=== PATIENT | female | born 1980 | race Two or more races ===

== ENCOUNTER 2021-10-15 10:57 | Outpatient (REF) | payer OTHER, SELFPAY ==
--- NOTE | ~2021-10-15 | XR_ITS ---
EXAMINATION: XR FOOT, RIGHT CLINICAL INFORMATION: Pain, lateral surface of the foot. COMPARISON: None TECHNIQUE: AP, lateral, and oblique views of the right foot. FINDINGS: No acute fracture or malalignment. Diffuse nonspecific soft tissue swelling. No radiopaque foreign bodies. No significant osteoarthritis. XR/XR foot RT min 3V IMPRESSION: Nonspecific soft tissue swelling. No acute osseous abnormality.
[2021-10-15 11:20] LABS: MANUAL DIFF FLAG NO
[2021-10-15 12:10] LABS: Basophils Percent Auto 0.2 % (0-2); Eosinophils Absolute Auto 0.1 X10*3/uL (0.0-0.4); Eosinophils Percent Auto 1.1 % (0-4); Hematocrit 38.4 % (37.0-47.0); Hemoglobin 12.5 g/dl (12.0-16.0); Imm Gran Abs Auto 0.02 X10*3/uL (0.00-0.03); Imm Gran Pct Auto 0.4 % (0.0-0.4); Lymphocytes Absolute Auto 1.5 X10*3/uL (1.2-4.9); Lymphocytes Percent Auto 27.8 % (20-40); Mean Corpuscular HGB Conc 32.6 g/dl (31.0-35.0); Mean Corpuscular Hemoglobin 30.7 pg (27.0-33.0); Mean Corpuscular Volume 94.3 fL (80.0-98.0); Mean Platelet Volume 10.4 fL (9.4-12.3); Monocytes Absolute Auto 0.4 X10*3/uL (0.1-1.2); Monocytes Percent Auto 6.7 % (2-11); Neutrophils Absolute Auto 3.3 x10*3/uL (2.0-8.3); Neutrophils Percent Auto 63.8 % (45-73); Platelet Count 262 X10*3/uL (160-400); Red Blood Count 4.07 X10*6/uL (4.20-5.50); Red Cell Distribution Width 12.7 % (11.0-16.0); White Blood Count 5.2 X10*3/uL (4.8-10.8)
[2021-10-15 12:16] LABS: C Reactive Protein 1.69 mg/dL (< or = 0.50)
[2021-10-15 13:00] LABS: Erythrocyte Sedimentation Rate 18 MM/HR (0-20)
== END 2021-10-15 10:58 | disposition home or self-care (01) ==
LOC: HO.XRAY 10:57
PROVIDERS: Visit Provider Internal Medicine Rheumatology
DX: M45.9 Ankylosing spondylitis of unspecified sites in spine (principal); K42.9 Umbilical hernia without obstruction or gangrene; L30.9 Dermatitis, unspecified; M79.671 Pain in right foot; G89.29 Other chronic pain; Z79.899 Other long term (current) drug therapy
CPT/HCPCS: 36415; 73630; 85025; 85652; 86140; 99212

== ENCOUNTER 2022-01-18 17:05 | Outpatient (REF) | payer OTHER, SELFPAY ==
[2022-01-18 18:17] LABS: C Reactive Protein 1.09 mg/dL (< or = 0.50)
[2022-01-18 18:40] LABS: Erythrocyte Sedimentation Rate 25 MM/HR (0-20)
[2022-01-18 18:41] LABS: TSH reflex Free T4 1.16 uIU/mL (0.32-4.0)
[2022-01-21 02:26] LABS: TS Negative Control Passed; TS Panel A 1; TS Panel B 1; TS Positive Control Passed; TSpotTB Negative (Negative)
== END 2022-01-18 17:06 | disposition home or self-care (01) ==
LOC: HO.LAB 17:05
PROVIDERS: Visit Provider Internal Medicine Rheumatology
DX: Z11.1 Encounter for screening for respiratory tuberculosis (principal); R53.83 Other fatigue; M54.9 Dorsalgia, unspecified; M79.671 Pain in right foot; G89.29 Other chronic pain; Z79.899 Other long term (current) drug therapy
CPT/HCPCS: 36415; 84443; 85652; 86140; 86481; 99212

== ENCOUNTER 2022-03-28 13:47 | Emergency (ER) | payer OTHER, SELFPAY ==
--- NOTE | ~2022-03-28 | XR_ITS ---
EXAMINATION: XR CHEST CLINICAL INFORMATION: Cough. COMPARISON: None TECHNIQUE: 2 views of the chest were obtained. FINDINGS: No significant abnormality is noted involving the heart, lungs, mediastinum, bony thorax or soft tissues. XR/XR chest 2V IMPRESSION: No acute cardiopulmonary process.
--- NOTE | 2022-03-28 14:01 | ED_ITS ---
HPI - URI/Sore Throat General Chief Complaint: Upper Respiratory Symptoms Stated Complaint: Cough Time Seen by Provider: 03/28/22 14:05 Source: patient Mode of arrival: ambulatory History of Present Illness HPI Narrative: 41-year-old female with a past medical history of depression, GERD, umbilical hernia, presenting to the ED complaining of persistent productive cough x3 weeks with nasal congestion, rhinorrhea, SOB, and wheezing at night. Patient states she thinks she has emphysema. Denies known fever, chills, recent travel, pedal edema, calf pain, chest pain MD elicited complaint: cough, rhinorrhea and nasal congestion Onset (ago): week(s) Related Data Home Medications Medication Instructions Recorded Confirmed albuterol sulfate 90 mcg/actuation 2 puff inhalation Q6H PRN 10/15/21 01/18/22 aerosol inhaler (ProAir HFA) cetirizine 10 mg tablet (All Day 10 mg PO DAILY 10/15/21 01/18/22 Allergy (cetirizine)) escitalopram oxalate 20 mg tablet 20 mg PO DAILY 10/15/21 01/18/22 famotidine 20 mg tablet 20 mg PO BEDTIME 10/15/21 01/18/22 flunisolide 25 mcg (0.025 %) nasal 2 spray intranasal BID 10/15/21 01/18/22 spray fluticasone propionate 44 2 puff inhalation BID 10/15/21 01/18/22 mcg/actuation HFA aerosol inhaler (Flovent HFA) ibuprofen 800 mg tablet 800 mg PO Q8H PRN 10/15/21 01/18/22 Previous Rx's Medication Instructions Recorded triamcinolone acetonide 0.1 % 1 appl topical BID #80 grams 10/15/21 topical ointment etanercept 50 mg/mL (1 mL) 50 mg subcut QWEEK #4 mL 01/24/22 subcutaneous pen injector (Enbrel [employer]) Allergies Allergy/AdvReac Type Severity Reaction Status Date / Time acetaminophen [Percocet] Allergy Intermediate shortness Verified 03/28/22 14:02 of breath lidocaine [LIDOCAINE] Allergy Intermediate UNKNOWN Verified 03/28/22 14:02 naproxen [NAPROXEN] Allergy Intermediate UNKNOWN, Verified 03/28/22 14:02 rash oxycodone [From PERCOCET] Allergy Intermediate UNKNOWN Verified 03/28/22 14:02 Sulfa (Sulfonamide Allergy Intermediate rash Verified 03/28/22 14:02 Antibiotics) sulfamethoxazole Allergy Intermediate Rash Verified 03/28/22 14:02 [From BACTRIM] trimethoprim [From BACTRIM] Allergy Intermediate Rash Verified 03/28/22 14:02 Novocain Allergy Intermediate rash Uncoded 03/28/22 14:02 Review of Systems Review of Systems: Constitutional: No Fever, No Chills ENT/Mouth: No Ear Pain, + Nasal Congestion, No Sinus Pain, No Hoarseness, No sore throat, + Rhinorrhea, No Swallowing Difficulty Cardiovascular: No Chest Pain, + SOB, No edema Respiratory: + Cough, + Sputum, + Wheezing Gastrointestinal: No Nausea, No Vomiting, No Diarrhea, No Constipation, No Abdominal pain Genitourinary: No Dysuria, No Urinary Frequency, No Hematuria, No Urgency, No Flank Pain Musculoskeletal: No joint pain, No Myalgias, No Joint Swelling Skin: No Skin Lesions, No rash Neuro: No Weakness Yes all other systems are reviewed and are negative Constitutional: Constitutional: Reports as per [facility] Past Medical History Attestation statement: The following information was validated with the patient. 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 Pain, foot, right, chronic Umbilical hernia Surgical History Hx of tubal ligation Hx of umbilical hernia repair Family History Family History Mother Diabetes Arthritis Father Diabetes Heart disease Social History Social History Household Members: Family Housing: Apartment Are you a primary resident care supervisor to a significant other at home: No Do you presently have visiting nurse or other home services: No Alcohol intake: current Alcohol intake frequency: a few times a month Alcohol type: beer and wine Patient Tobacco Use Status: Never used Tobacco e-Cigarette/Vaping Use: Never Used Advance Directives: No Advance Directives Information Provided: No service: No Current occupational status: disabled Physical Exam Vital Signs: Vital Signs: Last Vital Signs Temp 97.4 F 03/28/22 14:02 Pulse 84 03/28/22 14:32 Resp 18 03/28/22 14:32 BP 113/72 03/28/22 14:02 Pulse Ox 100 03/28/22 14:02 O2 Del Method 03/28/22 14:02 BMI result Body Mass Index 43.7 Const: General: cooperative, healthy appearing and no acute distress Orientation/consciousness: patient oriented x3 Limitations: no limitations HEENT: Head: Yes normal to inspection and Yes atraumatic Ears: hearing grossly normal bilaterally General nose exam: Normal external nose present Face and sinus: Yes normal facial exam Mouth: Normal oral and palatal mucosa present Throat: Yes posterior oropharynx normal, Yes tonsils normal, Yes uvula midline and No peritonsillar mass Eyes: General: appearance normal, both eyes and all related structures EOM: EOMs intact bilaterally Neck: Neck: Yes normal visual inspection and Yes no meningeal signs Resp: Effort & Inspection: normal respiratory effort, no respiratory distress, no stridor and not tachypneic Auscultation: clear to auscultation bilaterally, no crackles, no rales, no rhonchi and no wheezes Cardio: Rate: regular rate Heart sounds: S1 normal heart sound present and S2 normal heart sound present GI: Inspection: Yes normal to inspection : General: Yes no CVA tenderness Back/Spine/Pelvis: Back: no CVA tenderness Skin: Rashes: no rashes Wounds: no wounds Neuro: General: patient oriented x3, tone normal and no meningeal signs Gait exam (Neuro): Normal gait present Extrem: General: Yes normal to inspection, Yes no pedal edema and Yes no calf tenderness Course Course Course Narrative: - COVID-19/influenza/ RSV negative XR chest 2V IMPRESSION: No acute cardiopulmonary process. Results discussed with patient including worrisome signs and symptoms and strict return precautions, and when to return to the emergency department. They verbalized understanding and feel safe for discharge at this time. Medications Administered Discontinued Medications Generic Name Dose Route Start Last Admin Trade Name Freq PRN Reason Stop Dose Admin Albuterol/Ipratropium 3 ml 03/28/22 14:11 03/28/22 14:31 Albuterol/Iprat 2.5/0.5mg 3 Ml Ampul.Neb INHALE 03/28/22 14:12 3 ml ONCE ONE Administration MDM - URI/Sore Throat MDM Narrative Medical decision making narrative: 41-year-old female with a past medical history of depression, GERD, umbilical hernia, presenting to the ED complaining of persistent productive cough x3 weeks with nasal congestion, rhinorrhea, SOB, and wheezing at night. On exam vital signs stable, NAD, nontoxic appearing, lungs CTA, no appreciable wheeze, no pedal edema or calf tenderness. Concern for viral illness vs bronchitis vs pneumonia. Low suspicion for ACS/PE Plan: COVID-19/influenza/RSV testing, CXR Differential Diagnosis Differential diagnosis: Likely upper respiratory infection, viral infection, bronchitis, influenza and pharyngitis Medical Records Attestation: I reviewed the patient's medical records. Lab Data Attestation: I reviewed the patient's lab results. Labs: Lab Results 03/28/22 Range/Units 14:06 Influenza Type A (PCR) NEGATIVE (Negative) Influenza Type B (PCR) NEGATIVE (Negative) RSV RNA Qual (PCR) NEGATIVE (Negative) SARS-CoV-2 RNA (RT-PCR) NEGATIVE (Negative) Discharge Plan Discharge Clinical Impression: Bronchitis Patient Disposition: Home, Self-Care Instructions: Acute Bronchitis (ED) Prescriptions: No Action Enbrel SureClick 50 mg/mL (1 mL) pen injector 50 mg subcut QWEEK Qty: 4 4RF ibuprofen 800 mg tablet 800 mg PO Q8H PRN escitalopram oxalate 20 mg tablet 20 mg PO DAILY famotidine 20 mg tablet 20 mg PO BEDTIME albuterol sulfate [ProAir HFA] 90 mcg/actuation HFA aerosol inhaler 2 puff inhalation Q6H PRN flunisolide 25 mcg (0.025 %) spray,non-aerosol 2 spray intranasal BID fluticasone propionate [Flovent HFA] 44 mcg/actuation HFA aerosol inhaler 2 puff inhalation BID Rx Instructions: administer with spacer cetirizine [All Day Allergy (cetirizine)] 10 mg tablet 10 mg PO DAILY triamcinolone acetonide 0.1 % ointment 1 appl topical BID Qty: 80 1RF Referrals: [facility] [Provider Group]
[2022-03-28 14:02] VITALS: BP 113/72; PULSE 77; RESP 18; TEMP 36.3; O2SAT 100; BMI 43.7
[2022-03-28] MEDS: Albuterol/Iprat 2.5/0.5MG 3 ML AMPUL.NEB INHALE (14:31)
[2022-03-28 14:32] VITALS: PULSE 84; RESP 18; O2SAT 97
[2022-03-28 14:52] LABS: Influenza A PCR NEGATIVE (Negative); Influenza B PCR NEGATIVE (Negative); Resp Syncy Virus RNA Qual PCR NEGATIVE (Negative); SARS COV2 PCR INHOUSE NEGATIVE (Negative)
== END 2022-03-28 15:58 | disposition home or self-care (01) ==
PROVIDERS: Physician Assistant; Emergency Provider Emergency Medicine Emergency Medical Services; PCP Family Medicine
DX: J40 Bronchitis, not specified as acute or chronic (principal); R05.9 Cough, unspecified; Z20.822 Contact with and (suspected) exposure to COVID-19; Z79.899 Other long term (current) drug therapy
CPT/HCPCS: 0241U; 71046; 94640; 99284

== ENCOUNTER 2022-06-03 14:34 | Emergency (ER) | payer OTHER, SELFPAY ==
--- NOTE | 2022-06-03 15:12 | ED.URI ---
HPI - URI/Sore Throat General Chief Complaint: General Medical <Savanah Middleton NP - Last Filed: 06/05/22 08:08> Stated Complaint: sore throat fever <Savanah Middleton NP - Last Filed: 06/05/22 08:08> Time Seen by Provider: 06/03/22 16:51 <Savanah Middleton NP - Last Filed: 06/05/22 08:08> History of Present Illness HPI Narrative: Patient complains of runny nose mild sore throat, she is COVID positive byher home test she does use the medication Humira She denies chest pain no shortness of breath, she does have a mild cough no sputum, she does have a mild sore throat but has no trouble breathing or swallowing no drooling No ear pain no abdominal pain no nausea vomiting or diarrhea no dysuria no rash <RUTH Castillo - Last Filed: 06/11/22 18:28> Related Data Home Medications: Home Medications Medication Instructions Recorded Confirmed albuterol sulfate 90 mcg/actuation 2 puff inhalation Q6H PRN 10/15/21 01/18/22 aerosol inhaler (ProAir HFA) cetirizine 10 mg tablet (All Day 10 mg PO DAILY 10/15/21 01/18/22 Allergy (cetirizine)) escitalopram oxalate 20 mg tablet 20 mg PO DAILY 10/15/21 01/18/22 famotidine 20 mg tablet 20 mg PO BEDTIME 10/15/21 01/18/22 flunisolide 25 mcg (0.025 %) nasal 2 spray intranasal BID 10/15/21 01/18/22 spray fluticasone propionate 44 2 puff inhalation BID 10/15/21 01/18/22 mcg/actuation HFA aerosol inhaler (Flovent HFA) ibuprofen 800 mg tablet 800 mg PO Q8H PRN 10/15/21 01/18/22 diclofenac sodium 1 % topical gel 2 g topical TID 04/19/22 Previous Rx's Medication Instructions Recorded triamcinolone acetonide 0.1 % 1 appl topical BID #80 grams 10/15/21 topical ointment albuterol sulfate 2.5 mg/0.5 mL 5 mg inhalation Q4H PRN shortness 03/28/22 solution for nebulization of breath or wheezing #30 ea albuterol sulfate 90 mcg/actuation 2 puff inhalation Q4-6H PRN 03/28/22 aerosol inhaler shortness of breath or wheezing #6.7 grams benzonatate 100 mg capsule 100 mg PO TID PRN cough #14 caps 03/28/22 adalimumab 40 mg/0.4 mL 40 mg (0.4 mL) subcut Q2W 56 days 04/27/22 subcutaneous pen kit (Humira(CF) #1.6 ea Pen) albuterol sulfate 90 mcg/actuation 2 puff inhalation Q4-6H PRN 06/03/22 aerosol inhaler shortness of breath or wheezing #8.5 grams nirmatrelvir 300 mg (150 mg See Rx Instructions PO .COMPLEX 06/03/22 x2)-ritonavir 100 mg tablet,dose #30 ea pack(EUA) (Paxlovid) <Savanah Middleton NP - Last Filed: 06/05/22 08:08> Allergies/Adverse Reactions: Allergies Allergy/AdvReac Type Severity Reaction Status Date / Time acetaminophen [Percocet] Allergy Intermediate shortness Verified 04/19/22 15:23 of breath lidocaine [LIDOCAINE] Allergy Intermediate UNKNOWN Verified 04/19/22 15:23 naproxen [NAPROXEN] Allergy Intermediate UNKNOWN, Verified 04/19/22 15:23 rash oxycodone [From PERCOCET] Allergy Intermediate UNKNOWN Verified 04/19/22 15:23 Sulfa (Sulfonamide Allergy Intermediate rash Verified 04/19/22 15:23 Antibiotics) sulfamethoxazole Allergy Intermediate Rash Verified 04/19/22 15:23 [From BACTRIM] trimethoprim [From BACTRIM] Allergy Intermediate Rash Verified 04/19/22 15:23 Novocain Allergy Intermediate rash Uncoded 04/19/22 15:23 <Savanah Middleton NP - Last Filed: 06/05/22 08:08> [facility] Past Medical History Source: nursing notes reviewed <RUTH Castillo - Last Filed: 06/11/22 18:28> Medical History: Medical History (Updated 06/03/22 @ 18:12 by RUTH Castillo) Ankylosing spondylitis Carpal tunnel syndrome Chronic eczema of foot Depression GERD (gastroesophageal reflux disease) 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 Pain, foot, right, chronic Umbilical hernia <Savanah Middleton NP - Last Filed: 06/05/22 08:08> Surgical History: Surgical History Hx of tubal ligation Hx of umbilical hernia repair <Savanah Middleton NP - Last Filed: 06/05/22 08:08> Family History Family History: Family History Mother Diabetes Arthritis Father Diabetes Heart disease <Savanah Middleton NP - Last Filed: 06/05/22 08:08> Social History Social History: Social History Household Members: Family Housing: Apartment Are you a primary career and guidance counselor to a significant other at home: No Do you presently have visiting nurse or other home services: No Alcohol intake: current Alcohol intake frequency: a few times a month Alcohol type: beer and wine Patient Tobacco Use Status: Never used Tobacco e-Cigarette/Vaping Use: Never Used Advance Directives: No Advance Directives Information Provided: Yes service: No Current occupational status: disabled <Savanah Middleton NP - Last Filed: 06/05/22 08:08> Physical Exam Vital Signs: Vital Signs: Last Vital Signs Temp 97.5 F 06/03/22 15:18 Pulse 82 06/03/22 15:18 Resp 16 06/03/22 15:18 BP 109/68 06/03/22 15:18 Pulse Ox 98 06/03/22 15:18 O2 Del Method 06/03/22 15:18 BMI result Body Mass Index 42.9 <Savanah Middleton NP - Last Filed: 06/05/22 08:08> Vital Signs: Last Vital Signs Temp 97.5 F 06/03/22 15:18 Pulse 82 06/03/22 15:18 Resp 16 06/03/22 15:18 BP 109/68 06/03/22 15:18 Pulse Ox 98 06/03/22 15:18 O2 Del Method 06/03/22 15:18 BMI result Body Mass Index 42.9 <RUTH Castillo - Last Filed: 06/11/22 18:28> general appearance is no distress Eyes anicteric no pallor no redness no discharge The nose no sinus tenderness, mildly congested The pharynx is clear without redness swelling or exudate membranes moist Neck is supple Chest clear to auscultation bilateral Heart no murmur Abdomen soft nontender Extremities range of motion x4 Skin no rashes <RUTH Castillo - Last Filed: 06/11/22 18:28> Course Course Course Narrative: This is a rapid medical exam. Deferred additional HPI, ROS, PE to primary provider. 41yo female here with cough, chest congestion since Tuesday. Took COVID test and it was positive. Here because she is concerned she may have bronchitis. VSS. Will send testing for covid. <Savanah Middleton NP - Last Filed: 06/05/22 08:08> This is a rapid medical exam. Deferred additional HPI, ROS, PE to primary provider. 41yo female here with cough, chest congestion since Tuesday. Took COVID test and it was positive. Here because she is concerned she may have bronchitis. VSS. Will send testing for covid. Patient positive for COVID with mild symptoms but does take Hum meghna and is pprescribed paxlovid <RUTH Castillo - Last Filed: 06/11/22 18:28> Medical Decision Making Lab Data Labs: Lab Results 06/03/22 Range/Units 15:28 COVID-19 ([facility]) Positive A (Negative) COVID-19 Clin Com See Note <Savanah Middleton NP - Last Filed: 06/05/22 08:08> Lab Results 06/03/22 Range/Units 15:28 COVID-19 ([facility]) Positive A (Negative) COVID-19 Clin Com See Note <RUTH Castillo - Last Filed: 06/11/22 18:28> Discharge Plan Discharge Clinical Impression: COVID-19 <Savanah Middleton NP - Last Filed: 06/05/22 08:08> Patient Disposition: Home, Self-Care <Savanah Middleton NP - Last Filed: 06/05/22 08:08> Additional Instructions: Because you have COVID and are using an immune suppressant medication it may be a good idea to take the COVID antiviral paxlovid I checked for drug interactions and it seems like you can continue all present medications Return any time for difficulty breathing any worse condition any concerns The antiviral medication seems to prevent hospitalization and dangerous escalations of COVID illness In addition I wrote for an albuterol inhaler to use only if needed, right now your lung sounds were crystal clear and full with no wheezing and your exam and vital signs were normal <Savanah Middleton NP - Last Filed: 06/05/22 08:08> Prescriptions: New Paxlovid (EUA) 300 mg (150 mg x 2)-100 mg tablets,dose pack See Rx Instructions .ROUTE .COMPLEX Qty: 30 0RF Rx Instructions: take TWO 150 mg tablets of nirmatrelvir with ONE 100 mg tablet of ritonavir twice daily for 5 days albuterol sulfate 90 mcg/actuation HFA aerosol inhaler 2 puff inhalation Q4-6H PRN (Reason: shortness of breath or wheezing) Qty: 8.5 0RF No Action Humira(CF) Pen 40 mg/0.4 mL pen injector kit 40 mg subcut Q2W 56 Days Qty: 1.6 5RF benzonatate 100 mg capsule 100 mg PO TID PRN (Reason: cough) Qty: 14 0RF albuterol sulfate 90 mcg/actuation HFA aerosol inhaler 2 puff inhalation Q4-6H PRN (Reason: shortness of breath or wheezing) Qty: 6.7 0RF albuterol sulfate 2.5 mg/0.5 mL solution for nebulization 5 mg inhalation Q4H PRN (Reason: shortness of breath or wheezing) Qty: 30 0RF ibuprofen 800 mg tablet 800 mg PO Q8H PRN escitalopram oxalate 20 mg tablet 20 mg PO DAILY famotidine 20 mg tablet 20 mg PO BEDTIME albuterol sulfate [ProAir HFA] 90 mcg/actuation HFA aerosol inhaler 2 puff inhalation Q6H PRN flunisolide 25 mcg (0.025 %) spray,non-aerosol 2 spray intranasal BID fluticasone propionate [Flovent HFA] 44 mcg/actuation HFA aerosol inhaler 2 puff inhalation BID Rx Instructions: administer with spacer cetirizine [All Day Allergy (cetirizine)] 10 mg tablet 10 mg PO DAILY triamcinolone acetonide 0.1 % ointment 1 appl topical BID Qty: 80 1RF diclofenac sodium 1 % gel 2 g topical TID <Savanah Middleton NP - Last Filed: 06/05/22 08:08> Stand Alone Forms: Work/School Release <Savanah Middleton NP - Last Filed: 06/05/22 08:08> Interventions: ED Discharge Assessment Last Done: 06/03/22 18:29 <Savanah Middleton NP - Last Filed: 06/05/22 08:08> Discharge Date/Time: 06/03/22 18:29 <Savanah Middleton NP - Last Filed: 06/05/22 08:08>
[2022-06-03 15:18] VITALS: BP 109/68; PULSE 82; RESP 16; TEMP 36.4; O2SAT 98; BMI 42.9
[2022-06-03 15:48] LABS: COVID-19 Test Positive (Negative); IDNOW Serial# 6674DD1D
== END 2022-06-03 18:29 | disposition home or self-care (01) ==
PROVIDERS: Nurse Practitioner Family; Emergency Provider Emergency Medicine; PCP Internal Medicine Nephrology
DX: U07.1 COVID-19 (principal); R50.9 Fever, unspecified; J02.8 Acute pharyngitis due to other specified organisms; Z79.899 Other long term (current) drug therapy
CPT/HCPCS: 87635; 99282; 99283

== ENCOUNTER 2022-06-21 15:37 | Emergency (ER) | payer OTHER, SELFPAY ==
[2022-06-21 16:57] VITALS: BP 114/72; PULSE 74; RESP 18; TEMP 36.8; O2SAT 98; BMI 42.9
--- NOTE | 2022-06-21 17:02 | ED.NEUROSD ---
HPI - Neuro Symptoms/Deficit General Chief Complaint: Back Pain/Injury Stated Complaint: numbness from the waist down, multiple symptoms Time Seen by Provider: 06/21/22 17:01 Source: patient Mode of arrival: ambulatory Limitations: no limitations History of Present Illness HPI Narrative: patient with multiple complaints with history of ankylosing spondylosis complaining of lower back pain urinary incontinence questionable bladder prolapse. Also complaining of pain and numbness in both lower extremities sometimes off and on when she sits for long time no muscle weakness although patient has out of gas and multiple times bowel movements a day increased stress and depression Related Data Home Medications Medication Instructions Recorded Confirmed albuterol sulfate 90 mcg/actuation 2 puff inhalation Q6H PRN 10/15/21 01/18/22 aerosol inhaler (ProAir HFA) cetirizine 10 mg tablet (All Day 10 mg PO DAILY 10/15/21 01/18/22 Allergy (cetirizine)) escitalopram oxalate 20 mg tablet 20 mg PO DAILY 10/15/21 01/18/22 famotidine 20 mg tablet 20 mg PO BEDTIME 10/15/21 01/18/22 flunisolide 25 mcg (0.025 %) nasal 2 spray intranasal BID 10/15/21 01/18/22 spray fluticasone propionate 44 2 puff inhalation BID 10/15/21 01/18/22 mcg/actuation HFA aerosol inhaler (Flovent HFA) ibuprofen 800 mg tablet 800 mg PO Q8H PRN 10/15/21 01/18/22 diclofenac sodium 1 % topical gel 2 g topical TID 04/19/22 Previous Rx's Medication Instructions Recorded triamcinolone acetonide 0.1 % 1 appl topical BID #80 grams 10/15/21 topical ointment albuterol sulfate 2.5 mg/0.5 mL 5 mg inhalation Q4H PRN shortness 03/28/22 solution for nebulization of breath or wheezing #30 ea albuterol sulfate 90 mcg/actuation 2 puff inhalation Q4-6H PRN 03/28/22 aerosol inhaler shortness of breath or wheezing #6.7 grams benzonatate 100 mg capsule 100 mg PO TID PRN cough #14 caps 03/28/22 adalimumab 40 mg/0.4 mL 40 mg (0.4 mL) subcut Q2W 56 days 04/27/22 subcutaneous pen kit (Humira(CF) #1.6 ea Pen) albuterol sulfate 90 mcg/actuation 2 puff inhalation Q4-6H PRN 06/03/22 aerosol inhaler shortness of breath or wheezing #8.5 grams nirmatrelvir 300 mg (150 mg See Rx Instructions PO .COMPLEX 06/03/22 x2)-ritonavir 100 mg tablet,dose #30 ea pack(EUA) (Paxlovid) dicyclomine 20 mg tablet 20 mg PO QID PRN abdominal pain 06/21/22 #20 tabs Allergies Allergy/AdvReac Type Severity Reaction Status Date / Time acetaminophen [Percocet] Allergy Intermediate shortness Verified 04/19/22 15:23 of breath lidocaine [LIDOCAINE] Allergy Intermediate UNKNOWN Verified 04/19/22 15:23 naproxen [NAPROXEN] Allergy Intermediate UNKNOWN, Verified 04/19/22 15:23 rash oxycodone [From PERCOCET] Allergy Intermediate UNKNOWN Verified 04/19/22 15:23 Sulfa (Sulfonamide Allergy Intermediate rash Verified 04/19/22 15:23 Antibiotics) sulfamethoxazole Allergy Intermediate Rash Verified 04/19/22 15:23 [From BACTRIM] trimethoprim [From BACTRIM] Allergy Intermediate Rash Verified 04/19/22 15:23 Novocain Allergy Intermediate rash Uncoded 04/19/22 15:23 Review of Systems Review of Systems: Yes all other systems are reviewed and are negative [facility] Past Medical History Medical History Ankylosing spondylitis Carpal tunnel syndrome Chronic eczema of foot Depression GERD (gastroesophageal reflux disease) jail use of drug Pain, foot, right, chronic Umbilical hernia Surgical History Hx of tubal ligation Hx of umbilical hernia repair Family History Family History Mother Diabetes Arthritis Father Diabetes Heart disease Social History Social History Household Members: Family Housing: Apartment Are you a primary school child care attendant to a significant other at home: No Do you presently have visiting nurse or other home services: No Alcohol intake: current Alcohol intake frequency: a few times a month Alcohol type: beer and wine Patient Tobacco Use Status: Never used Tobacco e-Cigarette/Vaping Use: Never Used Advance Directives: No Advance Directives Information Provided: No service: No Current occupational status: disabled Physical Exam Vital Signs: Vital Signs: Last Vital Signs Temp 98.3 F 06/21/22 16:57 Pulse 74 06/21/22 16:57 Resp 18 06/21/22 16:57 BP 114/72 06/21/22 16:57 Pulse Ox 98 06/21/22 16:57 O2 Del Method 06/21/22 16:57 BMI result Body Mass Index 42.9 Appearance: Alert. Oriented X3. No acute distress. Eyes: PERRLA, No Nystagmus ENT: Pharynx normal. Oral Mucosa moist Neck: Normal inspection. Neck supple. CVS: Normal heart rate and rhythm. Pulses normal. Respiratory: No respiratory distress. Abdomen: Soft and nontender. Bowel sounds are present, no mass palpable, no CVA tenderness Skin: Skin warm and dry. Normal skin color. Normal skin turgor. Extremities: No lower extremity edema. No calf tenderness back: diffuse tenderness in lower lumbar area SLR negative bilaterally reflexes are normal normal sacral sensation normal gait Neuro: Oriented X 3. No motor deficit. No sensory deficit.No cerebellar signs , cranial nerves II-XII intact Medical Decision Making Medical Decision Making MDM Narrative: patient with multiple complaints clinically IBS with depression with chronic back pain no signs of cord compression patient may have cystocele advised to follow-up with wrapper layer and examiner soft work will start patient on Bentyl Discharge Plan Discharge Clinical Impression: Chronic back pain, Irritable bowel syndrome Patient Disposition: Home, Self-Care Instructions: Irritable Bowel Syndrome (ED), Chronic Back Pain (DC) Additional Instructions: follow-up with your PCP and wrapper layer and examiner soft work medication for bowel symptoms as prescribed Prescriptions: New dicyclomine 20 mg tablet 20 mg PO QID PRN (Reason: abdominal pain) Qty: 20 0RF No Action Humira(CF) Pen 40 mg/0.4 mL pen injector kit 40 mg subcut Q2W 56 Days Qty: 1.6 5RF Paxlovid (EUA) 300 mg (150 mg x 2)-100 mg tablets,dose pack See Rx Instructions .ROUTE .COMPLEX Qty: 30 0RF Rx Instructions: take TWO 150 mg tablets of nirmatrelvir with ONE 100 mg tablet of ritonavir twice daily for 5 days albuterol sulfate 90 mcg/actuation HFA aerosol inhaler 2 puff inhalation Q4-6H PRN (Reason: shortness of breath or wheezing) Qty: 8.5 0RF benzonatate 100 mg capsule 100 mg PO TID PRN (Reason: cough) Qty: 14 0RF albuterol sulfate 90 mcg/actuation HFA aerosol inhaler 2 puff inhalation Q4-6H PRN (Reason: shortness of breath or wheezing) Qty: 6.7 0RF albuterol sulfate 2.5 mg/0.5 mL solution for nebulization 5 mg inhalation Q4H PRN (Reason: shortness of breath or wheezing) Qty: 30 0RF ibuprofen 800 mg tablet 800 mg PO Q8H PRN escitalopram oxalate 20 mg tablet 20 mg PO DAILY famotidine 20 mg tablet 20 mg PO BEDTIME albuterol sulfate [ProAir HFA] 90 mcg/actuation HFA aerosol inhaler 2 puff inhalation Q6H PRN flunisolide 25 mcg (0.025 %) spray,non-aerosol 2 spray intranasal BID fluticasone propionate [Flovent HFA] 44 mcg/actuation HFA aerosol inhaler 2 puff inhalation BID Rx Instructions: administer with spacer cetirizine [All Day Allergy (cetirizine)] 10 mg tablet 10 mg PO DAILY triamcinolone acetonide 0.1 % ointment 1 appl topical BID Qty: 80 1RF diclofenac sodium 1 % gel 2 g topical TID Interventions: ED Discharge Assessment Last Done: 06/21/22 18:41 Discharge Date/Time: 06/21/22 18:41
== END 2022-06-21 18:41 | disposition home or self-care (01) ==
PROVIDERS: Emergency Provider Internal Medicine; PCP Family Medicine
DX: G89.29 Other chronic pain (principal); M54.50 Low back pain, unspecified; K58.9 Irritable bowel syndrome, unspecified
CPT/HCPCS: 99282; 99283

== ENCOUNTER → 2022-07-28 10:53 | Outpatient (BNVA) | payer OTHER, SELFPAY | PROVIDERS: PCP Family Medicine; Visit Provider Internal Medicine Rheumatology ==

== ENCOUNTER 2022-10-02 13:38 | Emergency (ER) | payer OTHER, SELFPAY ==
--- NOTE | ~2022-10-02 | XR_ITS ---
EXAMINATION: XR CHEST CLINICAL INFORMATION: Chest pain COMPARISON: None available. TECHNIQUE: 2 views of the chest were obtained. FINDINGS: No significant abnormality is noted involving the heart, lungs, mediastinum, bony thorax or soft tissues. XR/XR chest 2V IMPRESSION: Unremarkable chest examination.
--- NOTE | ~2022-10-02 | US_ITS ---
EXAMINATION: US PELVIS CLINICAL INFORMATION: Pelvic pain COMPARISON: OB ultrasound 01/19/2019 TECHNIQUE: Ultrasound of the pelvis is performed using both transabdominal and transvaginal transducers along with Doppler. Transvaginal imaging is performed due to inadequate visualization transabdominally. FINDINGS: Uterus: The uterus is retroverted and measures 11.1 x 5.0 x 6.2 cm. The double wall endometrial thickness is 0.4 mm. The uterus is smooth in contour and has normal myometrial echogenicity. No visible fibroid. Adnexa: Both ovaries are visualized. There is normal color flow to the adnexa. There is no ovarian torsion. There is no pelvic ascites or fluid collection. Right ovary measures 2.8 x 2.3 x 1.5 cm. Left ovary measures 3.0 x 2.1 x 1.7 cm. US/US pelvic and transvaginal IMPRESSION: Normal pelvic ultrasound.
--- NOTE | 2022-10-02 14:02 | ED_ITS ---
HPI - General Adult General Chief complaint: Urogenital-Female Stated complaint: uti multi issues Time Seen by Provider: 10/02/22 16:01 Source: patient, RN notes reviewed and old records reviewed Mode of arrival: ambulatory Limitations: no limitations History of Present Illness HPI narrative: 42-year-old female presents for evaluation of multiple complaints. She reports a dry cough with wheezing for the last 3 weeks. She reports positive sick contacts or similar symptoms. She also complains of burning with urination and dark urine she is concerned about a UTI per Shows complains of lower abdominal/pelvic pain and bilateral flank pain. The flank pain and lower abdominal pain and present for last several months. Patient reports that she has been trying to get into a new PCP Denies any vaginal bleeding or discharge Patient presents from [facility] where she is for depression She reports ?I can not manage my daily living because I am so uncomfortable all the time. ? She is not currently suicidal Related Data Home Medications Medication Instructions Recorded Confirmed albuterol sulfate 90 mcg/actuation 2 puff inhalation Q6H PRN 10/15/21 01/18/22 aerosol inhaler (ProAir HFA) cetirizine 10 mg tablet (All Day 10 mg PO DAILY 10/15/21 01/18/22 Allergy (cetirizine)) escitalopram oxalate 20 mg tablet 20 mg PO DAILY 10/15/21 01/18/22 famotidine 20 mg tablet 20 mg PO BEDTIME 10/15/21 01/18/22 flunisolide 25 mcg (0.025 %) nasal 2 spray intranasal BID 10/15/21 01/18/22 spray fluticasone propionate 44 2 puff inhalation BID 10/15/21 01/18/22 mcg/actuation HFA aerosol inhaler (Flovent HFA) ibuprofen 800 mg tablet 800 mg PO Q8H PRN 10/15/21 01/18/22 diclofenac sodium 1 % topical gel 2 g topical TID 04/19/22 Previous Rx's Medication Instructions Recorded albuterol sulfate 2.5 mg/0.5 mL 5 mg inhalation Q4H PRN shortness 03/28/22 solution for nebulization of breath or wheezing #30 ea albuterol sulfate 90 mcg/actuation 2 puff inhalation Q4-6H PRN 03/28/22 aerosol inhaler shortness of breath or wheezing #6.7 grams benzonatate 100 mg capsule 100 mg PO TID PRN cough #14 caps 03/28/22 adalimumab 40 mg/0.4 mL 40 mg (0.4 mL) subcut Q2W 56 days 04/27/22 subcutaneous pen kit (Humira(CF) #1.6 ea Pen) albuterol sulfate 90 mcg/actuation 2 puff inhalation Q4-6H PRN 06/03/22 aerosol inhaler shortness of breath or wheezing #8.5 grams nirmatrelvir 300 mg (150 mg See Rx Instructions PO .COMPLEX 06/03/22 x2)-ritonavir 100 mg tablet,dose #30 ea pack(EUA) (Paxlovid) triamcinolone acetonide 0.1 % 1 appl topical BID #80 grams 07/28/22 topical cream cefpodoxime 200 mg tablet 200 mg PO BID #10 tabs 10/02/22 prednisone 20 mg tablet 40 mg PO DAILY #10 tabs 10/02/22 Allergies Allergy/AdvReac Type Severity Reaction Status Date / Time lidocaine [LIDOCAINE] Allergy Intermediate UNKNOWN Verified 07/28/22 10:55 naproxen [NAPROXEN] Allergy Intermediate UNKNOWN, Verified 07/28/22 10:55 rash oxycodone [From PERCOCET] Allergy Intermediate UNKNOWN Verified 07/28/22 10:55 Sulfa (Sulfonamide Allergy Intermediate rash Verified 07/28/22 10:55 Antibiotics) sulfamethoxazole Allergy Intermediate Rash Verified 07/28/22 10:55 [From BACTRIM] trimethoprim [From BACTRIM] Allergy Intermediate Rash Verified 07/28/22 10:55 Novocain Allergy Intermediate rash Uncoded 07/28/22 10:55 Review of Systems Constitutional: Constitutional: Reports as per HPI, Denies fatigue, Denies fever(s) and Denies headache(s) ENT: Denies headache(s) Cardiovascular: Cardiovascular: Denies chest pain and Reports dyspnea Respiratory: Respiratory: Reports cough, Reports dyspnea and Reports wheezing Gastrointestinal: Gastrointestinal: Reports abdominal pain, Denies constipation and Denies vomiting Genitourinary: Genitourinary: Reports dysuria and Denies vaginal discharge Musculoskeletal: Musculoskeletal: Reports back pain Neurologic: Denies headache(s) and Denies focal weakness Endocrine: Endocrine: Denies fatigue Allergic/Immunologic: Allergic/Immunologic: Reports wheezing PMFSH Past Medical History Medical History Ankylosing spondylitis Carpal tunnel syndrome Chronic eczema of foot Depression GERD (gastroesophageal reflux disease) prison use of drug Pain, foot, right, chronic Umbilical hernia Surgical History Hx of tubal ligation Hx of umbilical hernia repair Family History Family History Mother Diabetes Arthritis Father Diabetes Heart disease Social History Social History Household Members: Family Housing: Apartment Are you a primary career and transition teacher to a significant other at home: No Do you presently have visiting nurse or other home services: No Alcohol intake: current Alcohol intake frequency: a few times a month Alcohol type: beer and wine Patient Tobacco Use Status: Never used Tobacco Smoked in Last 30 Days: No e-Cigarette/Vaping Use: Never Used Substance Use Type: Marijuana Substance Use Frequency: Occasionally Last Used Substance: Weeks (ago) Advance Directives: No Advance Directives Information Provided: Yes Patient : No service: No Current occupational status: disabled Physical Exam ED Vital Signs: Vital Signs - 24 hr 10/02/22 14:03 10/02/22 15:50 10/02/22 18:41 Temperature 98.2 F 98.2 F 98.1 F Pulse Rate 78 68 72 Respiratory Rate 18 16 17 Blood Pressure 137/78 117/66 122/69 Pulse Oximetry 98 98 98 Oxygen Delivery Method Room Air Room Air Room Air 10/02/22 19:32 Temperature Pulse Rate 69 Respiratory Rate 18 Blood Pressure 122/69 Pulse Oximetry 99 Oxygen Delivery Method BMI result Body Mass Index 43.5 Const General: healthy appearing, comfortable, no acute distress, alert and awake Nutritional Appearance: well nourished Orientation/consciousness: patient oriented x3 HENMT Head: Yes normocephalic and Yes atraumatic Throat: Yes posterior oropharynx normal Eyes Eyelids: Yes eyelids normal Conjunctivae: conjunctivae normal Sclerae: sclerae normal Corneas: corneas normal Pupils: Equal, round and reactive pupils present EOM: EOMs intact bilaterally Neck Neck: Yes full ROM Resp Effort & Inspection: normal respiratory effort, able to speak in complete sentences, no audible wheezes and not labored Auscultation: clear to auscultation bilaterally Cardio Rate: regular rate Rhythm: regular rhythm GI Inspection: No distended Palpation (GI): Soft to palpation, not firm, nontender, no guarding and not rigid Auscultation: normoactive bowel sounds General: Yes no CVA tenderness Back/Spine/Pelvis Other: No tenderness to the cervical, thoracic, lumbar spine no paraspinous muscle tenderness. Moving all extremities well. Back: no CVA tenderness Skin General skin exam: no rashes or lesions noted and elasticity normal Neuro General: patient oriented x3 Cranial nerves: Yes CN's II-XII intact bilaterally, Yes Equal, round and reactive pupils present and Yes Bilaterally intact EOM present Cognition (Neuro): normal cognition Extrem Other: Moving all extremities well without any obvious deformities Course Course Course Narrative: RME performed by Raven Michael PA-C. Patient is a 42 year old assigned female at presenting to the emergency department with a cough for greater than 2 weeks. Labs, imaging, swabs ordered. Patient placed back in the waiting room pending room availability and results. Reevaluation(s) Reevaluation #1: Remainder of patient's workup large are unremarkable. Labs without significant abnormalities, chest x-ray clear, pelvic ultrasound without significant acute ab normality. UA shows may be a mild UTI, will treat with cefpodoxime as she is symptomatic. This should also cover any respiratory april. We will discharge the patient with prednisone as well which can help her cough, shortness of breath as well as her back pain. The patient now states that she does have a history of ankylosing spondylosis which is likely the cause of her back pain Time: 20:18 Medications Administered Discontinued Medications Generic Name Dose Route Start Last Admin Trade Name Freq PRN Reason Stop Dose Admin Acetaminophen 975 mg 10/02/22 19:36 10/02/22 19:41 Acetaminophen 325 Mg Tablet PO 10/02/22 19:37 975 mg ONCE ONE Administration Medical Decision Making Medical Decision Making [facility] Narrative: 42-year-old female presents for evaluation of multiple complaints. This includes cough, shortness of breath and wheezing. Patient is a former smoker. Will get a chest x-ray to evaluate the her lungs are clear to auscultation and she is not in any respiratory distress. She also complains of lower abdominal pain, burning with urination will be a UA and a pelvic ultrasound. Her abdominal exam is reassuring. Labs are without any significant abnormalities. Differential Diagnosis Viral syndrome Postnasal drip Allergies Chronic cough UTI Pyelonephritis Ovarian cyst Endometriosis Lab Data [facility] Lab Attestation statement: I reviewed the patient's lab results. 10/02/22 14:14 10/02/22 14:14 Labs: Lab Results 10/02/22 10/02/22 10/02/22 Range/Units 14:14 14:14 16:01 WBC 5.1 (4.8-10.8) X10*3/uL RBC 4.25 (4.20-5.50) X10*6/uL Hgb 13.0 (12.0-16.0) g/dl Hct 39.3 (37.0-47.0) % MCV 92.5 (80.0-98.0) fL MCH 30.6 (27.0-33.0) pg MCHC 33.1 (31.0-35.0) g/dl RDW 12.5 (11.0-16.0) % Plt Count 237 (160-400) X10*3/uL MPV 10.0 (9.4-12.3) fL Immature Gran % (Auto) 1.0 H (0.0-0.4) % Neut % (Auto) 61.8 (45-73) % Lymph % (Auto) 29.9 (20-40) % [place] % (Auto) 5.9 (2-11) % Eos % (Auto) 1.2 (0-4) % Baso % (Auto) 0.2 (0-2) % Lymph # (Auto) 1.5 (1.2-4.9) X10*3/uL [place] # (Auto) 0.3 (0.1-1.2) X10*3/uL Eos # (Auto) 0.1 (0.0-0.4) X10*3/uL Baso # (Auto) 0.0 (0.0-0.2) X10*3/uL Abs Immat Gran (auto) 0.05 H (0.00-0.03) X10*3/uL Absolute Neuts (auto) 3.2 (2.0-8.3) x10*3/uL Absolute Nucleated RBC 0.000 (0.0-0.012) X10*3/uL Nucleated RBC % (auto) 0.0 (0.0-0.2) /100WBC Sodium 139 (135-145) mmol/L Potassium 4.4 (3.3-5.1) mmol/L Chloride 104 (96-108) mmol/L Carbon Dioxide 27 (22-29) mmol/L Anion Gap 12 (12-20) BUN 10 (9-16) mg/dL Creatinine 0.69 (0.5-1.4) mg/dL Estim Creat Clear Calc 119.3 Estimated GFR > 60 Random Glucose 117 H (60-115) mg/dL Calcium 9.4 (8.4-10.2) mg/dL Magnesium 2.0 (1.6-2.6) mg/dL Total Bilirubin 0.4 (0.0-1.0) mg/dL AST 17 (5-31) U/L ALT 15 (0-31) U/L Alkaline Phosphatase 70 (39-117) U/L Total Protein 7.7 (6.5-8.0) g/dL Albumin 4.0 (3.5-5.0) g/dL Beta HCG, Quant < 2 mIU/mL Urine Color Yellow Urine Appearance Clear Urine pH 7.0 (5.0-9.0) Ur Specific [place] 1.010 (1.005-1.025) Urine Protein Negative (Neg-Trace) mg/dL Urine Glucose (UA) Negative (Negative) mg/dL Urine Ketones Negative (Negative) mg/dL Urine Blood Negative (Negative) Urine Nitrite Negative (Negative) Ur Leukocyte Esterase Small (1+) H (Negative) Urine RBC 0-2 (0-2) /HPF Urine WBC 6-10 H (0-5) /HPF Ur Squamous Epith Cells 11-20 (0-2) /HPF Urine Bacteria Trace (None Seen) Hyaline Casts 0-2 (0-2) /LPF Radiology Impression Discussion of test interpretation with radiology: I have reviewed the rad iologist's reading. Discharge Plan Discharge Clinical Impression: Cough, Urinary tract infection, Back pain Patient Disposition: Still a Patient Instructions: Urinary Tract Infection in Women (ED), Acute Cough (ED) Additional Instructions: Your blood work was reassuring. Your chest x-ray was clear. Your ultrasound did not show any concerning findings Your urine she reports showed a mild urinary tract infection Take cefpodoxime twice daily for the next 5 days Take prednisone 40 mg daily for next 5 days as well This may help with her back pain/radiculopathy as well as your cough Follow-up with your primary doctor Prescriptions: New prednisone 20 mg tablet 40 mg PO DAILY Qty: 10 0RF cefpodoxime 200 mg tablet 200 mg PO BID Qty: 10 0RF Rx Instructions: must administer with a meal/food No Action Humira(CF) Pen 40 mg/0.4 mL pen injector kit 40 mg subcut Q2W 56 Days Qty: 1.6 5RF Paxlovid (EUA) 300 mg (150 mg x 2)-100 mg tablets,dose pack See Rx Instructions .ROUTE .COMPLEX Qty: 30 0RF Rx Instructions: take TWO 150 mg tablets of nirmatrelvir with ONE 100 mg tablet of ritonavir twice daily for 5 days albuterol sulfate 90 mcg/actuation HFA aerosol inhaler 2 puff inhalation Q4-6H PRN (Reason: shortness of breath or wheezing) Qty: 8.5 0RF benzonatate 100 mg capsule 100 mg PO TID PRN (Reason: cough) Qty: 14 0RF albuterol sulfate 90 mcg/actuation HFA aerosol inhaler 2 puff inhalation Q4-6H PRN (Reason: shortness of breath or wheezing) Qty: 6.7 0RF albuterol sulfate 2.5 mg/0.5 mL solution for nebulization 5 mg inhalation Q4H PRN (Reason: shortness of breath or wheezing) Qty: 30 0RF ibuprofen 800 mg tablet 800 mg PO Q8H PRN escitalopram oxalate 20 mg tablet 20 mg PO DAILY famotidine 20 mg tablet 20 mg PO BEDTIME albuterol sulfate [ProAir HFA] 90 mcg/actuation HFA aerosol inhaler 2 puff inhalation Q6H PRN flunisolide 25 mcg (0.025 %) spray,non-aerosol 2 spray intranasal BID fluticasone propionate [Flovent HFA] 44 mcg/actuation HFA aerosol inhaler 2 puff inhalation BID Rx Instructions: administer with spacer cetirizine [All Day Allergy (cetirizine)] 10 mg tablet 10 mg PO DAILY diclofenac sodium 1 % gel 2 g topical TID triamcinolone acetonide 0.1 % cream 1 appl topical BID Qty: 80 2RF
[2022-10-02 14:03] VITALS: BP 137/78; PULSE 78; RESP 18; TEMP 36.8; O2SAT 98; BMI 43.5
[2022-10-02 14:19] LABS: MANUAL DIFF FLAG NO
[2022-10-02 14:21] LABS: Basophils Percent Auto 0.2 % (0-2); Eosinophils Absolute Auto 0.1 X10*3/uL (0.0-0.4); Eosinophils Percent Auto 1.2 % (0-4); Hematocrit 39.3 % (37.0-47.0); Imm Gran Abs Auto 0.05 X10*3/uL (0.00-0.03); Lymphocytes Absolute Auto 1.5 X10*3/uL (1.2-4.9); Lymphocytes Percent Auto 29.9 % (20-40); Mean Corpuscular HGB Conc 33.1 g/dl (31.0-35.0); Mean Corpuscular Hemoglobin 30.6 pg (27.0-33.0); Mean Corpuscular Volume 92.5 fL (80.0-98.0); Monocytes Absolute Auto 0.3 X10*3/uL (0.1-1.2); Monocytes Percent Auto 5.9 % (2-11); Neutrophils Absolute Auto 3.2 x10*3/uL (2.0-8.3); Neutrophils Percent Auto 61.8 % (45-73); Platelet Count 237 X10*3/uL (160-400); Red Blood Count 4.25 X10*6/uL (4.20-5.50); Red Cell Distribution Width 12.5 % (11.0-16.0); White Blood Count 5.1 X10*3/uL (4.8-10.8)
[2022-10-02 14:41] LABS: Alanine Aminotransferase 15 U/L (0-31); Alkaline Phosphatase 70 U/L (39-117); Anion Gap 12 (12-20); Aspartate Amino Transferase 17 U/L (5-31); Bilirubin Total 0.4 mg/dL (0.0-1.0); Blood Urea Nitrogen 10 mg/dL (9-16); Calcium 9.4 mg/dL (8.4-10.2); Carbon Dioxide 27 mmol/L (22-29); Chloride 104 mmol/L (96-108); Creatinine Clr Calc Pharmacy 119.3; Estimated Glomerular Filt Rate > 60; Glucose Random 117 mg/dL (60-115); Potassium 4.4 mmol/L (3.3-5.1); Sodium 139 mmol/L (135-145); Total Protein 7.7 g/dL (6.5-8.0)
[2022-10-02 14:43] LABS: HCG Quantitative < 2 mIU/mL
[2022-10-02 15:50] VITALS: BP 117/66; PULSE 68; RESP 16; TEMP 36.8; O2SAT 98
[2022-10-02 16:08] LABS: Appearance Urine Clear; Color Urine Yellow; Glucose Urine UA Negative (Negative); Leukocyte Esterase Urine Small (1+) (Negative); Nitrite Urine Negative (Negative); UMIC TRIGGER UACC YES; Urine Blood Negative (Negative); Urine Ketones Negative (Negative); Urine Protein Negative (Neg-Trace)
[2022-10-02 16:10] LABS: Bacteria Urine Trace (None Seen); Hyaline Casts Urine 0-2 /LPF (0-2); RBC Urine 0-2 /HPF (0-2); UACC Culture Trigger YES
[2022-10-02 18:41] VITALS: BP 122/69; PULSE 72; RESP 17; TEMP 36.7; O2SAT 98
[2022-10-02 19:32] VITALS: BP 122/69; PULSE 69; RESP 18; O2SAT 99
--- NOTE | 2022-10-02 19:32 | PC.NURSE ---
Assumed care of pt. Pt lying on stretcher. Informed of plan of care. Pt c/o headache, 08/16, requested medication from provider. Plan to administer, and possible discharge pending results from US.
[2022-10-02] MEDS: Acetaminophen 325 MG TABLET 975 MG PO (19:41)
[2022-10-02 20:31] VITALS: BP 127/74; PULSE 72; RESP 18; TEMP 36.9; O2SAT 99
== END 2022-10-02 20:37 | disposition still patient (30) ==
PROVIDERS: Physician Assistant Medical; Emergency Provider Emergency Medicine; PCP Internal Medicine
DX: R05.9 Cough, unspecified (principal); N39.0 Urinary tract infection, site not specified; R10.9 Unspecified abdominal pain; R06.00 Dyspnea, unspecified; Z79.899 Other long term (current) drug therapy
CPT/HCPCS: 36415; 71046; 76830; 76856; 80053; 81001; 83735; 84702; 85025; 87086; 99284; 99285

== ENCOUNTER → 2022-10-25 15:07 | Outpatient (BNVA) | payer OTHER, SELFPAY | PROVIDERS: PCP Internal Medicine; Visit Provider Internal Medicine Rheumatology | DX: M47.817 Spondylosis without myelopathy or radiculopathy, lumbosacral region (principal); M45.9 Ankylosing spondylitis of unspecified sites in spine; Z79.899 Other long term (current) drug therapy | CPT/HCPCS: 99212 ==

== ENCOUNTER 2022-11-16 13:08 | Outpatient (REF) | payer OTHER, SELFPAY ==
--- NOTE | ~2022-11-16 | XR_ITS ---
Examination: X-ray lumbar spine and pelvis INDICATION: Ankylosing spondylitis, evaluate lumbar/SI joints TECHNIQUE: 5 views of the lumbar spine view of the pelvis COMPARISON: None FINDINGS: Vertebral body heights are preserved. Mild bony spurring in the lumbar spine. There is mild degenerative disc disease in the visualized lower thoracic spine. Mild facet arthropathy at L5-S1.. There is no displaced pelvic fracture. Pubic symphysis and sacroiliac joints appear intact hernia repair clips in the abdomen. XR/XR pelvis min 3V IMPRESSION: Mild degenerative changes in the lumbar spine. No radiographic evidence of ankylosing spondylitis.
--- NOTE | ~2022-11-16 | XR_ITS ---
Examination: X-ray lumbar spine and pelvis INDICATION: Ankylosing spondylitis, evaluate lumbar/SI joints TECHNIQUE: 5 views of the lumbar spine view of the pelvis COMPARISON: None FINDINGS: Vertebral body heights are preserved. Mild bony spurring in the lumbar spine. There is mild degenerative disc disease in the visualized lower thoracic spine. Mild facet arthropathy at L5-S1.. There is no displaced pelvic fracture. Pubic symphysis and sacroiliac joints appear intact hernia repair clips in the abdomen. XR/XR lumbar spine 4V min IMPRESSION: Mild degenerative changes in the lumbar spine. No radiographic evidence of ankylosing spondylitis.
== END 2022-11-16 13:09 | disposition home or self-care (01) ==
LOC: CF 13:08
PROVIDERS: PCP Internal Medicine; Visit Provider Registered Nurse Emergency
DX: M45.9 Ankylosing spondylitis of unspecified sites in spine (principal); M47.817 Spondylosis without myelopathy or radiculopathy, lumbosacral region; M79.18 Myalgia, other site; M53.3 Sacrococcygeal disorders, not elsewhere classified; M23.91 Unspecified internal derangement of right knee
CPT/HCPCS: 72110; 72190; 99202

== ENCOUNTER 2022-11-16 13:08 | Outpatient (AMB) | payer OTHER, SELFPAY ==
[2022-11-16 13:16] VITALS: BP 104/64; PULSE 68; RESP 16; O2SAT 97; BMI 42.7
--- NOTE | 2022-11-16 13:16 | A.OFFVIS_ITS ---
Intake Vital Signs 11/16/22 13:16 Height 5 ft 1 in Weight 226 lb 1 oz BMI 42.7 BP 104/64 Blood Pressure Location Lt brachial Position Sitting Respiration 16 Pulse 68 Pulse Source Pulse Oximeter Pulse Oximetry (%) 97 Oxygen Delivery Method Room Air Intake Visit Reasons: Spondylosis w/o myelopathy or radiculopathy Allergies lidocaine [LIDOCAINE] Allergy (Intermediate, Verified 11/16/22 13:15) UNKNOWN naproxen [NAPROXEN] Allergy (Intermediate, Verified 11/16/22 13:15) UNKNOWN, rash oxycodone [From PERCOCET] Allergy (Intermediate, Verified 11/16/22 13:15) UNKNOWN Sulfa (Sulfonamide Antibiotics) Allergy (Intermediate, Verified 11/16/22 13:15) rash sulfamethoxazole [From BACTRIM] Allergy (Intermediate, Verified 11/16/22 13:15) Rash trimethoprim [From BACTRIM] Allergy (Intermediate, Verified 11/16/22 13:15) Rash Novocain Allergy (Intermediate, Uncoded 10/25/22 15:26) rash HPI HPI Comments History of Present Illness Details Zandra is a pleasant 42-year-old female presents the office today for evaluation and management of her chronic lower back pain. She was referred from Rheumatology where she is being treated for ankylosing spondylitis. Patient complaining of bilateral lower back pain, left worse than right, that has been going on since approximately 2013. Patient states the pain radiates to her buttocks and thighs. 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 She describes her pain as stabbing, aching, numb, pins and needles; today is a 10/10. She states the pain is worse with weather changes and cold. Pain improves with position changes and heat. She has tried NSAIDs, physical therapy, chiropractor and massage all with limited benefit. She was recently sent to physical therapy for her right knee pain but states that she has missed several appointments due to difficulties with childcare scheduling. Patient reports the pain is impacting her ability to sleep, perform activities of daily living, care for herself and her children and to function normally. Patient denies red flag symptoms including loss of bowel, bladder or saddle anesthesia. In terms of muscle damage her condition is described as throbbing, pounding, stabbing, sharp, cutting lacerating, tugging, pulling, wrenching, dull, sore, hurting, aching, heavy, tiring, exhausting, fearful, spreading, piercing, radiating, tight, squeezing and tearing. Past medical history significant for ankylosing spondylitis, depression and GERD. Patient denies implantable devices, pacemaker and a defibrillator. [facility] Medical History Ankylosing spondylitis Carpal tunnel syndrome Chronic eczema of foot Depression GERD (gastroesophageal reflux disease) jail use of drug Pain, foot, right, chronic Umbilical hernia Surgical History Hx of tubal ligation Hx of umbilical hernia repair Family History Mother Diabetes Arthritis Father Diabetes Heart disease Social History Household Members: Family Housing: Apartment Are you a primary administrator health care facility to a significant other at home: No Do you presently have visiting nurse or other home services: No 75 years or older and lives alone: No Alcohol intake: current Alcohol intake frequency: a few times a month Alcohol type: beer and wine Patient Tobacco Use Status: Never used Tobacco e-Cigarette/Vaping Use: Never Used Substance Use Type: Marijuana service: No Current occupational status: disabled Review of Systems Const All systems reviewed & are unremarkable except as noted in HPI and below Physical Exam Vital Signs: Last Vital Signs Pulse 68 11/16/22 13:16 Resp 16 11/16/22 13:16 BP 104/64 11/16/22 13:16 Pulse Ox 97 11/16/22 13:16 Oxygen Delivery Method Room Air 11/16/22 13:16 BMI result Body Mass Index 42.7 Const General: cooperative Orientation/consciousness: patient oriented x3 Resp Effort & Inspection: normal respiratory effort and able to speak in complete sentences Back/Spine/Pelvis Other: Able to stand on bilateral tiptoes and bilateral heels. Able to transition from sit to stand unassisted. Ambulates with bilaterally normal heel strike and toe off Visual inspection without gross abnormality Tender to palpation over middle and lower trapezius Tender to palpation over PSIS Nontender to palpation over midline lumbar vertebrae ROM extension to 20 degrees. flexion to 90 degrees Strength: 5/5 BLE Sensation: intact and symmetric BLE DTR: intact and symmetric Straight leg raises with and without dorsiflexion negative bilaterally Facet loading positive bilaterally TEE positive bilaterally, L>R Gaenslens positive bilaterally, L>R Thigh thrust positive bilaterally, L>R Aubrey finger positive bilaterally Neuro General: patient oriented x3 Extrem Right lower extremity: knee Details: normal to inspection, tenderness and normal ROM (with discomfort) Psych Affect: normal affect Attitude: cooperative Thought process: Normal thought process present Thought content: Normal thought content present Insight: Good insight present (Psych) Judgement: Good judgement present (Psych) Results Reviewed Results Reviewed: Assessment & Plan Assessment & Plan (1) Ankylosing spondylitis: Code(s): M45.9 - Ankylosing spondylitis of unspecified sites in spine (2) Osteoarthritis of lumbosacral spine: Code(s): M47.817 - Spondylosis without myelopathy or radiculopathy, lumbosacral region (3) Myofascial muscle pain: Code(s): M79.18 - Myalgia, other site (4) Sacroiliac joint dysfunction of both sides: Code(s): M53.3 - Sacrococcygeal disorders, not elsewhere classified (5) Internal derangement of right knee: Code(s): M23.91 - Unspecified internal derangement of right knee Dina De Paz is a very pleasant 42 year old female who presented to the office today for evaluation and management of her chronic lower back, upper back and right knee pain. Patient has failed conservative therapy including NSAIDS, PT, chiropractor and massage. Will try [employer]nex Tens unit for myofacial upper back pain. She was provided instructions for use and contact information for [employer]. Patient advised to expect a call to schedule delivery of the device. History, physical exam and provocative testing consistent with bilateral sacroiliac joint dysfunction. Plan for Bilateral Diagnostic Fluoroscopy Guided Sacroiliac Joint Injections with Local Anesthetic. If patient receives >50% pain relief with diagnostic testing will plan for therapeutic bilateral SI joint injections with local anesthetic. She was in the process of attending PT for her knee but had difficulty making her appointments as she takes care of her 5 young children and making alternative childcare arrangements has been difficult. She is willing to try virtual reality PT, order has been placed. Patient provided information and will expect a call from [facility]. All questions and concerns have been answered and patient agrees with the plan. Follow up after injections and sooner if needed. Coding Level of Care Code New Pt Level 4 (76938) Diagnoses Ankylosing spondylitis M45.9 Osteoarthritis of lumbosacral spine M47.817 Myofascial muscle pain M79.18 Sacroiliac joint dysfunction of both sides M53.3 Internal derangement of right knee M23.91
== END 2022-11-16 13:54 | disposition home or self-care (01) ==
PROVIDERS: PCP Internal Medicine; Visit Provider Registered Nurse Emergency
DX: M45.9 Ankylosing spondylitis of unspecified sites in spine (principal); M47.817 Spondylosis without myelopathy or radiculopathy, lumbosacral region; M79.18 Myalgia, other site; M53.3 Sacrococcygeal disorders, not elsewhere classified; M23.91 Unspecified internal derangement of right knee
CPT/HCPCS: 99204

== ENCOUNTER 2023-01-11 07:10 | Outpatient (REF) | payer OTHER, SELFPAY | END 2023-01-11 07:11 | disposition home or self-care (01) | LOC: CF 07:10 | PROVIDERS: Visit Provider Anesthesiology | DX: Z13.89 Encounter for screening for other disorder (principal) ==

== ENCOUNTER 2023-01-25 06:11 | Outpatient (REF) | payer OTHER, SELFPAY | END 2023-01-25 06:12 | disposition home or self-care (01) | LOC: CF 06:11 | PROVIDERS: Visit Provider Anesthesiology | DX: Z13.89 Encounter for screening for other disorder (principal) | CPT/HCPCS: Q9967 ==

== ENCOUNTER 2023-01-26 09:05 | Outpatient (AMB) | payer OTHER, SELFPAY ==
--- NOTE | 2023-01-26 10:00 | MHC.OFFWIV ---
Intake Vital Signs 01/26/23 10:02 Weight 229 lb BP 122/82 Blood Pressure Location Rt brachial Position Sitting Pulse 71 Pulse Source Pulse Oximeter Pulse Oximetry (%) 98 Oxygen Delivery Method Room Air Intake Visit Reasons: EP, bilateral leg swelling and pain Intake Note: Patient here because she has lesion on left leg that started out with just like a rash and the next day it developed a hard bump in the middle of of the lesion and now it has swelled up, has become red and warm to the touch. She has also noticed these same lesions on both feet and states they are painful . Patient Tobacco Use Status: Never used Tobacco Allergies lidocaine [LIDOCAINE] Allergy (Intermediate, Verified 01/26/23 10:46) UNKNOWN naproxen [NAPROXEN] Allergy (Intermediate, Verified 01/26/23 10:46) UNKNOWN, rash oxycodone [From PERCOCET] Allergy (Intermediate, Verified 01/26/23 10:46) UNKNOWN Sulfa (Sulfonamide Antibiotics) Allergy (Intermediate, Verified 01/26/23 10:46) rash sulfamethoxazole [From BACTRIM] Allergy (Intermediate, Verified 01/26/23 10:46) Rash trimethoprim [From BACTRIM] Allergy (Intermediate, Verified 01/26/23 10:46) Rash Novocain Allergy (Intermediate, Uncoded 01/26/23 10:46) rash Medication List - Last Reconciled 01/26/23 by Kurt Gallardo MD albuterol sulfate 5 mg inhalation Q4H PRN albuterol sulfate 90 mcg/actuation 2 puffs inhalation Q4-6H PRN albuterol sulfate 90 mcg/actuation 2 puffs inhalation Q4-6H PRN albuterol sulfate 90 mcg/actuation (ProAir HFA) 2 puffs inhalation Q6H PRN benzonatate 100 mg PO TID PRN cephalexin 500 mg PO BID cetirizine (All Day Allergy (cetirizine)) 10 mg PO DAILY clonidine HCl 0.1 mg PO BEDTIME diclofenac sodium 1% 2 grams topical TID escitalopram oxalate 20 mg PO DAILY famotidine 20 mg PO BEDTIME flunisolide 2 sprays intranasal BID fluticasone propionate 44 mcg/actuation (Flovent HFA) 2 puffs inhalation BID ibuprofen 800 mg PO Q8H PRN quetiapine 25 mg PO BEDTIME triamcinolone acetonide 0.1% 1 appl topical BID Do you need a note to return to daycare/school/sports/work: No HPI EP, bilateral leg swelling and pain HPI Details 42-year-old female presents the office for a sick visit. Patient is having a painful lesion on the left leg. She bumped her leg accidentally and symptoms started after. [facility] Medical History Ankylosing spondylitis Carpal tunnel syndrome Chronic eczema of foot Depression GERD (gastroesophageal reflux disease) nursing home use of drug Pain, foot, right, chronic Umbilical hernia Surgical History Hx of tubal ligation Hx of umbilical hernia repair Family History Mother Diabetes Arthritis Father Diabetes Heart disease Social History Household Members: Family Housing: Apartment Are you a primary hospice care sales consultant to a significant other at home: No Do you presently have visiting nurse or other home services: No 75 years or older and lives alone: No Alcohol intake: current Alcohol intake frequency: a few times a month Alcohol type: beer and wine Patient Tobacco Use Status: Never used Tobacco e-Cigarette/Vaping Use: Never Used Substance Use Type: Marijuana service: No Current occupational status: disabled Physical Exam Vital Signs: Last Vital Signs Pulse 71 01/26/23 10:02 BP 122/82 01/26/23 10:02 Pulse Ox 98 01/26/23 10:02 Oxygen Delivery Method Room Air 01/26/23 10:02 Extrem Other: Left leg: Erythematous area over the harris. Area and is slightly tender with minimal fluctuation. Peeling skin over the swelling. Assessment & Plan Assessment & Plan (1) Cellulitis of left leg: Code(s): L03.116 - Cellulitis of left lower limb Plan: Cephalexin called in. Keep leg elevated. If symptoms do not improve to follow-up here. Medications: New cephalexin 500 mg PO BID 14 caps 0RF Coding Level of Care Code Est Pt Level 3 (00869) Diagnoses Cellulitis of left leg L03.116
[2023-01-26 10:02] VITALS: BP 122/82; PULSE 71; O2SAT 98
== END 2023-01-26 11:20 | disposition home or self-care (01) ==
PROVIDERS: PCP Internal Medicine; Visit Provider Internal Medicine
DX: L03.116 Cellulitis of left lower limb (principal)
CPT/HCPCS: 99213

== ENCOUNTER 2023-02-05 21:29 | Emergency (ER) | payer OTHER, SELFPAY ==
[2023-02-05 21:44] VITALS: BP 118/82; PULSE 77; RESP 16; TEMP 36.9; O2SAT 96; BMI 43.7
--- NOTE | 2023-02-05 22:01 | PC.NURSE ---
Spoke to Dr Delgado regarding patient and no images needed at this time on patient
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
[2023-02-06] MEDS: Ketorolac Tromethamine 15 MG/ML VIAL IM (00:14)
[2023-02-06] MEDS: Acetaminophen 325 MG TABLET 975 MG PO (00:14)
[2023-02-06 00:24] VITALS: BP 117/64; PULSE 77; RESP 16; TEMP 36.2; O2SAT 98
== END 2023-02-06 00:30 | disposition home or self-care (01) ==
PROVIDERS: Emergency Provider Student in an Organized Health Care Education/Training Program; PCP Internal Medicine
DX: Z04.1 Encounter for examination and observation following transport accident (principal); M79.10 Myalgia, unspecified site
CPT/HCPCS: 96372; 99283; 99284; J1885

== ENCOUNTER 2023-03-03 10:10 | Outpatient (AMB) | payer OTHER, SELFPAY ==
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
[2023-03-03 10:17] VITALS: BP 130/80; PULSE 70; TEMP 36.2; O2SAT 97; BMI 42.9
== END 2023-03-03 11:10 | disposition home or self-care (01) ==
PROVIDERS: PCP Internal Medicine; Visit Provider Internal Medicine Rheumatology
DX: M47.817 Spondylosis without myelopathy or radiculopathy, lumbosacral region (principal)
CPT/HCPCS: 99213

== ENCOUNTER → 2023-03-03 10:10 | Outpatient (BNVA) | payer OTHER, SELFPAY | PROVIDERS: PCP Internal Medicine; Visit Provider Internal Medicine Rheumatology | DX: M47.817 Spondylosis without myelopathy or radiculopathy, lumbosacral region (principal) | CPT/HCPCS: 99212 ==

== ENCOUNTER 2023-05-13 15:54 | Emergency (ER) | payer OTHER, SELFPAY ==
[2023-05-13 16:16] VITALS: BP 126/69; PULSE 82; RESP 18; TEMP 36; O2SAT 98; BMI 43.5
[2023-05-13 16:41] LABS: MANUAL DIFF FLAG NO
[2023-05-13 16:42] LABS: Basophils Percent Auto 0.3 % (0-2); Eosinophils Absolute Auto 0.1 X10*3/uL (0.0-0.4); Eosinophils Percent Auto 1.7 % (0-4); Hematocrit 37.7 % (37.0-47.0); Hemoglobin 12.4 g/dl (12.0-16.0); Imm Gran Abs Auto 0.01 X10*3/uL (0.00-0.03); Imm Gran Pct Auto 0.2 % (0.0-0.4); Lymphocytes Absolute Auto 1.6 X10*3/uL (1.2-4.9); Lymphocytes Percent Auto 24.5 % (20-40); Mean Corpuscular HGB Conc 32.9 g/dl (31.0-35.0); Mean Corpuscular Hemoglobin 29.7 pg (27.0-33.0); Mean Corpuscular Volume 90.4 fL (80.0-98.0); Mean Platelet Volume 9.9 fL (9.4-12.3); Monocytes Absolute Auto 0.5 X10*3/uL (0.1-1.2); Monocytes Percent Auto 6.8 % (2-11); Neutrophils Absolute Auto 4.4 x10*3/uL (2.0-8.3); Neutrophils Percent Auto 66.5 % (45-73); Platelet Count 273 X10*3/uL (160-400); Red Blood Count 4.17 X10*6/uL (4.20-5.50); White Blood Count 6.6 X10*3/uL (4.8-10.8)
[2023-05-13 21:25] VITALS: BP 136/86; PULSE 88; RESP 16; TEMP 36.1; O2SAT 96
--- NOTE | 2023-05-13 22:13 | ED.GENADULT ---
HPI - General Adult General Chief complaint: General Medical Stated complaint: ?UTI/L leg cellulitis Time Seen by Provider: 05/13/23 21:56 Source: patient, family and old records reviewed Mode of arrival: ambulatory Limitations: no limitations History of Present Illness HPI narrative: 42 yo female witih PMH of GERD, SI joint dysfunction, depression, GERD, eczema, left leg cellulitis here with c/o low back pain for 2 weeks no trauma worse at night worse with movements and bending over. some dysuria which has happened before worried about UTI. intermittent rash on left leg with hx of chronic cellulitis last abx back in february dx with cellulitis and started on clindamycin has not seen ID before PCP and a surgeon manages it. No fevers/vomiting. MD complaint: cellulitis, back pain, dysuria Onset (ago): week(s) (2 weeks back pain, dysuria and cellulitis few days) Location: back Radiation: non-radiation Severity: moderate Quality: burning Pain Consistency: constant Relieving factors: none Exacerbating factors: movement and rest Associated symptoms: other (dysuria, back pain, rash) Treatments prior to arrival: none Related Data Home Medications Medication Instructions Recorded Confirmed cetirizine 10 mg tablet (All Day 10 mg PO DAILY 10/15/21 01/26/23 Allergy (cetirizine)) escitalopram oxalate 20 mg tablet 20 mg PO DAILY 10/15/21 01/26/23 famotidine 20 mg tablet 20 mg PO BEDTIME 10/15/21 01/26/23 flunisolide 25 mcg (0.025 %) nasal 2 spray intranasal BID 10/15/21 01/26/23 spray fluticasone propionate 44 2 puff inhalation BID 10/15/21 01/26/23 mcg/actuation HFA aerosol inhaler (Flovent HFA) diclofenac sodium 1 % topical gel 2 g topical TID 04/19/22 01/26/23 clonidine HCl 0.1 mg tablet 0.1 mg PO BEDTIME 10/25/22 01/26/23 quetiapine 25 mg tablet 25 mg PO BEDTIME PRN 03/03/23 Previous Rx's Medication Instructions Recorded albuterol sulfate 2.5 mg/0.5 mL 5 mg inhalation Q4H PRN shortness 03/28/22 solution for nebulization of breath or wheezing #30 ea albuterol sulfate 90 mcg/actuation 2 puff inhalation Q4-6H PRN 06/03/22 aerosol inhaler shortness of breath or wheezing #8.5 grams ibuprofen 400 mg tablet 400 - 800 mg (1 - 2 x 400 mg) PO 03/03/23 Q8H PRN pain #180 tabs triamcinolone acetonide 0.1 % 1 appl topical BID #60 grams 03/28/23 topical cream cefuroxime axetil 500 mg tablet 500 mg PO BID 7 days #14 tabs 05/13/23 cyclobenzaprine 10 mg tablet 10 mg PO TID PRN muscle spasm #20 05/13/23 tabs mupirocin 2 % topical ointment 1 appl topical BID 7 days #15 grams 05/13/23 Allergies Allergy/AdvReac Type Severity Reaction Status Date / Time lidocaine [LIDOCAINE] Allergy Intermediate UNKNOWN Verified 05/13/23 16:16 naproxen [NAPROXEN] Allergy Intermediate UNKNOWN, Verified 05/13/23 16:16 rash oxycodone [From PERCOCET] Allergy Intermediate UNKNOWN Verified 05/13/23 16:16 Sulfa (Sulfonamide Allergy Intermediate rash Verified 05/13/23 16:16 Antibiotics) sulfamethoxazole Allergy Intermediate Rash Verified 05/13/23 16:16 [From BACTRIM] trimethoprim [From BACTRIM] Allergy Intermediate Rash Verified 05/13/23 16:16 codeine Allergy Itching Verified 05/13/23 16:16 Novocain Allergy Intermediate rash Uncoded 03/03/23 10:19 Review of Systems Review of Systems: Constitutional : No Fever, No Chills ENT/Mouth : No sore throat, No Rhinorrhea Eyes: No Eye Pain, No Swelling, No Redness Cardiovascular : No Chest Pain, No SOB Respiratory : No Cough, No Sputum Gastrointestinal : No Nausea, No Vomiting, No Diarrhea, No abdominal Pain Genitourinary : pos Dysuria, No Hematuria Musculoskeletal : No joint pain, No Myalgias, No Joint Swelling, pos back pain, no loss of control of bowel or bladder, no saddle anesthesia Skin : No Skin Lesions, positive skin rash Neuro : No Weakness, No Numbness, No Headache Psych : No Anxiety, No Depression Heme/Lymph: No Bruising, No Bleeding,No Lymphadenopathy Endocrine : No Polyuria, No Polydipsia All other systems reviewed and are negative [facility] Past Medical History Attestation statement: The following information was validated with the patient. Source: old records reviewed Onset Date is defined in the Problem List Problems that require an onset date and time if occurred within 24 hrs of arrival to the ED Aortic Dissection and Rupture; Neurologic impairment; Cardiopulmonary Arrest; Endotracheal Intubation; Insertion or Replacement of Mechanical Circulatory Assist Device Medical History Pain, foot, right, chronic Chronic eczema of foot Umbilical hernia alf use of drug GERD (gastroesophageal reflux disease) Depression Carpal tunnel syndrome Ankylosing spondylitis Surgical History Hx of umbilical hernia repair Hx of tubal ligation Family History Family History Mother Diabetes Arthritis Father Diabetes Heart disease Social History Social History Household Members: Family Housing: Apartment Are you a primary animal care provider to a significant other at home: No Do you presently have visiting nurse or other home services: No Alcohol intake: current Alcohol intake frequency: a few times a month Alcohol type: beer and wine Patient Tobacco Use Status: Never used Tobacco e-Cigarette/Vaping Use: Never Used Substance Use Type: Marijuana Advance Directives: No Advance Directives Information Provided: Yes service: No Current occupational status: disabled Physical Exam ED Vital Signs: Vital Signs - 24 hr 05/13/23 16:16 05/13/23 21:25 Temperature 96.8 F 96.9 F Pulse Rate 82 88 Respiratory Rate 18 16 Blood Pressure 126/69 136/86 Pulse Oximetry 98 96 Oxygen Delivery Method Room Air Room Air BMI result Body Mass Index 43.5 Appearance: Alert. Oriented X3. No acute distress. Eyes: Pupils equal, round and reactive to light. ENT: Pharynx normal. Neck: Normal inspection. Neck supple. CVS: Normal heart rate and rhythm. Pulses normal. Respiratory: No respiratory distress. Breath sounds normal. Abdomen: Soft and nontender. Back: bilateral SI joint ttp pain with bending over Skin: Skin warm and dry. Normal skin color. Normal skin turgor. Extremities: No lower extremity edema. left leg erythematous red hot patch 4-6cm no fluctuance noted L prox medial anterior harris Neuro: Oriented X 3. No motor deficit. No sensory deficit. Medical Decision Making Medical Decision Making [facility] Narrative: 42 yo female witih PMH of GERD, SI joint dysfunction, depression, GERD, eczema, left leg cellulitis here with c/o recurrent left leg cellulitis for a few days, low back pain x 2 weeks without CE symptoms - NV intact that is MSK in nature - urinary symptoms at this time doubt kidney stones as pain is reproduceable and worse at night - UA is not impressive. Will start on ceftin, mupirocin and refer to PCP Differential Diagnosis Differential Diagnoses: The differential diagnosis associated with the presentation includes cellulitis, strain, UTI Admission/Observation Consideration of admission/observation: Escalation of care including admission/observation considered not toxic, can be followed by PCP Lab Data MDM Lab Attestation statement: I reviewed the patient's lab results. 05/13/23 16:35 05/13/23 16:35 Labs: Lab Results 05/13/23 Range/Units 16:35 WBC 6.6 (4.8-10.8) X10*3/uL RBC 4.17 L (4.20-5.50) X10*6/uL Hgb 12.4 (12.0-16.0) g/dl Hct 37.7 (37.0-47.0) % MCV 90.4 (80.0-98.0) fL MCH 29.7 (27.0-33.0) pg MCHC 32.9 (31.0-35.0) g/dl RDW 14.0 (11.0-16.0) % Plt Count 273 (160-400) X10*3/uL MPV 9.9 (9.4-12.3) fL Immature Gran % (Auto) 0.2 (0.0-0.4) % Neut % (Auto) 66.5 (45-73) % Lymph % (Auto) 24.5 (20-40) % [place] % (Auto) 6.8 (2-11) % Eos % (Auto) 1.7 (0-4) % Baso % (Auto) 0.3 (0-2) % Lymph # (Auto) 1.6 (1.2-4.9) X10*3/uL [place] # (Auto) 0.5 (0.1-1.2) X10*3/uL Eos # (Auto) 0.1 (0.0-0.4) X10*3/uL Baso # (Auto) 0.0 (0.0-0.2) X10*3/uL Abs Immat Gran (auto) 0.01 (0.00-0.03) X10*3/uL Absolute Neuts (auto) 4.4 (2.0-8.3) x10*3/uL Absolute Nucleated RBC 0.000 (0.0-0.012) X10*3/uL Nucleated RBC % (auto) 0.0 (0.0-0.2) /100WBC Sodium 140 (135-145) mmol/L Potassium 3.9 (3.3-5.1) mmol/L Chloride 106 (96-108) mmol/L Carbon Dioxide 26 (22-29) mmol/L Anion Gap 12 (12-20) BUN 13 (9-16) mg/dL Creatinine 0.68 (0.5-1.4) mg/dL Estim Creat Clear Calc 121.0 Estimated GFR > 60 Random Glucose 84 (60-115) mg/dL Calcium 9.3 (8.4-10.2) mg/dL Total Bilirubin 0.2 (0.0-1.0) mg/dL AST 17 (5-31) U/L ALT 13 (0-31) U/L Alkaline Phosphatase 85 (39-117) U/L Total Protein 8.3 H (6.5-8.0) g/dL Albumin 4.2 (3.5-5.0) g/dL Urine Color Yellow Urine Appearance Cloudy Urine pH 5.0 (5.0-9.0) Ur Specific [place] 1.025 (1.005-1.025) Urine Protein Trace (Neg-Trace) mg/dL Urine Glucose (UA) Negative (Negative) mg/dL Urine Ketones Negative (Negative) mg/dL Urine Blood Large (3+) H (Negative) Urine Nitrite Negative (Negative) Ur Leukocyte Esterase Trace H (Negative) Urine RBC >20 H (0-2) /HPF Urine WBC 6-10 H (0-5) /HPF Ur Squamous Epith Cells 0-2 (0-2) /HPF Urine Bacteria None Seen (None Seen) Hyaline Casts 0-2 (0-2) /LPF External Record Review External record reviewed: Inpatient record Prescription Management I considered prescription management with: Antibiotic and Other Discharge Plan Discharge Clinical Impression: Cellulitis of left leg Low back pain Qualifiers: Chronicity: acute Back pain laterality: bilateral Sciatica presence: without sciatica Qualified Code(s): M54.50 - Low back pain, unspecified Patient Disposition: Home, Self-Care Instructions: Cellulitis (ED), Acute Low Back Pain (ED) Additional Instructions: return for fevers, worsening symptoms, inability to eat or drink, spreading of infection, numbness, weakness or any other concerns. follow up with your doctor for infectious disease consult if you have recurrent infections Prescriptions: New cefuroxime axetil 500 mg tablet 500 mg PO BID 7 Days Qty: 14 0RF cyclobenzaprine 10 mg tablet 10 mg PO TID PRN (Reason: muscle spasm) Qty: 20 0RF mupirocin 2 % ointment 1 appl topical BID 7 Days Qty: 15 0RF No Action triamcinolone acetonide 0.1 % cream 1 appl topical BID Qty: 60 2RF albuterol sulfate 90 mcg/actuation HFA aerosol inhaler 2 puff inhalation Q4-6H PRN (Reason: shortness of breath or wheezing) Qty: 8.5 0RF albuterol sulfate 2.5 mg/0.5 mL solution for nebulization 5 mg inhalation Q4H PRN (Reason: shortness of breath or wheezing) Qty: 30 0RF escitalopram oxalate 20 mg tablet 20 mg PO DAILY famotidine 20 mg tablet 20 mg PO BEDTIME flunisolide 25 mcg (0.025 %) spray,non-aerosol 2 spray intranasal BID fluticasone propionate [Flovent HFA] 44 mcg/actuation HFA aerosol inhaler 2 puff inhalation BID Rx Instructions: administer with spacer cetirizine [All Day Allergy (cetirizine)] 10 mg tablet 10 mg PO DAILY diclofenac sodium 1 % gel 2 g topical TID clonidine HCl 0.1 mg tablet 0.1 mg PO BEDTIME quetiapine 25 mg tablet 25 mg PO BEDTIME PRN ibuprofen 400 mg tablet 400 - 800 mg PO Q8H PRN (Reason: pain) Qty: 180 4RF Stand Alone Forms: Work/School Release
== END 2023-05-13 22:45 | disposition home or self-care (01) ==
PROVIDERS: Emergency Provider Emergency Medicine; PCP Family Medicine
DX: L03.116 Cellulitis of left lower limb (principal); Z79.899 Other long term (current) drug therapy
CPT/HCPCS: 36415; 80053; 81001; 85025; 87086; 99282; 99283

== ENCOUNTER 2023-06-06 15:23 | Emergency (ER) | payer OTHER, SELFPAY ==
--- NOTE | ~2023-06-06 | XR_ITS ---
EXAMINATION: XR TIBIA AND FIBULA, LEFT CLINICAL INFORMATION: Cellulitis COMPARISON: None available. TECHNIQUE: AP and lateral views of the left tibia and fibula were obtained. FINDINGS: The bones and soft tissues are normal. No fracture. No osseous lesions. XR/XR tibia fibula LT 2V IMPRESSION: Normal left tibia and fibula.
--- NOTE | 2023-06-06 15:30 | ED.SKABFB ---
HPI - Skin/Abscess/Foreign Bdy General Chief complaint: Wound/Laceration Stated complaint: left lower leg swollen and redened Time Seen by Provider: 06/06/23 21:04 Source: patient and other (Patient advocate-Belinda) History of Present Illness HPI narrative: 42-year-old female with known ankylosing spondylitis in was recently on Humira but then was stopped by her district representative a few months ago. Patient reports that she has had waxing and waning presentation of these red painful nodules at the left lower proximal portion of the anterior tibia and she has been on repeated courses of antibiotics but denies any associated fever, chills. She does endorse that she currently has a primary care doctor is been giving her appropriate referrals to consultants such as General surgery. Related Data Home Medications Medication Instructions Recorded Confirmed cetirizine 10 mg tablet (All Day 10 mg PO DAILY 10/15/21 01/26/23 Allergy (cetirizine)) escitalopram oxalate 20 mg tablet 20 mg PO DAILY 10/15/21 01/26/23 famotidine 20 mg tablet 20 mg PO BEDTIME 10/15/21 01/26/23 flunisolide 25 mcg (0.025 %) nasal 2 spray intranasal BID 10/15/21 01/26/23 spray fluticasone propionate 44 2 puff inhalation BID 10/15/21 01/26/23 mcg/actuation HFA aerosol inhaler (Flovent HFA) diclofenac sodium 1 % topical gel 2 g topical TID 04/19/22 01/26/23 clonidine HCl 0.1 mg tablet 0.1 mg PO BEDTIME 10/25/22 01/26/23 quetiapine 25 mg tablet 25 mg PO BEDTIME PRN 03/03/23 Previous Rx's Medication Instructions Recorded albuterol sulfate 2.5 mg/0.5 mL 5 mg inhalation Q4H PRN shortness 03/28/22 solution for nebulization of breath or wheezing #30 ea albuterol sulfate 90 mcg/actuation 2 puff inhalation Q4-6H PRN 06/03/22 aerosol inhaler shortness of breath or wheezing #8.5 grams ibuprofen 400 mg tablet 400 - 800 mg (1 - 2 x 400 mg) PO 03/03/23 Q8H PRN pain #180 tabs triamcinolone acetonide 0.1 % 1 appl topical BID #60 grams 03/28/23 topical cream cefuroxime axetil 500 mg tablet 500 mg PO BID 7 days #14 tabs 05/13/23 cyclobenzaprine 10 mg tablet 10 mg PO TID PRN muscle spasm #20 05/13/23 tabs mupirocin 2 % topical ointment 1 appl topical BID 7 days #15 grams 05/13/23 cephalexin 500 mg capsule 500 mg PO BID 5 days #10 caps 06/06/23 doxycycline monohydrate 100 mg 100 mg PO BID 5 days #10 caps 06/06/23 capsule Allergies Allergy/AdvReac Type Severity Reaction Status Date / Time lidocaine [LIDOCAINE] Allergy Intermediate UNKNOWN Verified 06/06/23 15:40 naproxen [NAPROXEN] Allergy Intermediate UNKNOWN, Verified 06/06/23 15:40 rash oxycodone [From PERCOCET] Allergy Intermediate UNKNOWN Verified 06/06/23 15:40 Sulfa (Sulfonamide Allergy Intermediate rash Verified 06/06/23 15:40 Antibiotics) sulfamethoxazole Allergy Intermediate Rash Verified 06/06/23 15:40 [From BACTRIM] trimethoprim [From BACTRIM] Allergy Intermediate Rash Verified 06/06/23 15:40 codeine Allergy Itching Verified 06/06/23 15:40 Novocain Allergy Intermediate rash Uncoded 06/06/23 15:40 Review of Systems Review of Systems: Pertinent positives and negatives as stated in HPI [facility] Past Medical History Source: nursing notes reviewed Medical History Pain, foot, right, chronic Chronic eczema of foot 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 GERD (gastroesophageal reflux disease) Depression Carpal tunnel syndrome Ankylosing spondylitis Surgical History Hx of umbilical hernia repair Hx of tubal ligation Family History Family History Mother Diabetes Arthritis Father Diabetes Heart disease Social History Social History Household Members: Family Housing: Apartment Are you a primary child care director to a significant other at home: No Do you presently have visiting nurse or other home services: No Alcohol intake: current Alcohol intake frequency: a few times a month Alcohol type: beer and wine Patient Tobacco Use Status: Never used Tobacco e-Cigarette/Vaping Use: Never Used Substance Use Type: Marijuana Advance Directives: No Advance Directives Information Provided: No service: No Current occupational status: disabled Physical Exam Vital Signs: Vital Signs: Last Vital Signs Temp 98.1 F 06/06/23 15:34 Pulse 81 06/06/23 15:34 Resp 16 06/06/23 15:34 BP 127/87 06/06/23 15:34 Pulse Ox 98 06/06/23 15:34 O2 Del Method Room Air 06/06/23 15:34 BMI result Body Mass Index 50.1 VITAL SIGNS: Reviewed. GENERAL: Elevated BMI, Well developed, well nourished, in no acute distress. HEAD: Normocephalic/atraumatic EYES: PERRLA, EOMI EARS: Ext canals without abnormality NOSE: Nares patent bilateral OROPHARYNX: no oral lesions noted, posterior pharynx clear NECK: Supple, no adenopathy LUNGS: Normal breath sounds. No adventitious sounds or accessory muscle use. SpO2<98> CARDIOVASCULAR: Regular rate and rhythm without noted murmurs ABDOMEN: Soft, non-tender, non-distended with bowel sounds. MUSCULOSKELETAL: No tenderness, deformities, or effusions noted on gross inspection. EXTREMITIES: No cyanosis, clubbing or edema. LLE: An area of approximate 4-1/2 cm by 3 cm with irregular borders and points fluctuant and 1 area of ulceration that is leaking serosanguineous fluid. There is surrounding erythema. SKIN: Inspection of the skin reveals no rashes NEUROLOGIC: Alert and oriented x 4. Strength and sensation to light touch were grossly intact x 4. Course Course Course Narrative: RME:?42 yo female w/ hx of GERD, SI joint dysfunction, depression, GERD, eczema, left leg cellulitis here with c/o recurrent left leg cellulitis x2 wks. Has had cellulitis to anterior left harris x5 mo that began as an area of discomfort . denies injury/trauma to the area. she was seen at [facility] ED 1 mo ago, given cefuroxime and mupirocin ointment. followed up with PCP 1 wk ago who started her on doxy. has been taking this BID with worsening symptoms. Taking ibuprofen at home for pain. No hx of DM. Denies fever, chills. PE: 10cm x 5cm area of cellulitis with central induration to L proximal medial anterior harris, TTP. no palpable fluctuance. Full HPI, ROS and PE to be performed by the primary ED provider. Medications Administered Discontinued Medications Generic Name Dose Route Start Last Admin Trade Name Danie PRN Reason Stop Dose Admin Acetaminophen 975 mg 06/06/23 19:56 06/06/23 20:00 Acetaminophen 325 Mg Tablet PO 06/06/23 19:57 975 mg ONCE ONE Administration Medical Decision Making Medical Decision Making [facility] Narrative: 42-year-old female with atraumatic redness and swelling at the proximal aspect of the left knee/tibia area. Does not appear to me to be abscess or infectious cellulitis and instead appears to be most consistent with a pyoderma gangrenosum in etiology. I did review all investigations and hematologic indices do not demonstrate any leukocytosis or left shift there is a normocytic anemia without thrombocytopenia. Chemistry indices are grossly within normal limits without any noted derangements. X-ray negative for any fracture or acute bony abnormality. I reviewed patient's outpatient ultrasound which describes a 0.4 x 1.5 x 0.9 phlegmonous area which is quite nonspecific and again very small and I feel that this is most consistent with a inflammatory response but not an infectious response. Patient is also seen a general surgeon who ordered the ultrasound. The initiation of this injury was atraumatic in nature. Patient informs me that she does have a follow-up appointment with a district representative and on reviewing treatment for pyoderma gangrenosum this is the most appropriate specialist to be involved as the treatments are with a cyclosporin or other autoimmune type of treatment. In the meantime I will review the antibiotics the patient has been prescribed, I have recommended warm hot compresses and will utilize compression for additional support. Otherwise, she will also receive a referral from me for the wound care clinic and majority of this is to prevent superimposed infection. Differential Diagnosis Differential Diagnoses: The differential diagnosis associated with the presentation includes Please see the discussion above Admission/Observation Consideration of admission/observation: Escalation of care including admission/observation considered Please see the discussion above Lab Data [facility] Lab Attestation statement: I reviewed the patient's lab results. Please see the discussion above 06/06/23 15:53 06/06/23 15:53 Labs: Lab Results 06/06/23 Range/Units 15:53 WBC 7.2 (4.8-10.8) X10*3/uL RBC 3.85 L (4.20-5.50) X10*6/uL Hgb 11.7 L (12.0-16.0) g/dl Hct 35.5 L (37.0-47.0) % MCV 92.2 (80.0-98.0) fL MCH 30.4 (27.0-33.0) pg MCHC 33.0 (31.0-35.0) g/dl RDW 13.4 (11.0-16.0) % Plt Count 238 (160-400) X10*3/uL MPV 10.2 (9.4-12.3) fL Immature Gran % (Auto) 0.4 (0.0-0.4) % Neut % (Auto) 65.4 (45-73) % Lymph % (Auto) 23.4 (20-40) % Shackelford % (Auto) 8.6 (2-11) % Eos % (Auto) 1.9 (0-4) % Baso % (Auto) 0.3 (0-2) % Lymph # (Auto) 1.7 (1.2-4.9) X10*3/uL [place]ord # (Auto) 0.6 (0.1-1.2) X10*3/uL Eos # (Auto) 0.1 (0.0-0.4) X10*3/uL Baso # (Auto) 0.0 (0.0-0.2) X10*3/uL Abs Immat Gran (auto) 0.03 (0.00-0.03) X10*3/uL Absolute Neuts (auto) 4.7 (2.0-8.3) x10*3/uL Absolute Nucleated RBC 0.000 (0.0-0.012) X10*3/uL Nucleated RBC % (auto) 0.0 (0.0-0.2) /100WBC Sodium 139 (135-145) mmol/L Potassium 4.1 (3.3-5.1) mmol/L Chloride 105 (96-108) mmol/L Carbon Dioxide 26 (22-29) mmol/L Anion Gap 12 (12-20) BUN 13 (9-16) mg/dL Creatinine 0.72 (0.5-1.4) mg/dL Estim Creat Clear Calc 110.4 Estimated GFR > 60 Random Glucose 90 (60-115) mg/dL Calcium 9.2 (8.4-10.2) mg/dL Magnesium 2.0 (1.6-2.6) mg/dL Radiology Impression Discussion of test interpretation with radiology: I have reviewed the radiologist's reading. Radiologist Impression: Please see the discussion above External Record Review External record reviewed: Outside ED record Chronic Conditions Patient?s care impacted by: Other Ankylosing spondylitis Critical Care Time Critical Care Time Critical Care Time: Yes Total Critical Care Time: 30 Attestation: I personally attest to this time spent taking care of the patient. Discharge Plan Discharge Clinical Impression: Pyoderma gangrenosum, Cellulitis Patient Disposition: Home, Self-Care Instructions: Cellulitis (ED), Warm Compress or Soak (ED) Additional Instructions: 1. Resume all home medications as prescribed. 2. Recommend [id number] analgesics such as Tylenol/ibuprofen as needed for pain control. 3. Continue to use the Esteban bandage for compression as this will help with some of the pain that you have been experiencing. 4. You have been provided with a referral to follow-up with the wound care clinic in you should call the office 1st thing in the morning. 5. Please follow-up with your primary care doctor. Return to the ER for any worsening symptoms. Prescriptions: New doxycycline monohydrate 100 mg capsule 100 mg PO BID 5 Days Qty: 10 0RF cephalexin 500 mg capsule 500 mg PO BID 5 Days Qty: 10 0RF No Action triamcinolone acetonide 0.1 % cream 1 appl topical BID Qty: 60 2RF albuterol sulfate 90 mcg/actuation HFA aerosol inhaler 2 puff inhalation Q4-6H PRN (Reason: shortness of breath or wheezing) Qty: 8.5 0RF albuterol sulfate 2.5 mg/0.5 mL solution for nebulization 5 mg inhalation Q4H PRN (Reason: shortness of breath or wheezing) Qty: 30 0RF cefuroxime axetil 500 mg tablet 500 mg PO BID 7 Days Qty: 14 0RF cyclobenzaprine 10 mg tablet 10 mg PO TID PRN (Reason: muscle spasm) Qty: 20 0RF mupirocin 2 % ointment 1 appl topical BID 7 Days Qty: 15 0RF escitalopram oxalate 20 mg tablet 20 mg PO DAILY famotidine 20 mg tablet 20 mg PO BEDTIME flunisolide 25 mcg (0.025 %) spray,non-aerosol 2 spray intranasal BID fluticasone propionate [Flovent HFA] 44 mcg/actuation HFA aerosol inhaler 2 puff inhalation BID Rx Instructions: administer with spacer cetirizine [All Day Allergy (cetirizine)] 10 mg tablet 10 mg PO DAILY diclofenac sodium 1 % gel 2 g topical TID clonidine HCl 0.1 mg tablet 0.1 mg PO BEDTIME quetiapine 25 mg tablet 25 mg PO BEDTIME PRN ibuprofen 400 mg tablet 400 - 800 mg PO Q8H PRN (Reason: pain) Qty: 180 4RF Referrals: [facility] Wound Care Management [Provider Group] Ariadna Jefferson MD [Primary Care Provider] -
[2023-06-06 15:34] VITALS: BP 127/87; PULSE 81; RESP 16; TEMP 36.7; O2SAT 98; BMI 50.1
[2023-06-06 15:57] LABS: MANUAL DIFF FLAG NO
[2023-06-06 15:58] LABS: Basophils Percent Auto 0.3 % (0-2); Eosinophils Absolute Auto 0.1 X10*3/uL (0.0-0.4); Eosinophils Percent Auto 1.9 % (0-4); Hematocrit 35.5 % (37.0-47.0); Hemoglobin 11.7 g/dl (12.0-16.0); Imm Gran Abs Auto 0.03 X10*3/uL (0.00-0.03); Imm Gran Pct Auto 0.4 % (0.0-0.4); Lymphocytes Absolute Auto 1.7 X10*3/uL (1.2-4.9); Lymphocytes Percent Auto 23.4 % (20-40); Mean Corpuscular Hemoglobin 30.4 pg (27.0-33.0); Mean Corpuscular Volume 92.2 fL (80.0-98.0); Mean Platelet Volume 10.2 fL (9.4-12.3); Monocytes Absolute Auto 0.6 X10*3/uL (0.1-1.2); Monocytes Percent Auto 8.6 % (2-11); Neutrophils Absolute Auto 4.7 x10*3/uL (2.0-8.3); Neutrophils Percent Auto 65.4 % (45-73); Platelet Count 238 X10*3/uL (160-400); Red Blood Count 3.85 X10*6/uL (4.20-5.50); Red Cell Distribution Width 13.4 % (11.0-16.0); White Blood Count 7.2 X10*3/uL (4.8-10.8)
[2023-06-06 16:11] LABS: Anion Gap 12 (12-20); Blood Urea Nitrogen 13 mg/dL (9-16); Calcium 9.2 mg/dL (8.4-10.2); Carbon Dioxide 26 mmol/L (22-29); Chloride 105 mmol/L (96-108); Creatinine Clr Calc Pharmacy 110.4; Estimated Glomerular Filt Rate > 60; Glucose Random 90 mg/dL (60-115); Potassium 4.1 mmol/L (3.3-5.1); Sodium 139 mmol/L (135-145)
[2023-06-06] MEDS: Acetaminophen 325 MG TABLET 975 MG PO (20:00)
[2023-06-06 22:13] VITALS: BP 113/56; PULSE 65; RESP 18; TEMP 36.6; O2SAT 97
[2023-06-06 22:46] VITALS: BP 117/64; PULSE 67; RESP 18; O2SAT 98
== END 2023-06-06 22:54 | disposition home or self-care (01) ==
PROVIDERS: Physician Assistant Medical; Emergency Provider Student in an Organized Health Care Education/Training Program; PCP Family Medicine
DX: L88 Pyoderma gangrenosum (principal); L03.116 Cellulitis of left lower limb; M25.462 Effusion, left knee
CPT/HCPCS: 36415; 73590; 80048; 83735; 85025; 99283; 99284

== ENCOUNTER 2023-06-29 15:26 | Outpatient (AMB) | payer OTHER, SELFPAY ==
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
[2023-06-29 15:45] VITALS: BP 98/50; PULSE 81; TEMP 36.1; O2SAT 98; BMI 49.0
== END 2023-06-29 16:21 | disposition home or self-care (01) ==
LOC: HO.RHE 15:26
PROVIDERS: PCP Family Medicine; Visit Provider Nurse Practitioner Family
DX: M47.817 Spondylosis without myelopathy or radiculopathy, lumbosacral region (principal); L88 Pyoderma gangrenosum; Z91.89 Other specified personal risk factors, not elsewhere classified; M45.6 Ankylosing spondylitis lumbar region
CPT/HCPCS: 99214

== ENCOUNTER → 2023-06-29 15:26 | Outpatient (BNVA) | payer OTHER, SELFPAY | PROVIDERS: PCP Family Medicine; Visit Provider Nurse Practitioner Family | DX: M47.817 Spondylosis without myelopathy or radiculopathy, lumbosacral region (principal); M45.6 Ankylosing spondylitis lumbar region; L88 Pyoderma gangrenosum; Z91.89 Other specified personal risk factors, not elsewhere classified | CPT/HCPCS: 99212 ==

== ENCOUNTER 2023-07-21 11:35 | Outpatient (AMB) | payer OTHER, SELFPAY ==
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
[2023-07-21 11:38] VITALS: BP 110/68; PULSE 89; TEMP 36.5; O2SAT 98; BMI 49.2
== END 2023-07-21 12:04 | disposition home or self-care (01) ==
PROVIDERS: PCP Family Medicine; Visit Provider Nurse Practitioner Family
DX: L88 Pyoderma gangrenosum (principal)
CPT/HCPCS: 99213

== ENCOUNTER → 2023-07-21 11:35 | Outpatient (BNVA) | payer OTHER, SELFPAY | PROVIDERS: PCP Family Medicine; Visit Provider Nurse Practitioner Family | DX: L88 Pyoderma gangrenosum (principal) | CPT/HCPCS: 99212 ==

== ENCOUNTER 2023-10-13 11:29 | Outpatient (AMB) | payer OTHER, SELFPAY ==
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
[2023-10-13 11:35] VITALS: BP 106/54; PULSE 89; O2SAT 98; BMI 49.7
== END 2023-10-13 12:09 | disposition home or self-care (01) ==
PROVIDERS: PCP Family Medicine; Visit Provider Nurse Practitioner Family
DX: L88 Pyoderma gangrenosum (principal); M53.3 Sacrococcygeal disorders, not elsewhere classified; M45.6 Ankylosing spondylitis lumbar region
CPT/HCPCS: 99213; G2211

== ENCOUNTER → 2023-10-13 11:29 | Outpatient (BNVA) | payer OTHER, SELFPAY | PROVIDERS: PCP Family Medicine; Visit Provider Nurse Practitioner Family | DX: L88 Pyoderma gangrenosum (principal); M45.6 Ankylosing spondylitis lumbar region; M53.3 Sacrococcygeal disorders, not elsewhere classified | CPT/HCPCS: 99212 ==

== ENCOUNTER 2023-11-08 13:39 | Outpatient (REF) | payer OTHER, SELFPAY ==
[2023-11-08 14:06] LABS: MANUAL DIFF FLAG NO
[2023-11-08 14:54] LABS: Basophils Percent Auto 0.2 % (0-2); Eosinophils Absolute Auto 0.1 X10*3/uL (0.0-0.4); Eosinophils Percent Auto 1.6 % (0-4); Hemoglobin 11.3 g/dl (12.0-16.0); Imm Gran Abs Auto 0.03 X10*3/uL (0.00-0.03); Imm Gran Pct Auto 0.5 % (0.0-0.4); Lymphocytes Absolute Auto 1.4 X10*3/uL (1.2-4.9); Lymphocytes Percent Auto 22.2 % (20-40); Mean Corpuscular HGB Conc 32.3 g/dl (31.0-35.0); Mean Corpuscular Volume 92.8 fL (80.0-98.0); Mean Platelet Volume 10.1 fL (9.4-12.3); Monocytes Absolute Auto 0.4 X10*3/uL (0.1-1.2); Monocytes Percent Auto 6.4 % (2-11); Neutrophils Absolute Auto 4.5 x10*3/uL (2.0-8.3); Neutrophils Percent Auto 69.1 % (45-73); Platelet Count 260 X10*3/uL (160-400); Red Blood Count 3.77 X10*6/uL (4.20-5.50); Red Cell Distribution Width 13.6 % (11.0-16.0); White Blood Count 6.4 X10*3/uL (4.8-10.8)
[2023-11-08 15:15] LABS: Alanine Aminotransferase 16 U/L (0-31); Alkaline Phosphatase 74 U/L (39-117); Anion Gap 10 (12-20); Aspartate Amino Transferase 15 U/L (5-31); Bilirubin Total 0.3 mg/dL (0.0-1.0); Blood Urea Nitrogen 8 mg/dL (9-16); C Reactive Protein 2.61 mg/dL (< or = 0.50); Carbon Dioxide 27 mmol/L (22-29); Chloride 105 mmol/L (96-108); Estimated Glomerular Filt Rate > 60; Glucose Random 75 mg/dL (60-115); Potassium 3.6 mmol/L (3.3-5.1); Sodium 138 mmol/L (135-145); Total Protein 7.6 g/dL (6.5-8.0)
[2023-11-08 15:58] LABS: Erythrocyte Sedimentation Rate 29 MM/HR (0-20)
[2023-11-09 08:14] LABS: HBS Num1 0.28 mIU/mL (0-7.99); HBc Num1 0.14 S/CO (0.00-0.79); HBsAGNum1 0.26 S/CO (0.00-0.99); Hepatitis A Antibody IgM 0.15 Index (0-0.79); Hepatitis B Core Antibody Nonreactive (Nonreactive); Hepatitis B Surface Antigen Negative (Negative); ~HepC Num1 0.09 S/CO (0.00-0.79); ~Hepatitis A Antibody IgM Nonreactive (Nonreactive); ~Hepatitis B Surface Antibody NONREACTIVE (Nonreactive); ~Hepatitis C Antibody Nonreactive (Nonreactive)
[2023-11-09 10:09] LABS: Prot Elec - Albumin 3.7 g/dL (3.8-4.8); Prot Elec - Alpha1 0.3 g/dL (0.2-0.3); Prot Elec - Alpha2 0.7 g/dL (0.5-0.9); Prot Elec - Beta 1 0.5 g/dL (0.4-0.6); Prot Elec - Beta 2 0.6 g/dL (0.2-0.5); Prot Elec - Gamma 1.2 g/dL (0.8-1.7)
[2023-11-09 22:44] LABS: IgA 460 mg/dL (47-310); IgG 1472 mg/dL (600-1640); IgM 63 mg/dL (50-300)
[2023-11-10 20:39] LABS: TS Negative Control Passed; TS Panel A 0; TS Panel B 0; TS Positive Control Passed; TSpotTB Negative (Negative)
[2023-11-12 23:54] LABS: HLA B27 Negative (Negative)
== END 2023-11-08 13:40 | disposition home or self-care (01) ==
LOC: HO.LAB 13:39
PROVIDERS: PCP Family Medicine; Visit Provider Nurse Practitioner Family
DX: M45.6 Ankylosing spondylitis lumbar region (principal); L88 Pyoderma gangrenosum; Z11.9 Encounter for screening for infectious and parasitic diseases, unspecified
CPT/HCPCS: 36415; 80053; 82784; 84165; 85025; 85652; 86140; 86334; 86481; 86704; 86706; 86709; 86803; 86812; 87340; 99212

== ENCOUNTER 2023-11-08 14:50 | Outpatient (AMB) | payer OTHER, SELFPAY ==
--- NOTE | 2023-11-08 15:10 | A.OFFVIS_ITS ---
Vital Signs 11/08/23 15:13 Height 4 ft 10 in Weight 239 lb 3.225 oz BMI 50.0 BP 112/62 Blood Pressure Location Lt brachial Position Sitting Pulse 92 Pulse Source Pulse Oximeter Pulse Oximetry (%) 97 Oxygen Delivery Method Room Air Intake Visit Reasons: FMS Intake Note: Patient presents for FMS. Allergies adalimumab [From Humira(CF)] Allergy (Intermediate, Verified 11/08/23 16:16) eczema lidocaine [LIDOCAINE] Allergy (Intermediate, Verified 11/08/23 15:21) UNKNOWN naproxen [NAPROXEN] Allergy (Intermediate, Verified 11/08/23 15:21) UNKNOWN, rash oxycodone [From PERCOCET] Allergy (Intermediate, Verified 11/08/23 15:21) UNKNOWN Sulfa (Sulfonamide Antibiotics) Allergy (Intermediate, Verified 11/08/23 15:21) rash sulfamethoxazole [From BACTRIM] Allergy (Intermediate, Verified 11/08/23 15:21) Rash trimethoprim [From BACTRIM] Allergy (Intermediate, Verified 11/08/23 15:21) Rash codeine Allergy (Verified 11/08/23 15:21) Itching etanercept [From Enbrel] Adverse Reaction (Intermediate, Verified 11/08/23 16:16) Diarrhea Novocain Allergy (Intermediate, Uncoded 10/13/23 11:36) rash Medication List - Last Reconciled 11/08/23 by Larry Tabor MD albuterol sulfate 5 mg inhalation Q4H PRN albuterol sulfate 90 mcg/actuation 2 puffs inhalation Q4-6H PRN cetirizine (All Day Allergy (cetirizine)) 10 mg PO DAILY cyclobenzaprine 10 mg PO TID PRN diclofenac sodium 1% 2 grams topical TID escitalopram oxalate 20 mg PO DAILY famotidine 20 mg PO BEDTIME flunisolide 2 sprays intranasal BID fluticasone propionate 44 mcg/actuation (Flovent HFA) 2 puffs inhalation BID ibuprofen 400 - 800 mg (1 - 2 x 400 mg) PO Q8H PRN mupirocin 2% 1 appl topical BID 7 days prednisone 10 mg PO DAILY quetiapine 25 mg PO BEDTIME PRN tacrolimus 0.1% 1 appl topical BID HPI Comments Details: This is a 43-year-old female with free of ankylosing spondylitis, pyoderma gangrenosum, hidradenitis suppurativa, psoriasis who presents for follow-up. Patient states that she was diagnosed with ankylosing spondylitis around 2014. A few years afterwards she was started on Humira which was very helpful for her joint pain especially her back pain however he started to have flare-ups of multiple skin conditions including hidradenitis suppurativa and rare eczema of her hands and feet she stated that she stopped the Humira her joint pain has been worse but her skin conditions including her eczema, hidradenitis suppurativa improved. States that the only treatment that helps her eczema is tacrolimus ointment. She also carries a diagnosis of psoriasis. She stated that she was switched to Enbrel but gave her side effects. She also has an open wound on her left harris. She was treated with multiple rounds of antibiotics without improvement. The wound was attributed to pyoderma gangrenosum. She had a skin biopsy which was nonspecific. Evaluated by Infectious Disease and deemed not to have an infectious cause but infectious disease specialist did not believe this was pyoderma gangrenosum. She was evaluated by a detective and intelligence analyst and she states that she was not I did with the diagnosis. Per Dana Vargas patient's pyoderma gangrenosum improved with prednisone taper. She is currently on prednisone 20 mg daily. 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 GERD (gastroesophageal reflux disease) Depression Carpal tunnel syndrome Ankylosing spondylitis Surgical History Hx of umbilical hernia repair Hx of tubal ligation Family History Mother Diabetes Arthritis Father Diabetes Heart disease Social History Household Members: Family Housing: Apartment Are you a primary healthcare applications analyst to a significant other at home: No Do you presently have visiting nurse or other home services: No 75 years or older and lives alone: No Alcohol intake: current Alcohol intake frequency: holidays/special occasions only Alcohol type: beer and wine Patient Tobacco Use Status: Never used Tobacco e-Cigarette/Vaping Use: Never Used Substance Use Type: Marijuana service: No Current occupational status: disabled Review of Systems Musc Reports back pain, Reports arthralgias and Reports stiffness Skin/Breast Reports non-healing lesions, Reports erythema and Reports wounds Physical Exam Vital Signs: Last Vital Signs Pulse 92 11/08/23 15:13 BP 112/62 11/08/23 15:13 Pulse Ox 97 11/08/23 15:13 Oxygen Delivery Method Room Air 11/08/23 15:13 BMI result Body Mass Index 50.0 Const General: cooperative and healthy appearing Nutritional Appearance: obese morbidly obese Orientation/consciousness: patient oriented x3 Limitations: no limitations HEENT Head: Yes normocephalic and Yes atraumatic Mouth: moist mucous membranes Resp Effort & Inspection: normal respiratory effort and able to speak in complete sentences Auscultation: clear to auscultation bilaterally Cardio Rate: regular rate Rhythm: regular rhythm Neuro General: patient oriented x3 Extrem Other: Stacy test 10-14 cm Bilateral positive straight leg raise test Bilateral knee pain with full flexion Results Reviewed Results Reviewed: Per Simone Beckford Left harris biopsy in early 2023 ulcer, acute inflammation, chronic inflammation and fibrosis X-RAY EXAM OF ELBOW, COMPLETE Exam Date: 12/22/2017 12:22 PM Ordering Diagnosis: Lateral epicondylitis of right elbowRight elbow pain ? Right elbow, 3 views. History pain. There is a small effusion. There is no fractures, dislocations or abnormal soft tissue calcifications. ? CONCLUSIONS: Small effusion Assessment & Plan Assessment & Plan (1) Ankylosing spondylitis: Comment: dx 2015 HLA b27 -ve [id number] Humira effective for spine, DC due to multiple skin side effects such as eczema, hidradenitis suppurativa Enbrel 2021 DC due to diarrhea Code(s): M45.9 - Ankylosing spondylitis of unspecified sites in spine Category: Medical Qualifiers: Ankylosing spondylitis location: lumbar region Qualified Code(s): M45.6 - Ankylosing spondylitis lumbar region Plan: This is a 43-year-old female with HLA B27 negative ankylosing spondylitis who presents for follow-up. This is her 1st visit with me. Patient has clinical picture is complicated by her history of so hidradenitis suppurativa and possible pyoderma gangrenosum. Since patient however has been off DMARDs she has been having worsening low back pain symptoms. She has back pain all night. Inflammatory markers elevated. Clinical picture consistent with active ankylosing spondylitis. Will need to restart DMARDs. Unfortunately the only treatment which has the most data for hidradenitis suppurativa ankylosing spondylitis and pyelogram gangrenosum is Humira however patient developed side effects to Humira. Discussed risks and benefits of Rinvoq including the black box warning with mildly increased risk of malignancy, cardiovascular events and thromboembolic phenomenon. Patient agreed to proceed. I provided patient with Rinvoq sample for 20 days. Advised patient to call the clinic if she feels better with no side effects in 3-4 weeks then we will start working on prior authorization Other options include IL 17 inhibitors which can help her inflammatory back pain but no good experience with pyoderma gangrenosum. IL 12/23 inhibitors can be considered but there efficacy for inflammatory back pain is not proven Labs before next visit in 2 months (2) Pyoderma gangrenosum: Code(s): L88 - Pyoderma gangrenosum Category: Medical Plan: Diagnosis remains in question. Unfortunately I do not have access to detective and intelligence analyst record. Skin biopsy was not conclusive. However given her clinical picture and her history of ankylosing spondylitis and hidradenitis suppurativa, I believe pyoderma gangrenosum remains the diagnosis of exclusion. For Dana Vargas it has improved with prednisone. Currently patient is on prednisone 20 mg daily. Advised patient to start taking prednisone 10 mg daily for now Plan I spent 60 minutes reviewing patient's chart, looking at all her old records and records from [facility], evaluating patient, ordering diagnostic workup, counseling patient and documenting in the chart Orders: Orders Complete Blood Count Auto Diff 2 Months M45.6 - Ankylosing spondylitis lumbar region Comprehensive Met. Panel 2 Months M45.6 - Ankylosing spondylitis lumbar region C Reactive Protein 2 Months M45.6 - Ankylosing spondylitis lumbar region Erythrocyte Sedimentation Rate 2 Months M45.6 - Ankylosing spondylitis lumbar region Medications: New Rinvoq ER (upadacitinib) Lot number: [id number] Expiration date 01/28/2025 2 boxes 15 mg PO DAILY 28 tabs 0RF NS Coding Level of Care Code Est Pt Level 5 (96664) Complex EM visit Add On G2211 Medical Decision Making High Complexity Diagnoses Ankylosing spondylitis of lumbar region M45.6 Ankylosing spondylitis location: lumbar region Pyoderma gangrenosum L88
[2023-11-08 15:13] VITALS: BP 112/62; PULSE 92; O2SAT 97; BMI 50.0
== END 2023-11-08 16:09 | disposition home or self-care (01) ==
PROVIDERS: PCP Family Medicine; Visit Provider Student in an Organized Health Care Education/Training Program
DX: M45.6 Ankylosing spondylitis lumbar region (principal); L88 Pyoderma gangrenosum; L73.2 Hidradenitis suppurativa
CPT/HCPCS: 99215; 99417; G2211

== ENCOUNTER 2024-04-11 10:59 | Outpatient (AMB) | payer OTHER, SELFPAY ==
[2024-04-11 11:01] VITALS: BP 98/68; PULSE 73; BMI 44.6
--- NOTE | 2024-04-11 11:01 | A.OFFVIS_ITS ---
Vital Signs 3 04/11/24 11:01 Height 4 ft 10 in Weight 213 lb 10.047 oz BMI 44.6 BP 98/68 Blood Pressure Location Rt brachial Position Sitting Pulse 73 Pulse Source Pulse Oximeter Intake Visit Reasons: LBP/Hand Pain/cm Intake Note: Patient last seen by Doctor Larry Tabor on 11/08/23. Presents today for LBP/hand pain follow up and test results. Harness Builder Required: No Accompanied by: Self / Same As Patient Allergies adalimumab [From Humira(CF)] Allergy (Intermediate, Verified 04/11/24 11:05) eczema lidocaine [LIDOCAINE] Allergy (Intermediate, Verified 04/11/24 11:05) UNKNOWN naproxen [NAPROXEN] Allergy (Intermediate, Verified 04/11/24 11:05) UNKNOWN, rash oxycodone [From PERCOCET] Allergy (Intermediate, Verified 04/11/24 11:05) UNKNOWN Sulfa (Sulfonamide Antibiotics) Allergy (Intermediate, Verified 04/11/24 11:05) rash sulfamethoxazole [From BACTRIM] Allergy (Intermediate, Verified 04/11/24 11:05) Rash trimethoprim [From BACTRIM] Allergy (Intermediate, Verified 04/11/24 11:05) Rash codeine Allergy (Verified 04/11/24 11:05) Itching etanercept [From Enbrel] Adverse Reaction (Intermediate, Verified 04/11/24 11:05) Diarrhea Novocain Allergy (Intermediate, Uncoded 04/11/24 11:05) rash Medication List - Last Reconciled 04/11/24 by Larry Tabor MD albuterol sulfate 5 mg inhalation Q4H PRN albuterol sulfate 90 mcg/actuation 2 puffs inhalation Q4-6H PRN cetirizine (All Day Allergy (cetirizine)) 10 mg PO DAILY cyclobenzaprine 10 mg PO TID PRN diclofenac sodium 1% 2 grams topical TID escitalopram oxalate 20 mg PO DAILY famotidine 20 mg PO BEDTIME flunisolide 2 sprays intranasal BID fluticasone propionate 44 mcg/actuation (Flovent HFA) 2 puffs inhalation BID ibuprofen 400 - 800 mg (1 - 2 x 400 mg) PO Q8H PRN mupirocin 2% 1 appl topical BID 7 days prednisone 10 mg PO DAILY quetiapine 25 mg PO BEDTIME PRN tacrolimus 0.1% 1 appl topical BID HPI Comments Details: This is a 43-year-old female with history of ankylosing spondylitis, possible pyoderma gangrenosum and psoriasis who presents for follow-up. Last visit we discussed Rinvoq. I provided patient with a sample. I asked her to get the Shingrix vaccine before she starts taking it. She was not able to get the Shingrix vaccine. She did not take Rinvoq. She states that her back pain has become much worse recently. It hurts from the thoracic area down words towards her low back and buttocks. She feels quite stiff. She states that the lesions on her shins have healed up. She has been taking prednisone. She has 10 mg tablets. She takes 1 or 2 tablets at night. She sometimes forgets to take it. Initial history with me: This is a 43-year-old female with history of ankylosing spondylitis, pyoderma gangrenosum, hidradenitis suppurativa, psoriasis who presents for follow-up. Patient states that she was diagnosed with ankylosing spondylitis around 2014. A few years afterwards she was started on Humira which was very helpful for her joint pain especially her back pain however he started to have flare-ups of multiple skin conditions including hidradenitis suppurativa and rare eczema of her hands and feet she stated that she stopped the Humira her joint pain has been worse but her skin conditions including her eczema, hidradenitis suppurativa improved. States that the only treatment that helps her eczema is tacrolimus ointment. She also carries a diagnosis of psoriasis. She stated that she was switched to Enbrel but gave her side effects. She also has an open wound on her left harris. She was treated with multiple rounds of antibiotics without improvement. The wound was attributed to pyoderma gangrenosum. She had a skin biopsy which was nonspecific. Evaluated by Infectious Disease and deemed not to have an infectious cause but infectious disease specialist did not believe this was pyoderma gangrenosum. She was evaluated by a fire and safety helper and she states that she was not I did with the diagnosis. Per Dana Vargas patient's pyoderma gangrenosum improved with prednisone taper. She is currently on prednisone 20 mg daily. 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 GERD (gastroesophageal reflux disease) Depression Carpal tunnel syndrome Ankylosing spondylitis Surgical History Hx of umbilical hernia repair Hx of tubal ligation Family History Mother Diabetes Arthritis Father Diabetes Heart disease Social History Household Members: Family Housing: Apartment Are you a primary personal care attendant to a significant other at home: No Do you presently have visiting nurse or other home services: No Alcohol intake: current Alcohol intake frequency: holidays/special occasions only Alcohol type: beer and wine Patient Tobacco Use Status: Never used Tobacco e-Cigarette/Vaping Use: Never Used Substance Use Type: Marijuana service: No Current occupational status: disabled Review of Systems Musc Reports back pain, Reports arthralgias and Reports stiffness Skin/Breast Denies non-healing lesions, Denies erythema and Denies wounds Physical Exam Vital Signs: Last Vital Signs Pulse 73 04/11/24 11:01 BP 98/68 04/11/24 11:01 BMI result Body Mass Index 44.6 Const General: cooperative and healthy appearing Nutritional Appearance: obese morbidly obese Orientation/consciousness: patient oriented x3 Limitations: no limitations HEENT Head: Yes normocephalic and Yes atraumatic Mouth: moist mucous membranes Resp Effort & Inspection: normal respiratory effort and able to speak in complete sentences Auscultation: clear to auscultation bilaterally Cardio Rate: regular rate Rhythm: regular rhythm Skin Other: Mildly dry skin right hand Neuro General: patient oriented x3 Extrem Other: Stacy test 10-14 cm Bilateral positive straight leg raise test Bilateral knee pain with full flexion No swollen joints today Results Reviewed Results Reviewed: Per Simone Beckford Left harris biopsy in early 2023 ulcer, acute inflammation, chronic inflammation and fibrosis X-RAY EXAM OF ELBOW, COMPLETE Exam Date: 12/22/2017 12:22 PM Ordering Diagnosis: Lateral epicondylitis of right elbowRight elbow pain ? Right elbow, 3 views. History pain. There is a small effusion. There is no fractures, dislocations or abnormal soft tissue calcifications. ? CONCLUSIONS: Small effusion Assessment & Plan Assessment & Plan (1) Ankylosing spondylitis: Comment: dx 2015 HLA b27 -ve [id number] Humira effective for spine, DC due to multiple skin side effects such as eczema, hidradenitis suppurativa Enbrel 2021 DC due to diarrhea Code(s): M45.9 - Ankylosing spondylitis of unspecified sites in spine Category: Medical Qualifiers: Ankylosing spondylitis location: lumbar region Qualified Code(s): M45.6 - Ankylosing spondylitis lumbar region Plan: This is a 43-year-old female with HLA B27 negative ankylosing spondylitis who presents for follow-up. Patient has clinical picture is complicated by her history of so hidradenitis suppurativa and possible pyoderma gangrenosum. Since patient however has been off DMARDs she has been having worsening low back pain symptoms. She has back pain all night. Inflammatory markers elevated. Clinical picture consistent with active ankylosing spondylitis. Will need to restart DMARDs. Humira has worked well for patient especially with regards to her inflammatory back pain symptoms however it was associated with flare-ups of hidradenitis suppurativa and nonhealing wounds on the leg. At this time her wounds have healed up. Her skin is doing better overall she has had good experience with Humira in the past. She is worried about other DMARDs. We will start prior authorization for Humira Reduce prednisone to 5 mg a day Labs today and before next visit in 3 months (2) Pyoderma gangrenosum: Code(s): L88 - Pyoderma gangrenosum Category: Medical Plan: Diagnosis remains in question. Unfortunately I do not have access to fire and safety helper record. Skin biopsy was not conclusive. However given her clinical picture and her history of ankylosing spondylitis and hidradenitis suppurativa, I believe pyoderma gangrenosum remains the diagnosis of exclusion. She has been taking prednisone 10-20 mg a day over the last few months and the wound has healed up. (3) Osteoarthritis of lumbosacral spine: Code(s): M47.817 - Spondylosis without myelopathy or radiculopathy, lumbosacral region Category: Medical Plan: Referred to PT. There is some suspicion of radiculopathy. Referred patient to pain management Plan I spent 30 minutes reviewing patient's chart, evaluating patient, ordering diagnostic workup, counseling patient and documenting in the chart Orders: Orders 2 Erythrocyte Sedimentation Rate Today M45.6 - Ankylosing spondylitis lumbar region Complete Blood Count Auto Diff Today M45.6 - Ankylosing spondylitis lumbar region Comprehensive Met. Panel Today M45.6 - Ankylosing spondylitis lumbar region C Reactive Protein Today M45.6 - Ankylosing spondylitis lumbar region Complete Blood Count Auto Diff 3 Months M45.6 - Ankylosing spondylitis lumbar region Comprehensive Met. Panel 3 Months M45.6 - Ankylosing spondylitis lumbar region C Reactive Protein 3 Months M45.6 - Ankylosing spondylitis lumbar region Erythrocyte Sedimentation Rate 3 Months M45.6 - Ankylosing spondylitis lumbar region PT Evaluation and Treatment Today M47.817 - Spondylosis without myelopathy or radiculopathy, lumbosacral region Referrals 2 Pain Management Referral M47.817 - Spondylosis without myelopathy or radiculopathy, lumbosacral region Medications: Changed 2 From prednisone 10 mg PO DAILY 30 tabs 0RF L88 - Pyoderma gangrenosum To prednisone 5 mg PO DAILY 30 tabs 2RF L88 - Pyoderma gangrenosum Coding Level of Care Code Est Pt Level 4 (38136) Complex EM visit Add On G2211 Diagnoses Ankylosing spondylitis of lumbar region M45.6 Ankylosing spondylitis location: lumbar region Pyoderma gangrenosum L88 Osteoarthritis of lumbosacral spine M47.817
== END 2024-04-11 11:44 | disposition home or self-care (01) ==
PROVIDERS: PCP Family Medicine; Visit Provider Student in an Organized Health Care Education/Training Program
DX: M45.6 Ankylosing spondylitis lumbar region (principal); L88 Pyoderma gangrenosum; M47.817 Spondylosis without myelopathy or radiculopathy, lumbosacral region
CPT/HCPCS: 99214; G2211

== ENCOUNTER → 2024-04-11 10:59 | Outpatient (BNVA) | payer OTHER, SELFPAY | PROVIDERS: PCP Family Medicine; Visit Provider Student in an Organized Health Care Education/Training Program ==

== ENCOUNTER 2024-04-11 11:36 | Outpatient (REF) | payer OTHER, SELFPAY ==
[2024-04-11 12:52] LABS: MANUAL DIFF FLAG NO
[2024-04-11 12:55] LABS: Basophils Percent Auto 0.1 % (0-2); Eosinophils Percent Auto 0.2 % (0-4); Hematocrit 35.4 % (37.0-47.0); Hemoglobin 11.5 g/dl (12.0-16.0); Imm Gran Abs Auto 0.03 X10*3/uL (0.00-0.03); Imm Gran Pct Auto 0.4 % (0.0-0.4); Lymphocytes Absolute Auto 1.6 X10*3/uL (1.2-4.9); Mean Corpuscular HGB Conc 32.5 g/dl (31.0-35.0); Mean Corpuscular Hemoglobin 29.8 pg (27.0-33.0); Mean Corpuscular Volume 91.7 fL (80.0-98.0); Mean Platelet Volume 10.1 fL (9.4-12.3); Monocytes Absolute Auto 0.5 X10*3/uL (0.1-1.2); Monocytes Percent Auto 6.1 % (2-11); Neutrophils Percent Auto 74.2 % (45-73); Platelet Count 300 X10*3/uL (160-400); Red Blood Count 3.86 X10*6/uL (4.20-5.50); Red Cell Distribution Width 13.2 % (11.0-16.0); White Blood Count 8.2 X10*3/uL (4.8-10.8)
[2024-04-11 13:10] LABS: Alanine Aminotransferase 15 U/L (0-31); Alkaline Phosphatase 60 U/L (39-117); Anion Gap 7 (12-20); Aspartate Amino Transferase 15 U/L (5-31); Bilirubin Total 0.3 mg/dL (0.0-1.0); Blood Urea Nitrogen 10 mg/dL (9-16); C Reactive Protein 0.59 mg/dL (< or = 0.50); Calcium 9.5 mg/dL (8.4-10.2); Carbon Dioxide 27 mmol/L (22-29); Chloride 108 mmol/L (96-108); Estimated Glomerular Filt Rate > 60; Glucose Random 85 mg/dL (60-115); Potassium 4.4 mmol/L (3.3-5.1); Sodium 138 mmol/L (135-145); Total Protein 7.3 g/dL (6.5-8.0)
[2024-04-11 13:35] LABS: Erythrocyte Sedimentation Rate 14 MM/HR (0-20)
== END 2024-04-11 11:37 | disposition home or self-care (01) ==
LOC: HO.10HDL 11:36
PROVIDERS: Visit Provider Student in an Organized Health Care Education/Training Program
DX: M45.6 Ankylosing spondylitis lumbar region (principal); L88 Pyoderma gangrenosum; M47.817 Spondylosis without myelopathy or radiculopathy, lumbosacral region
CPT/HCPCS: 36415; 80053; 85025; 85652; 86140; 99212

== ENCOUNTER 2024-08-25 19:17 | Emergency (ER) | payer OTHER, SELFPAY ==
[2024-08-25 19:26] VITALS: BP 111/78; PULSE 76; RESP 16; TEMP 37; O2SAT 98; BMI 37.7
--- OUTSIDE RECORDS SUMMARY | 2024-08-25 19:58 | XMS_ITS | Encounter Summary ---
Author Organization [facility]ly [facility] Address [address] [place] [address] Care Team Providers Care Public Health Sanitarian Name Role Phone Nila Aguillon MD Primary Care Provider Fredi Medel MD Primary Care Provider Unavailab Jenny Garber MD Primary Care Provider Ariadna Gilmore MD Primary Care Provider + Ariadna Jefferson MD Primary Care Provider + Nicholas Ferrer PA-C Unavailable [phone] Noemy Olivares PA-C Unavailable [phone] Gosia Wood MD Unavailable [phone] Encounter Details Date Type Department Care Team Description 01/10/2013 Wash Helper Report Medical Records [address] [place] [id number] Francisco Javier Holloway Social History Tobacco Use Types Packs/Day Years Used Date Smoking Tobacco: Passive Smo ke Exposure - Never Smoker Cigarettes 0.5 16 Quit: Smokeless Tobacco: Never Alcohol Use Standard Drinks/Week Comments No 0 (1 standard drink = 0.6 oz pur e alcohol) Sex Assigned at Date Recorded Female 07/17/2021 5:[address] Job Start Date Occupation Industry Not on file Not on file Not on file documented as of this encounter Plan of Treatment Not on file documented as of this encounter Visit Diagnoses Not on filedocumented in this encounter Care Teams Public Health Sanitarian Relationship Specialty Start Date End Date Nila Aguillon MD PCP - General Internal Medicine 06/22/11 11/21/20 Fredi Bearden MD PCP - General Internal Medicine 11/22/20 03/18/21 Jenny Nash MD PCP - General Internal Medicine 03/19/21 11/19/21 Ariadna Jefferson MD [address] [place] [id number] PCP - General Internal Medicine 11/23/21 Ariadna Jefferson MD [address] [place] [id number] PCP - General Internal Medicine 11/20/21 11/22/21 Nicholas Ferrer PA-C [address] [address] Specialist Neurosurgery 07/08/23 Noemy Olivares PA-C [address] [address] Specialist Neurosurgery 07/08/23 Gosia Wood MD [address] [address] Surgeon Neurosurgery 07/08/23 documented as of this encounter
--- OUTSIDE RECORDS SUMMARY | 2024-08-25 19:58 | XMS_ITS | Encounter Summary ---
Author Organization [facility] Address [address] [place] [address] Care Team Providers Care Information Systems Auditor Name Role Phone Nila Aguillon MD Primary Care Provider Fredi Medel MD Primary Care Provider Unavailab Jenny Garber MD Primary Care Provider Ariadna Gilmore MD Primary Care Provider + Ariadna Jefferson MD Primary Care Provider + Nicholas Ferrer PA-C Unavailable [phone] Noemy Olivares PA-C Unavailable [phone] Gosia Wood MD Unavailable [phone] Encounter Details Date Type Department Care Team Description 08/27/2013 Night Triage Doc Medical Records [address] [place] [address] Abstract, Provider Social History Tobacco Use Types Packs/Day Years Used Date Smoking Tobacco: Former Cigarettes 0.5 16 Q uit: 08/31/2010 Smokeless Tobacco: Never Alcohol Use Standard Drinks/Week [...] on filedocumented in this encounter Care Teams Information Systems Auditor Relationship Specialty Start Date End Date Nila Aguillon MD PCP - General Internal Medicine 06/22/11 11/21/20 Fredi Bearden MD PCP - General Internal Medicine 11/22/20 03/18/21 Jenny Nash MD PCP - General Internal Medicine 03/19/21 11/19/21 Ariadna Jefferson MD [address] [place] [id number] PCP - General Internal Medicine 11/23/21 Ariadna Jefferson MD [address] [place] [id number] PCP - General Internal Medicine 11/20/21 11/22/21 Nicholas Ferrer PA-C [address] [place] [id number] Specialist Neurosurgery 07/08/23 Noemy Olivares PA-C [address] [place] [address] Specialist Neurosurgery 07/08/23 Gosia Wood MD [address] [address] Surgeon Neurosurgery 07/08/23 documented as of this encounter
--- OUTSIDE RECORDS SUMMARY | 2024-08-25 19:58 | XMS_ITS | Encounter Summary ---
Author Organization [facility] Address [address] [place] [address] Care Team Providers Care Pipefitter Name Role Phone Nila Aguillon MD Primary Care Provider Fredi Medel MD Primary Care Provider Unavailab Jenny Garber MD Primary Care Provider Ariadna Gilmore MD Primary Care Provider + Ariadna Jefferson MD Primary Care Provider + Nicholas Ferrer PA-C Unavailable [phone] Noemy Olivares PA-C Unavailable [phone] Gosia Wood MD Unavailable [phone] Encounter Details Date Type Department Care Team Description 06/20/2019 [facility] Medical Records [address] [place] [address] Mercy Llamas MD [address] [address] Social History Tobacco Use Types Packs/Day Years Used Date Smoking Tobacco: Former Cigarettes 0.2 Q uit: 2018 Smokeless Tobacco: Never Comments:quit smoking in 201 8 Alcohol Use Standard Drinks/Week Comments Yes 0 (1 standard drink = 0.6 oz pur e alcohol) Sex Assigned at Date Recorded Female 07/17/2021 5:[address] Job Start Date Occupation Industry Not on file Not on file Not on file documented as of this encounter Plan of Treatment Not on file documented as of this encounter Visit Diagnoses Not on filedocumented in this encounter Care Teams Pipefitter Relationship Specialty Start Date End Date Nila Aguillon MD PCP - General Internal Medicine 06/22/11 11/21/20 Fredi Bearden MD PCP - General Internal Medicine 11/22/20 03/18/21 Jenny Nash MD PCP - General Internal Medicine 03/19/21 11/19/21 Ariadna Jefferson MD [address] [place] [id number] PCP - General Internal Medicine 11/23/21 Ariadna Jefferson MD [address] [place] [phone] PCP - General Internal Medicine 11/20/21 11/22/21 Nicholas Ferrer PA-C [address] [address] Specialist Neurosurgery 07/08/23 Noemy Olivares PA-C [address] [address] Specialist Neurosurgery 07/08/23 Gosia Wood MD [address] [address] Surgeon Neurosurgery 07/08/23 documented as of this encounter
--- OUTSIDE RECORDS SUMMARY | 2024-08-25 19:58 | XMS_ITS | Clinical Summary ---
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 02/14/20 24 Active upadacitinib (Rinvoq) 15 mg tablet extended release 24 hr Take by mouth. 01/04/20 24 Active e-lytes/carboxym ethylcellulose (ARTIFICIAL SALIVA, CMCE-LYTES, MM) Use 1 lozenge in the mouth or throat 3 (three) times a day. Artificial Saliva (Dry Mouth Drops) Lozenge 01/04/20 24 Active nystatin (MYCOSTATIN) ointment Apply thin layer to afected areas twice a day for 7 days. 12/29/19 24 025 Active betamethasone valerate (VALISONE) 0.1 % cream APPLY TO AFFECTED AREA EVERY DAY 08/09/19 24 Active clindamycin phosphate 1 % gel, once daily 09/09/19 24 Active ibuprofen (ADVIL,MOTRIN) 400 mg tablet TAKE 1 TO 2 TABLETS BY MOUTH EVERY 8 HOURS NEEDED FOR PAIN 09/01/19 24 Active ammonium lactate (AMLACTIN) 12 % cream 09/11/19 24 Active tacrolimus (PROTOPIC) 0.1 % ointment APPLY TO HANDS AND FEET TWICE DAILY NEEDED FOR FLARES, ALTERNATING WITH STEROID 06/30/19 24 Active triamcinolone (KENALOG) 0.1 % cream APPLY 1 APPL TOPICALLY 2 TIMES A DAY 06/30/19 24 Active escitalopram (LEXAPRO) 20 mg tablet Take 1 tablet (20 mg total) by mouth 1 (one) time each day. 10/30/19 23 Active diclofenac (VOLTAREN) 1 % topical gel Apply 2 g topically 3 times daily. 02/11/20 22 Active flunisolide (NASALIDE) 25 mcg (0.025 %) spray,non-aeroso l 2 Sprays by Nasal route 2 times daily. 02/11/20 22 Active inhaler,assist device,accesory (MOUTHPIECE MISC) Inhale 1 Units by mouth. Spacer/Aero Chamber Mouthpiece Misc Inhale 1 Units into the lungs every 6 hours as needed (use with inhalers as directed). 11/04/19 18 Active fluocinonide (LIDEX) 0.05 % cream APPLY TO HANDS AND FEET 2 TIMES DAILY NEEDED FOR FLARES, DECREASE SYMPTOMS IMPROVE 04/25/20 23 Active mupirocin (BACTROBAN) 2 % ointment APPLY TO LEG 3 TIMES A DAY FOR 7 DAYS 10/27/19 24 Active ofloxacin (OCUFLOX) 0.3 % ophthalmic solution INSTILL 1 DROP IN RIGHT EYE 3 TIMES A DAY FOR 7 DAYS 03/07/20 24 Active valACYclovir (VALTREX) 1 gram tablet Take 1 tablet (1,000 mg total) by mouth 1 (one) time each day. for 5 days 03/02/20 24 Active topiramate (TOPAMAX) 50 mg tablet TAKE 1 TABLET BY MOUTH TWICE A DAY 180 tablet 1 05/01/20 24 Active baclofen (LIORESAL) 10 mg tablet TAKE 1 TABLET BY MOUTH DAILY NEEDED (MUSCLE SPASM, MAY CAUSE SEDATION). 30 tablet 06/14/19 25 Active famotidine (PEPCID) 20 mg tablet TAKE 1 TABLET BY MOUTH TWICE A DAY 180 tablet 07/02/19 25 Active albuterol HFA (PROAIR HFA ; PROVENTIL HFA ; VENTOLIN HFA) 90 mcg/actuation inhalerIndicatio ns:Mild intermittent asthma without complication Inhale 2 puffs by mouth every 6 (six) hours if needed for wheezing or shortness of breath. Inhale 2 Puffs into the lungs every 6 hours as needed for Wheezing or Shortness of Breath. 6.7 g 2 07/05/19 25 Active azithromycin (ZITHROMAX) 250 mg tablet Take 2 tabs day 1, take 1 tab day 2-5 6 tablet 07/05/19 25 Active Additional Information Patient not taking.Reported on 08/06/2024 cetirizine (ZyrTEC) 10 mg tablet TAKE 1 TABLET BY MOUTH EVERY DAY 90 tablet 1 07/13/19 25 Active fluticasone HFA (FLOVENT HFA) 110 mcg/actuation inhalerIndicatio ns:maintenance therapy for asthma Inhale 1 puff by mouth 2 (two) times a day. Rinse mouth with water after use to reduce aftertaste and incidence of candidiasis. Do not swallow. 12 g 2 08/07/19 25 Active tirzepatide, weight loss, (Zepbound) 10 mg/0.5 mL injectionIndicat ions:Class 2 obesity due to excess calories with body mass index (BMI) of 38.0 to 38.9 in adult, unspecified whether serious comorbidity present Inject 0.5 mL (10 mg total) under the skin every 7 (seven) days. 2 mL 1 08/22/19 25 025 Active ferrous sulfate 325 mg (65 mg iron) EC tablet Take 1 tablet (325 mg total) by mouth 1 (one) time each day with breakfast. Do not crush, chew, or split. 90 tablet 1 08/23/19 25 Active cholecalciferol (VITAMIN D-3) 50 mcg (2,000 unit) capsule Take 1 capsule (2,000 Units total) by mouth 1 (one) time each day. 90 capsule 1 08/23/19 25 Active cholecalciferol (VITAMIN D-3) 50 mcg (2,000 unit) capsule Take 1 capsule (2,000 Units total) by mouth 1 (one) time each day. 11/22/19 24 025 Discontinu ed(Reorder ) tirzepatide, weight loss, (Zepbound) 7.5 mg/0.5 mL injection Inject 0.5 mL (7.5 mg total) under the skin every 7 (seven) days for 28 days. 2 mL 07/20/19 25 025 Active Problems Problem Noted Date Diagnosed Date Asthma 03/15/2024 Severe obesity ([facility] V24, [facility] V28) 2023 Mild intermittent asthma 02/21/2024 Pyoderma gangrenosum ([facility] V28) 01/04/2024 Osteoarthritis of lumbar spine with myelopathy 0 01/04/2024 Vitamin D deficiency 01/04/2024 Acquired trigger finger of left middle finger HSV infection 07/08/2023 Basilar artery aneurysm (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 Patient states she had an aunt on her dad side that from a ruptured brain aneurysm. Patient smoked since the age of 12 until she quit in 2018, over the years she did quit multiple times. She does not have any hypertension, does not know of any family history of polycystic kidney disease. She has chronic headaches, states when she is emotional or under stress she gets a migraine/head symptoms. She does describe electric shock sensations in her head/dizziness, that have been going on for years, worse with time. She states it is hard to fully describe what she is experiencing, she feels like her brain is shifting when she moves her head, she feels when she tries to use her hands to do her hair, for example braiding, they do not want to respond the way they should/poor coordination. However when she is using her hands in general she does not notice weakness, is not dropping things like coffee mugs. She has history of carpal tunnel release bilaterally, states it did help her hand symptoms. Unfortunately she also started experiencing left third digit trigger finger. 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 Irregular flow A1 segment left anterior cerebral artery. I reviewed the report with patient and Dr. Wood. Ms. 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 She has upcoming appointments with vascular and neurology to further evaluate her other symptoms. I asked her to call with any concerns or questions. I reminded her not to use any nicotine products, make sure she has good blood pressure control to prevent growth of the aneurysm. She states the trigger finger is really bothering her, I put referral into Dr. Llamas. All questions answered. Chronic migraine with aura w ithout status migrainosus, not intractable 06/08/2023 Dyshidrotic eczema 09/11/2020 Chronic daily headache 06/25/2020 Tinea pedis of left foot 04/15/2020 Intertrigo 04/15/2020 Hidradenitis suppurativa 02/19/2020 Supraumbilical hernia withou t gangrene and without obstruction 11/27/2019 Overview (02/21/2024): Uncomfortable. 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 IMO update Major depressive disorder, recurrent ([facility] V2 4) 07/17/2007 Morbid obesity with BMI of 4 0.0-44.9, adult ([facility] V24, [facility] V28) Encounters Date Type Department Care Team Description 08/21/2024 1:00 PM EDT Office Visit Bariatric Surgery [address] [phone] Zan Edouard MD Class 2 obesity due to excess calories with body mass index (BMI) of 38.0 to 38.9 in adult, unspecified whether serious comorbidity present (Primary Dx) 08/06/2024 1:20 PM EDT Consult Pulmonolgy [address] [phone] Rosa Perez NP Mild persistent asthma without complication (Primary Dx); Seasonal allergic rhinitis, unspecified trigger; Anxiety; Gastroesophageal reflux disease, unspecified whether esophagitis present 07/31/2024 Telephone Adult Medicine [address] [phone] Leilani Yeager RN 07/18/2024 Telephone Bariatric Surgery [address] [phone] Zan Edouard MD Med Refill (zepbound) 07/17/2024 Telephone Adult Medicine [address] [phone] Nikki Alford MA severe abdominal pain and hurts to walk 07/05/2024 5:00 PM EST Office Visit Adult Medicine [address] [phone] Diana Hawthorne PA Basilar artery aneurysm ([facility] V24) (Primary Dx); Mild intermittent asthma without complication; Seasonal allergic rhinitis, unspecified trigger; Gastroesophageal reflux disease, unspecified whether esophagitis present; Ankylosing spondylitis of sacral region (CMS/HCC V24, CMS/HCC V28); Osteoarthritis of lumbar spine with myelopathy; Anxiety; Recurrent major depressive disorder, remission status unspecified (CMS/HCC V24); PTSD (post-traumatic stress disorder); Hidradenitis suppurativa; Dyshidrotic eczema; Other fatigue; Snoring; Obesity, Class II, BMI 35-39.9 07/02/2024 12:45 PM EST - 07/02/2024 11:59 PM EST Hospital Encounter [facility] MRI [address] [place] [address] Basilar artery aneurysm ([facility]/HCC V24) Discharge Disposition: Home or Self Care 06/21/2024 Telephone Adult Medicine [address] [phone] Ariadna Jefferson MD PT1 ([facility]/Dr Zan Edouard/[address] [place] [address] ) 06/21/2024 Telephone Adult Medicine [address] [phone] Ariadna Jefferson MD PT-1 ([facility]/Dr. Jefferson/[address] [place] [id number]) 06/18/2024 Telephone Neurosurgery [facility] [address] [facility] [address] [place] [phone] [place], [place] testing (MRA) 06/15/2024 Telephone Bariatric Surgery [facility] [address] [facility] [address] [place] [address] Zan Edouard MD Med Refill 06/11/2024 Telephone Bariatric Surgery - [address] [place] [phone] Zan Edouard MD Med Refill from Last 3 Months Immunizations Name Administration Dates Next Due Influenza Quadravalent, MDCK , 0.5ml, preservative free (Flucelvax) 6mo and older 03/16/2023,02/10/2022,07/20/2021,02/17,03/01/2017 Influenza trivalent, 0.5mL, preservative free (Fluarix; FluLaval; Fluzone) ages 6mo and older (Afluria) 3 years and older 04/02/2016,04/20/2013,01/30/2008 Influenza trivalent, with pr eservative (Fluzone; Afluria) 6mo and older 01/26/2019 Pneumococcal polysaccharide 23 valent (Pneumovax 23) 2yo and older 02/17/2018 Tdap Tetanus diptheria acell ular pertussis (Boostrix; Adacel) 7yo and older 03/01/2017,09/28/2013,01/30/2008 Surgical History Surgery Date Site/Laterality Comments OTHER SURGICAL HISTORY 2010, 05/03/2013 , 2016 PROCEDURE: HISTORICAL CERCLAGE SURGERY; COMMENT: during latest 14 wk aog ESOPHAGOGASTRODUODENOSCOPY 01/03/2001 PROCEDURE: UT ESOPHAGOGASTRODUODENOSCOPY TRANSORAL DIAGNOSTIC; COMMENT: [facility] - normal; probable nonulcer dyspepsia CARPAL TUNNEL RELEASE 07/2012 PROCEDURE: HISTORICAL CARPAL TUNNEL REL; COMMENT: right CARPAL TUNNEL RELEASE 06/20/2019 Left PROCEDURE: HISTORICAL CARPAL TUNNEL REL HERNIA REPAIR PROCEDURE: HISTORICAL HERNIA REPAIR/UMB HAND SURGERY 12/02/2023 PROCEDURE: HISTORICAL HAND SURGERY; COMMENT: A1 alexandra release long finger(left) Medical History Medical History Date Comments Depressive disorder, not els ewhere classified DX:Depressive disorder, not elsewhere classified Unspecified asthma(493.90) DX:Un specified asthma(493.90) Anxiety state, unspecified DX:An xiety state, unspecified PTSD (post-traumatic stress disorder) DX:PTSD (post-traumatic stress disorder); COMMENT: in counseling Cervical dysplasia DX:Cervical d ysplasia Passage of loose stools DX:Passa ge of loose stools Esophageal reflux DX:Esophageal reflux Irritable bowel syndrome DX:Irri table bowel syndrome Rheumatoid arthritis ([facility]/ [facility] V24, [facility] V28) DX:Rheumatoid arthritis (HCC ) Psoriasis DX:Psoriasis Ankylosing spondylitis (CMS/ HCC V24, [facility] V28) DX:Ankylosing spondylitis (H CC) Genital herpes 07/17/2007 DX:Genital herpe s; COMMENT: Will need prophylaxis in the third trimester. IMO update Diarrhea DX:Diarrhea Family History Medical History Relation Name Comments Diabetes Brother 1 john heart condition Other: hyperthyroid Brother 1 john passed f rom this, wasnt taking the medication Diabetes Brother 2 julia Diabetes Brother 3 swati Diabetes Brother 4 tyrone No Known Problems Brother 5 ADD / ADHD Daughter 1 Allergies Daughter 1 Depression Daughter 1 Allergies Daughter 2 adenoids remove d Coronary artery disease Father had cardiac bipass a few times Diabetes Maternal Grandfather states most likely but not sure health information No Known Problems Maternal Grandmother st howard most likely had health issues but i dont know Arthritis Mother Asthma Mother Diabetes Mother Hypertension Mother Other: blood clot Mother in legs; v aricose veins Other: lupus Mother No Known Problems Paternal Grandfather No Known Problems Paternal Grandmother Thyroid disease Sister 1 ric had surgery No Known Problems Sister 2 half siste r No Known Problems Sister 3 half siste r Anemia Sister 4 jose Other: cervical dysplasia Sister 4 jose Thyroid disease Sister 4 jose Breast cancer Neg Hx Colon cancer Neg Hx Ovarian cancer Neg Hx Prostate cancer Neg Hx Uterine cancer Neg Hx Relation Name Status Comments Brother 1 john thyroid disease , diabetes Brother 2 julia Alive diabetes Brother 3 swati Alive diabetes Brother 4 tyrone Alive diabetes Brother 5 Alive unknown Daughter 1 Alive 2010; healthy; constipation; allergies Daughter 2 Alive 2013; healthy; allergies Father pacemaker Maternal Grandfather Alive Maternal Grandmother Mother diabetes Paternal Grandfather Paternal Grandmother Sister 1 ric Alive thyroid disease , anemia, dysplasia Sister 2 Alive thyroid disease Sister 3 Alive half paternal x 3 Sister 4 jose Alive Son Alive Social History Tobacco Use Types Packs/Day Years Used Date Smoking Tobacco: Former Cigarettes Q uit: 05/09/2017 Smokeless Tobacco: Never Alcohol Use Standard Drinks/Week Comments Yes 0 (1 standard drink = 0.6 oz pur e alcohol) Comments Unknown Sex and Gender Information Value Date Recorded Sex Assigned at Female 05/24/2024 10:45 PM EST Legal Sex Female 11:29 PM EST Gender Identity Female 05/24/2024 10:45 PM EST Sexual Orientation Straight 05/24/2024 10 :45 PM EST Obstetrics History Last Filed Vital Signs Vital Sign Reading Time Taken Comments Blood Pressure 113/75 08/21/2024 1:14 PM EDT Pulse 85 08/21/2024 1:14 PM EDT Temperature 36.6 ??C (97.8 ??F) 08/21/2024 1:14 PM ED T Respiratory Rate 18 08/06/2024 1:36 PM EDT Oxygen Saturation 98% 08/06/2024 1:36 PM EDT Inhaled Oxygen Concentration - - Weight 92.1 kg (203 lb) 08/21/2024 1:14 PM EDT Height 154.9 cm (5' 1 ) 08/21/2024 1:14 PM EDT Body Mass Index 38.36 08/21/2024 1:14 PM EDT Plan of Treatment Upcoming Encounters Date Type Department Care Team (Late st Contact Info) Description 09/03/2024 11:00 AM EDT Ancillary Procedure [facility] [address] [facility] [address] [place] [phone] Rohit Ayers 09/13/2024 11:30 AM EDT Appointment [facility] CT Scan [address] [place] [phone] 09/25/2024 11:00 AM EDT Consult Neurosurgery [facility] [address] [facility] [address] [place] [phone] David Castro MD [facility] [address] [place] [phone] 10/18/2024 1:00 PM EDT [facility] [address] [place] [phone] Rosa Perez NP [address] [facility] [address] [place] [address] 11/02/2024 11:00 AM EDT Office Visit Adult Medicine [facility] [address] [place] [phone] Ariadna Jefferson MD [address] [place] [phone] 11/29/2024 1:00 PM EDT Office Visit Bariatric Surgery - [place] [address] [facility] [address] [place] [phone] Zan Edouard MD [facility] [address] [place] [address] Health Maintenance Due Date Last Done Comments Hepatitis B Vaccines (1 of 3 - 19+ 3-dose series) 2000 Cervical Cancer Screening: HPV 2002 Pneumococcal Vaccine: Pediatrics (0 to 5 Years) and At-Risk Patients (6 to 64 Years) (2 of 2 - PCV) 02/17/2019 02/17/2018 COVID-19 Vaccine (3 - Moderna risk series) 02/02/2021 01/05/2021, 12/08/2020 HIV Screening 04/17/2022 Hepatitis C Screening 04/17/2022 Social Influencers of Health Screening 04/17/2022 Depression Screening 01/03/2025 01/04/2024 Influenza Vaccine (Season Ended) 2025 03/16/2023, 02/10/2022, 07/20/2021, Additional history exists Breast Cancer Screening 03/16/2025 03/16/2023 DTaP,Tdap,and Td Vaccines (4 - Td or Tdap) 03/01/2027 03/01/2017, 09/28/2013, 01/30/2008 Cholesterol Screening (Lipid Panel) 11/07/2028 11/08/2023, 11/08/2023 HIB Vaccines Aged Out No longer eligi ble based on patient's age to complete this topic HPV Vaccines Aged Out No longer eligi ble based on patient's age to complete this topic Hepatitis A Vaccines Aged Out No long er eligible based on patient's age to complete this topic IPV Vaccines Aged Out No longer eligi ble based on patient's age to complete this topic MMR Vaccines Aged Out No longer eligi ble based on patient's age to complete this topic Meningococcal ACWY Vaccine Aged Out N o longer eligible based on patient's age to complete this topic Meningococcal B Vaccine Aged Out No l onger eligible based on patient's age to complete this topic RSV Immunization Patients Under 20 months Aged Out No longer eligible based on patient's age to complete this topic Varicella Vaccines Aged Out No longer eligible based on patient's age to complete this topic Procedures Procedure Name Priority Date/Time Associated Diagnosis Comments CBC WITH AUTO DIFFERENTIAL Routine 08/21/2024 2:18 PM EDT Other fatigue VITAMIN B12 Routine 08/21/2024 2:18 PM EDT Other fatigue VITAMIN D 25 HYDROXY Routine 08/21/2024 2:18 PM EDT Other fatigue IRON AND TIBC Routine 08/21/2024 2:18 PM EDT Other fatigue FERRITIN Routine 08/21/2024 2:18 PM EDT Other fatigue CBC AND DIFFERENTIAL Routine 08/21/2024 2:18 PM EDT Other fatigue COMPREHENSIVE METABOLIC PANEL Routine 08/21/2024 2:18 PM EDT Other fatigue THYROID STIMULATING HORMONE WITH REFLEX TO FREE T4 AND FREE T3 Routine 08/21/2024 2:18 PM EDT Other fatigue HEMOGLOBIN A1C Routine 08/21/2024 2:18 PM EDT Other fatigue OTIS IFA WITH TITER AND PATTERN Routine 08/21/2024 2:18 PM EDT Ankylosing spondylitis of sacral region (CMS/HCC V24, CMS/HCC V28) [id number] Routine 08/21/2024 2 :18 PM EDT Mild persistent asthma without complication ALLERGEN RESPIRATORY PROFILE AREA 1 CT,[place], [place] IGE Routine 08/21/2024 2:18 PM EDT Mild persistent asthma without complication MR ANGIO HEAD WO CONTRAST Routine 07/02/2024 1:34 PM EST Basilar artery aneurysm (CMS/HCC V24) HM DEPRESSION SCREENING Routine 01/04/2024 LIPID PANEL Routine 11/08/2023 SCREENING MAMMOGRAPHY BI 2-VIEW BREAST INC CAD Routine 03/16/2023 4:04 PM EST Encounter for screening mammogram for malignant neoplasm of breast from Last 3 Months or Most Recently Relevant to Health Maintenance Results * Thyroid stimulating hormone with reflex to free t4 and free t3 (08/21/2024 2:18 PM EDT) Pathologist [facility] TSH 1.46 0.40 - 4.00 mcIU/mL LAB CHEMISTRY METHOD 08/22/2024 12:[address] [facility] Blood Venous blood specimen / Unknown Venipuncture / Unknown 08/21/2024 2:18 PM EDT 08/21/2024 2:18 PM EDT us Diana MIRANDA LAB BLOOD ORDERABLES Final Re sult [facility] [address] [place] [address], [place] [phone] * OTIS IFA with titer and pattern (08/21/2024 2:18 PM EDT) OTIS Negative Negative 08/23/2024 11:[address] [facility] Blood Venous blood specimen / Unknown Venipuncture / Unknown 08/21/2024 2:18 PM EDT 08/21/2024 2:18 PM EDT Diana MIRANDA LAB BLOOD ORDERABLES Final Re sult [facility] [address] [place] [address], [place] [phone] * (ABNORMAL) Allergen respiratory profile area 1 CT,MA,[place] IgE (08/21/2024 2:18 PM EDT) Alternaria alternata, IgE <0.10 <0.10 kU/L 08/24/2024 9:43 AM EDT [facility] Alternaria alternata Class CLASS 0 08/24/2024 9:43 AM EDT [facility] Aspergillus fumigatus, IgE <0.10 <0.10 kU/L 08/24/2024 9:43 AM EDT [facility] Aspergillus fumigatus Class CLASS 0 08/24/2024 9:43 AM EDT [facility] [place] Grass, IgE <0.10 <0.10 kU/L 08/24/2024 9:43 AM EDT [facility] [place] Grass Class CLASS 0 08/24 9:43 AM EDT [facility] Common Silver Birch, IgE 1.98(H) <0.10 kU/L 08/24/2024 9:43 AM EDT [facility] Common Silver Birch Class CLASS 2 08/24/2024 9:43 AM EDT [facility] Cat Dander, IgE <0.10 <0.10 kU/L 08/24/2024 9:43 AM EDT [facility] Cat Dander Class CLASS 0 08/25/19 9:43 AM EDT [facility] Cladosporium herbarum, IgE <0.10 <0.10 kU/L 08/24/2024 9:43 AM EDT [facility] Cladosporium herbarum Class CLASS 0 08/24/2024 9:43 AM EDT [facility] Cockroach, [place]ian, IgE 0.91(H) <0.10 kU/L 08/24/2024 9:43 AM EDT [facility] Cockroach, [place] Class CLASS 2 08/24/2024 9:43 AM EDT [facility] [place], IgE <0.10 <0.10 kU/L 08/24/2024 9:43 AM EDT [facility] [place] Class CLASS 0 08/25/19 9:43 AM EDT [facility] Dermatophagoides farinae, IgE 0.65(H) <0.10 kU/L 08/24/2024 9:43 AM EDT [facility] Dermatophagoides farinae Class CLASS 1 08/24/2024 9:43 AM EDT [facility] Dermatophagoides pteronyssinus, IgE 0.66(H) <0.10 kU/L 08/24/2024 9:43 AM EDT [facility] Dermatophagoides pteronyssinus Class CLASS 1 08/24/2024 9:43 AM EDT [facility] Dog Dander, IgE 0.15(H) <0.10 kU/L 08/24/2024 9:43 AM EDT [facility] Dog Dander Class CLASS 0/1 08/25/19 9:43 AM EDT [facility] Elm, IgE <0.10 <0.10 kU/L 08/24/2024 9:43 AM EDT [facility] Elm Class CLASS 0 08/24/2024 9:43 AM EDT [facility] Maple (Lorain), IgE <0.10 <0.10 kU/L 08/24/2024 9:43 AM EDT [facility] Maple (Lorain) Class CLASS 0 08/24/2024 9:43 AM EDT [facility] Maple Roots Syc., [place], IgE <0.10 <0.10 kU/L 08/24/2024 9:43 AM EDT [facility] Maple Roots Syc, [place] Plane Class CLASS 0 08/24/2024 9:43 AM EDT [facility] Mountain Juniper, IgE <0.10 <0.10 kU/L 08/24/2024 9:43 AM EDT [facility] Mountain Juniper Class CLASS 0 08/24/2024 9:43 AM EDT [facility] Mouse Urine Proteins, IgE <0.10 <0.10 kU/L 08/24/2024 9:43 AM EDT [facility] Mouse Urine Proteins Class CLASS 0 08/24/2024 9:43 AM EDT [facility] Mugwort (sagebrush), IgE <0.10 <0.10 kU/L 08/24/2024 9:43 AM EDT [facility] Mugwort (sagebrush) Class CLASS 0 08/24/2024 9:43 AM EDT [facility] [place], IgE <0.10 <0.10 kU/L 08/24/2024 9:43 AM EDT [facility] [place] Class CLASS 0 08/24/2024 9:43 AM EDT [facility] Vidor, IgE 0.29(H) <0.10 kU/L 08/24/2024 9:43 AM EDT [facility] [place] Class CLASS 0/1 08/24/2024 9:43 AM EDT [facility] Penicillium chrysogenum, IgE <0.10 <0.10 kU/L 08/24/2024 9:43 AM EDT [facility] Penicillium chrysogenum Class CLASS 0 08/24/2024 9:43 AM EDT [facility] Common Pigweed, IgE <0.10 <0.10 kU/L 08/24/2024 9:43 AM EDT [facility] Common Pigweed Class CLASS 0 08/07 9:43 AM EDT [facility] Common Ragweed (short), IgE 0.18(H) <0.10 kU/L 08/24/2024 9:43 AM EDT [facility] Common Ragweed (short) Class CLASS 0/1 08/24/2024 9:43 AM EDT [facility] Sheep Alcolu, IgE <0.10 <0.10 kU/L 08/24/2024 9:43 AM EDT [facility] Sheep Alcolu Class CLASS 0 2024 9:43 AM EDT [facility] Kunal Grass, IgE 0.35(H) <0.10 kU/L 08/24/2024 9:43 AM EDT [facility] Kunal Grass Class CLASS 1 08/24 9:43 AM EDT [facility] Royal Tree, IgE <0.10 <0.10 kU/L 08/24/2024 9:43 AM EDT [facility] Royal Tree Class CLASS 0 025 9:43 AM EDT [facility] White Ortiz, IgE <0.10 <0.10 kU/L 08/24/2024 9:43 AM EDT [facility] White Oritz Class CLASS 0 9:43 AM EDT [facility] IgE 193.0(H) <114.0 IU/mL 08/24/2024 9:43 AM EDT [facility] Allergy Interpretation See Below 08/24/2024 9:43 AM EDT [facility] Comment: ?Level of Allergen CLASS ?? kU/L ?Specific IgE Antibody ----- ? 0 ? <0.10 ? Undetectable 0/1 ? 0.10 - 0.34 ? Very Low Level 1 ? 0.35 - 0.69 ? Low Level 2 ? 0.70 - 3.49 ? Moderate Level 3 ? 3.50 - 17.4 ? High Level 4 ? 17.5 - 49.9 ? Very High Level 5 ? 50.0 - 100.0 ?Very High Level 6 ? >100.0 ?Very High Level Test performed at [facility], [facility] [place], [place] ??[address] ? [phone] La Barton MD, PhD - Commercial Relationship Manager Blood Venous blood specimen / Unknown Venipuncture / Unknown 08/21/2024 2:18 PM EDT 08/21/2024 2:18 PM EDT us Rosa Perez [facility] BLOOD ORDERABLES Fi nal Result ELLIE [address] [address] * (ABNORMAL) CBC auto differential (08/21/2024 2:18 PM EDT) [facility] WBC 3.0(L) 4.8 - 10.8 K/mcL LAB HEMETOLOGY METHOD 08/21/2024 4:[address] [facility] RBC 3.90 3.80 - 4.80 M/mcL LAB HEMETOLOGY METHOD 08/21/2024 4:[address] [facility] Hemoglobin 11.7 11.5 - 16.0 g/dL LAB HEMETOLOGY METHOD 08/21/2024 4:[address] [facility] Hematocrit 36.2 35.0 - 47.0 % LAB HEMETOLOGY METHOD 08/21/2024 4:[address] [facility] MCV 92.3 79.0 - 98.0 FL LAB HEMETOLOGY METHOD 08/21/2024 4:[address] [facility] MCH 29.8 27.0 - 32.0 pcg LAB HEMETOLOGY METHOD 08/21/2024 4:[address] [facility] MCHC 32.3 32.0 - 37.0 g/dL LAB HEMETOLOGY METHOD 08/21/2024 4:[address] [facility] RDW 14.0 11.0 - 15.0 % LAB HEMETOLOGY METHOD 08/21/2024 4:[address] [facility] Platelets 212 130 - 400 K/mcL LAB HEMETOLOGY METHOD 08/21/2024 4:[address] [facility] MPV 10.9 7.0 - 11.0 FL LAB HEMETOLOGY METHOD 08/21/2024 4:[address] [facility] NRBC 0.0 <1.0 % LAB HEMETOLOGY METHOD 08/21/2024 4:51 PM [facility] NRBC Absolute 0.00 <0.10 K/mcL LAB HEMETOLOGY METHOD 08/21/2024 4:51 PM [facility] Neutrophils Relative 62.0 % LAB HEMETOLOGY METHOD 08/21/2024 4:51 PM [facility] Lymphocytes Relative 21.2 % LAB HEMETOLOGY METHOD 08/21/2024 4:51 PM [facility] Monocytes Relative 16.2 % LAB HEMETOLOGY METHOD 08/21/2024 4:51 PM [facility] Eosinophils Relative 0.0 % LAB HEMETOLOGY METHOD 08/21/2024 4:51 PM [facility] Basophils Relative 0.3 % LAB HEMETOLOGY METHOD 08/21/2024 4:51 PM [facility] Immature Granulocytes Relative 0.3 % LAB HEMETOLOGY METHOD 08/21/2024 4:51 PM [facility] Neutrophils Absolute 1.84 1.50 - 7.00 K/mcL LAB HEMETOLOGY METHOD 08/21/2024 4:51 PM [facility] Lymphocytes Absolute 0.63(L) 1.00 - 5.00 K/mcL LAB HEMETOLOGY METHOD 08/21/2024 4:51 PM [facility] Monocytes Absolute 0.48 0.20 - 1.00 K/mcL LAB HEMETOLOGY METHOD 08/21/2024 4:51 PM [facility] Eosinophils Absolute 0.00 0.00 - 0.50 K/mcL LAB HEMETOLOGY METHOD 08/21/2024 4:51 PM [facility] Basophils Absolute 0.01 0.00 - 0.20 K/mcL LAB HEMETOLOGY METHOD 08/21/2024 4:[address] [facility] Immature Granulocytes Absolute 0.01 0.00 - 0.03 K/mcL LAB HEMETOLOGY METHOD 08/21/2024 4:[address] [facility] Blood Venous blood specimen / Unknown Venipuncture / Unknown 08/21/2024 2:18 PM EDT 08/21/2024 2:18 PM EDT Diana MIRANDA LAB BLOOD ORDERABLES Final Re sult [facility] [address] [place] [address], [place] [phone] * (ABNORMAL) Iron and TIBC (08/21/2024 2:18 PM EDT) Iron 27(L) 40 - 150 mcg/dL LAB CHEMISTRY METHOD 08/21/2024 6:[address] [facility] TIBC 320 250 - 450 mcg/dL LAB CHEMISTRY METHOD 08/21/2024 6:[address] [facility] Iron Saturation 8(L) 15 - 50 % LAB CHEMISTRY METHOD 08/21/2024 6:[address] [facility] Blood Venous blood specimen / Unknown Venipuncture / Unknown 08/21/2024 2:18 PM EDT 08/21/2024 2:18 PM EDT us Diana MIRANDA LAB BLOOD ORDERABLES Final Re sult [facility] [address] [place] [address], [place] [phone] * [id number] (08/21/2024 2:18 PM EDT) A-1 Antitrypsin 129 90 - 200 mg/dL LAB CHEMISTRY METHOD 08/21/2024 6:[address] [facility] Blood Venous blood specimen / Unknown Venipuncture / Unknown 08/21/2024 2:18 PM EDT 08/21/2024 2:18 PM EDT Rosa Perez [facility] BLOOD ORDERABLES Fi nal Result Performing Organization Address [facility]/ZIP Co de Phone Number [facility] [address] [place] [address], [place] [phone] * (ABNORMAL) Vitamin D 25 hydroxy (08/21/2024 2:18 PM EDT) Vit D, 25-Hydroxy 26.3(L) 30.0 - 80.0 ng/mL LAB CHEMISTRY METHOD 08/21/2024 6:[address] [facility] Blood Venous blood specimen / Unknown Venipuncture / Unknown 08/21/2024 2:18 PM EDT 08/21/2024 2:18 PM EDT Diana MIRANDA LAB BLOOD ORDERABLES Final Re sult Performing Organization Address [facility]/ZIP Co de Phone Number [facility] [address] [place] [address], [place] [phone] * Hemoglobin A1c (08/21/2024 2:18 PM EDT) Hemoglobin A1C 5.1 <6.5 % LAB CHEMISTRY METHOD 08/21/2024 9:[address] [facility] Mean Bld Glu Estim. 100 mg/dL LAB CHEMISTRY METHOD 08/21/2024 9:[address] [facility] Blood Venous blood specimen / Unknown Venipuncture / Unknown 08/21/2024 2:18 PM EDT 08/21/2024 2:18 PM EDT us Diana MIRANDA LAB BLOOD ORDERABLES Final Re sult Performing Organization Address [facility]/ZIP Co de Phone Number [facility] [address] [place] [address], [place] [phone] * Ferritin (08/21/2024 2:18 PM EDT) [facility] Ferritin 15 8 - 252 ng/mL LAB CHEMISTRY METHOD 08/21/2024 6:[address] [facility] Blood Venous blood specimen / Unknown Venipuncture / Unknown 08/21/2024 2:18 PM EDT 08/21/2024 2:18 PM EDT us Diana MIRANDA LAB BLOOD ORDERABLES Final Re sult Performing Organization Address [facility]/ZIP Co de Phone Number [facility] [address] [place] [address], [place] [phone] * Vitamin B12 (08/21/2024 2:18 PM EDT) [facility] Vitamin B-12 318 250 - 900 pcg/mL LAB CHEMISTRY METHOD 08/21/2024 6:[address] [facility] Blood Venous blood specimen / Unknown Venipuncture / Unknown 08/21/2024 2:18 PM EDT 08/21/2024 2:18 PM EDT us Diana MIRANDA LAB BLOOD ORDERABLES Final Re sult Performing Organization Address City/[facility]/ZIP Co de Phone Number [facility] [address] [place] [address], [place] [phone] * Comprehensive metabolic panel (08/21/2024 2:18 PM EDT) [facility] Sodium 134 133 - 145 mmol/L LAB CHEMISTRY METHOD 08/21/2024 6:[address] [facility] Potassium 3.7 3.5 - 5.5 mmol/L LAB CHEMISTRY METHOD 08/21/2024 6:35 PM [facility] Chloride 107 96 - 110 mmol/L LAB CHEMISTRY METHOD 08/21/2024 6:35 PM [facility] CO2 23 21 - 32 mmol/L LAB CHEMISTRY METHOD 08/21/2024 6:35 PM [facility] Anion Gap 4 3 - 11 LAB CHEMISTRY METHOD 08/21/2024 6:35 PM [facility] Glucose 81 70 - 100 mg/dL LAB CHEMISTRY METHOD 08/21/2024 6:35 PM [facility] BUN 14 5 - 25 mg/dL LAB CHEMISTRY METHOD 08/21/2024 6:35 PM [facility] Creatinine 0.75 0.50 - 1.10 mg/dL LAB CHEMISTRY METHOD 08/21/2024 6:35 PM [facility] eGFR 101 >=60 mL/min/1. 73m2 LAB CHEMISTRY METHOD 08/21/2024 6:35 PM [facility] Comment:Calculation based on the??Chronic Kidney Disease Epidemiology Collaboration (CKD-EPI) equation refit??without adjustment for race. BUN/Creatinine Ratio 18.7 LAB CHEMISTRY METHOD 08/21/2024 6:35 PM [facility] Calcium 8.6 8.5 - 10.5 mg/dL LAB CHEMISTRY METHOD 08/21/2024 6:35 PM [facility] AST (SGOT) 12 10 - 42 unit/L LAB CHEMISTRY METHOD 08/21/2024 6:35 PM [facility] ALT (SGPT) 17 10 - 60 unit/L LAB CHEMISTRY METHOD 08/21/2024 6:35 PM [facility] Alkaline Phosphatase 72 42 - 121 unit/L LAB CHEMISTRY METHOD 08/21/2024 6:35 PM [facility] Total Protein 7.7 6.0 - 8.0 g/dL LAB CHEMISTRY METHOD 08/21/2024 6:[address] [facility] Albumin 3.8 3.2 - 5.0 g/dL LAB CHEMISTRY METHOD 08/21/2024 6:[address] [facility] Total Bilirubin 0.2 0.0 - 1.4 mg/dL LAB CHEMISTRY METHOD 08/21/2024 6:[address] [facility] Blood Venous blood specimen / Unknown Venipuncture / Unknown 08/21/2024 2:18 PM EDT 08/21/2024 2:18 PM EDT us Diana MIRANDA LAB BLOOD ORDERABLES Final Re sult [facility] [address] [place] [address], [place] [phone] * MR Angio Head wo Contrast (07/02/2024 1:34 PM EST) Anatomical Region Laterality Modality Head and Neck Magnetic Resonan ce 07/02/2024 2:06 PM EST Impressions 07/02/2024 2:17 PM EST 1. ??Provided history of a cerebral aneurysm. ??No prior study available for review. ??Given limitations imposed by motion, no visible aneurysm or evidence of a vascular malformation. 2. ??Extensive chronic paranasal sinus disease. -------- FINAL REPORT -------- Dictated By: Charanjit Ureña Dictated Date: 07/02/2024 14:06 ET Assigned Physician: Charanjit Ureña Reviewed and Electronically Signed By: Charanjit Ureña Signed Date: 07/02/2024 14:17 ET Workstation ID: [id number] Transcribed By: Self Edit Transcribed Date: 07/02/2024 14:06 ET Narrative 07/02/2024 2:17 PM EST PROCEDURE: MR angiogram of the [place] without contrast. HISTORY: Cerebral aneurysm, follow-up. COMPARISON: No pertinent prior study available for comparison. TECHNIQUE: 3-D [id number] MR angiogram of the [place] with MIP reformats. Limited whole brain imaging performed with diffusion weighted and axial T2-weighted images. FINDINGS: Limited imaging of the brain is unremarkable. There is prominent circumferential mucosal thickening and a small amount of debris in the left maxillary antrum. ??Mild mucosal thickening in the right maxillary antrum. ??The frontal sinuses are hypoplastic. ??Moderate-severe mucosal thickening throughout the ethmoids. ??Mild circumferential mucosal thickening in the right sphenoid sinus. The MR angiogram of the [place] is mildly limited by patient motion. ??The left vertebral artery is dominant. ??Both vertebral arteries are widely patent. ??The basilar artery is widely patent. ??There is persistent circulation on the left. ??The control and recovery special tactics are widely patent. Normal appearance of the carotid siphons. ??Mildly hypoplastic left A1 segment. ??The middle and anterior cerebral arteries are widely patent. No visible aneurysm or findings to suggest a vascular malformation. Procedure Note Charanjit Ureña MD - 07/02/2024 PROCEDURE: MR angiogram of the [place] without contrast. HISTORY: Cerebral aneurysm, follow-up. COMPARISON: No pertinent prior study available for comparison. TECHNIQUE: 3-D [id number] MR angiogram of the [place] withMIP reformats. Limited whole brain imaging performed with diffusionweighted and axial T2- weighted images. FINDINGS: Limited imaging of the brain is unremarkable. There is prominent circumferential mucosal thickening and a small amountof debris in the left maxillary antrum. Mild mucosal thickening in theright maxillary antrum. The frontal sinuses are hypoplastic.Moderate-severe mucosal thickening throughout the ethmoids. Mildcircumferential mucosal thickening in the right sphenoid sinus. The MR angiogram of the [place] is mildly limited by patientmotion. The left vertebral artery is dominant. Both vertebral arteriesare widely patent. The basilar artery is widely patent. There ispersistent circulation on the left. The control and recovery special tactics are widely patent. Normal appearance of the carotid siphons. Mildly hypoplastic left [id number]. The middle and anterior cerebral arteries are widely patent. No visible aneurysm or findings to suggest a vascular malformation. IMPRESSION: 1. Provided history of a cerebral aneurysm. No prior study available forreview. Given limitations imposed by motion, no visible aneurysm orevidence of a vascular malformation. 2. Extensive chronic paranasal sinus disease. -------- FINAL REPORT -------- Dictated By: Charanjit Ureña Dictated Date: 07/02/2024 14:06 ET Assigned Physician: Charanjit Ureña Reviewed and Electronically Signed By: Charanjit Ureña Signed Date: 07/02/2024 14:17 ET Workstation ID: [id number] Transcribed By: Self Edit Transcribed Date: 07/02/2024 14:06 ET Noemy MIRANDA IMG MRI PROCEDURES Final R esult * Depression Screening (01/04/2024) Pathologist [facility] Depression Screening Abstracted Historical Provider HEALTH MAINTENANCE Final Result * Lipid panel (11/08/2023) LDL/HDL Ratio 3 0 - 4 Triglycerides 134 0 - 150 mg/dL Cholesterol 139 0 - 200 mg/dL HDL 51 >=40 mg/dL LDL Cholesterol 62 0 - 100 mg/dL Blood Venous blood specimen / Unknown Historical Provider LAB BLOOD ORDERABLES Mali l Result * SCREENING MAMMOGRAPHY BI 2-VIEW BREAST INC CAD (03/16/2023 4:04 PM EST) Anatomical Region Laterality Modality Radiographic Sue ging 03/16/2023 12:5 6 PM EST Narrative 03/17/2023 7:44 AM EST This is a summary report. The complete report is available in the patient's medical record. If you cannot access the medical record, please contact the sending organization for a detailed fax or copy. Baseline screening, full field digital mammography, reviewed with CAD. ??The breasts are composed of fatty and fibroglandular tissue. ??No suspicious mass, architectural distortion or suspicious calcifications are identified. IMPRESSION: : No mammographic evidence of malignancy. BIRADS 1-Negative; N. 5 year breast cancer risk assessment N/A Lifetime breast cancer risk assessment N/A Breast cancer risk category Breast cancer risk not assessed Procedure Note Joy Damon MD - 06/14/2023 This is a summary report. The complete report is available in thepatient's medical record. If you cannot access the medical record, pleasecontact the sending organization for a detailed fax or copy. Baseline screening, full field digital mammography, reviewed with CAD.The breasts are composed of fatty and fibroglandular tissue. Nosuspicious mass, architectural distortion or suspicious calcifications areidentified. IMPRESSION: : No mammographic evidence of malignancy. BIRADS 1-Negative; N. 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
--- OUTSIDE RECORDS SUMMARY | 2024-08-25 19:58 | XMS_ITS | Encounter Summary ---
Author Organization [facility] Address [address] [place] [address] Care Team Providers Care Overlock Sleeve Setter Name Role Phone Nila Aguillon MD Primary Care Provider Fredi Medel MD Primary Care Provider Unavailab Jenny Garber MD Primary Care Provider Ariadna Gilmore MD Primary Care Provider + Ariadna Jefferson MD Primary Care Provider + Nicholas Ferrer PA-C Unavailable Noemy Olivares PA-C Unavailable [phone] Gosia Wood MD Unavailable [phone] Encounter Details Date Type Department Care Team Description 08/20/2019 Telephone Adult Medicine [address] [id number] Katey Estrada PA [address] [place] [address] [id number] Social History Tobacco Use Types Packs/Day Years Used Date Smoking Tobacco: Former Cigarettes 0.2 Smokeless Tobacco: Former Comments:quit x 1 month Alcohol Use Standard Drinks/Week Comments Yes 0 (1 standard drink = 0.6 oz pur e alcohol) Sex Assigned at Date Recorded Female 07/17/2021 5:[address] Job Start Date Occupation Industry Not on file Not on file Not on file documented as of this encounter Miscellaneous Notes * Telephone Encounter - Heide Saenz M.A. - 08/20/2019 9:04 AM EDT Message left for patient to return my call. Ext [phone] (pt calls) documented in this encounter Plan of Treatment Not on file documented as of this encounter Visit Diagnoses Not on filedocumented in this encounter Care Teams Overlock Sleeve Setter Relationship Specialty Start Date End Date Nila Aguillon MD PCP - General Internal Medicine 06/22/11 11/21/20 Fredi Bearden MD PCP - General Internal Medicine 11/22/20 03/18/21 Jenny Nash MD PCP - General Internal Medicine 03/19/21 11/19/21 Ariadna Jefferson MD [address] [place] [address] PCP - General Internal Medicine 11/23/21 Ariadna Jefferson MD [address] [place] [address] PCP - General Internal Medicine 11/20/21 11/22/21 Nicholas Ferrer PA-C [address] [place] [address] Specialist Neurosurgery 07/08/23 Noemy Olivares PA-C [address] [address] Specialist Neurosurgery 07/08/23 Gosia Wood MD [address] [address] Surgeon Neurosurgery 07/08/23 documented as of this encounter
--- OUTSIDE RECORDS SUMMARY | 2024-08-25 19:58 | XMS_ITS | Encounter Summary ---
Author Organization [facility] Address [address] [place] [address] Care Team Providers Care Curtain Feller Blindstitch Name Role Phone Nila Aguillon MD Primary Care Provider Fredi Medel MD Primary Care Provider Unavailab Jenny Garber MD Primary Care Provider Ariadna Gilmore MD Primary Care Provider + Ariadna Jefferson MD Primary Care Provider + Nicholas Ferrer PA-C Unavailable Noemy Olivares PA-C Unavailable [phone] Gosia Wood MD Unavailable [phone] Encounter Details Date Type Department Care Team Description 06/05/2018 Pt. Non Urgent Medical Question Rheumatology - [address] [address] Willard Urena MD Pain of multiple sites (Primary Dx) Social History Tobacco Use Types Packs/Day Years Used Date Smoking Tobacco: Every Day Cigarettes 0.2 Smokeless Tobacco: Former Comments:started age 12; max per 2PPD; 1/4 PPD on 02/17/18 Alcohol Use Standard Drinks/Week Comments Yes 0 (1 standard drink = 0.6 oz pur e alcohol) Sex Assigned at Date Recorded Female 07/17/2021 5:[address] Job Start Date Occupation Industry Not on file Not on file Not on file documented as of this encounter Progress Notes * Vesna Sorto M.A. - 06/05/2018 1:51 PM ESTFrom: Zandra Deedee To: Willard Urena MD Sent: 06/05/2018 8:54 AM EST Subject: same reaction to medication After two days of starting the medication again, right in the middle of the night I had to navarro to the restroom and I have gone a few times. I'm still with bad cramps and rushing to the restroom roomover and over. I can not take this medication, and it does sadden me because I do feel less pain inmy body and better rest at night, when I wake and through the day but it truly just doesn't sit well with my stomach. documented in this encounter Plan of Treatment Not on file documented as of this encounter Visit Diagnoses Diagnosis Pain of multiple sites- Primary Generalized pain documented in this encounter Care Teams Curtain Feller Blindstitch Relationship Specialty Start Date End Date Nila Aguillon MD PCP - General Internal Medicine 06/22/11 11/21/20 Fredi Bearden MD PCP - General Internal Medicine 11/22/20 03/18/21 Jenny Nash MD PCP - General Internal Medicine 03/19/21 11/19/21 Ariadna Jefferson MD [address] [place] [address] PCP - General Internal Medicine 11/23/21 Ariadna Jefferson MD [address] [place] [address] PCP - General Internal Medicine 11/20/21 11/22/21 Nicholas Ferrer PA-C [address] [place] [address] Specialist Neurosurgery 07/08/23 Noemy Olivares PA-C [address] [place] [address] Specialist Neurosurgery 07/08/23 Gosia Wood MD [address] [place] [address] Surgeon Neurosurgery 07/08/23 documented as of this encounter
--- OUTSIDE RECORDS SUMMARY | 2024-08-25 19:58 | XMS_ITS | Encounter Summary ---
Author Organization [facility] Address [address] [place] [address] Care Team Providers Care Geology Professor Name Role Phone Nila Aguillon MD Primary Care Provider Fredi Medel MD Primary Care Provider Unavailab Jenny Garber MD Primary Care Provider Ariadna Gilmore MD Primary Care Provider + Ariadna Jefferson MD Primary Care Provider + Nicholas Ferrer PA-C Unavailable Noemy Olivares PA-C Unavailable [phone] Gosia Wood MD Unavailable [phone] Encounter Details Date Type Department Care Team Description 03/28/2019 Pt. Non Urgent Medic al Question Adult Medicine [address] [address] Nila Aguillon MD Social History Tobacco Use Types Packs/Day Years [...] as of this encounter Progress Notes * Diana Waller PA-C - 03/28/2019 11:55 AM EST Needs appt with [facility]. Diana Waller PA-C documented in this encounter Miscellaneous Notes * Telephone Encounter - Mary Ambriz M.A. - 03/28/2019 11:42 AM ESTFrom: Zandra Mark To: Nila Aguillon MD Sent: 03/28/2019 11:37 AM EST Subject: Question regarding medication I'd like to know if it is possible to raise the milligrams of my Fluoxitine dosage? documented in this encounter Plan of Treatment Not on file documented as of this encounter Visit Diagnoses Not on filedocumented in this encounter Care Teams Geology Professor Relationship Specialty Start Date End Date Nila Aguillon MD PCP - General Internal Medicine 06/22/11 11/21/20 Fredi Bearden MD PCP - General Internal Medicine 11/22/20 03/18/21 Jenny Nash MD PCP - General Internal Medicine 03/19/21 11/19/21 Ariadna Jefferson MD [address] [place] [address] PCP - General Internal Medicine 11/23/21 Ariadna Jefferson MD [address] [place] [address] PCP - General Internal Medicine 11/20/21 11/22/21 Nicholas Ferrer PA-C [address] [address] Specialist Neurosurgery 07/08/23 Noemy Olivares PA-C [address] [address] Specialist Neurosurgery 07/08/23 Gosia Wood MD [address] [place] [address] [address] [place] [address] Surgeon Neurosurgery 07/08/23 documented as of this encounter
--- OUTSIDE RECORDS SUMMARY | 2024-08-25 19:58 | XMS_ITS | Encounter Summary ---
Author Organization [facility] Address [address] [place] [address] Care Team Providers Care Human Resources Representative Name Role Phone Nila Aguillon MD Primary Care Provider Fredi Medel MD Primary Care Provider Unavailab Jenny Garber MD Primary Care Provider Ariadna Gilmore MD Primary Care Provider + Ariadna Jefferson MD Primary Care Provider + Nicholas Ferrer PA-C Unavailable [phone] Noemy Olivares PA-C Unavailable [phone] Gosia Wood MD Unavailable [phone] Reason for Visit * Reason Onset Date Comments Letter 06/02/2018 Encounter Details Date Type Department Care Team Description 06/02/2018 Telephone Adult [address] [address] Nila Aguillon MD Letter Social History Tobacco Use Types Packs/Day Years [...] encounter Miscellaneous Notes * Telephone Encounter - Lexie Britt M.A. - 06/12/2018 1:18 PM EST Pt aware[facility] * Telephone Encounter - Nila Aguillon MD - 06/12/2018 1:10 PM EST Signed and in my outbox. She needs to write the badge # in. * Telephone Encounter - Vesna Staples PA-C - 06/03/2018 8:43 AM EST Patient okay to wait until PCP return. Jury duty is not until August * Telephone Encounter - Shania Batres R.N. - 06/02/2018 12:48 PM EST Vesna Could you possible handle this in Dr. Aguillon's absence? * Telephone Encounter - Shania Batres R.N. - 06/02/2018 12:00 PM EST Ok thanks and enjoy! * Telephone Encounter - Nila Aguillon MD - 06/02/2018 11:54 AM EST I am away until June 12. * Telephone Encounter - Shania Batres R.N. - 06/02/2018 11:48 AM EST Patient called because she would like letter to be excused for jury duty. Jury duty info is in previous message. I placed call to patient and advised her that you are out of office and patient agrees to wait tillyou return. * Telephone Encounter - Heide Angel M.A. - 06/02/2018 11:35 AM EST Please triage in pcp absence * Telephone Encounter - Swati Zuluaga - 06/02/2018 11:30 AM EST Letter requested for: Jury Duty Reason for letter: Excuse for Jury Duty Specific notations needed in body of letter: Zadnra Mark ( D.O.B [birth year]) is unable to serve on a jury. She receives disability for depression and anxiety. 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 Jury badge no. [id number] date of jury is August. Date needed for completion: 06/02/2018 When completed: Will picker/puller-call when completed: documented in this encounter Plan of Treatment Not on file documented as of this encounter Visit Diagnoses Not on filedocumented in this encounter Care Teams Human Resources Representative Relationship Specialty Start Date End Date Nila Aguillon MD PCP - General Internal Medicine 06/22/11 11/21/20 Fredi Bearden MD PCP - General Internal Medicine 11/22/20 03/18/21 Jenny Nash MD PCP - General Internal Medicine 03/19/21 11/19/21 Ariadna Jefferson MD [address] [place] [address] PCP - General Internal Medicine 11/23/21 Ariadna Jefferson MD [address] [place] [address] PCP - General Internal Medicine 11/20/21 11/22/21 Nicholas Ferrer PA-C [address] [address] Specialist Neurosurgery 07/08/23 Noemy Olivares PA-C [address] [address] Specialist Neurosurgery 07/08/23 Gosia Wood MD [address] [address] Surgeon Neurosurgery 07/08/23 documented as of this encounter
--- OUTSIDE RECORDS SUMMARY | 2024-08-25 19:58 | XMS_ITS | Encounter Summary ---
Author Organization [facility] Address [address] [place] [address] Care Team Providers Care Fundraising Specialist Name Role Phone Nila Aguillon MD Primary Care Provider Fredi Medel MD Primary Care Provider Unavailab Jenny Garber MD Primary Care Provider Ariadna Gilmore MD Primary Care Provider + Ariadna Jefferson MD Primary Care Provider + Nicholas Ferrer PA-C Unavailable Noemy Olivares PA-C Unavailable [phone] Gosia Wood MD Unavailable [phone] Encounter Details Date Type Department Care Team Description 08/20/2019 Telephone Adult Medicine [address] [phone] Katey Estrada PA [address] [place] [address] [id number] Social History Tobacco Use Types Packs/Day Years [...] Encounter - Heide Saenz M.A. - 08/20/2019 9:03 AM EDT Message left for patient to return my call. Ext [phone] documented in this encounter Plan of Treatment Not on file documented as of this encounter Visit Diagnoses Not on filedocumented in this encounter Care Teams Fundraising Specialist Relationship Specialty Start Date End Date Nila Aguillon MD PCP - General Internal Medicine 06/22/11 11/21/20 Fredi Bearden MD PCP - General Internal Medicine 11/22/20 03/18/21 Jenny Nash MD PCP - General Internal Medicine 03/19/21 11/19/21 Ariadna Jefferson MD [address] [place] [address] PCP - General Internal Medicine 11/23/21 Ariadna Jefferson MD [address] [place] [address] PCP - General Internal Medicine 11/20/21 11/22/21 Nicholas Ferrer PA-C [address] [address] Specialist Neurosurgery 07/08/23 Noemy Olivares PA-C [address] [address] Specialist Neurosurgery 07/08/23 Gosia Wood MD [address] [address] Surgeon Neurosurgery 07/08/23 documented as of this encounter
--- OUTSIDE RECORDS SUMMARY | 2024-08-25 19:58 | XMS_ITS | Encounter Summary ---
Author Organization [facility] Address [address] [place] [address] Care Team Providers Care Fixture Maker Name Role Phone Nila Aguillon MD Primary Care Provider Fredi Medel MD Primary Care Provider Unavailab Jenny Garber MD Primary Care Provider Ariadna Gilmore MD Primary Care Provider + Ariadna Jefferson MD Primary Care Provider + Nicholas Ferrer PA-C Unavailable [phone] Noemy Olivares PA-C Unavailable [phone] Gosia Wood MD Unavailable [phone] Encounter Details Date Type Department Care Team Description 06/01/2018 [employer]ique Clocks Repairer Report Medical Records [address] [place] [address] Irma Wall PA-C Social History Tobacco Use Types Packs/Day Years [...] on filedocumented in this encounter Care Teams Fixture Maker Relationship Specialty Start Date End Date Nila Aguillon MD PCP - General Internal Medicine 06/22/11 11/21/20 Fredi Bearden MD PCP - General Internal Medicine 11/22/20 03/18/21 Jenny Nash MD PCP - General Internal Medicine 03/19/21 11/19/21 Ariadna Jefferson MD [address] [place] [address] [id number] PCP - General Internal Medicine 11/23/21 Ariadna Jefferson MD [address] [place] [address] [phone] PCP - General Internal Medicine 11/20/21 11/22/21 Nicholas Ferrer PA-C 175 [facility] [address] [place] [address] Specialist Neurosurgery 07/08/23 Noemy Olivares PA-C [address] [facility] [address] [place] [address] Specialist Neurosurgery 07/08/23 Gosia Wood MD [address] [address] Surgeon Neurosurgery 07/08/23 documented as of this encounter
--- OUTSIDE RECORDS SUMMARY | 2024-08-25 19:58 | XMS_ITS | Encounter Summary ---
Author Organization [facility] Address [address] [place] [address] Care Team Providers Care Slot Floorperson Name Role Phone Nila Aguillon MD Primary Care Provider Fredi Medel MD Primary Care Provider Unavailab Jenny Garber MD Primary Care Provider Ariadna Gilmore MD Primary Care Provider + Ariadna Jefferson MD Primary Care Provider + Nicholas Ferrer PA-C Unavailable [phone] Noemy Olivares PA-C Unavailable [phone] Gosia Wood MD Unavailable [phone] Reason for Visit * Reason Onset Date Comments PT-1 12/22/2017 Encounter Details Date Type Department Care Team Description 12/22/2017 Telephone Adult [address] [address] Nila Aguillon MD PT-1 Social History Tobacco Use Types Packs/Day Years Used Date Smoking Tobacco: Every Day Cigarettes 0.5 16 Smokeless Tobacco: Former Comments:stopped with pregna ncy Alcohol Use Standard Drinks/Week Comments Yes 0 (1 standard drink = 0.6 oz pur e alcohol) weekends, none in Sex Assigned at Date Recorded Female 07/17/2021 5:[address] Job Start Date Occupation Industry Not on file Not on file Not on file documented as of this encounter Miscellaneous Notes * Telephone Encounter - Misael Peterson M.A. - 12/23/2017 11:06 AM EDT completed * Telephone Encounter - Christine Zuluaga - 12/22/2017 12:08 PM EDT 09/13/17 [facility] patients will now be included in this workflow: Verify and document patients [place] Health insurance ID # (NOT [facility] ID): [id number] Payor: [employer] FFS / Plan: [employer] / Product Type: MEDICAID RISK Patient mailing address: [address] [place] [address] Pt. demographics verified? YES If not accurate, update registration. Is this a NEW request or a RENEWAL? renewal Name of treating facility: [facility] Name (first & last) of treating provider? required : Dr Nila Aguillon What is the medical reason why the patient is seeing the above provider? Internal medicine Address/Zip code for treating provider: [address] [place] [address] Phone # for treating provider: [phone] Is the provider in the [facility] network (do they accept [place] Health insurance)? YES What specialtly is this provider? Primary care When is the visit scheduled for? 02/13/2018 How often you will be seeing this particular provider? 5 times a month Do you have friends or family who can transport you to this visit? NO If yes, do not complete request. Is there anything stopping you from using public transportation? If yes, explain. : YES Is there a medical reason (diagnosis) why you are unable to use public transportation? If yes, explain: yes - PTSD Do you need a wheelchair van? NO Do you need an escort to accompany you? If yes, explain why. NO Will you have an alternative pick-up address? NO Do you have a service animal? NO PT DOES NOT NEED RELEASE OF INFORMATION SIGNED documented in this encounter Plan of Treatment Not on file documented as of this encounter Visit Diagnoses Not on filedocumented in this encounter Care Teams Slot Floorperson Relationship Specialty Start Date End Date Nila Aguillon MD PCP - General Internal Medicine 06/22/11 11/21/20 Fredi Bearden MD PCP - General Internal Medicine 11/22/20 03/18/21 Jenny Nash MD PCP - General Internal Medicine 03/19/21 11/19/21 Ariadna Jefferson MD [address] [place] [address] PCP - General Internal Medicine 11/23/21 Ariadna Jefferson MD [address] [place] [address] PCP - General Internal Medicine 11/20/21 11/22/21 Nicholas Ferrer PA-C [address] [address] Specialist Neurosurgery 07/08/23 Noemy Olivares PA-C [address] [address] Specialist Neurosurgery 07/08/23 Gosia Wood MD [address] [address] Surgeon Neurosurgery 07/08/23 documented as of this encounter
--- OUTSIDE RECORDS SUMMARY | 2024-08-25 19:58 | XMS_ITS | Encounter Summary ---
Author Organization [facility] Address [address] [place] [address] Care Team Providers Care Drupal Web Developer Name Role Phone Ariadna Jefferson MD Primary Care Provider + Nicholas Ferrer PA-C Unavailable [phone] Noemy Olivares PA-C Unavailable [phone] Gosia Wood MD Unavailable [phone] Encounter Details Date Type Department Care Team Description 06/03/2023 Orders Only Medical Records [address] [place] [phone] [place] [address] Social History Tobacco Use Types Packs/Day Years Used Date Smoking Tobacco: Former Cigarettes 0.2 Smokeless Tobacco: Former Comments:quit smoking in 201 9 Alcohol Use Standard Drinks/Week Comments Yes 0 (1 standard drink = 0.6 oz pur e alcohol) Sex Assigned at Date Recorded Female 07/17/2021 5:[address] Job Start Date Occupation Industry Not on file Not on file Not on file documented as of this encounter Plan of Treatment Not on file documented as of this encounter Procedures Procedure Name Priority Date/Time Associated Diagnosis Comments OUTSIDE LAB Routine 05/13/2023 documented in this encounter Results * OUTSIDE LAB (05/13/2023) [facility] documented in this encounter Visit Diagnoses Not on filedocumented in this encounter Care Teams Drupal Web Developer Relationship Specialty Start Date End Date Ariadna Jefferson MD [address] [place] [address] PCP - General Internal Medicine 11/23/21 Nicholas Ferrer PA-C [address] [address] Specialist Neurosurgery 07/08/23 Noemy Olivares PA-C [address] [address] Specialist Neurosurgery 07/08/23 Gosia Wood MD [address] [id number] Surgeon Neurosurgery 07/08/23 documented as of this encounter
--- OUTSIDE RECORDS SUMMARY | 2024-08-25 19:58 | XMS_ITS | Encounter Summary ---
Author Organization [facility] Address [address] [place] [address] Care Team Providers Care It Support Consultant Name Role Phone Nila Aguillon MD Primary Care Provider Fredi Medel MD Primary Care Provider Unavailab Jenny Garber MD Primary Care Provider Ariadna Gilmore MD Primary Care Provider + Ariadna Jefferson MD Primary Care Provider + Nicholas Ferrer PA-C Unavailable [phone] Noemy Olivares PA-C Unavailable [phone] Gosia Wood MD Unavailable [phone] Reason for Visit * Reason Comments E-prescribe Rx Request Encounter Details Date Type Department Care Team Description 03/11/2019 Refill Adult Medicine [address] [address] Diana Waller PA-C [address] [place] [address] [phone] E-prescribe Rx Request Social History Tobacco Use Types Packs/Day Years [...] Telephone Encounter - Heide Saenz M.A. - 03/13/2019 1:27 PM EST Faxed to pharmacy * Telephone Encounter - Carla Zaldivar - 03/12/2019 1:11 PM EST Patient would like script to be: E-PRESCRIBED/FAXED TO PHARMACY WHEN WAS THE PATIENT'S LAST APPOINTMENT IN ADULT MEDICINE? 01/30/19 WHEN WAS THE LAST TIME THE PATIENT SAW THEIR PCP? 05/11/18 Does patient have an upcoming appointment? Yes 07/30/18 (THE MEDICATION REQUESTED IS ON THE MED LIST ABOVE) All of the medications requested were on the CURRENT MEDS list Did you check the Pharmacy information above?: YES Patient wants: 30 -day supply Is this a mail order prescription request ? NO If the refill is from a FAXED refill request what is the RX # listed on the fax? N/A Patients current insurance carrier is: Payor: [employer] FFS / Plan: [employer] / Product Type: MEDICAID RISK documented in this encounter Plan of Treatment Not on file documented as of this encounter Visit Diagnoses Not on filedocumented in this encounter Care Teams It Support Consultant Relationship Specialty Start Date End Date Nila Aguillon MD PCP - General Internal Medicine 06/22/11 11/21/20 Fredi Bearden MD PCP - General Internal Medicine 11/22/20 03/18/21 Jenny Nash MD PCP - General Internal Medicine 03/19/21 11/19/21 Ariadna Jefferson MD [address] [place] [address] PCP - General Internal Medicine 11/23/21 Ariadna Jefferson MD [address] [place] [address] PCP - General Internal Medicine 11/20/21 11/22/21 Nicholas Ferrer PA-C [address] [address] Specialist Neurosurgery 07/08/23 Noemy Olivares PA-C [address] [address] Specialist Neurosurgery 07/08/23 Gosia Wood MD [address] [address] Surgeon Neurosurgery 07/08/23 documented as of this encounter
--- OUTSIDE RECORDS SUMMARY | 2024-08-25 19:58 | XMS_ITS | Encounter Summary ---
Author Organization [facility] Address [address] [place] [address] Care Team Providers Care Head Concierge Name Role Phone Nila Aguillon MD Primary Care Provider Fredi Medel MD Primary Care Provider Unavailab Jenny Garber MD Primary Care Provider UnavaAriadna Torres MD Primary Care Provider + Ariadna Jefferson MD Primary Care Provider + Nicholas Ferrer PA-C Unavailable [phone] Noemy Olivares PA-C Unavailable [phone] Gosia Wood MD Unavailable [phone] Encounter Details Date Type Department Care Team Description 11/03/2018 Refill OBGYN - [place] [address] [place], [place] [phone] Yusuf Garcia MD [address] [place] [address] Social History Tobacco Use Types Packs/Day Years [...] encounter Miscellaneous Notes * Telephone Encounter - Belinda Hall R.N. - 11/03/2018 2:00 PM EDTFrom: Zandra Mark To: Yusuf Garcia MD Sent: 11/03/2018 12:53 PM EDT Subject: Medication Renewal Request Original authorizing provider: MD Zandra Li would like a refill of the following medications: acyclovir (ZOVIRAX) 400 MG tablet [Yusuf Garcia MD] Preferred pharmacy: [facility] [address] [place], [place] [address] [address] JOLENE AT [facility] STEPHANIE FERNÁNDEZ Comment: Medication renewals requested in this message routed to other providers: famotidine (PEPCID) 20 MG tablet [JALEEL Covington] documented in this encounter Plan of Treatment Not on file documented as of this encounter Visit Diagnoses Not on filedocumented in this encounter Care Teams Head Concierge Relationship Specialty Start Date End Date Nila Aguillon MD PCP - General Internal Medicine 06/22/11 11/21/20 Fredi Bearden MD PCP - General Internal Medicine 11/22/20 03/18/21 Jenny Nash MD PCP - General Internal Medicine 03/19/21 11/19/21 Ariadna Jefferson MD [address] [place] [address] PCP - General Internal Medicine 11/23/21 Ariadna Jefferson MD [address] [place] [address] PCP - General Internal Medicine 11/20/21 11/22/21 Nicholas Ferrer PA-C [address] [address] Specialist Neurosurgery 07/08/23 Noemy Olivares PA-C [address] [address] Specialist Neurosurgery 07/08/23 Gosia Wood MD [address] [address] Surgeon Neurosurgery 07/08/23 documented as of this encounter
--- OUTSIDE RECORDS SUMMARY | 2024-08-25 19:58 | XMS_ITS | Encounter Summary ---
Author Organization [facility] Address [address] [place] [address] Care Team Providers Care Walnut Dehydrator Operator Name Role Phone Nila Aguillon MD Primary Care Provider Fredi Medel MD Primary Care Provider Unavailab Jenny Garber MD Primary Care Provider Ariadna Gilmore MD Primary Care Provider + Ariadna Jefferson MD Primary Care Provider + Nicholas Ferrer PA-C Unavailable [phone] Noemy Olivares PA-C Unavailable [phone] Gosia Wood MD Unavailable [phone] Reason for Visit * Reason Onset Date Comments Letter 05/18/2019 Encounter Details Date Type Department Care Team Description 05/18/2019 Telephone Adult [address] [address] Nila Aguillon MD Letter Social History Tobacco [...] encounter Miscellaneous Notes * Telephone Encounter - Liane Alvarez M.A. 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 Diana Waller PA-C * Telephone Encounter - Heide Angel M.A. - 05/18/2019 10:35 AM EST Last office visit was with YOGESH Yin 01/2019 for sx Are you willing to write pt a jury duty excuse letter? * Telephone Encounter - Louise Butterfield - 05/18/2019 10:30 AM EST Letter requested for: Jury Duty Reason for letter: Patient needs letter stating she cannot go to jury duty due to anxiety/depression. Jury Duty Date: 07/04/19 @ 8:00 AM Bagde #: [id number] Patient Active Problem List Diagnosis Code ??? Genital herpes, unspecified A60.00 ??? Major depressive disorder, recurrent (HCC) F33.9 ??? GERD (gastroesophageal reflux disease) K21.9 ??? Mild intermittent asthma J45.20 ??? History of multiple loss [id number] ??? Bilateral carpal tunnel syndrome G56.03 ??? Allergic rhinitis due to allergen J30.9 ??? Anxiety F41.9 ??? PTSD (post-traumatic stress disorder) F43.10 ??? Obesity (BMI 30.0-34.9) E66.9 Specific notations needed in body of letter: Date needed for completion: JUAN When completed: Will continuous pickling line pickler-call when completed: (home) documented in this encounter Plan of Treatment Not on file documented as of this encounter Visit Diagnoses Not on filedocumented in this encounter Care Teams Walnut Dehydrator Operator Relationship Specialty Start Date End Date Nila Aguillon MD PCP - General Internal Medicine 06/22/11 11/21/20 Fredi Bearden MD PCP - General Internal Medicine 11/22/20 03/18/21 Jenny Nash MD PCP - General Internal Medicine 03/19/21 11/19/21 Ariadna Jefferson MD [address] [place] [address] PCP - General Internal Medicine 11/23/21 Ariadna Jefferson MD [address] [place] [address] PCP - General Internal Medicine 11/20/21 11/22/21 Nicholas Ferrer PA-C [address] [address] Specialist Neurosurgery 07/08/23 Noemy Olivares PA-C [address] [address] Specialist Neurosurgery 07/08/23 Gosia Wood MD [address] [address] Surgeon Neurosurgery 07/08/23 documented as of this encounter
--- OUTSIDE RECORDS SUMMARY | 2024-08-25 19:59 | XMS_ITS | Encounter Summary ---
Author Organization [facility] Address [address] [place] [address] Care Team Providers Care Pension Consultant Name Role Phone Ariadna Jefferson MD Primary Care Provider + Nicholas Ferrer PA-C Unavailable Noemy Olivares PA-C Unavailable [phone] Gosia Wood MD Unavailable [phone] Encounter Details Date Type Department Care Team Description 06/18/2023 Pt. Non Urgent Medical Question General Surgery - [place] [address] [phone] Gary Snow MD [address] [address] Social History Tobacco Use Types Packs/Day Years Used Date Smoking Tobacco: Former Cigarettes 0.2 Smokeless Tobacco: Never Comments:quit smoking in 201 9 Alcohol Use [...] on filedocumented in this encounter Care Teams Pension Consultant Relationship Specialty Start Date End Date Ariadna Jefferson MD [address] [place] [address] PCP - General Internal Medicine 11/23/21 Nicholas Ferrer PA-C [address] [address] Specialist Neurosurgery 07/08/23 Noemy Olivares PA-C [address] [address] Specialist Neurosurgery 07/08/23 Gosia Wood MD [address] [phone] Surgeon Neurosurgery 07/08/23 documented as of this encounter
--- OUTSIDE RECORDS SUMMARY | 2024-08-25 19:59 | XMS_ITS | Encounter Summary ---
Author Organization [facility] Address [address] [place] [address] Care Team Providers Care Real Estate Broker Associate Name Role Phone Ariadna Jefferson MD Primary Care Provider + Nicholas Ferrer PA-C Unavailable Noemy Olivares PA-C Unavailable [phone] Gosia Wood MD Unavailable [phone] Reason for Referral * EXTERNAL (Priority) - Authorized/Booked Specialty Diagnoses / Procedures Referred By Contact Referred To Contact Otolaryngology / EarNoseThroat Procedures REFERRAL TO EAR, NOSE & THROAT Ariadna Jefferson MD [address] [place] [address] [facility] [address] [place] [address] DR. JOSHUA [address] [place] [id number] Referral ID Status Reason Start Date Expiration Date V isits Requested Visits Authorized [id number] Authorized/B ooked 02/23/2022 05/26/2022 1 1 Reason for Visit * Reason Onset Date Comments Typer Feedback 02/23/2022 Encounter Details Date Type Department Care Team Description 02/23/2022 Telephone Adult Medicine [facility] [address] [place], [place] [id number] Ariadna Jefferson MD [address] [place] [address] Typer Feedback Social History Tobacco Use Types Packs/Day Years Used Date Smoking Tobacco: Former Cigarettes 0.2 Smokeless Tobacco: Former Comments:quit smoking in 201 9 Alcohol Use Standard Drinks/Week Comments Yes 0 (1 standard drink = 0.6 oz pur e alcohol) Sex Assigned at Date Recorded Female 07/17/2021 5:[address] Job Start Date Occupation Industry Not on file Not on file Not on file COVID-19 Exposure Response Date Recorded In the last 10 days, have yo u been in contact with someone who was confirmed or suspected to have Coronavirus/COVID-19? No / Unsure 02/10/2022 3:15 PM EDT documented as of this encounter Miscellaneous Notes * Telephone Encounter - Ariadna Jefferson MD - 02/23/2022 2:44 PM EDT New order signed. thanks * Telephone Encounter - Kelsea Saez - 02/23/2022 1:[address] Jefferson, You put in a referral for Zandra to be seen by the ENT specialist for tongue lesion, consideration for biopsy(suspected candidiasis but if not resolved by ENT visit please consider biopsy) thank you. However, you put the name of the doctor as Dr. Taylor. Because of that the referral can't be used. She is seeing Dr. Mckinney on 03/04/22 at 1:15 pm. I have pended a new order for you to sign and then I can [facility] to [facility] office. Thank you, Kelsea Saez Referrals documented in this encounter Plan of Treatment Not on file documented as of this encounter Visit Diagnoses Not on filedocumented in this encounter Care Teams Real Estate Broker Associate Relationship Specialty Start Date End Date Ariadna Jefferson MD [address] [place] [address] PCP - General Internal Medicine 11/23/21 Nicholas Ferrer PA-C [address] [address] Specialist Neurosurgery 07/08/23 Noemy Olivares PA-C [address] [address] Specialist Neurosurgery 07/08/23 Gosia Wood MD [address] [address] Surgeon Neurosurgery 07/08/23 documented as of this encounter
--- OUTSIDE RECORDS SUMMARY | 2024-08-25 19:59 | XMS_ITS | Encounter Summary ---
Author Organization [facility] Address [address] [place] [address] Care Team Providers Care Director Translational Name Role Phone Nila Aguillon MD Primary Care Provider Fredi Medel MD Primary Care Provider Unavailab Jenny Garber MD Primary Care Provider Ariadna Gilmore MD Primary Care Provider + Ariadna Jefferson MD Primary Care Provider + Nicholas Ferrer PA-C Unavailable [phone] Noemy Olivares PA-C Unavailable [phone] Gosia Wood MD Unavailable [phone] Encounter Details Date Type Department Care Team Description 12/28/2016 Orders Only OBGYN - [place] [address] [place] [address] Johnnie Whittington MD Zika virus exposure affecting Social History Tobacco Use Types Packs/Day Years Used Date Smoking Tobacco: Former Cigarettes 0.5 16 Smokeless Tobacco: Never Comments:stopped with pregna ncy Alcohol Use Standard [...] Procedure Name Priority Date/Time Associated Diagnosis Comments ZIKA VIRUS (CDC) Routine 12/14/2016 Zika virus exposure affecting documented in this encounter Results * ZIKA VIRUS (CDC) (12/14/2016) 12/14/2016 Johnnie Whittington MD LAB documented in this encounter Visit Diagnoses Diagnosis Zika virus exposure affecting documented in this encounter Care Teams Director Translational Relationship Specialty Start Date End Date Nila Aguillon MD PCP - General Internal Medicine 06/22/11 11/21/20 Fredi Bearden MD PCP - General Internal Medicine 11/22/20 03/18/21 Jenny Nash MD PCP - General Internal Medicine 03/19/21 11/19/21 Ariadna Jefferson MD [address] [place] [address] PCP - General Internal Medicine 11/23/21 Ariadna Jefferson MD [address] [place] [address] PCP - General Internal Medicine 11/20/21 11/22/21 Nicholas Ferrer PA-C [address] [address] Specialist Neurosurgery 07/08/23 Noemy Olivares PA-C [address] [address] Specialist Neurosurgery 07/08/23 Gosia Wood MD [address] [address] Surgeon Neurosurgery 07/08/23 documented as of this encounter
--- OUTSIDE RECORDS SUMMARY | 2024-08-25 19:59 | XMS_ITS | Encounter Summary ---
Author Organization [facility] Address [address] [place] [address] Care Team Providers Care Machine Wedger Name Role Phone Ariadna Jefferson MD Primary Care Provider + Nicholas Ferrer PA-C Unavailable [phone] Noemy Olivares PA-C Unavailable [phone] Gosia Wood MD Unavailable [phone] Reason for Visit * Reason Onset Date Comments LAB WORK 09/15/2023 Encounter Details Date Type Department Care Team Description 09/15/2023 Telephone Bariatric Surgery - [place] [address] [address] Berta Gallardo MS,MATTHEWN,LDN [address] [address] LAB WORK Social History Tobacco Use Types Packs/Day Years [...] encounter Miscellaneous Notes * Telephone Encounter - Berta Gallardo MS,MATTHEWN,AMARI - 09/15/2023 1:36 PM EDT Please order bariatric labs, Dr. Edouard, surgeon documented in this encounter Plan of Treatment Not on file documented as of this encounter Visit Diagnoses Not on filedocumented in this encounter Care Teams Machine Wedger Relationship Specialty Start Date End Date Ariadna Jefferson MD [address] [place] [address] PCP - General Internal Medicine 11/23/21 Nicholas Ferrer PA-C [address] [address] Specialist Neurosurgery 07/08/23 Noemy Oilvares PA-C [address] [address] Specialist Neurosurgery 07/08/23 Gosia Wood MD [address] [address] Surgeon Neurosurgery 07/08/23 documented as of this encounter
--- OUTSIDE RECORDS SUMMARY | 2024-08-25 19:59 | XMS_ITS | Encounter Summary ---
Author Organization [facility] Address [address] [place] [address] Care Team Providers Care Watershed Engineer Name Role Phone Fredi Bearden MD Primary Care Provider Unavailab Jenny Garber MD Primary Care Provider Ariadna Gilmore MD Primary Care Provider + Ariadna Jefferson MD Primary Care Provider + Nicholas eFrrer PA-C Unavailable [phone] Noemy Olivares PA-C Unavailable [phone] Gosia Wood MD Unavailable [phone] Reason for Visit * Reason Comments E-prescribe Rx Request Encounter Details Date Type Department Care Team Description 01/15/2021 Refill Adult Medicine [address] [address] Fredi Bearden MD E-prescribe Rx Request Social History Tobacco Use [...] Exposure Response Date Recorded In the last month, have you been in contact with someone who was confirmed or suspected to have Coronavirus / COVID-19? No / Unsure 01/05/2021 3:36 PM EDT documented as of this encounter Miscellaneous Notes * Telephone Encounter - Kelsea Monsivais M.A. - 01/19/2021 1:32 PM EDT Lab Results Component Value Date ALB 4.2 12/22/2017 SGOT 11 04/22/2020 SGPT 17 04/22/2020 TBILI 0.2 12/22/2017 ALKPHOS 74 12/22/2017 TP 7.1 12/22/2017 * Telephone Encounter - Georgina Rodriguez - 01/19/2021 7:40 AM EDT Patient would like script to be: E-PRESCRIBED/FAXED TO PHARMACY WHEN WAS THE PATIENT'S LAST APPOINTMENT IN ADULT MEDICINE? 09/26/20 WHEN WAS THE LAST TIME THE PATIENT SAW THEIR PCP? Same as above Does patient have an upcoming appointment? (THE MEDICATION REQUESTED IS ON THE MED LIST ABOVE) All of the medications requested were on the CURRENT MEDS list Did you check the Pharmacy information above?: YES Patient wants: 90 -day supply Is this a mail order prescription request ? NO If the refill is from a FAXED refill request what is the RX # listed on the fax? N/A Patients current insurance carrier is: Payor: [employer] FFS / Plan: [employer] / Product Type: MEDICAID RISK documented in this encounter Plan of Treatment Not on file documented as of this encounter Visit Diagnoses Not on filedocumented in this encounter Care Teams Watershed Engineer Relationship Specialty Start Date End Date Fredi Bearden MD PCP - General Internal Medicine 11/22/20 03/18/21 Jenny Nash MD PCP - General Internal Medicine 03/19/21 11/19/21 Ariadna Jefferson MD [address] [place] [address] PCP - General Internal Medicine 11/23/21 Ariadna Jefferson MD [address] [place] [address] PCP - General Internal Medicine 11/20/21 11/22/21 Nicholas Ferrer PA-C [address] [place] [address] Specialist Neurosurgery 07/08/23 Noemy Olivares PA-C [address] [address] Specialist Neurosurgery 07/08/23 Gosia Wood MD [address] [address] Surgeon Neurosurgery 07/08/23 documented as of this encounter
--- OUTSIDE RECORDS SUMMARY | 2024-08-25 19:59 | XMS_ITS | Encounter Summary ---
Author Organization [facility] Address [address] [place] [address] Care Team Providers Care Apigee Developer Name Role Phone Nila Aguillon MD Primary Care Provider Fredi Medel MD Primary Care Provider Unavailab Jenny Garber MD Primary Care Provider Ariadna Gilmore MD Primary Care Provider + Ariadna Jefferson MD Primary Care Provider + Nicholas Ferrer PA-C Unavailable [phone] Noemy Olivares PA-C Unavailable [phone] Gosia Wood MD Unavailable [phone] Encounter Details Date Type Department Care Team Description 11/10/2016 Zika Virus Medical Records [address] [place] [address] Abstract, Provider Social History Tobacco Use Types [...] on filedocumented in this encounter Care Teams Apigee Developer Relationship Specialty Start Date End Date Nila Aguillon MD PCP - General Internal Medicine 06/22/11 11/21/20 Fredi Bearden MD PCP - General Internal Medicine 11/22/20 03/18/21 Jenny Nash MD PCP - General Internal Medicine 03/19/21 11/19/21 Ariadna Jefferson MD [address] [place] [address] PCP - General Internal Medicine 11/23/21 Ariadna Jefferson MD [address] [place] [id number] PCP - General Internal Medicine 11/20/21 11/22/21 Nicholas Ferrer PA-C [address] [place] [address] Specialist Neurosurgery 07/08/23 Noemy Olivares PA-C [address] [address] Specialist Neurosurgery 07/08/23 Gosia Wood MD [address] [address] Surgeon Neurosurgery 07/08/23 documented as of this encounter
--- OUTSIDE RECORDS SUMMARY | 2024-08-25 19:59 | XMS_ITS | Encounter Summary ---
Author Organization [facility] Address [address] [place] [address] Care Team Providers Care Slicing Machine Tender Name Role Phone Jared Durham MD Primary Care Provider Unav ailNila Tian MD Primary Care Provider Unava ilable Nila Aguillon MD Primary Care Provider Unava ilable MonishaFredi ba MD Primary Care Provider Unavailab Jenny Garber MD Primary Care Provider Unavai Ariadna Diaz MD Primary Care Provider + Ariadna Jefferson MD Primary Care Provider + Nicholas Ferrer PA-C Unavailable [phone] Noemy Olivares PA-C Unavailable [phone] Gosia Wood MD Unavailable [phone] Encounter Details Date Type Department Care Team Description 02/03/2010 Night Triage Doc Medical Records [address] [place] [address] Abstract, Provider Social History Tobacco Use Types Packs/Day Years Used Date Smoking Tobacco: Every Day Cigarettes 0.5 16 Last attempted to quit: 06/03/2007 Alcohol Use Standard Drinks/Week Comments No 0 [...] on filedocumented in this encounter Care Teams Slicing Machine Tender Relationship Specialty Start Date End Date Jared Durham MD PCP - General 12/09/10 06/21/11 Nila Aguillon MD PCP - General 11/05/02 12/08/10 Nila Aguillon MD PCP - General Internal Medicine 06/22/11 11/21/20 Fredi Bearden MD PCP - General Internal Medicine 11/22/20 03/18/21 Jenny Nash MD PCP - General Internal Medicine 03/19/21 11/19/21 Ariadna Jefferson MD [address] [place] [address] PCP - General Internal Medicine 11/23/21 Ariadna Jefferson MD [address] [place] [address] PCP - General Internal Medicine 11/20/21 11/22/21 Nicholas Ferrer PA-C [address] [address] Specialist Neurosurgery 07/08/23 Noemy Olivares PA-C [address] [address] Specialist Neurosurgery 07/08/23 Gosia Wood MD [address] [address] Surgeon Neurosurgery 07/08/23 documented as of this encounter
--- OUTSIDE RECORDS SUMMARY | 2024-08-25 19:59 | XMS_ITS | Encounter Summary ---
Author Organization [facility] Address [address] [place] [address] Care Team Providers Care Turf And Grounds Supervisor Name Role Phone Ariadna Jefferson MD Primary Care Provider + Nicholas Ferrer PA-C Unavailable [phone] Noeym Olivares PA-C Unavailable [phone] Gosia Wood MD Unavailable [phone] Encounter Details Date Type Department Care Team Description 07/11/2023 SCAN [facility] Neurosurgery [place] [address] [address] Noemy Olivares PA-C [address] [id number] Social History Tobacco Use Types Packs/Day Years [...] on filedocumented in this encounter Care Teams Turf And Grounds Supervisor Relationship Specialty Start Date End Date Ariadna Jefferson MD [address] [place] [address] PCP - General Internal Medicine 11/23/21 Nicholas Ferrer PA-C [address] [address] Specialist Neurosurgery 07/08/23 Noemy Olivares PA-C [address] [address] Specialist Neurosurgery 07/08/23 Gosia Wood MD [address] [address] Surgeon Neurosurgery 07/08/23 documented as of this encounter
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
--- OUTSIDE RECORDS SUMMARY | 2024-08-25 19:59 | XMS_ITS | Encounter Summary ---
Author Organization [facility] Address [address] [place] [address] Care Team Providers Care Coin Machine Mechanic Name Role Phone Nila Aguillon MD Primary Care Provider Fredi Medel MD Primary Care Provider Unavailab Jenny Garber MD Primary Care Provider Ariadna Gilmore MD Primary Care Provider + Ariadna Jefferson MD Primary Care Provider + Nicholas Ferrer PA-C Unavailable [phone] Noemy Olivares PA-C Unavailable [phone] Gosia Wood MD Unavailable [phone] Encounter Details Date Type Department Care Team Description 11/10/2016 Release of Information Medical Records [address] [place] [id number] Abstract, Provider Social History Tobacco Use Types [...] on filedocumented in this encounter Care Teams Coin Machine Mechanic Relationship Specialty Start Date End Date Nila Aguillon MD PCP - General Internal Medicine 06/22/11 11/21/20 Fredi Bearden MD PCP - General Internal Medicine 11/22/20 03/18/21 Jenny Nash MD PCP - General Internal Medicine 03/19/21 11/19/21 Ariadna Jefferson MD [address] [place] [address] PCP - General Internal Medicine 11/23/21 Ariadna Jefferson MD [address] [place] [address] PCP - General Internal Medicine 11/20/21 11/22/21 Nicholas Ferrer PA-C [address] [place] [address] Specialist Neurosurgery 07/08/23 Noemy Olivares PA-C [address] [address] Specialist Neurosurgery 07/08/23 Gosia Wood MD [address] [address] Surgeon Neurosurgery 07/08/23 documented as of this encounter
--- OUTSIDE RECORDS SUMMARY | 2024-08-25 19:59 | XMS_ITS | Encounter Summary ---
Author Organization [facility] Address [address] [place] [address] Care Team Providers Care Water Taxi Operator Name Role Phone Jared Durham MD Primary Care Provider Unav Nila Schmidt MD Primary Care Provider Unaflaquita ilFredi Munroe MD Primary Care Provider Unavailab Jenny Garber MD Primary Care Provider Unavai Ariadna Diaz MD Primary Care Provider + Ariadna Jefferson MD Primary Care Provider + Nicholas Ferrer PA-C Unavailable [phone] Noemy Olivares PA-C Unavailable [phone] Gosia Wood MD Unavailable [phone] Encounter Details Date Type Department Care Team Description 05/03/2011 Orders Only [facility]BG[facility] - [facility] [address] [address] Erika Reagan CNM Social History Tobacco Use Types Packs/Day Years Used Date Smoking Tobacco: Former Cigarettes 0.5 16 Q uit: 08/31/2010 Smokeless Tobacco: Never Alcohol Use Standard Drinks/Week Comments No 0 (1 standard drink = 0.6 oz pur e alcohol) occ Sex Assigned at Date Recorded Female 07/17/2021 5:[address] Job Start Date Occupation Industry Not on file Not on file Not on file documented as of this encounter Plan of Treatment Not on file documented as of this encounter Visit Diagnoses Not on filedocumented in this encounter Care Teams Water Taxi Operator Relationship Specialty Start Date End Date Jared Durham MD PCP - General 12/09/10 06/21/11 Nila Aguillon MD PCP - General Internal Medicine 06/22/11 11/21/20 Fredi Bearden MD PCP - General Internal Medicine 11/22/20 03/18/21 Jenny Nash MD PCP - General Internal Medicine 03/19/21 11/19/21 Ariadna Jefferson MD [address] [place] [address] PCP - General Internal Medicine 11/23/21 Ariadna Jefferson MD [address] [place] [address] PCP - General Internal Medicine 11/20/21 11/22/21 Nicholas Ferrer PA-C [address] [address] Specialist Neurosurgery 07/08/23 Noemy Olivares PA-C [address] [address] Specialist Neurosurgery 07/08/23 Gosia Wood MD [address] [address] Surgeon Neurosurgery 07/08/23 documented as of this encounter
--- OUTSIDE RECORDS SUMMARY | 2024-08-25 19:59 | XMS_ITS | Encounter Summary ---
Author Organization [facility] Address [address] [place] [address] Care Team Providers Care Flat Ironer Name Role Phone Nila Aguillon MD Primary Care Provider Fredi Medel MD Primary Care Provider Unavailab Jenny Garber MD Primary Care Provider Ariadna Gilmore MD Primary Care Provider + Ariadna Jefferson MD Primary Care Provider + Nicholas Ferrer PA-C Unavailable [phone] Noemy Olivares PA-C Unavailable [phone] Gosia Wood MD Unavailable [phone] Reason for Visit * Reason Onset Date Comments Mychart Rx Refill 09/05/2020 Encounter Details Date Type Department Care Team Description 09/05/2020 Refill Adult Medicine [address] [address] Nila Aguillon MD Mychart Rx Refill Social History Tobacco Use Types Packs/Day Years [...] Miscellaneous Notes * Telephone Encounter - Heide Angel M.A. - 09/06/2020 8:21 AM EDT Lab Results Component Value Date NA 139 12/22/2017 K 4.6 12/22/2017 CO2 25.2 12/22/2017 CL 102 12/22/2017 BUN 13 12/22/2017 CREAT 0.81 04/22/2020 CA 9.6 12/22/2017 GFR > 60 04/22/2020 Limited refill pended, pt advised to schedule appt to discuss further refills documented in this encounter Plan of Treatment Not on file documented as of this encounter Visit Diagnoses Not on filedocumented in this encounter Care Teams Flat Ironer Relationship Specialty Start Date End Date Nila Aguillon MD PCP - General Internal Medicine 06/22/11 11/21/20 Fredi Bearden MD PCP - General Internal Medicine 11/22/20 03/18/21 Jenny Nash MD PCP - General Internal Medicine 03/19/21 11/19/21 Ariadna Jefferson MD [address] [place] [address] PCP - General Internal Medicine 11/23/21 Ariadna Jefferson MD [address] [place] [address] PCP - General Internal Medicine 11/20/21 11/22/21 Nicholas Ferrer PA-C [address] [address] Specialist Neurosurgery 07/08/23 Noemy Olivares PA-C [address] [address] Specialist Neurosurgery 07/08/23 Gosia Wood MD [address] [address] Surgeon Neurosurgery 07/08/23 documented as of this encounter
--- OUTSIDE RECORDS SUMMARY | 2024-08-25 19:59 | XMS_ITS | Encounter Summary ---
Author Organization [facility] Address [address] [place] [address] Care Team Providers Care Christian Education Director Name Role Phone Nila Aguillon MD Primary Care Provider Fredi Medel MD Primary Care Provider Unavailab Jenny Garber MD Primary Care Provider Ariadna Gilmore MD Primary Care Provider + Ariadna Jefferson MD Primary Care Provider + Nicholas Ferrer PA-C Unavailable [phone] Noemy Olivares PA-C Unavailable [phone] Gosia Wood MD Unavailable [phone] Reason for Visit * Reason Onset Date Comments APPOINTMENT 12/09/2016 Encounter Details Date Type Department Care Team Description 12/09/2016 Telephone [facility] - [place] [address] [place], [place] [id number] Johnnie Whittington MD APPOINTMENT Social History Tobacco Use Types Packs/Day Years [...] encounter Miscellaneous Notes * Telephone Encounter - Freya Veras M.A. - 12/09/2016 1:13 PM EDT Please update patient .CMB * Telephone Encounter - Vanessa Carpio - 12/09/2016 12:28 PM EDT Patient states that Dr. Whittington told her that someone would be calling to schedule a cerclage . But she has not received any calls. documented in this encounter Plan of Treatment Not on file documented as of this encounter Visit Diagnoses Not on filedocumented in this encounter Care Teams Christian Education Director Relationship Specialty Start Date End Date Nila Aguillon MD PCP - General Internal Medicine 06/22/11 11/21/20 Fredi Bearden MD PCP - General Internal Medicine 11/22/20 03/18/21 Jenny Nash MD PCP - General Internal Medicine 03/19/21 11/19/21 Ariadna Jefferson MD [address] [place] [address] PCP - General Internal Medicine 11/23/21 Ariadna Jefferson MD [address] [place] [address] PCP - General Internal Medicine 11/20/21 11/22/21 Nicholas Ferrer PA-C [address] [address] Specialist Neurosurgery 07/08/23 Noemy Olivares PA-C [address] [address] Specialist Neurosurgery 07/08/23 Gosia Wood MD [address] [address] Surgeon Neurosurgery 07/08/23 documented as of this encounter
--- OUTSIDE RECORDS SUMMARY | 2024-08-25 19:59 | XMS_ITS | Encounter Summary ---
Author Organization [facility] Address [address] [place] [address] Care Team Providers Care Grill Attendant Name Role Phone Nila Aguillon MD Primary Care Provider Fredi Medel MD Primary Care Provider Unavailab Jenny Gabrer MD Primary Care Provider Ariadna Gilmore MD Primary Care Provider + Ariadna Jefferson MD Primary Care Provider + Nicholas Ferrer PA-C Unavailable [phone] Noemy Olivares PA-C Unavailable [phone] Gosia Wood MD Unavailable [phone] Reason for Visit * Reason Onset Date Comments 10/19/2013 Encounter Details Date Type Department Care Team Description 10/19/2013 Telephone OBGYN - [facility] [address] [place] [address] [id number] Johnnie Whittington MD Social History Tobacco Use Types Packs/Day [...] encounter Miscellaneous Notes * Telephone Encounter - Ita Méndez Azael - 10/19/2013 3:44 PM EDT [facility] - Telephone Triage Documentation CHIEF COMPLAINT:patient c/o stomach tightening off and on and decreased movement, states she can feel the baby right now, though she is not as active as usual. Patient states off and on throughout the day she notices her stomach getting tight for approx 15 minutes, without pain or a tightening feeling. Patient states she is staying hydrated. Patient denies pelvic pain, vaginal bleeding, vaginal discharge, LOF or urinary symptoms. PCP: Nila Aguillon EDC:11/01/13 Current Outpatient Prescriptions Medication Sig Dispense Refill ??? amoxicillin (AMOXIL) 500 MG tablet Take 1 Tab by mouth 3 times daily. 21 Tab 0 ??? nystatin (MYCOSTATIN) powder Apply to affected area four times daily for 10 days 30 g 1 ??? acyclovir (ZOVIRAX) 400 MG tablet Take 1 Tab by mouth 2 times daily. 60 Tab 2 ??? famotidine (PEPCID) 20 MG tablet Take 1 Tab by mouth 2 times daily. 60 Tab 1 ??? Rho D Immune Globulin (RHOGAM, HUMAN,) 300 MCG INJ Inject 300 mcg into the muscle Once. 1 Each 0 ??? ALBUTEROL SULFATE (PROAIR HFA) 108 (90 BASE) MCG/ACT AERS Inhale 2 Puffs into the lungs every 4hours as needed for Cough or Wheezing. 1 Inhaler 5 ??? acyclovir (ZOVIRAX) 800 MG tablet Take 1 Tab by mouth 2 times daily. 10 Tab 5 ??? Vit-Fe Sulfate-FA ( VITAMIN OR) Take 1 tablet by mouth daily. ??? fluticasone (FLOVENT HFA) 44 MCG/ACT inhaler Inhale 2 Puffs into the lungs 2 times daily. Resume at first signs of a cold, cough or wheeze 1 Inhaler 5 No current facility-administered medications for this visit. Allergies: Bactrim; Naproxen sodium; Percocet; and Procaine hcl Patient Active Problem List Diagnosis Code ??? Unspecified Genital Herpes 054.10 ??? Depression 311 ??? GERD (Gastroesophageal Reflux Disease) 530.81 ??? Asthma 493.90 ??? History of multiple loss 651.63 ??? Paresthesia and pain of both upper extremities, right more than left 782.0, 729.5 ??? Carpal tunnel syndrome 354.0 ??? Incompetent cervix in , antepartum 654.53 ??? Supervision of other normal V22.1 ??? Rh negative status during , antepartum 656.13 DISPOSITION:Advice given- patient was advised to drink juice or eat something with sugar and do a kick count. If she does not feel more than 10 movements in an hour she will call the after hours triage. MARCYK REFERENCE:Telephone Triage Obstetrics/Gynecology by Isidra --Fritz Myers & Maren Dubon CALLER UNDERSTANDS & AGREES WITH ADVICE:YES * Telephone Encounter - Suzi Street - 10/19/2013 3:32 PM EDT Chief Complaint/problem: Pt is about 39 wks , she is unsure if her water broke How long has the patient had this problem? Today 3:10 Pt???s PLANISHING HAMMER OPERATOR provider: Johnnie Whittington MD Last menstrual period (LMP) or EDC (due date): 10/28/13 documented in this encounter Plan of Treatment Not on file documented as of this encounter Visit Diagnoses Diagnosis Incompetent cervix in , antepartum, third trimester Rh negative status during , antepartum, third trimester, other fetus documented in this encounter Care Teams Grill Attendant Relationship Specialty Start Date End Date Nila Aguillon MD PCP - General Internal Medicine 06/22/11 11/21/20 Fredi Bearden MD PCP - General Internal Medicine 11/22/20 03/18/21 Jenny Nash MD PCP - General Internal Medicine 03/19/21 11/19/21 Ariadna Jefferson MD [address] [place] [address] PCP - General Internal Medicine 11/23/21 Ariadna Jefferson MD [address] [place] [address] PCP - General Internal Medicine 11/20/21 11/22/21 Nicholas Ferrer PA-C [address] [address] Specialist Neurosurgery 07/08/23 Noemy Olivares PA-C [address] [address] Specialist Neurosurgery 07/08/23 Gosia Wood MD [address] [address] Surgeon Neurosurgery 07/08/23 documented as of this encounter
--- OUTSIDE RECORDS SUMMARY | 2024-08-25 19:59 | XMS_ITS | Encounter Summary ---
Author Organization [facility] Address [address] [place] [address] Care Team Providers Care Labor Relations Worker Name Role Phone Jenny Nash MD Primary Care Provider Ariadna Gilmore MD Primary Care Provider + Ariadna Jefferson MD Primary Care Provider + Nicholas Ferrer PA-C Unavailable [phone] Noemy Olivares PA-C Unavailable [phone] Gosia Wood MD Unavailable [phone] Encounter Details Date Type Department Care Team Description 10/15/2021 Clinique Counter Manager Report Medical Records [address] [place] [address] Willard Urena MD Social History Tobacco Use Types Packs/Day [...] on filedocumented in this encounter Care Teams Labor Relations Worker Relationship Specialty Start Date End Date Jenny Nash MD PCP - General Internal Medicine 03/19/21 11/19/21 OgAriadna hauser MD [address] [place] [address] PCP - General Internal Medicine 11/23/21 Ariadna Jefferson MD [address] [place] [address] PCP - General Internal Medicine 11/20/21 11/22/21 Nicholas Ferrer PA-C [address] [place] [address] Specialist Neurosurgery 07/08/23 Noemy Olivares PA-C [address] [address] Specialist Neurosurgery 07/08/23 Gosia Wood MD [address] [address] Surgeon Neurosurgery 07/08/23 documented as of this encounter
--- OUTSIDE RECORDS SUMMARY | 2024-08-25 19:59 | XMS_ITS | Encounter Summary ---
Author Organization [facility] Address [address] [place] [address] Care Team Providers Care Thermo Cementing Folder Operator Name Role Phone Ariadna Jefferson MD Primary Care Provider + Nicholas Ferrer PA-C Unavailable Noemy Olivares PA-C Unavailable [phone] Gosia Wood MD Unavailable [phone] Encounter Details Date Type Department Care Team Description 06/18/2023 Pt. Non Urgent Medical Question Adult Medicine [address] [address] Ariadna Jefferson MD [address] [place] [address] [id number] Social History Tobacco Use Types Packs/Day Years [...] encounter Miscellaneous Notes * Telephone Encounter - Rosemarie Jorge - 06/20/2023 8:11 AM ESTFrom: Zandra Mark To: Chio Jefferson Sent: 06/18/2023 3:15 PM EST Subject: Just an update on changes Would on my leg update documented in this encounter Plan of Treatment Not on file documented as of this encounter Visit Diagnoses Not on filedocumented in this encounter Care Teams Thermo Cementing Folder Operator Relationship Specialty Start Date End Date Ariadna Jefferson MD [address] [place] [address] PCP - General Internal Medicine 11/23/21 Nicholas Ferrer PA-C [address] [address] Specialist Neurosurgery 07/08/23 Noemy Olivares PA-C [address] [address] Specialist Neurosurgery 07/08/23 Gosia Wood MD [address] [address] Surgeon Neurosurgery 07/08/23 documented as of this encounter
--- OUTSIDE RECORDS SUMMARY | 2024-08-25 19:59 | XMS_ITS | Encounter Summary ---
Author Organization [facility] Address [address] [place] [address] Care Team Providers Care Wheelchair Rental Clerk Name Role Phone Nila Aguillon MD Primary Care Provider Fredi Medel MD Primary Care Provider Unavailab Jenny Garber MD Primary Care Provider Ariadna Gilmore MD Primary Care Provider + Ariadna Jefferson MD Primary Care Provider + Nicholas Ferrer PA-C Unavailable [phone] Noemy Olivares PA-C Unavailable [phone] Gosia Wood MD Unavailable [phone] Encounter Details Date Type Department Care Team Description 01/20/2014 SCAN Medical Records [address] [place] [address] Abstract, Provider Social History Tobacco Use Types [...] Date/Time Associated Diagnosis Comments OUTSIDE LAB Routine 10/28/2013 documented in this encounter Results * OUTSIDE LAB (10/28/2013) Provider Abstract LAB documented in this encounter Visit Diagnoses Not on filedocumented in this encounter Care Teams Wheelchair Rental Clerk Relationship Specialty Start Date End Date Nila Aguillon MD PCP - General Internal Medicine 06/22/11 11/21/20 Fredi Bearden MD PCP - General Internal Medicine 11/22/20 03/18/21 Jenny Nash MD PCP - General Internal Medicine 03/19/21 11/19/21 Ariadna Jefferson MD [address] [place] [address] PCP - General Internal Medicine 11/23/21 Ariadna Jefferson MD [address] [place] [address] PCP - General Internal Medicine 11/20/21 11/22/21 Nicholas Ferrer PA-C [address] [address] Specialist Neurosurgery 07/08/23 Noemy Olivares PA-C [address] [address] Specialist Neurosurgery 07/08/23 Gosia Wood MD [address] [address] Surgeon Neurosurgery 07/08/23 documented as of this encounter
--- OUTSIDE RECORDS SUMMARY | 2024-08-25 19:59 | XMS_ITS | Encounter Summary ---
Author Organization [facility] Address [address] [place] [address] Care Team Providers Care Automatic Winder Operator Name Role Phone Ariadna Jefferson MD Primary Care Pr ovider Reason for Visit * Reason Comments Follow-up Encounter Details Date Type Department Care Team (Late st Contact Info) Description 08/21/2024 1:00 PM EDT Office Visit Bariatric Surgery - [facility] [address] [facility] [address] [place] [address] Zan Edouard MD 175 [facility] [address] [place] [address] Class 2 obesity due to excess calories with body mass index (BMI) of 38.0 to 38.9 in adult, unspecified whether serious comorbidity present (Primary Dx) Social History Tobacco Use Types [...] Orientation Straight 05/24/2024 10 :45 PM EST documented as of this encounter Last Filed Vital Signs Vital Sign Reading Time Taken Comments Blood Pressure 113/75 08/21/2024 1:14 PM EDT Pulse 85 08/21/2024 1:14 PM EDT Temperature 36.6 ??C (97.8 ??F) 08/21/2024 1:14 PM ED T Respiratory Rate - - Oxygen Saturation - - Inhaled Oxygen Concentration - - Weight 92.1 kg (203 lb) 08/21/2024 1:14 PM EDT Height 154.9 cm (5' 1 ) 08/21/2024 1:14 PM EDT Body Mass Index 38.36 08/21/2024 1:14 PM EDT documented in this encounter Ordered Prescriptions Prescription Sig Dispense Quantity Refills Last Filled Start Date End Date tirzepatide, weight loss, (Zepbound) 10 mg/0.5 mL injectionIndicatio ns:Class 2 obesity due to excess calories with body mass index (BMI) of 38.0 to 38.9 in adult, unspecified whether serious comorbidity present Inject 0.5 mL (10 mg total) under the skin every 7 (seven) days. 2 mL 1 08/21/2024 10/20/2024 documented in this encounter Progress Notes * Zan Edouard MD - 08/21/2024 1:00 PM EDT Ms. Mark is a 44 y.o. year old female who presents for surgical follow up regarding obesity. HPI: Ms. Mark has been on tirzepatide 7.5 mg. Has lost 36 lbs on GLP-1 medication, 15 % TBW. BMI is 38.36. Still snacking, specially sweets. Day fatigue, sleepy, sounds like sleep apnea. ROS: GENERAL: No malaise, significant unintentional weight loss, fever, chills or night sweats. HEENT: No changes in hearing or vision, no nose bleeds or other nasal problems. NECK: No lumps, goiter, pain or significant neck swelling RESPIRATORY: No cough, wheezing or shortness of breath CARDIOVASCULAR: No chest pain, leg swelling or palpitations. GI: No abdominal discomfort, nausea, vomiting, or change in bowel habits. : No dysuria, frequency or incontinence. SKIN: No lesions, rash or itching. HEMATOLOGY: No prolonged bleeding, easy bruisability. LYMPHOLOGY No swollen nodes. MUSCULOSKELETAL: No abnormalities. NEURO: No abnormalities. All other systems reviewed which are negative. PAST MEDICAL HISTORY: Patient Active Problem List Diagnosis Date Noted Date Diagnosed Asthma 03/15/2024 Severe obesity ([facility] [place] [facility] V28) 03/15/2024 Mild intermittent asthma 02/21/2024 Morbid obesity with BMI of 40.0-44.9, adult ([facility] [place], [facility] V28) Pyoderma gangrenosum ([facility] [place]) 01/04/2024 Osteoarthritis of lumbar spine with myelopathy 01/04/2024 Vitamin D deficiency 01/04/2024 Acquired trigger finger of left middle finger 10/28/2023 HSV infection 07/08/2023 Basilar artery aneurysm ([facility] [place]) 07/08/2023 Chronic migraine with aura without status migrainosus, not intractable 06/08/2023 Dyshidrotic eczema 09/11/2020 Chronic daily headache 06/25/2020 Tinea pedis of left foot 04/15/2020 Intertrigo 04/15/2020 Hidradenitis suppurativa 02/19/2020 Supraumbilical hernia without gangrene and without obstruction 11/27/2019 Ankylosing spondylitis of sacral region ([facility] [place] [facility] V28) 08/31/2019 Recurrent urticaria 07/31/2019 Periumbilical pain 07/31/2019 Anxiety 02/17/2018 PTSD (post-traumatic stress disorder) 02/17/2018 Allergic rhinitis 09/06/2017 Bilateral carpal tunnel syndrome 10/31/2012 with history of multiple loss 09/03/2010 GERD (gastroesophageal reflux disease) 01/30/2008 Genital herpes 07/17/2007 Major depressive disorder, recurrent ([facility] [place]) 07/17/2007 PAST SURGICAL HISTORY: Past Surgical History: Procedure Laterality Date CARPAL TUNNEL RELEASE 07/2012 PROCEDURE: HISTORICAL CARPAL TUNNEL REL; COMMENT: right CARPAL TUNNEL RELEASE Left 06/20/2019 PROCEDURE: HISTORICAL CARPAL TUNNEL REL ESOPHAGOGASTRODUODENOSCOPY 01/03/2001 PROCEDURE: NE ESOPHAGOGASTRODUODENOSCOPY TRANSORAL DIAGNOSTIC; COMMENT: [facility] - normal; probable nonulcer dyspepsia HAND SURGERY 12/02/2023 PROCEDURE: HISTORICAL HAND SURGERY; COMMENT: A1 alexandra release long finger(left) HERNIA REPAIR PROCEDURE: HISTORICAL HERNIA REPAIR/UMB OTHER SURGICAL HISTORY 2010, 05/03/2013, 2016 PROCEDURE: HISTORICAL CERCLAGE SURGERY; COMMENT: during latest 14 wk aog SOCIAL HISTORY: Social History Tobacco Use Smoking status: Former Current packs/day: 0.00 Types: Cigarettes Quit date: 05/09/2017 Years since quittin.2 Smokeless tobacco: Never Substance Use Topics Alcohol use: Yes Alcohol/week: 0.0 - 5.0 standard drinks of alcohol FAMILY HISTORY: Family History Problem Relation Name Age of Onset Asthma Mother Diabetes Mother Hypertension Mother Arthritis Mother Other (Other: lupus) Mother Other (Other: blood clot) Mother in legs; varicose veins Coronary artery disease Father had cardiac bipass a few times Thyroid disease Sister ric had surgery No Known Problems Sister half sister No Known Problems Sister half sister Anemia Sister jose Thyroid disease Sister jose Other (Other: cervical dysplasia) Sister jose Diabetes Brothbalwinder lopez heart condition Other (Other: hyperthyroid) Brothbalwinder lopez passed from this, wasnt taking the medication Diabetes Brother julia Diabetes Brother swati Diabetes Brother tyrone No Known Problems Brother No Known Problems Maternal Grandmother states most likely had health issues but i dont know Diabetes Maternal Grandfather states most likely but not sure health information No Known Problems Paternal Grandmother No Known Problems Paternal Grandfather Allergies Daughter ADD / ADHD Daughter Depression Daughter Allergies Daughter adenoids removed Colon cancer Neg Hx Breast cancer Neg Hx Uterine cancer Neg Hx Ovarian cancer Neg Hx Prostate cancer Neg Hx Family Status Relation Name Status Mother diabetes Father pacemaker Sister ric Alive thyroid disease, anemia, dysplasia Sister Alive thyroid disease Sister Alive half paternal x 3 Sister jose Alive Brothbalwinder lopez thyroid disease, diabetes Brother julia Alive diabetes Brother swati Alive diabetes Brother tyrone Alive diabetes Brother Alive unknown MGM MGF Alive PGM PGF Daughter Alive 2010; healthy; constipation; allergies Daughter Alive 2013; healthy; allergies Neg Hx (Not Specified) Son Alive No partnership data on file MEDICATIONS: There are no discontinued medications. ACTIVE MEDICATIONS: No outpatient medications have been marked as taking for the 08/21/24 encounter (Office Visit) with Zan Edouard MD. ALLERGIES: Allergies Allergen Reactions Codeine Lidocaine Rash Naproxen Sodium Itching Oxycodone-Acetaminophen Itching Other Reaction(s): Flushing, feeling of warmth Procaine Hcl Sulfadiazine Sulfamethoxazole-Trimethoprim Sulindac GI intolerance PHYSICAL EXAM: Visit Vitals BP 113/75 Pulse 85 Temp 36.6 ??C (97.8 ??F) (Temporal) Ht 1.549 m (61 ) Wt 92.1 kg (203 lb) BMI 38.36 kg/m?? OB Status Unknown Smoking Status Former BSA 1.9 m?? APPEARANCE: Alert and oriented and in no acute distress EYES: Conjunctiva normal and sclera normal and anicteric. NECK: Neck supple with no adenopathy. HEART: RRR with normal S 1 and S 2, no murmurs, no gallops. LUNG: Clear to auscultation LYMPH NODES: No gross cervical or clavicular lymphadenopathy. ABDOMEN: Bowel sounds normoactive, soft, non-tender, non-distended, EXTREMITIES: Extremities warm and well perfused without clubbing, cyanosis, or edema. SKIN: Skin color and texture normal. No rashes or lesions. NEUROLOGIC: Alert and oriented ??3. No motor or sensory deficits in the extremities. LABS/IMAGING: ASSESSMENT: 1. Class 2 obesity due to excess calories with body mass index (BMI) of 38.0 to 38.9 in adult, unspecified whether serious comorbidity present PLAN: 1. Will increase to 10 mg. 2. Interested in bypass. Will start the program. documented in this encounter Plan of Treatment Upcoming Encounters Date Type Department Care Team (Late st Contact Info) Description 09/03/2024 11:00 AM EDT Ancillary Procedure Pulmonolgy - [facility] [address] [facility] [address] [place] [phone] Rohit Ayers 09/13/2024 11:30 AM EDT Appointment [facility] CT Scan [address] [place] [phone] 09/25/2024 11:00 AM EDT Consult Neurosurgery [place] [address] [facility] [address] [place] [phone] David Castro MD [address] [facility] [address] [place] [address] 10/18/2024 1:00 PM EDT Office Visit Pulmonolgy - [facility] [address] [phone] Rosa Perez NP [address] [address] 11/02/2024 11:00 AM EDT Office Visit Adult Medicine [facility] [address] [place] [address] Ariadna Jefferson MD [address] [place] [address] 11/29/2024 1:00 PM EDT Office Visit Bariatric Surgery - [facility] [address] [phone] Zan Edouard MD [address] [address] documented as of this encounter Visit Diagnoses Diagnosis Class 2 obesity due to excess calories with body mass index (BMI) of 38.0 to 38.9 in adult, unspecified whether serious comorbidity present- Primary documented in this encounter Care Teams Automatic Winder Operator Relationship Specialty Start Date End Date Ariadna Jefferson MD [address] [place], [place] PCP - General Internal Medicine 11/23/21 documented as of this encounter
--- OUTSIDE RECORDS SUMMARY | 2024-08-25 19:59 | XMS_ITS | Encounter Summary ---
Author Organization [facility] Address [address] [place] [address] Care Team Providers Care Hat Sizer Name Role Phone Jared Durham MD Primary Care Provider Unav ailNila Tian MD Primary Care Provider Unava ilable Nila Aguillon MD Primary Care Provider Unava ilable MonishaFredi ba MD Primary Care Provider Unavailab Jenny Garber MD Primary Care Provider Unavai Ariadna Diaz MD Primary Care Provider + Ariadna Jefferson MD Primary Care Provider + Nicholas Ferrer PA-C Unavailable Noemy Olivares PA-C Unavailable [phone] Gosia Wood MD Unavailable [phone] Encounter Details Date Type Department Care Team Description 01/08/2005 Refill Medical [address] [place] [address] Heriberto Goss Jr. [address] [place] [address] [id number] Social History Tobacco Use Types Packs/Day Years Used Date Smoking Tobacco: Never Assessed Sex Assigned at Date Recorded Female 07/17/2021 5:[address] Job Start Date Occupation Industry Not on file Not on file Not on file documented as of this encounter Plan of Treatment Not on file documented as of this encounter Visit Diagnoses Not on filedocumented in this encounter Care Teams Hat Sizer Relationship Specialty Start Date End Date Jared Durham MD PCP - General 12/09/10 06/21/11 Nila Aguillon MD PCP - General 11/05/02 12/08/10 Nila Aguillon MD PCP - General Internal Medicine 06/22/11 11/21/20 Fredi Bearden MD PCP - General Internal Medicine 11/22/20 03/18/21 Jenny Nash MD PCP - General Internal Medicine 03/19/21 11/19/21 Ariadna Jefferson MD [address] [place] [address] PCP - General Internal Medicine 11/23/21 Ariadna Jefferson MD [address] [place] [address] PCP - General Internal Medicine 11/20/21 11/22/21 Nicholas Ferrer PA-C [address] [address] Specialist Neurosurgery 07/08/23 Noemy Olivares PA-C [address] [address] Specialist Neurosurgery 07/08/23 Gosia Wood MD [address] [address] Surgeon Neurosurgery 07/08/23 documented as of this encounter
--- OUTSIDE RECORDS SUMMARY | 2024-08-25 19:59 | XMS_ITS | Encounter Summary ---
Author Organization [facility] Address [address] [place] [address] Care Team Providers Care Division Order Analyst Name Role Phone Nila Aguillon MD Primary Care Provider Fredi Medel MD Primary Care Provider Unavailab Jenny Garber MD Primary Care Provider Ariadna Gilmore MD Primary Care Provider + Ariadna Jefferson MD Primary Care Provider + Nicholas Ferrer PA-C Unavailable Noemy Olivares PA-C Unavailable [phone] Gosia Wood MD Unavailable [phone] Reason for Visit * Reason Onset Date Comments Seafood Technology Specialist Feedback 09/03/2014 Dr Armijo [phone]- [phone] Encounter Details Date Type Department Care Team Description 09/03/2014 Telephone Adult Medicine [address] [address] Nila Aguillon MD Seafood Technology Specialist Feedback (Dr Armijo ph- [phone]) Social History Tobacco Use Types Packs/Day Years [...] encounter Miscellaneous Notes * Telephone Encounter - Vesna Taran - 09/16/2014 12:30 PM EDT Order faxed to [phone]. ANDREWS mailed for sensitive info. * Telephone Encounter - Analia Santizo - 09/03/2014 5:20 PM EDT No insurance referral required per patient's insurance. Diagnosis: hair loss Letter mailed to patient instructing them to schedule appointment. Fax to [phone]. Notes and Order documented in this encounter Plan of Treatment Not on file documented as of this encounter Visit Diagnoses Not on filedocumented in this encounter Care Teams Division Order Analyst Relationship Specialty Start Date End Date Nila Aguillon MD PCP - General Internal Medicine 06/22/11 11/21/20 Fredi Bearden MD PCP - General Internal Medicine 11/22/20 03/18/21 Jenny Nash MD PCP - General Internal Medicine 03/19/21 11/19/21 Ariadna Jefferson MD [address] [place] [address] PCP - General Internal Medicine 11/23/21 Ariadna Jefferson MD [address] [place] [address] PCP - General Internal Medicine 11/20/21 11/22/21 Nicholas Ferrer PA-C [address] [address] Specialist Neurosurgery 07/08/23 Noemy Olivares PA-C [address] [address] Specialist Neurosurgery 07/08/23 Gosia Wood MD [address] [place] [address] Surgeon Neurosurgery 07/08/23 documented as of this encounter
--- OUTSIDE RECORDS SUMMARY | 2024-08-25 19:59 | XMS_ITS | Encounter Summary ---
Author Organization Formerly [facility] Address [address] [place] [address] Care Team Providers Care Trade Analyst Name Role Phone Jared Durham MD Primary Care Provider Unav ailNila Tian MD Primary Care Provider Unava ilable Nila Aguillon MD Primary Care Provider Unava ilable MonishaFredi ba MD Primary Care Provider Unavailab Jenny Garber MD Primary Care Provider Unavai Ariadna Diaz MD Primary Care Provider + Ariadna Jefferson MD Primary Care Provider + Nicholas Ferrer PA-C Unavailable [phone] Noemy Olivares PA-C Unavailable [phone] Gosia Wood MD Unavailable [phone] Encounter Details Date Type Department Care Team Description 10/20/2010 Release of Information Medical Records [address] [place] [address] Abstract, Provider Social History Tobacco Use Types [...] on filedocumented in this encounter Care Teams Trade Analyst Relationship Specialty Start Date End Date Jared Durham MD PCP - General 12/09/10 06/21/11 Nila Aguillon MD PCP - General 11/05/02 12/08/10 Nila Aguillon MD PCP - General Internal Medicine 06/22/11 11/21/20 Fredi Bearden MD PCP - General Internal Medicine 11/22/20 03/18/21 Jenny Nash MD PCP - General Internal Medicine 03/19/21 11/19/21 Ariadna Jefferson MD [address] [place] [address] PCP - General Internal Medicine 11/23/21 Ariadna Jefferson MD [address] [place] [address] PCP - General Internal Medicine 11/20/21 11/22/21 Nicholas Ferrer PA-C [address] [address] Specialist Neurosurgery 07/08/23 Noemy Olivares PA-C [address] [address] Specialist Neurosurgery 07/08/23 Gosia Wood MD [address] [address] Surgeon Neurosurgery 07/08/23 documented as of this encounter
--- OUTSIDE RECORDS SUMMARY | 2024-08-25 19:59 | XMS_ITS | Encounter Summary ---
Author Organization [facility] Address [address] [place] [address] Care Team Providers Care Ballet Professor Name Role Phone Nila Aguillon MD Primary Care Provider Fredi Medel MD Primary Care Provider Unavailab Jenny Garber MD Primary Care Provider Ariadna Gilmore MD Primary Care Provider + Ariadna Jefferson MD Primary Care Provider + Nicholas Ferrer PA-C Unavailable [phone] Noemy Olivares PA-C Unavailable [phone] Gosia Wood MD Unavailable [phone] Reason for Visit * Reason Onset Date Comments REFERRAL 12/31/2019 Encounter Details Date Type Department Care Team Description 12/31/2019 Telephone Adult [address] [address] Nila Aguillon MD REFERRAL Social History Tobacco Use Types Packs/Day Years [...] encounter Miscellaneous Notes * Telephone Encounter - Christine Zuluaga - 12/31/2019 10:13 AM EDT All attempts have been exhausted to book patient with nutrition. documented in this encounter Plan of Treatment Not on file documented as of this encounter Visit Diagnoses Not on filedocumented in this encounter Care Teams Ballet Professor Relationship Specialty Start Date End Date Nila Aguillon MD PCP - General Internal Medicine 06/22/11 11/21/20 Fredi Bearden MD PCP - General Internal Medicine 11/22/20 03/18/21 Jenny Nash MD PCP - General Internal Medicine 03/19/21 11/19/21 Ariadna Jefferson MD [address] [place] [address] PCP - General Internal Medicine 11/23/21 Ariadna Jefferson MD [address] [place] [address] PCP - General Internal Medicine 11/20/21 11/22/21 Nicholas Frerer PA-C [address] [place] [address] Specialist Neurosurgery 07/08/23 Noemy Olivares PA-C [address] [address] Specialist Neurosurgery 07/08/23 Gosia Wood MD [address] [address] Surgeon Neurosurgery 07/08/23 documented as of this encounter
--- OUTSIDE RECORDS SUMMARY | 2024-08-25 19:59 | XMS_ITS | Encounter Summary ---
Author Organization [facility] Address [address] [place] [address] Care Team Providers Care Injection Molding Machine Operator Name Role Phone Jenny Nash MD Primary Care Provider Ariadna Gilmore MD Primary Care Provider + Ariadna Jefferson MD Primary Care Provider + Nicholas Ferrer PA-C Unavailable [phone] Noemy Olivares PA-C Unavailable [phone] Gosia Wood MD Unavailable [phone] Encounter Details Date Type Department Care Team Description 03/19/2021 Refill Adult Medicine [address] [id number] Nila Aguillon MD Social History Tobacco Use [...] Telephone Encounter - Mary Ambriz M.A. - 03/19/2021 1:05 PM EST Last office visit 09/26/20 Pt needs an appt with new PCP Zyrtec filled on 12/17/20 with 5 refills documented in this encounter Plan of Treatment Not on file documented as of this encounter Visit Diagnoses Not on filedocumented in this encounter Care Teams Injection Molding Machine Operator Relationship Specialty Start Date End Date Jenny Nash MD PCP - General Internal Medicine 03/19/21 11/19/21 Ariadna Jefferson MD [address] [place] [address] PCP - General Internal Medicine 11/23/21 Ariadna Jefferson MD [address] [place] [address] PCP - General Internal Medicine 11/20/21 11/22/21 Nicholas Ferrer PA-C [address] [address] Specialist Neurosurgery 07/08/23 Noemy Olivares PA-C [address] [address] Specialist Neurosurgery 07/08/23 Gosia Wood MD [address] [address] Surgeon Neurosurgery 07/08/23 documented as of this encounter
--- OUTSIDE RECORDS SUMMARY | 2024-08-25 19:59 | XMS_ITS | Encounter Summary ---
Author Organization [facility] Address [address] [place] [address] Care Team Providers Care Harness Rigger Name Role Phone Nila Aguillon MD Primary Care Provider Fredi Medel MD Primary Care Provider Unavailab Jenny Garber MD Primary Care Provider Ariadna Gilmore MD Primary Care Provider + Ariadna Jefferson MD Primary Care Provider + Nicholas Ferrer PA-C Unavailable [phone] Noemy Olivares PA-C Unavailable [phone] oGsia Wood MD Unavailable [phone] Encounter Details Date Type Department Care Team Description 04/15/2020 Pt. Non Urgent Medic al Question Adult Medicine [address] [address] Nila Aguillon MD Social History Tobacco Use [...] or suspected to have Coronavirus / COVID-19? Unable to assess 04/15/2020 8:13 AM EST documented as of this encounter Miscellaneous Notes * Telephone Encounter - Sara Grayson - 04/15/2020 3:38 PM ESTFrom: Zandra Mark To: Nila Aguillon MD Sent: 04/15/2020 2:25 PM EST Subject: pharmacy having problem filling prescription Pharmacy send a message saying that the foot cream prescribed has an issue being filled with the insurance. I think insurance isn't approving it. documented in this encounter Plan of Treatment Not on file documented as of this encounter Visit Diagnoses Not on filedocumented in this encounter Care Teams Harness Rigger Relationship Specialty Start Date End Date Nila Aguillon MD PCP - General Internal Medicine 06/22/11 11/21/20 Fredi Bearden MD PCP - General Internal Medicine 11/22/20 03/18/21 Jenny Nash MD PCP - General Internal Medicine 03/19/21 11/19/21 Ariadna Jefferson MD [address] [place] [address] PCP - General Internal Medicine 11/23/21 Ariadna Jefferson MD [address] [place] [address] PCP - General Internal Medicine 11/20/21 11/22/21 Nicholas Ferrer PA-C [address] [address] Specialist Neurosurgery 07/08/23 Noemy Olivares PA-C [address] [address] Specialist Neurosurgery 07/08/23 Gosia Wood MD [address] [address] Surgeon Neurosurgery 07/08/23 documented as of this encounter
--- OUTSIDE RECORDS SUMMARY | 2024-08-25 19:59 | XMS_ITS | Encounter Summary ---
Author Organization [facility] Address [address] [place] [address] Care Team Providers Care Pecan Mallow Dipper Name Role Phone Ariadna Jefferson MD Primary Care Provider + Nicholas Ferrer PA-C Unavailable Noemy Olivares PA-C Unavailable [phone] Gosai Wood MD Unavailable [phone] Encounter Details Date Type Department Care Team Description 07/21/2023 Telephone INFECTIOUS DISEASE [facility] [address] [address] Fabián Henao MD [address] [address] Social History Tobacco Use Types Packs/Day Years [...] encounter Miscellaneous Notes * Telephone Encounter - Justa Mcintosh MA - 07/21/2023 9:23 AM EDT Lvm to call back Mandy to reschedule apt. documented in this encounter Plan of Treatment Not on file documented as of this encounter Visit Diagnoses Not on filedocumented in this encounter Care Teams Pecan Mallow Dipper Relationship Specialty Start Date End Date Ariadna Jefferson MD [address] [place] [address] PCP - General Internal Medicine 11/23/21 Nicholas Ferrer PA-C [address] [address] Specialist Neurosurgery 07/08/23 Noemy Olivares PA-C [address] [address] Specialist Neurosurgery 07/08/23 Gosia Wood MD [address] [address] Surgeon Neurosurgery 07/08/23 documented as of this encounter
--- OUTSIDE RECORDS SUMMARY | 2024-08-25 19:59 | XMS_ITS | Encounter Summary ---
Author Organization [facility] Address [address] [place] [address] Care Team Providers Care City Planning Engineer Name Role Phone Nila Aguillon MD Primary Care Provider Fredi Medel MD Primary Care Provider Unavailab Jenny Garber MD Primary Care Provider Ariadna Gilmore MD Primary Care Provider + Ariadna Jefferson MD Primary Care Provider + Nicholas Ferrer PA-C Unavailable [phone] Noemy Olivares PA-C Unavailable [phone] Gosia Wood MD Unavailable [phone] Encounter Details Date Type Department Care Team Description 09/14/2017 Release of Information Medical Records [address] [place] [address] Abstract, Provider Social History Tobacco Use Types [...] on filedocumented in this encounter Care Teams City Planning Engineer Relationship Specialty Start Date End Date Aguillon, Nila, MD PCP - General Internal Medicine 06/22/11 11/21/20 Fredi Bearden MD PCP - General Internal Medicine 11/22/20 03/18/21 Jenny Nash MD PCP - General Internal Medicine 03/19/21 11/19/21 Ariadna Jefferson MD [address] [place] [address] PCP - General Internal Medicine 11/23/21 Ariadna Jefferson MD [address] [place] [address] PCP - General Internal Medicine 11/20/21 11/22/21 Nicholas Ferrer PA-C [address] [place] [address] Specialist Neurosurgery 07/08/23 Noemy Olivares PA-C [address] [address] Specialist Neurosurgery 07/08/23 Gosia Wood MD [address] [address] Surgeon Neurosurgery 07/08/23 documented as of this encounter
--- OUTSIDE RECORDS SUMMARY | 2024-08-25 19:59 | XMS_ITS | Encounter Summary ---
Author Organization [facility] Address [address] [place] [address] Care Team Providers Care Collective Bargaining Specialist Name Role Phone Nila Aguillon MD Primary Care Provider Fredi Medel MD Primary Care Provider Unavailab Jenny Garber MD Primary Care Provider Ariadna Gilmore MD Primary Care Provider + Ariadna Jefferson MD Primary Care Provider + Nicholas Ferrer PA-C Unavailable [phone] Noemy Olivares PA-C Unavailable [phone] Gosia Wood MD Unavailable [phone] Reason for Visit * Reason Onset Date Comments Prior Authorization 09/15/2020 Encounter Details Date Type Department Care Team Description 09/15/2020 Telephone Adult Medicine [address] [address] Nila Aguillon MD Prior Authorization Social History Tobacco Use Types Packs/Day Years [...] encounter Miscellaneous Notes * Telephone Encounter - Nila Aguillon MD - 09/18/2020 12:56 PM EDT Sent diprolene * Telephone Encounter - Rafaela Knott M.ARinku - 09/17/2020 3:11 PM EDT Attempted doing prior authorization on Cover my meds to [facility] for Desonide 0.05% ointment. Has documentation been submitted to confirm that the member has tried and failed a trial of one ofthe following Step 1 medications: alclometasone (Aclovate) 0.05% cream or ointment, augmented betamethasone 0.05% ointment or lotion or gel, augmented betamethasone dipropionate (Diprolene AF) 0.05% cream, betamethasone valerate 0.1% lotion, clobetasol propionate emollient base cream 0.05%, clobetasol propionate gel 0.05%, clobetasol propionate solution 0.05%, clobetasol propionate ointment 0.05%, clobetasolpropionate cream 0.05%, halobetasol propionate (Ultravate) 0.05% cream or ointment, diflorasone diacetate 0.05% cream, desoximetasone (Topicort) 0.05% ointment or cream or gel, desoximetasone (Topicort) 0.25% cream or ointment, fluocinolone 0.01% (Bronaugh- Smoothe) oil, fluocinolone (Synalar) 0.01% solution, hydrocortisone cream 0.5%, 1%, 2.5%, hydrocortisone lotion 1% or 2.5%, hydrocortisone ointment 0.5% or 1% or 2.5%, hydrocortisone acetate 1% cream or ointment, mometasone furoate 0.1% ointment, or triamcinolone acetonide 0.5% cream or ointment? Provide documentation of dates of trial and outcome. NOTE: Medical documentation specific to your response to this question must be attached to this case or your request could be denied. If I do not fax documentation that patient has tried and failed any of the above step 1 medicationsDesonide 0.05% ointment will not be approved. I did not see any documentation of any of the above medications. Please advise, Rafaela Sabillon Prior Authorization Dept Ext [phone] Fax [phone] * Telephone Encounter - Berta Nugent - 09/15/2020 1:17 PM EDT Prior Authorization for Medication-do not complete and send this encounter unless you have the fax from the pharmacy. Is this a Cover My Meds request: Yes -- [place] Code [id number] Name of Medication desonide (DESOWEN) Dose of Medication 0.05 % ointment What is the RX # from the faxed refill? N/A How does patient take this med? Use on rash on feet 2 times a day for 4 weeks What Pharmacy did the fax come from: [facility] Pharmacy Pharmacy fax #: [phone] [employer] Party Information from fax: What Prescription Plan does the patient have? N/A BIN/PCN if applicable: N/A Cardholder ID: N/A Person Code: N/A Relationship Code: N/A Help desk phone: N/A documented in this encounter Plan of Treatment Not on file documented as of this encounter Visit Diagnoses Not on filedocumented in this encounter Care Teams Collective Bargaining Specialist Relationship Specialty Start Date End Date Nila Aguillon MD PCP - General Internal Medicine 06/22/11 11/21/20 Fredi Bearden MD PCP - General Internal Medicine 11/22/20 03/18/21 Jenny Nash MD PCP - General Internal Medicine 03/19/21 11/19/21 Ariadna Jefferson MD [address] [place] [address] PCP - General Internal Medicine 11/23/21 Ariadna Jefferson MD [address] [place] [address] PCP - General Internal Medicine 11/20/21 11/22/21 Nicholas Ferrer PA-C [address] [address] Specialist Neurosurgery 07/08/23 Noemy Olivares PA-C [address] [address] Specialist Neurosurgery 07/08/23 Gosia Wood MD [address] [address] Surgeon Neurosurgery 07/08/23 documented as of this encounter
--- OUTSIDE RECORDS SUMMARY | 2024-08-25 19:59 | XMS_ITS | Encounter Summary ---
Author Organization [facility] Address [address] [place] [address] Care Team Providers Care Gaming Dealer Name Role Phone Jared Durham MD Primary Care Provider Unav ailNila Tian MD Primary Care Provider Unava ilable Nila Aguillon MD Primary Care Provider Unava ilable MonishaFredi ba MD Primary Care Provider Unavailab Jenny Garber MD Primary Care Provider Unavai Ariadna Diaz MD Primary Care Provider + Ariadna Jefferson MD Primary Care Provider + Nicholas Ferrer PA-C Unavailable Noemy Olivares PA-C Unavailable [phone] Gosia Wood MD Unavailable [phone] Encounter Details Date Type Department Care Team Description 11/28/2004 Orders Only Adult Urgent Care - [address] [phone] Heriberto Goss Jr. [address] [place] [address] [id number] ABDOMINAL PAIN, LEFT LOWER QUADRANT (Primary Dx) Social History Tobacco Use Types Packs/Day Years Used Date Smoking Tobacco: Never Assessed Sex Assigned at Date Recorded Female 07/17/2021 5:[address] Job Start Date Occupation Industry Not on file Not on file Not on file documented as of this encounter Plan of Treatment Scheduled Orders Name Type Priority Associated Diagnoses Orde r Schedule VENIPUNCTURE Lab Routine Abdominal Pain, Left Lower Quadrant Ordered: 11/28/2004 documented as of this encounter Procedures Procedure Name Priority Date/Time Associated Diagnosis Comments [facility] URNLS DIP STICK/TABLET REAGENT AUTO MICROSCOPY Routine 11/28/2004 2:30 PM EDT Abdominal Pain, Left Lower Quadrant [facility] COMPREHENSIVE METABOLIC PANEL Routine 11/28/2004 2:30 PM EDT Abdominal Pain, Left Lower Quadrant documented in this encounter Results * (ABNORMAL) URINALYSIS, COMPLETE (11/28/2004 2:30 PM EDT) GLUCOSE, URINE (UA) NEGATIVE NEGATIVE mg/dL [facility] BILIRUBIN URINE NEGATIVE NEGATIVE [facility] KETONE, URINE NEGATIVE NEGATIVE mg/dL [facility] SPECIFIC GRAVITY, URINE 1.019 1.003 - 1.030 [facility] BLOOD, URINE NEGATIVE NEGATIVE [facility] PH, URINE 6.5 5.0 - 8.0 [facility] PROTEIN, URINE NEGATIVE <= TRACE mg/dl [facility] UROBILINOGEN, URINE 0.2 0.2 - 1.0 E.U./dL [facility] NITRITE,URINE NEGATIVE NEGATIVE [facility] LEUKOCYTE ESTERASE, URINE NEGATIVE NEGATIVE [facility] RBC-Urine 4 0 - 4 /HPF [facility] WBC-Urine 5(H) 0 - 4 /hpf [facility] BACTERIA, URINE HEAVY [facility] 11/28/2004 2:30 PM EDT 11/28/2004 2:48 PM EDT [facility] * (ABNORMAL) COMPREHENSIVE METABOLIC PANEL (11/28/2004 2:30 PM EDT) GLUCOSE 73 70 - 110 mg/dL [facility] Blood Urea Nitrogen 9 5 - 25 mg/dL [facility] creatinine 0.8 0.7 - 1.5 mg/dL [facility] BUN/CREATININE RATIO 11.3 6.0 - 20.0 G/dL [facility] Sodium 143 133 - 145 mEq/L [facility] Potassium 4.6 3.5 - 5.2 mEq/L [facility] Chloride 104 96 - 108 mEq/L [facility] CARBON DIOXIDE (CO2) 26.5 21.0 - 32.0 mEq/L [facility] CALCIUM 10.1 8.5 - 10.5 mg/dl [facility] TOTAL PROTEIN (TP) 8.1(H) 6.0 - 8.0 G/dL [facility] Albumin 4.9 3.2 - 5.6 G/dL [facility] GLOBULIN 3.2 1.9 - 4.4 G/dL [facility] ALBUMIN/GLOBULI N RATIO 1.5 1.1 - 2.3 [facility] BILIRUBIN TOTAL 0.5 0.0 - 1.4 mg/dL [facility] AST (SGOT) 25 10 - 42 U/L [facility] ALT (SGPT) 14 10 - 60 U/L [facility] Alk Phos 58 42 - 121 U/L [facility] 11/28/2004 2:30 PM EDT 11/28/2004 2:48 PM EDT [facility] Goss Jr[facility] documented in this encounter Visit Diagnoses Diagnosis Abdominal pain, left lower quadrant- Primary documented in this encounter Care Teams Gaming Dealer Relationship Specialty Start Date End Date Jared Durham MD PCP - General 12/09/10 06/21/11 Nila Aguillon MD PCP - General 11/05/02 12/08/10 Nila Aguillon MD PCP - General Internal Medicine 06/22/11 11/21/20 Fredi Bearden MD PCP - General Internal Medicine 11/22/20 03/18/21 Jenny Nash MD PCP - General Internal Medicine 03/19/21 11/19/21 Ariadna Jefferson MD [address] [place] [address] PCP - General Internal Medicine 11/23/21 Ariadna Jefferson MD [address] [place] [address] PCP - General Internal Medicine 11/20/21 11/22/21 Nicholas Ferrer PA-C [address] [address] Specialist Neurosurgery 07/08/23 Noemy Olivares PA-C [address] [address] Specialist Neurosurgery 07/08/23 Gosia Wood MD [address] [address] Surgeon Neurosurgery 07/08/23 documented as of this encounter
--- OUTSIDE RECORDS SUMMARY | 2024-08-25 19:59 | XMS_ITS | Encounter Summary ---
Author Organization [facility] Address [address] [place] [address] Care Team Providers Care Release Specialist Name Role Phone Nila Aguillon MD Primary Care Provider Fredi Medel MD Primary Care Provider Unavailab Jenny Garber MD Primary Care Provider Ariadna Gilmore MD Primary Care Provider + Ariadna Jefferson MD Primary Care Provider + Nicholas Ferrer PA-C Unavailable [phone] Noemy Olivares PA-C Unavailable [phone] Gosia Wood MD Unavailable [phone] Encounter Details Date Type Department Care Team Description 12/28/2019 [facility] Medical Records [address] [place] [address] Abstract, Provider Social History Tobacco Use Types [...] on filedocumented in this encounter Care Teams Release Specialist Relationship Specialty Start Date End Date Nila Aguillon MD PCP - General Internal Medicine 06/22/11 11/21/20 Fredi Bearden MD PCP - General Internal Medicine 11/22/20 03/18/21 Jenny Nash MD PCP - General Internal Medicine 03/19/21 11/19/21 Ariadna Jefferson MD [address] [place] [address] PCP - General Internal Medicine 11/23/21 Ariadna Jefferson MD [address] [place] [address] PCP - General Internal Medicine 11/20/21 11/22/21 Nicholas Ferrer PA-C [address] [place] [address] Specialist Neurosurgery 07/08/23 Noemy Olivares PA-C [address] [address] Specialist Neurosurgery 07/08/23 Gosia Wood MD [address] [address] Surgeon Neurosurgery 07/08/23 documented as of this encounter
--- OUTSIDE RECORDS SUMMARY | 2024-08-25 19:59 | XMS_ITS | Encounter Summary ---
Author Organization [facility] Address [address] [place] [address] Care Team Providers Care Bone Drier Name Role Phone Ariadna Jefferson MD Primary Care Provider + Nicholas Ferrer PA-C Unavailable Noemy Olivares PA-C Unavailable [phone] Gosia Wood MD Unavailable [phone] Encounter Details Date Type Department Care Team Description 10/29/2022 Telephone Adult Medicine [address] [address] Ariadna Jefferson MD [address] [place] [address] [id number] Social History Tobacco Use Types Packs/Day Years [...] on filedocumented in this encounter Care Teams Bone Drier Relationship Specialty Start Date End Date Ariadna Jefferson MD [address] [place] [address] PCP - General Internal Medicine 11/23/21 Nicholas Ferrer PA-C [address] [address] Specialist Neurosurgery 07/08/23 Noemy Olivares PA-C [address] [address] Specialist Neurosurgery 07/08/23 Gosia Wood MD [address] [address] Surgeon Neurosurgery 07/08/23 documented as of this encounter
--- OUTSIDE RECORDS SUMMARY | 2024-08-25 19:59 | XMS_ITS | Encounter Summary ---
Author Organization [facility] Address [address] [place] [address] Care Team Providers Care Shallot Cleaner Name Role Phone Nila Aguillon MD Primary Care Provider Fredi Medel MD Primary Care Provider Unavailab Jenny Garber MD Primary Care Provider Ariadna Gilmore MD Primary Care Provider + Ariadna Jefferson MD Primary Care Provider + Nicholas Ferrer PA-C Unavailable [phone] Noemy Olivares PA-C Unavailable [phone] Gosia Wood MD Unavailable [phone] Reason for Visit * Reason Onset Date Comments Medication 08/12/2020 Encounter Details Date Type Department Care Team Description 08/12/2020 Telephone Adult Medicine [address] [address] Nila Aguillon MD Medication Social History Tobacco Use Types Packs/Day Years [...] have Coronavirus / COVID-19? Unable to assess 07/24/2020 9:07 AM EDT documented as of this encounter Miscellaneous Notes * Telephone Encounter - Negar Pinon M.A. - 08/15/2020 2:30 PM EDT Message left for patient to return my call. When pt calls back please forward call to ex [phone] * Telephone Encounter - Nila Aguillon MD - 08/12/2020 5:47 PM EDT This needs an appt. Telehealth ok. * Telephone Encounter - Patricia Odell - 08/12/2020 10:29 AM EDT Pt wants to talk to you about cream that you prescribe, weight and hernia. Who is calling? The patient Name of the medication Anti-fungus What is the specific problem or interaction? If the patient is having a problem with taking the med - how long has the problem been going on? N/A documented in this encounter Plan of Treatment Not on file documented as of this encounter Visit Diagnoses Not on filedocumented in this encounter Care Teams Shallot Cleaner Relationship Specialty Start Date End Date Nila Aguillon MD PCP - General Internal Medicine 06/22/11 11/21/20 Fredi Bearden MD PCP - General Internal Medicine 11/22/20 03/18/21 Jenny Nash MD PCP - General Internal Medicine 03/19/21 11/19/21 Ariadna Jefferson MD [address] [place] [address] PCP - General Internal Medicine 11/23/21 Ariadna Jefferson MD [address] [place] [address] PCP - General Internal Medicine 11/20/21 11/22/21 Nicholas Ferrer PA-C [address] [address] Specialist Neurosurgery 07/08/23 Noemy Olivares PA-C [address] [address] Specialist Neurosurgery 07/08/23 Gosia Wood MD [address] [id number] Surgeon Neurosurgery 07/08/23 documented as of this encounter
--- OUTSIDE RECORDS SUMMARY | 2024-08-25 19:59 | XMS_ITS | Encounter Summary ---
Author Organization [facility] Address [address] [place] [address] Care Team Providers Care Product Support Rep Name Role Phone Jared Durham MD Primary Care Provider Unav ailNila Tian MD Primary Care Provider Unava ilable Nila Aguillon MD Primary Care Provider Unava ilable MonishaFredi ba MD Primary Care Provider Unavailab Jenny Garber MD Primary Care Provider Unavai Ariadna Diaz MD Primary Care Provider + Ariadna Jefferson MD Primary Care Provider + Nicholas Ferrer PAAj Unavailable Noemy Olivares PA-C Unavailable [phone] Gosia Wood MD Unavailable [phone] Reason for Visit * Reason Onset Date Comments personal 09/15/2004 msg for penny Encounter Details Date Type Department Care Team Description 09/15/2004 Telephone Adult Medicine [address] [id number] Penny Munguia [address] [place] [id number] personal (msg for penny) Social History Tobacco Use Types Packs/Day Years Used Date Smoking Tobacco: Never Assessed Sex Assigned at Date Recorded Female 07/17/2021 5:[address] Job Start Date Occupation Industry Not on file Not on file Not on file documented as of this encounter Miscellaneous Notes * Telephone Encounter - 09/15/2004 1:49 PM EDTmsg to sammy. colin * Telephone Encounter - 09/15/2004 1:44 PM EDTPt states she is returning Penny's phone call from today. She can be reached @ home # [phone]. documented in this encounter Plan of Treatment Not on file documented as of this encounter Visit Diagnoses Not on filedocumented in this encounter Care Teams Product Support Rep Relationship Specialty Start Date End Date Jared Durham MD PCP - General 12/09/10 06/21/11 Nila Aguillon MD PCP - General 11/05/02 12/08/10 Nila Aguillon MD PCP - General Internal Medicine 06/22/11 11/21/20 Fredi Bearden MD PCP - General Internal Medicine 11/22/20 03/18/21 Jenny Nash MD PCP - General Internal Medicine 03/19/21 11/19/21 Ariadna Jefferson MD [address] [place] [address] PCP - General Internal Medicine 11/23/21 Ariadna Jefferson MD [address] [place] [address] PCP - General Internal Medicine 11/20/21 11/22/21 Nicholas Ferrer PA-C [address] [address] Specialist Neurosurgery 07/08/23 Noemy Olivares PA-C [address] [address] Specialist Neurosurgery 07/08/23 Gosia Wood MD [address] [place] [address] Surgeon Neurosurgery 07/08/23 documented as of this encounter
--- OUTSIDE RECORDS SUMMARY | 2024-08-25 19:59 | XMS_ITS | Encounter Summary ---
Author Organization [facility] Address [address] [place] [address] Care Team Providers Care Hot Frame Tender Name Role Phone Ariadna Jefferson MD Primary Care Provider + Nicholas Ferrer PA-C Unavailable [phone] Noemy Olivares PA-C Unavailable [phone] Gosia Wood MD Unavailable [phone] Encounter Details Date Type Department Care Team Description 12/02/2023 Hospital Medical Records [address] [place] [address] [id number] [facility] Social History Tobacco Use Types Packs/Day Years [...] on filedocumented in this encounter Care Teams Hot Frame Tender Relationship Specialty Start Date End Date Ariadna Jefferson MD [address] [place] [id number] PCP - General Internal Medicine 11/23/21 Nicholas Ferrer PA-C 175 [facility] [address] [place] [address] Specialist Neurosurgery 07/08/23 Noemy Olivares PA-C [address] [address] Specialist Neurosurgery 07/08/23 Gosia Wood MD [address] [address] Surgeon Neurosurgery 07/08/23 documented as of this encounter
--- OUTSIDE RECORDS SUMMARY | 2024-08-25 19:59 | XMS_ITS | Encounter Summary ---
Author Organization [facility] Address [address] [place] [address] Care Team Providers Care Crumb Packer Name Role Phone Nila Aguillon MD Primary Care Provider Fredi Medel MD Primary Care Provider Unavailab Jenny Garber MD Primary Care Provider Ariadna Gilmore MD Primary Care Provider + Ariadna Jefferson MD Primary Care Provider + Nicholas Ferrer PA-C Unavailable [phone] Noemy Olivares PA-C Unavailable [phone] Gosia Wood MD Unavailable [phone] Encounter Details Date Type Department Care Team Description 09/03/2014 [employer]ICAL OFFICER/[employer] Report Medical Records [address] [place] [id number] Abstract, Provider Social History Tobacco Use Types [...] on filedocumented in this encounter Care Teams Crumb Packer Relationship Specialty Start Date End Date Nila Aguillon MD PCP - General Internal Medicine 06/22/11 11/21/20 Fredi Bearden MD PCP - General Internal Medicine 11/22/20 03/18/21 Jenny Nash MD PCP - General Internal Medicine 03/19/21 11/19/21 Ariadna Jefferson MD [address] [place] [address] PCP - General Internal Medicine 11/23/21 Ariadna Jefferson MD [address] [place] [phone] PCP - General Internal Medicine 11/20/21 11/22/21 Nicholas Ferrer PA-C [address] [place] [address] Specialist Neurosurgery 07/08/23 Noemy Olivares PA-C [address] [address] Specialist Neurosurgery 07/08/23 Gosia Wood MD [address] [address] Surgeon Neurosurgery 07/08/23 documented as of this encounter
--- OUTSIDE RECORDS SUMMARY | 2024-08-25 19:59 | XMS_ITS | Encounter Summary ---
Author Organization [facility] Address [address] [place] [address] Care Team Providers Care Reproduction Technician Name Role Phone Jenny Nash MD Primary Care Provider Ariadna Gilmore MD Primary Care Provider + Ariadna Jefferson MD Primary Care Provider + Nicholas Ferrer PA-C Unavailable [phone] Noemy Olivares PA-C Unavailable [phone] Gosia Wood MD Unavailable [phone] Reason for Visit * Reason Onset Date Comments APPOINTMENT 04/09/2021 Encounter Details Date Type Department Care Team Description 04/09/2021 Telephone Adult Medicine [address] [phone] Katey Estrada PA [address] [place] [id number] APPOINTMENT Social History Tobacco Use Types Packs/Day [...] have Coronavirus / COVID-19? Unable to assess 04/09/2021 10:28 AM EST documented as of this encounter Miscellaneous Notes * Telephone Encounter - Berta Raffi - 04/09/2021 4:36 PM EST Attempted to contact patient, unable to leave vm. * Telephone Encounter - RUTH Ruiz - 04/09/2021 11:15 AM EST Tele appt for reflux . Unable to reach pt for tele appt after numerous attempts. Appears she was sent to ER based on TM from 04/06. Should have in person visit for ER f/u and can also address reflux, 30 min. documented in this encounter Plan of Treatment Not on file documented as of this encounter Visit Diagnoses Not on filedocumented in this encounter Care Teams Reproduction Technician Relationship Specialty Start Date End Date Jenny Nash MD PCP - General Internal Medicine 03/19/21 11/19/21 Ariadna Jefferson MD [address] [place] [id number] PCP - General Internal Medicine 11/23/21 Ariadna Jefferson MD [address] [place] [address] PCP - General Internal Medicine 11/20/21 11/22/21 Nicholas Ferrer PA-C [address] [address] Specialist Neurosurgery 07/08/23 Noemy Olivares PA-C [address] [address] Specialist Neurosurgery 07/08/23 Gosia Wood MD [address] [place] [address] [place] [address] Surgeon Neurosurgery 07/08/23 documented as of this encounter
--- NOTE | 2024-08-25 20:11 | ED.GENADULT ---
HPI - General Adult General Chief complaint: Upper Respiratory Symptoms Stated complaint: cogestion/auto immune dis Time Seen by Provider: 08/25/24 19:41 Source: patient, family, RN notes reviewed and old records reviewed Mode of arrival: ambulatory Limitations: no limitations History of Present Illness ED Provider: Huan HPI narrative: 44-year-old female with a past medical pyoderma gangrenosum, GERD, depression, carpal tunnel syndrome presents for evaluation of flu-like symptoms. Patient reports cough, sore throat and weakness for the last 2 weeks. She reports that she recently restarted prednisone which she takes for an autoimmune disease. She reports subjective fevers and chills but has not had any documented fevers Her son had strep pharyngitis about 1-2 months ago Related Data Home Medications ?Medication ?Instructions ?Recorded ?Confirmed cetirizine 10 mg tablet (All Day 10 mg PO DAILY 10/15/21 01/26/23 Allergy (cetirizine)) escitalopram oxalate 20 mg tablet 20 mg PO DAILY 10/15/21 01/26/23 famotidine 20 mg tablet 20 mg PO BEDTIME 10/15/21 01/26/23 flunisolide 25 mcg (0.025 %) nasal 2 spray intranasal BID 10/15/21 01/26/23 spray fluticasone propionate 44 2 puff inhalation BID 10/15/21 01/26/23 mcg/actuation HFA aerosol inhaler (Flovent HFA) diclofenac sodium 1 % topical gel 2 g topical TID 04/19/22 01/26/23 quetiapine 25 mg tablet 25 mg PO BEDTIME PRN 03/03/23 tacrolimus 0.1 % topical ointment 1 appl topical BID 11/08/23 Previous Rx's ?Medication ?Instructions ?Recorded albuterol sulfate 2.5 mg/0.5 mL 5 mg inhalation Q4H PRN shortness 03/28/22 solution for nebulization of breath or wheezing #30 ea albuterol sulfate 90 mcg/actuation 2 puff inhalation Q4-6H PRN 06/03/22 aerosol inhaler shortness of breath or wheezing #8.5 grams ibuprofen 400 mg tablet 400 - 800 mg (1 - 2 x 400 mg) PO 03/03/23 Q8H PRN pain #180 tabs cyclobenzaprine 10 mg tablet 10 mg PO TID PRN muscle spasm #20 05/13/23 tabs mupirocin 2 % topical ointment 1 appl topical BID 7 days #15 grams 05/13/23 prednisone 5 mg tablet 5 mg PO DAILY #30 tabs 04/11/24 adalimumab 40 mg/0.4 mL See Rx Instructions subcut 04/23/24 subcutaneous pen kit (Humira(CF) .COMPLEX #2 ea Pen) Allergies Allergy/AdvReac Type Severity Reaction Status Date / Time adalimumab [From Humira(CF)] Allergy Intermediate eczema Verified 08/25/24 19:28 lidocaine [LIDOCAINE] Allergy Intermediate UNKNOWN Verified 08/25/24 19:28 naproxen [NAPROXEN] Allergy Intermediate UNKNOWN, Verified 04/11/24 11:05 rash oxycodone [From PERCOCET] Allergy Intermediate UNKNOWN Verified 08/25/24 19:28 Sulfa (Sulfonamide Allergy Intermediate rash Verified 08/25/24 19:28 Antibiotics) sulfamethoxazole Allergy Intermediate Rash Verified 08/25/24 19:28 [From BACTRIM] trimethoprim [From BACTRIM] Allergy Intermediate Rash Verified 08/25/24 19:28 codeine Allergy Itching Verified 08/25/24 19:28 etanercept [From Enbrel] AdvReac Intermediate Diarrhea Verified 08/25/24 19:28 Novocain Allergy Intermediate rash Uncoded 04/11/24 11:05 Review of Systems Constitutional: Constitutional: Reports body ache(s), Reports chills, Reports fever(s) and Reports headache(s) ENT: Reports headache(s) and Reports sore throat Cardiovascular: Cardiovascular: Denies chest pain and Denies dyspnea Respiratory: Respiratory: Reports cough and Denies dyspnea Gastrointestinal: Gastrointestinal: Denies abdominal pain, Denies nausea and Denies vomiting Musculoskeletal: Musculoskeletal: Denies back pain Integumentary/Breasts: Skin/Breast: Denies rash Neurologic: Reports headache(s) Psychiatric: Psychiatric: Denies anxiety PMFSH Past Medical History Medical History Hidradenitis suppurativa Psoriasis Pyoderma gangrenosum At high risk for adverse medication event Pain, foot, right, chronic Chronic eczema of foot Umbilical hernia [facility] use of drug GERD (gastroesophageal reflux disease) Depression Carpal tunnel syndrome Ankylosing spondylitis Surgical History Hx of umbilical hernia repair Hx of tubal ligation Family History Family History Mother Diabetes Arthritis Father Diabetes Heart disease Social History Social History Household Members: Family Housing: Apartment Are you a primary urgent care nurse practitioner to a significant other at home: No Do you presently have visiting nurse or other home services: No Alcohol intake: current Alcohol intake frequency: holidays/special occasions only Alcohol type: beer and wine Patient Tobacco Use Status: Never used Tobacco Smoked in Last 30 Days: No e-Cigarette/Vaping Use: Never Used Use of substances other than those prescribed or required for medical reasons: No Substance Use Type: Marijuana Advance Directives: No Advance Directives Information Provided: No Do you have a plan to hurt others: No Plan service: No Current occupational status: disabled Physical Exam ED Vital Signs: Vital Signs - 24 hr 08/25/24 19:26 Temperature 98.6 F Pulse Rate 76 Respiratory Rate 16 Blood Pressure 111/78 Pulse Oximetry 98 Oxygen Delivery Method Room Air BMI result Body Mass Index 37.7 Const General: healthy appearing, comfortable, no acute distress, alert and awake Nutritional Appearance: well nourished Orientation/consciousness: patient oriented x3 HENMT Head: Yes normocephalic and Yes atraumatic Throat: Yes posterior oropharynx normal Eyes Eyelids: Yes eyelids normal Conjunctivae: conjunctivae normal Sclerae: sclerae normal Corneas: corneas normal Pupils: Equal, round and reactive pupils present EOM: EOMs intact bilaterally Neck Neck: Yes full ROM Resp Effort & Inspection: normal respiratory effort, able to speak in complete sentences, no audible wheezes and not labored Auscultation: clear to auscultation bilaterally Cardio Rate: regular rate Rhythm: regular rhythm GI Inspection: No distended Palpation (GI): Soft to palpation, not firm, nontender, no guarding and not rigid Skin General skin exam: no rashes or lesions noted and elasticity normal Neuro General: patient oriented x3 Cranial nerves: Yes Equal, round and reactive pupils present and Yes Bilaterally intact EOM present Cognition (Neuro): normal cognition Extrem Other: Moving all extremities well without any obvious deformities Course Reevaluation(s) Reevaluation #1: The patient is requesting evaluation of left upper back pain, she reports that she has a mass there that has been there for several months. On exam, there are no skin changes, it was difficult to see if she has a fat pad versus a lipoma or seroma. Again, no erythema or wounds. The patient will be referred to General surgery Time: 21:24 Medical Decision Making Medical Decision Making MDM Narrative: 44-year-old female presents for evaluation of flu-like symptoms. Family history with similar symptoms, her vital signs are stable, her exam is reassuring, she was well-appearing. For strep testing and viral testing Differential Diagnosis Differential Diagnoses: The differential diagnosis associated with the presentation includes Upper respiratory infection Viral syndrome COVID-19 Influenza Lab Data Labs: Lab Results 08/25/24 Range/Units 19:46 Influenza Type A (PCR) POSITIVE A (Negative) Influenza Type B (PCR) NEGATIVE (Negative) RSV RNA Qual (PCR) NEGATIVE (Negative) SARS-CoV-2 RNA (RT-PCR) NEGATIVE (Negative) S. pyogenes GrpA TRA Negative (Negative) Discharge Plan Discharge Clinical Impression: Influenza A Patient Disposition: Home, Self-Care Instructions: Influenza (ED) Additional Instructions: You tested positive for the flu. Use ibuprofen/Tylenol for fevers and body aches. Follow-up with your primary doctor Return for new or worsening symptom Prescriptions: No Action Humira(CF) Pen 40 mg/0.4 mL pen injector kit See Rx Instructions subcut .COMPLEX Qty: 2 2RF Rx Instructions: inject one - 40 mg/0.4 mL pen every 2 weeks subcut albuterol sulfate 90 mcg/actuation HFA aerosol inhaler 2 puff inhalation Q4-6H PRN (Reason: shortness of breath or wheezing) Qty: 8.5 0RF albuterol sulfate 2.5 mg/0.5 mL solution for nebulization 5 mg inhalation Q4H PRN (Reason: shortness of breath or wheezing) Qty: 30 0RF cyclobenzaprine 10 mg tablet 10 mg PO TID PRN (Reason: muscle spasm) Qty: 20 0RF mupirocin 2 % ointment 1 appl topical BID 7 Days Qty: 15 0RF escitalopram oxalate 20 mg tablet 20 mg PO DAILY famotidine 20 mg tablet 20 mg PO BEDTIME flunisolide 25 mcg (0.025 %) spray,non-aerosol 2 spray intranasal BID fluticasone propionate [Flovent HFA] 44 mcg/actuation HFA aerosol inhaler 2 puff inhalation BID Rx Instructions: administer with spacer cetirizine [All Day Allergy (cetirizine)] 10 mg tablet 10 mg PO DAILY diclofenac sodium 1 % gel 2 g topical TID quetiapine 25 mg tablet 25 mg PO BEDTIME PRN ibuprofen 400 mg tablet 400 - 800 mg PO Q8H PRN (Reason: pain) Qty: 180 4RF tacrolimus 0.1 % ointment 1 appl topical BID prednisone 5 mg tablet 5 mg PO DAILY Qty: 30 2RF Referrals: Joe Graham MD [Physician] - (? lipoma left upper back) Print Language: Tajik
[2024-08-25 20:15] LABS: IDNOW Serial# 55D5AD1C; Strep A Nucleic Acid Negative (Negative)
[2024-08-25 20:51] LABS: Influenza A PCR POSITIVE (Negative); Influenza B PCR NEGATIVE (Negative); Resp Syncy Virus RNA Qual PCR NEGATIVE (Negative); SARS COV2 PCR INHOUSE NEGATIVE (Negative)
[2024-08-25 21:26] VITALS: BP 114/72; PULSE 84; RESP 18; TEMP 37.2; O2SAT 99
[2024-08-25 21:38] VITALS: BP 114/72; PULSE 84; RESP 18; TEMP 37.2; O2SAT 99
== END 2024-08-25 21:38 | disposition home or self-care (01) ==
PROVIDERS: Emergency Provider Internal Medicine; PCP Surgery
DX: J10.1 Influenza due to other identified influenza virus with other respiratory manifestations (principal)
CPT/HCPCS: 0241U; 87651; 99283; 99284

== ENCOUNTER 2024-11-01 10:48 | Outpatient (AMB) | payer OTHER, SELFPAY ==
--- NOTE | 2024-11-01 10:54 | MHC.OFFVIS ---
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 Patient was referred by her PCP RUTH Steele of [facility] on 07/06/24. Patient had an x ray of the lumbar spine on 11/28. Patient reports that she has had lumbar pain since childhood. Patient stated her pain has been present for years however in 2010 after child is when her pain had increasingly got worse. She reports that her daily life and daily activities have changed due to constant pain, ROM is limited. Patient mentions that she had a sleep apnea test done due to her constantly falling asleep standing/sitting. Patient see's a back specialist and she see's weight management. She was also referred to Pain Mgmt. Allergies adalimumab (From Humira(CF)) Allergy (Intermediate, Verified 11/01/24 11:03) eczema lidocaine (LIDOCAINE) Allergy (Intermediate, Verified 11/01/24 11:03) UNKNOWN naproxen (NAPROXEN) Allergy (Intermediate, Verified 11/01/24 11:03) UNKNOWN, rash oxycodone (From PERCOCET) Allergy (Intermediate, Verified 11/01/24 11:03) UNKNOWN Sulfa (Sulfonamide Antibiotics) Allergy (Intermediate, Verified 11/01/24 11:03) rash sulfamethoxazole (From BACTRIM) Allergy (Intermediate, Verified 11/01/24 11:03) Rash trimethoprim (From BACTRIM) Allergy (Intermediate, Verified 11/01/24 11:03) Rash codeine Allergy (Verified 11/01/24 11:03) Itching etanercept (From Enbrel) Adverse Reaction (Intermediate, Verified 11/01/24 11:03) Diarrhea Novocain Allergy (Intermediate, Uncoded 11/01/24 11:03) rash Medication List - Last Reconciled 11/01/24 by Arianna Nicholson MD albuterol sulfate 5 mg inhalation Q4H PRN albuterol sulfate 90 mcg/actuation 2 puffs inhalation Q4-6H PRN cetirizine (All Day Allergy (cetirizine)) 10 mg PO DAILY cyclobenzaprine 10 mg PO TID PRN diclofenac sodium 1% 2 grams topical TID escitalopram oxalate 20 mg PO DAILY famotidine 20 mg PO BEDTIME flunisolide 2 sprays intranasal BID fluticasone propionate 44 mcg/actuation (Flovent HFA) 2 puffs inhalation BID ibuprofen 400 - 800 mg (1 - 2 x 400 mg) PO Q8H PRN mupirocin 2% 1 appl topical BID 7 days quetiapine 25 mg PO BEDTIME PRN tacrolimus 0.1% 1 appl topical BID HPI Comments Details: Previously followed by Dr. Urena and then Dr. Tabor (rheumatology) for ankylosing spondylitis and fibromyalgia. Previously on Humira which she had to discontinue after Dr. Tabor left. Previously seen by pain management in 2022, had plans for SI joint injection but on the day of injection, had left leg cellulitis. No injections done after. Reviewed past ER notes for cellulitis and back pain. No MRI lumbar done in the past. Midline lower back, across the back, going to both hip/pelvic/groin areas, down to both legs. With numbness down both legs. Can't sit for too long, because gets tingling/numbness on both legs. Very slow to get up from seated position. Walking helps with the pain but tends to hunch over. No foot drop. Tends to lie down a lot due to the pain. Easily fatigued. No bladder/bowel changes. No recent PT. Busy family work, with 5 children. Tries her own leg exercises. She does try to tackle pain with movement . 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 GERD (gastroesophageal reflux disease) Depression Carpal tunnel syndrome Ankylosing spondylitis Surgical History Hx of umbilical hernia repair Hx of tubal ligation Family History Mother Diabetes Arthritis Father Diabetes Heart disease Social History Household Members: Family Housing: Apartment Are you a primary resident care coordinator to a significant other at home: No Do you presently have visiting nurse or other home services: No 75 years or older and lives alone: No Alcohol intake: current Alcohol intake frequency: holidays/special occasions only Alcohol type: beer and wine Patient Tobacco Use Status: Never used Tobacco e-Cigarette/Vaping Use: Never Used Substance Use Type: Marijuana service: No Current occupational status: disabled Review of Systems Const All systems reviewed & are unremarkable except as noted in HPI and below Physical Exam Constitutional: Patient appears to be in no acute distress, well nourished and well developed. Patient was appropriately conversant and oriented. Good historian. MSK: No specific abnormalities found on inspection of the spine and all extremities. Tender on lumbar paraspinals, lower lumbar spinous processes, slightly on SI joints, slightly on right GT. Lumbar ROM was full. Bilateral hip, knee and ankle ROM WNL. No ligamentous laxity or crepitance. No increased effusion. Straight-leg raising test positive bilateral. FABERE test positive bilateral. Strength is 5/5 in all muscle groups tested. No increased tone noted. Neurological: Neurologic examination of the upper and lower extremities was nonfocal with intact sensation, muscle stretch reflexes and without focal motor deficits . Mccoy?s negative bilaterally. Babinski was down going bilaterally. Clonus was negative. Gait is antalgic without loss of balance. Results Reviewed Results Reviewed: Ordering Physician: Danya Brown APRN, CNP Date of Service: 11/16/22 Procedure(s): XR lumbar spine 4V min Accession Number(s): [id number] cc: Danya Brown APRN, CNP~ Examination: X-ray lumbar spine and pelvis INDICATION: Ankylosing spondylitis, evaluate lumbar/SI joints TECHNIQUE: 5 views of the lumbar spine view of the pelvis COMPARISON: None FINDINGS: Vertebral body heights are preserved. Mild bony spurring in the lumbar spine. There is mild degenerative disc disease in the visualized lower thoracic spine. Mild facet arthropathy at L5-S1.. There is no displaced pelvic fracture. Pubic symphysis and sacroiliac joints appear intact hernia repair clips in the abdomen. XR/XR lumbar spine 4V min IMPRESSION: Mild degenerative changes in the lumbar spine. No radiographic evidence of ankylosing spondylitis. Ordering Physician: Danya Brown APRN, CNP Date of Service: 11/16/22 Procedure(s): XR pelvis min 3V Accession Number(s): [id number] cc: Danya Brown APRN, POLICE [employer]GEANT [employer]~ Examination: X-ray lumbar spine and pelvis INDICATION: Ankylosing spondylitis, evaluate lumbar/SI joints TECHNIQUE: 5 views of the lumbar spine view of the pelvis COMPARISON: None FINDINGS: Vertebral body heights are preserved. Mild bony spurring in the lumbar spine. There is mild degenerative disc disease in the visualized lower thoracic spine. Mild facet arthropathy at L5-S1.. There is no displaced pelvic fracture. Pubic symphysis and sacroiliac joints appear intact hernia repair clips in the abdomen. XR/XR pelvis min 3V IMPRESSION: Mild degenerative changes in the lumbar spine. No radiographic evidence of ankylosing spondylitis. I reviewed records from the following: Rheumatology Pain Management Assessment & Plan Assessment & Plan (1) Low back pain potentially associated with spinal stenosis: Code(s): M54.50 - Low back pain, unspecified Category: Medical (2) Spinal stenosis, lumbar region with neurogenic claudication: Code(s): M48.062 - Spinal stenosis, lumbar region with neurogenic claudication Category: Medical (3) Ankylosing spondylitis: Comment: dx 2015 HLA [id number] -[id number] Humira effective for spine, DC due to multiple skin side effects such as eczema, hidradenitis suppurativa Enbrel 2021 DC due to diarrhea Code(s): M45.9 - Ankylosing spondylitis of unspecified sites in spine Category: Medical Qualifiers: Ankylosing spondylitis location: lumbar region Qualified Code(s): M45.6 - Ankylosing spondylitis lumbar region Plan Lumbopelvic pain with claudication symptoms. With history of ankylosing spondylitis. Pain has affected her functional level at home Odalis's added to overall fatigue. Patient had undergone adequate conservative management without improvement of condition. It would be reasonable to obtain further imaging such as MRI. An MRI would help rule out any serious condition, guide treatment and assess prognosis for recovery. Specifically ruling out lumbar spinal stenosis. Getting bilateral hip x-rays today to rule out hip joint pathology or arthritis. Referring patient back to Rheumatology, she needs someone to manage . Assessment and plan discussed with patient, and patient was agreeable. All questions were answered thoroughly. Follow up after MRI. Arianna Nicholson MD, JOSÉ LUIS Board Certified, [place] [employer] and [employer] (ABPMR) Board Certified, [place] [employer] Electro[employer] (ABEM) Orders: Orders XR hip RT min 2V Today M25.551 - Pain in right hip MR lumbar spine wo con Today M45.6 - Ankylosing spondylitis lumbar region, M48.062 - Spinal stenosis, lumbar region with neurogenic claudication XR hip LT min 2V Today M16.12 - Unilateral primary osteoarthritis, left hip Referrals Rheumatology Referral M45.6 - Ankylosing spondylitis lumbar region Coding Level of Care Code New Pt Level 4 (33497) Complex EM visit Add On G2211 Diagnoses Low back pain potentially associated with spinal stenosis M54.50 Spinal stenosis, lumbar region with neurogenic claudication M48.062 Ankylosing spondylitis of lumbar region M45.6 Ankylosing spondylitis location: lumbar region
--- OUTSIDE RECORDS SUMMARY | 2024-11-01 12:43 | XMS_ITS | Clinical Summary ---
Author Organization 175 [facility] Address [address] [place] [phone] Phone Care Team Providers Care Manager Diesel Name Role Phone Ariadna Jefferson MD Primary [...] as needed for Diarrhea. 02/14/20 24 Active nystatin (MYCOSTATIN) ointment Apply thin layer to afected areas twice a day for 7 days. 12/29/19 24 025 Active clindamycin phosphate 1 % gel, once daily 09/09/19 24 Active ibuprofen (ADVIL,MOTRIN) 400 mg tablet TAKE 1 TO 2 TABLETS BY MOUTH EVERY 8 HOURS NEEDED FOR PAIN 09/01/19 24 Active ammonium lactate (AMLACTIN) 12 % cream 09/11/19 24 Active tacrolimus (PROTOPIC) 0.1 % ointment APPLY TO HANDS AND FEET TWICE DAILY NEEDED FOR FLARES, ALTERNATING WITH STEROID 06/30/19 24 Active escitalopram (LEXAPRO) 20 mg tablet Take 1 tablet (20 mg total) by mouth 1 (one) time each day. 10/30/19 23 Active diclofenac (VOLTAREN) 1 % topical gel Apply 2 g topically 3 times daily. 02/11/20 22 Active inhaler,assist device,accesory (MOUTHPIECE MISC) Inhale 1 Units by mouth. Spacer/Aero Chamber Mouthpiece Misc Inhale 1 Units into the lungs every 6 hours as needed (use with inhalers as directed). 11/04/19 18 Active valACYclovir (VALTREX) 1 gram tablet Take [...] CAUSE SEDATION). 30 tablet 06/14/19 25 Active albuterol HFA (PROAIR HFA ; PROVENTIL HFA ; VENTOLIN HFA) 90 mcg/actuation inhalerIndicati ons:Mild intermittent asthma without complication Inhale 2 puffs by mouth every 6 (six) hours if needed for wheezing or shortness of breath. Inhale 2 Puffs into the lungs every 6 hours as needed for Wheezing or Shortness of Breath. 6.7 g 2 07/05/19 25 Active cetirizine (ZyrTEC) 10 mg tablet TAKE 1 TABLET BY MOUTH EVERY DAY 90 tablet 1 07/13/19 25 Active ferrous sulfate 325 mg (65 mg [...] day. 90 capsule 1 08/23/19 25 Active budesonide (PULMICORT) 180 mcg/actuation inhalerIndicati ons:Mild intermittent asthma without complication Inhale 1 puff by mouth 2 (two) times a day. Rinse mouth with water after use to reduce aftertaste and incidence of candidiasis. Do not swallow. 1 each 1 08/30/19 25 025 Active betamethasone valerate (VALISONE) 0.1 % creamIndication s:Dyshidrotic eczema Apply small amounts to affected area every 12 hours. Do not use for more than 14 days at a time 45 g 1 08/30/19 25 Active fluticasone propionate (FLONASE) 50 mcg/actuation nasal sprayIndication s:Non-seasonal allergic rhinitis, unspecified trigger Administer 1 spray into each nostril 2 (two) times a day. Shake gently. Before first use, prime pump. After use, clean tip and replace cap. 16 g 1 08/30/19 25 Active Vraylar 1.5 mg capsule Take 1 capsule (1.5 mg total) by mouth at bedtime. 09/19/19 25 Active predniSONE (DELTASONE) 5 mg tablet Take 1 tablet (5 mg total) by mouth 1 (one) time each day. 07/05/19 25 Active famotidine (PEPCID) 20 mg tablet TAKE 1 TABLET BY MOUTH TWICE A DAY 180 tablet 1 10/03/19 25 Active tirzepatide, weight loss, (Zepbound) 12.5 mg/0.5 mL injectionIndica tions:Morbid obesity (CMS/HCC V24, CMS/HCC V28) Inject 0.5 mL (12.5 mg total) under the skin every 7 (seven) days. 2 mL 10/13/19 25 025 Active tirzepatide, weight loss, (Zepbound) 10 mg/0.5 mL injectionIndica tions:Class 2 obesity due to excess calories with body mass index (BMI) of 38.0 to 38.9 in adult, unspecified whether serious comorbidity present Inject 0.5 mL (10 mg total) under the skin every 7 (seven) days. 2 mL 1 09/20/19 25 025 Discontinued Active Problems Problem Noted Date Diagnosed Date Multiple allergies 08/29/2024 Assessment & Plan (08/29/2024 7:22 PM EDT): Noted on allergy testing ordered by her basket turner and completed last week(cockroach, grass, oak, ragweed etc). Referred to staff interpreter Orders: Ambulatory referral to Allergy; Future Severe obesity ([facility] V24, [facility] V28) 2023 Assessment & Plan (08/29/2024 7:22 PM EDT): Continue Zepbound 10 mg weekly and follow-up with bariatrics Mild intermittent asthma 02/21/2024 Assessment & Plan (08/29/2024 7:22 PM EDT): She is to start Pulmicort twice daily and continue albuterol as needed. Her asthma is not well-controlled Orders: budesonide (PULMICORT) 180 mcg/actuation inhaler; Inhale 1 puff by mouth 2 (two) times a day. Rinse mouth with water after use to reduce aftertaste and incidence of candidiasis. Do not swallow. Pyoderma gangrenosum ([facility] V28) 01/04/2024 Osteoarthritis of lumbar spine with myelopathy 0 01/04/2024 Vitamin D deficiency 01/04/2024 Acquired trigger finger of left middle finger HSV infection 07/08/2023 Basilar artery aneurysm ([facility] V24) 07/08/2023 Overview (02/21/2024): Last Assessment & [...] of the basilar artery, congenital variant of benton of [place], minimal flow in the distal [...] follow-up MRA/MRV head in 1 year at [facility]. She has upcoming appointments with vascular [...] w ithout status migrainosus, not intractable 06/08/2023 Assessment & Plan (08/29/2024 7:22 PM EDT): Continue topiramate 50 mg twice daily Dyshidrotic eczema 09/11/2020 Assessment & Plan (08/29/2024 7:22 PM EDT): Requesting refill of Betamethasone cream which is sent Orders: betamethasone valerate (VALISONE) 0.1 % cream; Apply small amounts to affected area every 12 hours. Do not use for more than 14 days at a time Chronic daily headache 06/25/2020 Tinea pedis of left foot 04/15/2020 Intertrigo 04/15/2020 Hidradenitis suppurativa 02/19/2020 Supraumbilical hernia withou t gangrene and without obstruction 11/27/2019 Overview (02/21/2024): Uncomfortable. Referred to surgery [facility] ([facility] V24, [facility] V28) 08/31/2019 Overview (02/21/2024): Sclerotic changes on lumbar MRI 2019 Assessment & Plan (08/29/2024 7:22 PM EDT): Continue rheumatology follow-up. Continue Humira every 2 weeks Recurrent urticaria 07/31/2019 Overview (02/21/2024): [employer] 2018 Assessment & Plan (08/29/2024 7:22 PM EDT): Continue Zyrtec daily Periumbilical pain 07/31/2019 Anxiety 02/17/2018 PTSD (post-traumatic stress disorder) 02/17/2018 Allergic rhinitis 09/06/2017 Assessment & Plan (08/29/2024 7:22 PM EDT): Continue Zyrtec daily. Start Flonase twice daily Orders: fluticasone propionate (FLONASE) 50 mcg/actuation nasal spray; Administer 1 spray into each nostril 2 (two) times a day. Shake gently. Before first use, prime pump. After use, clean tip and replace cap. Bilateral carpal tunnel syndrome 10/31/2012 Overview (02/21/2024): R>L (s/p right-sided release 2012) GERD (gastroesophageal reflux disease) 8 Genital herpes 07/17/2007 Overview (02/21/2024): Will need prophylaxis in the third trimester. O update Major depressive disorder, recurrent ([facility] V2 4) 07/17/2007 Assessment & Plan (08/29/2024 7:22 PM EDT): Continue Lexapro 20 mg daily. Continue follow-up with her psychiatrist Resolved Problems Problem Noted Date Diagnosed Date Resolved Date Asthma 03/15/2024 08/29/2024 with history of mu ltiple loss 09/03/2010 08/29/2024 Overview (03/15/2024): Genetic consult Loss also at 20 weeks Morbid obesity with BMI of 4 0.0-44.9, adult ([facility] V24, [facility] V28) 08/29/2024 Encounters Date Type Department Care Team Description 10/12/2024 Telephone Bariatric Surgery [facility] [address] [place] [phone] Zan Edouard MD Med Refill (Zepbound w/titration ) 09/25/2024 11:00 AM EDT Consult Neurosurgery [facility] 175 [facility] [address] [place] [phone] David Castro MD Family history of brain aneurysm (Primary Dx) 09/21/2024 1:00 PM EDT Ancillary Procedure Pulmonolgy - [place] [facility] [address] [place] [phone] Mild persistent asthma without complication (Primary Dx) 09/18/2024 Telephone Bariatric Surgery [facility] 175 [facility] [address] [place] [phone] Zan Edouard MD Med Refill (Zepbound) 09/17/2024 12:45 PM EDT - 09/17/2024 11:59 PM EDT Hospital Encounter Radiology Department - [address] [phone] Lipoma of back Discharge Disposition: Home or Self Care 09/13/2024 11:13 AM EDT - 09/13/2024 11:59 PM EDT Hospital Encounter [facility] CT Scan [address] [place] [phone] Cerebral arterial aneurysm Discharge Disposition: Home or Self Care 08/29/2024 4:30 PM EDT Office Visit Adult Medicine [address], [place] [phone] Ariadna Jefferson MD URI due to influenza A virus (Primary Dx); Acute non-recurrent frontal sinusitis; Need for hepatitis C screening test; Mild intermittent asthma without complication; Dyshidrotic eczema; Recurrent urticaria; Ankylosing spondylitis of sacral region ([facility] V24, [facility] V28); Severe obesity ([facility] V24, [facility] V28); Non-seasonal allergic rhinitis, unspecified trigger; Chronic migraine with aura without status migrainosus, not intractable; Multiple allergies; Lipoma of back; Recurrent major depressive disorder, remission status unspecified ([facility] V24) 08/29/2024 Telephone Adult Medicine [address] [phone] Hue Thompson [place] Forms/questionnaire s 08/28/2024 10:57 AM EDT - 08/28/2024 11:59 PM EDT Hospital Encounter [address] [phone] Mild persistent asthma, unspecified whether complicated Discharge Disposition: Home or Self Care 08/21/2024 1:00 PM EDT Office Visit Bariatric Surgery - [address] [place] [phone] Zan Edouard MD Class 2 obesity due to excess calories with body mass index (BMI) of 38.0 to 38.9 in adult, unspecified whether serious comorbidity present (Primary Dx) 08/06/2024 1:20 PM EDT Consult Pulmonolgy - [place] 175 [facility] [address] [place] [phone] Rosa Perez NP Mild persistent asthma without complication (Primary Dx); Seasonal allergic rhinitis, unspecified trigger; Anxiety; Gastroesophageal reflux disease, unspecified whether esophagitis present from Last 3 Months Immunizations Name Administration [...] latest 14 wk aog ESOPHAGOGASTRODUODENOSCOPY 01/03/2001 PROCEDURE: IN ESOPHAGOGASTRODUODENOSCOPY TRANSORAL DIAGNOSTIC; COMMENT: [facility] - normal; [...] syndrome DX:Irri table bowel syndrome Rheumatoid arthritis (CMS/HC C V24, CMS/HCC V28) DX:Rheumatoid arthritis (HCC ) Psoriasis DX:Psoriasis Ankylosing spondylitis (CMS/ HCC V24, CMS/[facility] V28) DX:Ankylosing spondylitis (H CC) Genital herpes 07/17/2007 DX:Genital herpe s; COMMENT: Will need prophylaxis in the third trimester. ZACHARY update Diarrhea DX:Diarrhea with history of mu ltiple loss 09/03/2010 Genetic consult Loss also at 20 weeks Morbid obesity with BMI of 4 0.0-44.9, adult ([facility] V24, [facility] V28) Family History Medical History Relation Name Comments [...] information No Known Problems Maternal Grandmother st ateari most likely had health issues but i [...] Sign Reading Time Taken Comments Blood Pressure 109/68 08/29/2024 4:24 PM EDT Pulse 83 08/29/2024 4:24 PM EDT Temperature 36.8 C (98.3 F) 08/29/2024 4:24 PM EDT Respiratory Rate 17 08/29/2024 4:24 PM EDT Oxygen Saturation 98% 08/06/2024 1:36 PM EDT Inhaled Oxygen Concentration - - Weight 88.5 kg (195 lb) 08/29/2024 4:24 PM EDT Height 154.9 cm (5' 1 ) 08/29/2024 4:24 PM EDT Body Mass Index 36.84 08/29/2024 4:24 PM EDT Plan of Treatment Upcoming Encounters Date Type Department Care Team (Late st Contact Info) Description 11/29/2024 1:00 PM EDT Office Visit Bariatric Surgery - [place] [address] [place] [phone] Zan Edouard MD 175 [facility] [place] [address] [place] [address] Health Maintenance Due Date Last Done Comments [...] 03/01/2017, 09/28/2013, 01/30/2008 Cholesterol Screening (Lipid Panel) 08/28/2029 08/28/2024, 11/08/2023, 11/08/2023 HIB Vaccines Aged Out No [...] Procedure Name Priority Date/Time Associated Diagnosis Comments PULMONARY FUNCTION TESTING Routine 09/21/2024 3:02 PM EDT Mild persistent asthma without complication US CHEST Routine 09/17/2024 12:51 PM EDT Lipoma of back CT ANGIO HEAD WO AND/OR W CONTRAST Routine 09/13/2024 11:33 AM EDT Cerebral arterial aneurysm XR CHEST 2 VIEWS Routine 08/28/2024 11:0 7 AM EDT Mild persistent asthma, unspecified whether complicated LIPID PANEL WITH REFLEX TO DIRECT LDL Routine 08/28/2024 10:55 AM EDT Other fatigue CBC WITH AUTO DIFFERENTIAL Routine 08/21/2024 2:18 [...] of sacral region (CMS/HCC V24, CMS/HCC V28) [id number] Routine 08/21/2024 2 :18 PM EDT Mild persistent asthma without complication ALLERGEN RESPIRATORY PROFILE AREA 1 CT,[place], [place] IGE Routine 08/21/2024 2:18 PM EDT Mild persistent asthma without complication HM DEPRESSION SCREENING Routine 01/04/2024 SCREENING MAMMOGRAPHY BI 2-VIEW BREAST INC CAD Routine 03/16/2023 4:04 PM EST Encounter for screening mammogram for malignant neoplasm of breast from Last 3 Months or Most Recently Relevant to Health Maintenance Results * Pulmonary function testing: Carbon Monoxide Diffusing Capacity, Spirometry with Bronchodilator, Flow Volume Loop, Maximum Voluntary Ventilation, Vital Capacity Test, Spirometry (09/21/2024 3:02 PM EDT) Impressions Naomy Mason MD - 09/21/2024 3:02 PM EDT (1) pulmonary function testing. FEV1/FVC 89% FEV1 2.26 at 84%. FVC 77%. No bronchodilator response. TLC 111%. RV 160%. DLCO 95%. (Adjusted to 84%). Shape of flow volume loop showed neither intrathoracic nor extrathoracic obstruction Mild obstruction with air trapping hyperinflation. No restriction. No decrease in diffusion. Findings consistent with mild obstructive lung disease.. (2) NIOX 16 ppb. us Rosa Perez PHYSICAL EDUCATION AIDE PFT ORDERABLES Final R esult * US Chest (09/17/2024 12:51 PM EDT) Anatomical Region Laterality Modality Body Ultrasound 09/17/2024 1:13 PM EDT Impressions 09/17/2024 1:15 PM EDT Palpable concern correlates with nonspecific 3.6 cm hypoechoic mass, which could represent a lipoma -------- FINAL REPORT -------- Dictated By: Jay Fitch Dictated Date: 09/17/2024 13:13 ET Assigned Physician: Jay Fitch Reviewed and Electronically Signed By: Jay Fitch Signed Date: 09/17/2024 13:15 ET Workstation ID: [id number] Transcribed By: Self Edit Transcribed Date: 09/17/2024 13:13 ET Narrative 09/17/2024 1:15 PM EDT US CHEST COMPARISON: None HISTORY: posterior neck/upper back FINDINGS: Targeted ultrasound was performed at the location of the clinical concern in the left upper back. Heterogeneous hypoechoic mass identified in the soft tissues measuring 3.6 x 0.8 x 3.0 cm. Procedure Note Jay Fitch MD - 09/17/2024 US CHEST COMPARISON: None HISTORY: posterior neck/upper back FINDINGS: Targeted ultrasound was performed at the location of the clinical concernin the left upper back. Heterogeneous hypoechoic mass identified in thesoft tissues measuring 3.6 x 0.8 x 3.0 cm. IMPRESSION: Palpable concern correlates with nonspecific 3.6 cm hypoechoic mass, whichcould represent a lipoma -------- FINAL REPORT -------- Dictated By: Jay Fitch Dictated Date: 09/17/2024 13:13 ET Assigned Physician: Jay Fitch Reviewed and Electronically Signed By: Jay Fitch Signed Date: 09/17/2024 13:15 ET Workstation ID: [id number] Transcribed By: Self Edit Transcribed Date: 09/17/2024 13:13 ET Ariadna Jefferson MD [facility] PROCEDURE S Final Result * CT Angio Head wo and/or w Contrast (09/13/2024 11:33 AM EDT) Anatomical Region Laterality Modality Head and Neck Computed Tomogra phy 09/13/2024 12:2 5 PM EDT Impressions 09/13/2024 12:42 PM EDT NO VISIBLE ANEURYSM. -------- FINAL REPORT -------- Dictated By: Dali Harris Dictated Date: 09/13/2024 12:25 ET Assigned Physician: Dali Harris Reviewed and Electronically Signed By: Dali Harris Signed Date: 09/13/2024 12:42 ET Workstation ID: [id number] Transcribed By: Self Edit Transcribed Date: 09/13/2024 12:41 ET Narrative 09/13/2024 12:42 PM EDT PROCEDURE: CTA HEAD AND NECK INDICATION: Cerebral aneurysm, follow-up small 2.4 mm aneurysm arising from the tip of the basilar artery, + family history of ruptured brain aneurysm TECHNIQUE: CTA of the head and neck with intravenous contrast. Multiplanar reformats. The examination was performed utilizing dose reduction techniques.3-D or MIP images were produced with postprocessing on an independent computer workstation. 90cc Omnipaque 370 injected. Scan was analyzed using Airphrame Contact AI based computer aided triage software. Total DLP: 989 mGy/cm COMPARISON: No priors available. FINDINGS: Noncon Brain: Cerebral hemispheres are symmetric without evidence for mass, hemorrhage or CT evidence for acute territorial infarct. CTA Head: Intracranial portions of the internal carotid arteries are patent. Proximal middle and anterior circulation is patent. Vertebrobasilar system is patent. Proximal egg candler are patent. There is slight prominence at the branching of the basilar tip but no aneurysm is evident. Major dural venous sinuses opacify normally with contrast. Extracranial structures are unremarkable. Degenerative changes in the bones. Procedure Note Dali Harris MD - 09/13/2024 PROCEDURE: CTA HEAD AND NECK INDICATION: Cerebral aneurysm, follow-up small 2.4 mm aneurysm arising from the tip of the basilar artery, + familyhistory of ruptured brain aneurysm TECHNIQUE: CTA of the head and neck with intravenous contrast. Multiplanarreformats. The examination was performed utilizing dose reductiontechniques.3-D or MIP images were produced with postprocessing on anindepPerBlue computer workstation. 90cc Omnipaque 370 injected. Scan wasanalyzed using Airphrame Contact AI based computer aided triage software. Total DLP: 989 mGy/cm COMPARISON: No priors available. FINDINGS: Noncon Brain: Cerebral hemispheres are symmetric without evidence for mass, hemorrhageor CT evidence for acute territorial infarct. CTA Head: Intracranial portions of the internal carotid arteries are patent. Proximal middle and anterior circulation is patent. Vertebrobasilar system is patent. Proximal egg candler are patent. There isslight prominence at the branching of the basilar tip but no aneurysm isevident. Major dural venous sinuses opacify normally with contrast. Extracranial structures are unremarkable. Degenerative changes in thebones. IMPRESSION: NO VISIBLE ANEURYSM. -------- FINAL REPORT -------- Dictated By: Dali Harris Dictated Date: 09/13/2024 12:25 ET Assigned Physician: Dali Harris Reviewed and Electronically Signed By: Dali Harris Signed Date: 09/13/2024 12:42 ET Workstation ID: [id number] Transcribed By: Self Edit Transcribed Date: 09/13/2024 12:41 ET us Noemy MIRANDA IMG CT PROCEDURES Final Re sult * XR Chest 2 Views (08/28/2024 11:07 AM EDT) Anatomical Region Laterality Modality Body Radiographic Sue ging 08/28/2024 6:47 PM EDT Impressions 08/28/2024 6:48 PM EDT No acute cardiopulmonary process. -------- FINAL REPORT -------- Dictated By: Sabine Goldsmith Dictated Date: 08/28/2024 18:47 ET Assigned Physician: Sabine Goldsmith Reviewed and Electronically Signed By: Sabine Goldsmith Signed Date: 08/28/2024 18:48 ET Workstation ID: [id number] Transcribed By: Self Edit Transcribed Date: 08/28/2024 18:47 ET Narrative 08/28/2024 6:48 PM EDT HISTORY: cough, asthma TECHNIQUE: PA and lateral radiographs of the chest COMPARISON: Chest radiograph from 10/20/2020 FINDINGS: There is a normal cardiomediastinal silhouette. The lungs are clear. Mild degenerative changes of the thoracic spine. Procedure Note Sabine Goldsmith MD - 08/28/2024 HISTORY: cough, asthma TECHNIQUE: PA and lateral radiographs of the chest COMPARISON: Chest radiograph from 10/20/2020 FINDINGS: There is a normal cardiomediastinal silhouette. The lungs are clear. Milddegenerative changes of the thoracic spine. IMPRESSION: No acute cardiopulmonary process. -------- FINAL REPORT -------- Dictated By: Sabine Goldsmith Dictated Date: 08/28/2024 18:47 ET Assigned Physician: Sabine Goldsmith Reviewed and Electronically Signed By: Sabine Goldmsith Signed Date: 08/28/2024 18:48 ET Workstation ID: [id number] Transcribed By: Self Edit Transcribed Date: 08/28/2024 18:47 ET us Diana MIRANDA IMG XR PROCEDURES Final Resul t * Lipid panel with reflex to direct LDL (08/28/2024 10:55 AM EDT) Cholesterol 112 0 - 200 mg/dL LAB CHEMISTRY METHOD 08/28/2024 3:16 PM EDT [facility] Triglycerides 66 0 - 150 mg/dL LAB CHEMISTRY METHOD 08/28/2024 3:16 PM EDT [facility] HDL 54 >=40 mg/dL LAB CHEMISTRY METHOD 08/28/2024 3:16 PM EDT [facility] LDL Calculated 45 0 - 100 mg/dL LAB CHEMISTRY METHOD 08/28/2024 3:16 PM EDT [facility] VLDL Cholesterol Jomar 13.2 mg/dL LAB CHEMISTRY METHOD 08/28/2024 3:16 PM EDT [facility] Non HDL Chol. (LDL+VLDL) 58 <145 mg/dL LAB CHEMISTRY METHOD 08/28/2024 3:16 PM EDT [facility] Chol/HDL Ratio 2.1 0.0 - 4.4 LAB CHEMISTRY METHOD 08/28/2024 3:16 PM EDT [facility] Blood Venous blood specimen / Unknown Venipuncture / Unknown 08/28/2024 10:55 AM EDT 08/28/2024 10:55 AM EDT us Diana MIRANDA LAB BLOOD ORDERABLES Final Re sult [facility] [address] [place] [address], [place] [phone] * Thyroid stimulating hormone with reflex to free t4 and free t3 (08/21/2024 2:18 PM EDT) TSH 1.46 0.40 - 4.00 mcIU/mL LAB CHEMISTRY METHOD 08/22/2024 12:28 PM EDT [facility] Blood Venous blood specimen / Unknown Venipuncture / Unknown 08/21/2024 2:18 PM EDT 08/21/2024 2:18 PM EDT us Diana MIRANDA LAB BLOOD ORDERABLES Final Re sult [facility] [address] [place] [address], [place] [phone] * OTIS IFA with titer and pattern (08/21/2024 2:18 PM EDT) OTIS Negative Negative 08/23/2024 11:30 AM EDT [facility] Blood Venous blood specimen / Unknown Venipuncture / Unknown 08/21/2024 2:18 PM EDT 08/21/2024 2:18 PM EDT us Diana MIRANDA LAB BLOOD ORDERABLES Final Re sult [facility] [address] [place] [address], [place] [phone] * (ABNORMAL) Allergen respiratory profile area 1 [...] 08/24/2024 9:43 AM EDT [facility] Cockroach, [place], IgE 0.91(H) <0.10 kU/L 08/24/2024 9:43 AM EDT [facility] Cockroach, [place] Class CLASS 2 08/24/2024 9:43 AM EDT [facility] [place], IgE <0.10 <0.10 kU/L 08/24/2024 9:43 AM EDT [facility] [place] Class CLASS 0 08/25/19 9:43 AM EDT [...] 08/24/2024 9:43 AM EDT [facility] Maple ([place]), IgE <0.10 <0.10 kU/L 08/24/2024 9:43 AM EDT [facility] Maple ([place]) Class CLASS 0 08/24/2024 9:43 AM EDT [facility] [place] [employer] [place], IgE <0.10 <0.10 kU/L 08/24/2024 9:43 AM EDT [facility] [place] [employer], [place] Class CLASS 0 08/24/2024 [...] 0 08/24/2024 9:43 AM EDT [facility] [place], IgE <0.10 <0.10 kU/L 08/24/2024 9:43 AM EDT [facility] [place] Class CLASS 0 08/24/2024 9:43 AM EDT [facility] [place], IgE 0.29(H) <0.10 kU/L 08/24/2024 9:43 AM EDT [facility] [place] Class CLASS 0/08/24/2024 9:43 AM EDT [facility] Penicillium chrysogenum, [...] [facility] Common Ragweed (short) Class CLASS 0/08/24/2024 9:43 AM EDT [facility] [place], IgE <0.10 <0.10 kU/L 08/24/2024 9:43 AM EDT [facility] [place] Class CLASS 0 2024 9:43 AM EDT [facility] [place], IgE 0.35(H) <0.10 kU/L 08/24/2024 9:43 AM EDT [facility] Kunal Grass Class CLASS 1 08/24 9:43 AM EDT [facility] [place], IgE <0.10 <0.10 kU/L 08/24/2024 9:43 AM EDT [facility] [place] Class CLASS 0 025 9:43 AM EDT [facility] [place], IgE <0.10 <0.10 kU/L 08/24/2024 9:43 AM EDT [facility] White [place] Class CLASS 0 9:43 AM EDT [facility] IgE 193.0(H) <114.0 IU/mL 08/24/2024 9:43 AM EDT [facility] Allergy Interpretation See Below 08/24/2024 9:43 AM EDT [facility] Comment: Level of Allergen CLASS kU/L Specific IgE Antibody ----- 0 <0.10 Undetectable 0/1 0.10 - 0.34 Very Low Level 1 0.35 - 0.69 Low Level 2 0.70 - 3.49 Moderate Level 3 3.50 - 17.4 High Level 4 17.5 - 49.9 Very High Level 5 50.0 - 100.0 Very High Level 6 >100.0 Very High Level Test performed at [facility], [address] , [place] [address] La Barton MD, PhD - Director Orange Blood Venous blood specimen / Unknown Venipuncture / Unknown 08/21/2024 2:18 PM EDT 08/21/2024 2:18 PM EDT us Rosa Perez NP LAB BLOOD ORDERABLES Fi nal Result [facility] [address] [place] [address] * (ABNORMAL) CBC auto differential (08/21/2024 2:18 PM EDT) [facility] WBC 3.0(L) 4.8 - 10.8 K/mcL LAB HEMETOLOGY METHOD 08/21/2024 4:51 PM EDT [facility] RBC 3.90 3.80 - 4.80 M/mcL LAB HEMETOLOGY METHOD [facility]24 [facility] Hemoglobin 11.7 11.5 - 16.0 g/dL LAB HEMETOLOGY METHOD 08/21/2024 4:51 PM EDT [facility] Hematocrit 36.2 35.0 - 47.0 % LAB HEMETOLOGY METHOD 08/21/2024 4:[facility] MCV 92.3 79.0 - 98.0 FL LAB HEMETOLOGY METHOD 08/21/2024 4:51 PM [facility] MCH 29.8 27.0 - 32.0 pcg LAB HEMETOLOGY METHOD 08/21/2024 4:[facility] MCHC 32.3 32.0 - 37.0 g/dL LAB HEMETOLOGY METHOD 08/21/2024 4:51 [facility] RDW 14.0 11.0 - 15.0 % LAB HEMETOLOGY METHOD 08/21/2024 4:51 PM [facility] Platelets 212 130 - 400 K/mcL LAB HEMETOLOGY METHOD 08/21/2024 4:51 PM EDT [facility] MPV 10.9 7.0 - 11.0 FL LAB HEMETOLOGY METHOD 08/21/2024 4:51 PM EDT [facility] NRBC 0.0 <1.0 % LAB HEMETOLOGY METHOD 08/21/2024 4:[facility] NRBC Absolute 0.00 <0.10 K/mcL [...] PM [facility] Immature Granulocytes Absolute 0.01 0.00 - 0.03 K/mcL LAB HEMETOLOGY METHOD 08/21/2024 4:51 PM [facility] Blood Venous blood specimen / Unknown Venipuncture / Unknown 08/21/2024 2:18 PM EDT 08/21/2024 2:18 PM EDT us Diana MIRANDA LAB BLOOD ORDERABLES Final Re sult [facility] [address] [place] [address], [place] [phone] * (ABNORMAL) Iron and TIBC (08/21/2024 2:18 PM EDT) Iron 27(L) 40 - 150 mcg/dL LAB CHEMISTRY METHOD 08/21/2024 6:35 PM EDT [facility] TIBC 320 250 - 450 mcg/dL LAB CHEMISTRY METHOD 08/21/2024 6:35 PM EDT [facility] Iron Saturation 8(L) 15 - 50 % LAB CHEMISTRY METHOD 08/21/2024 6:35 PM EDT [facility] Blood Venous blood specimen / Unknown Venipuncture / Unknown 08/21/2024 2:18 PM EDT 08/21/2024 2:18 PM EDT us Diana MIRANDA LAB BLOOD ORDERABLES Final Re sult Performing Organization Address City/[facility]/ZIP Co de Phone Number [facility] [address] [place] [address], [place] [phone] * [id number] (08/21/2024 2:18 PM EDT) A-1 Antitrypsin 129 90 - 200 mg/dL LAB CHEMISTRY METHOD 08/21/2024 6:11 PM EDT [facility] Blood Venous blood specimen / Unknown Venipuncture / Unknown 08/21/2024 2:18 PM EDT 08/21/2024 2:18 PM EDT Rosa Perez PHYSICAL EDUCATION AIDE LAB BLOOD ORDERABLES Fi nal Result Performing Organization Address [facility]/ZIP Co de Phone Number [facility] [address] [place] [address], [place] [phone] * (ABNORMAL) Vitamin D 25 hydroxy (08/21/2024 2:18 PM EDT) Pathologist [facility] Vit D, 25-Hydroxy 26.3(L) 30.0 - 80.0 ng/mL LAB CHEMISTRY METHOD 08/21/2024 6:53 PM EDT [facility] Blood Venous blood specimen / Unknown Venipuncture / Unknown 08/21/2024 2:18 PM EDT 08/21/2024 2:18 PM EDT Diana MIRANDA LAB BLOOD ORDERABLES Final Re sult Performing Organization Address [facility] Co de Phone Number [facility] [address] [place] [address], [place] [phone] * Hemoglobin A1c (08/21/2024 2:18 PM EDT) [facility] Hemoglobin A1C 5.1 <6.5 % LAB CHEMISTRY METHOD 08/21/2024 9:54 PM EDT [facility] Mean Bld Glu Estim. 100 mg/dL LAB CHEMISTRY METHOD 08/21/2024 9:54 PM EDT [facility] Blood Venous blood specimen / Unknown Venipuncture / Unknown 08/21/2024 2:18 PM EDT 08/21/2024 2:18 PM EDT us Diana MIRANDA LAB BLOOD ORDERABLES Final Re sult Performing Organization Address [facility]/ZIP Co de Phone Number [facility] [address] [place] [address], [place] [phone] * Ferritin (08/21/2024 2:18 PM EDT) Pathologist [facility] Ferritin 15 8 - 252 ng/mL LAB CHEMISTRY METHOD 08/21/2024 6:35 PM EDT [facility] Blood Venous blood specimen / Unknown Venipuncture / Unknown 08/21/2024 2:18 PM EDT 08/21/2024 2:18 PM EDT us Diana MIRANDA LAB BLOOD ORDERABLES Final Re sult [facility] [address] [place] [address], [place] [phone] * Vitamin B12 (08/21/2024 2:18 PM EDT) [facility] Vitamin B-12 318 250 - 900 pcg/mL LAB CHEMISTRY METHOD 08/21/2024 6:35 PM EDT [facility] Blood Venous blood specimen / Unknown Venipuncture / Unknown 08/21/2024 2:18 PM EDT 08/21/2024 2:18 PM EDT us Diana MIRANDA LAB BLOOD ORDERABLES Final Re sult [facility] [address] [place] [address], [place] [phone] * Comprehensive metabolic panel (08/21/2024 2:18 PM EDT) [facility] Sodium 134 133 - 145 mmol/L LAB CHEMISTRY METHOD 08/21/2024 6:35 PM EDT [facility] Potassium 3.7 3.5 - 5.5 mmol/L LAB CHEMISTRY METHOD 08/21/2024 6:35 PM EDT [facility] Chloride 107 96 - 110 mmol/L LAB CHEMISTRY METHOD 08/21/2024 6:35 PM EDT [facility] CO2 23 21 - 32 mmol/L [...] [facility] Comment:Calculation based on the Chronic Kidney Disease Epidemiology Collaboration (CKD-EPI) equation refit without adjustment for race. BUN/Creatinine Ratio 18.7 LAB [...] g/dL LAB CHEMISTRY METHOD 08/21/2024 6:35 PM [facility] Albumin 3.8 3.2 - 5.0 g/dL LAB CHEMISTRY METHOD 08/21/2024 6:35 PM [facility] Total Bilirubin 0.2 0.0 - 1.4 mg/dL LAB CHEMISTRY METHOD 08/21/2024 6:35 PM EDT [facility] Blood Venous blood specimen / Unknown Venipuncture / Unknown 08/21/2024 2:18 PM EDT 08/21/2024 2:18 PM EDT Diana MIRANDA LAB BLOOD ORDERABLES Final Re sult [facility]) [facility] [address] [place] [address], [place] [phone] * Depression Screening (01/04/2024) Depression Screening Abstracted Historical Provider HEALTH MAINTENANCE Final Result * SCREENING MAMMOGRAPHY BI 2-VIEW BREAST [...] full field digital mammography, reviewed with CAD. The breasts are composed of fatty and fibroglandular tissue. No suspicious mass, architectural distortion or suspicious calcifications [...] risk category Breast cancer risk not assessed Ariadna Jefferson MD IMG XR PROCEDURE S Final Result from Last 3 Months or Most Recently Relevant to Health Maintenance Insurance [facility] [employer] [employer] Care Teams Manager Diesel Relationship Specialty Start Date End Date Ariadna Jefferson MD [address] [facility], [place] PCP - General Internal Medicine 11/23/21
== END 2024-11-01 11:41 | disposition home or self-care (01) ==
LOC: HO.HOS 10:49
PROVIDERS: PCP Surgery; Visit Provider Physical Medicine & Rehabilitation
DX: M54.50 Low back pain, unspecified (principal); M48.062 Spinal stenosis, lumbar region with neurogenic claudication; M45.6 Ankylosing spondylitis lumbar region
CPT/HCPCS: 99204; G2211

== ENCOUNTER 2024-11-01 10:48 | Outpatient (REF) | payer OTHER, SELFPAY ==
--- NOTE | ~2024-11-01 | XR_ITS ---
CLINICAL HISTORY: M25.551 - Pain in right hip Right hip two views Comparison: None provided Findings: No acute fracture or dislocation identified. No acute focal bony abnormality. No radiopaque foreign body noted. Impression: No acute bony abnormality This document has been electronically signed by: Kunal Singleton MD on 11/01/2024 19:14:34
--- NOTE | ~2024-11-01 | XR_ITS ---
CLINICAL HISTORY: M16.12 - Unilateral primary osteoarthritis, left hip Left hip two views Comparison: 11/16/2022 Findings: No acute fracture or dislocation identified. No acute focal bony abnormality. No radiopaque foreign body noted. Impression: No acute bony abnormality This document has been electronically signed by: Kunal Singleton MD on 11/01/2024 19:21:27
== END 2024-11-01 10:49 | disposition home or self-care (01) ==
LOC: HO.HOSX 10:48
PROVIDERS: PCP Surgery; Visit Provider Physical Medicine & Rehabilitation
DX: M16.12 Unilateral primary osteoarthritis, left hip (principal); M54.50 Low back pain, unspecified; M48.062 Spinal stenosis, lumbar region with neurogenic claudication; M45.6 Ankylosing spondylitis lumbar region
CPT/HCPCS: 73502; 99202

== ENCOUNTER → 2024-11-01 11:24 | Outpatient (BNV) | payer OTHER, SELFPAY | PROVIDERS: PCP Surgery; Visit Provider Radiology Diagnostic Radiology | DX: M25.551 Pain in right hip (principal); M16.12 Unilateral primary osteoarthritis, left hip | CPT/HCPCS: 73502 ==

== ENCOUNTER 2024-12-03 10:07 | Outpatient (REF) | payer OTHER, SELFPAY ==
--- NOTE | ~2024-12-03 | MR_ITS ---
EXAMINATION: MR LUMBAR SPINE WITHOUT CONTRAST CLINICAL INFORMATION: Low back pain. Weakness and numbness and pain, Lower extremities . COMPARISON: None available. TECHNIQUE: MRI of the lumbar spine was obtained using routine sequences without contrast. FINDINGS: Last rib-bearing vertebra labeled T12. Bone marrow inhomogeneity. Intrinsic hyperintense T1 bone lesion at L2 likely intraosseous hemangioma. Small marginal osteophyte formation, T10-11, T11-12. Decreased intervertebral disc height and signal, L1 to, L3-4 and L4-5 levels. Small focal hyperintense T2 signal in the posterior intervertebral disc L5-S1 likely focal annular fissure. Schmorl node superior endplate of T11. The alignment is normal. The conus medullaris ends at pedicle of L1 with normal signal. T11-12: No disc herniation. No neuroforamina stenosis. T12-L1: No disc herniation. No neuroforamina stenosis. L1-2: No disc herniation. No neuroforamina stenosis. L2-3: Broad-based disc bulging. Facet joint and ligamentum flavum hypertrophy. No compression upon neural elements. L3-4: Broad-based disc bulging. Facet joint and ligamentum flavum hypertrophy. Reduced AP diameter of the thecal sac. No neuroforamina stenosis. L4-5: Broad-based disc bulging. Facet joint and ligamentum flavum hypertrophy. Reduced AP diameter of the thecal sac and neuroforamina. L5-S1: Broad-based disc bulging. Facet joint hypertrophy. No compression upon neural elements. No prevertebral compartment hematoma, mass or fluid collection. MR/MR lumbar spine wo con IMPRESSION: Multilevel spondylosis, T10-11, T11-12, L3-4 and L4-5 levels pronounced at L4-5 without compression upon neural elements. Electronically signed by: Hammad Foster MD 12/03/2024 11:01 AM EDT
--- OUTSIDE RECORDS SUMMARY | 2024-12-03 11:07 | XMS_ITS ---
Author Name [facility] Organization Unknown Care Team Organization Name Specialty Phone Email Start Date End Da te [facility] 03/16/20222023
--- OUTSIDE RECORDS SUMMARY | 2024-12-03 11:07 | XMS_ITS | Clinical Summary ---
Author Organization [facility] Address [address] [place] [phone] Phone Care Team Providers Care Lead Informatica Developer Name Role Phone Ariadna Jefferson MD [...] not swallow. 1 each 1 08/30/19 25 Active betamethasone valerate (VALISONE) 0.1 % creamIndication [...] 10/03/19 25 Active tirzepatide, weight loss, (Zepbound) 15 mg/0.5 mL injection Inject 0.5 mL (15 mg total) under the skin every 7 (seven) days for 28 days. 2 mL 11/08/19 25 025 Active tirzepatide, weight loss, (Zepbound) 12.5 mg/0.5 mL injectionIndica tions:Morbid obesity ([facility] V24, [facility] V28) Inject 0.5 mL (12.5 mg total) under the skin every 7 (seven) days. 2 mL 10/13/19 25 025 Discontinued Active Problems Problem Noted Date Diagnosed Date Multiple allergies 08/29/2024 Assessment & Plan (08/29/2024 7:22 PM EDT): Noted on allergy testing ordered by her auto striper and completed last week(cockroach, grass, oak, ragweed etc). Referred to balance recesser Orders: Ambulatory referral to Allergy; Future Severe obesity ([facility] [place], [facility] V28) 2023 Assessment & Plan (08/29/2024 7:22 [...] of candidiasis. Do not swallow. Pyoderma gangrenosum ([facility] V28) 01/04/2024 Osteoarthritis of lumbar spine with myelopathy 0 01/04/2024 Vitamin D deficiency 01/04/2024 Acquired trigger finger of left middle finger HSV infection 07/08/2023 Basilar artery aneurysm ([facility] V24) 07/08/2023 Overview (02/21/2024): Last Assessment & [...] of the basilar artery, congenital variant of [place] of [place], minimal flow in the distal right vertebral artery, congenital variant versus severe stenosis. Irregular flow A1 segment left anterior cerebral artery. I reviewed the report with patient and Dr. Wood. Ms. Levine has incidentally noted small 2.4 mm aneurysm arising from the tip of the basilar artery, given her family history of an aunt with a brain aneurysm that ruptured, we will check a follow-up MRA/MRV head in [address] [facility]. She has upcoming appointments with vascular and [...] Referred to surgery Ankylosing spondylitis of [facility] ([facility] V24, [facility] V28) 08/31/2019 Overview (02/21/2024): Sclerotic changes on lumbar MRI 2019 Assessment & Plan (08/29/2024 7:22 PM EDT): Continue rheumatology follow-up. 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 IMO update Major depressive disorder, recurrent ([facility] V2 4) 07/17/2007 Assessment & Plan (08/29/2024 7:22 PM EDT): Continue Lexapro 20 mg daily. Continue follow-up with her psychiatrist Resolved Problems Problem Noted Date Diagnosed Date Resolved Date Asthma 03/15/2024 08/29/2024 with history of mu ltiple loss 09/03/2010 08/29/2024 Overview (03/15/2024): Genetic consult Loss also at 20 weeks Morbid obesity with BMI of 4 0.0-44.9, adult ([facility] V24, [facility] V28) 08/29/2024 Encounters Date Type Department Care Team Description 11/07/2024 Telephone Bariatric Surgery - Lane [address] [facility] [address] [place] [phone] Margot Cruz PA Med Refill (Zepbound) 10/12/2024 Telephone Bariatric Surgery [facility] [address] [facility] [address] [place] [phone] Zan Edouard MD Med Refill (Zepbound w/titration ) 09/25/2024 11:00 AM EDT Consult Neurosurgery [place] [facility] [address] [facility] [address] [place] [phone] David Castro MD Family history of brain aneurysm (Primary Dx) 09/21/2024 1:00 PM EDT Ancillary Procedure Pulmonolgy - Lane [address] [facility] [address] [place] [phone] Mild persistent asthma without complication (Primary Dx) 09/18/2024 Telephone Bariatric Surgery [facility] [address] [facility] [address] [place] [phone] Zan Edouard MD Med Refill (Zepbound) 09/17/2024 12:45 PM EDT - 09/17/2024 11:59 PM EDT Hospital Encounter Radiology Department - [address] [phone] Lipoma of back Discharge Disposition: Home or Self Care 09/13/2024 11:13 AM EDT - 09/13/2024 11:59 PM EDT Hospital Encounter [facility] CT Scan [address] [place] [phone] Cerebral arterial aneurysm Discharge Disposition: Home or Self Care from Last 3 Months Immunizations Name Administration [...] latest 14 wk aog ESOPHAGOGASTRODUODENOSCOPY 01/03/2001 PROCEDURE: NC ESOPHAGOGASTRODUODENOSCOPY TRANSORAL DIAGNOSTIC; COMMENT: [facility] - normal; [...] syndrome DX:Irri table bowel syndrome Rheumatoid arthritis (CMS/ C V24, CMS/HCC V28) DX:Rheumatoid arthritis (HCC ) Psoriasis DX:Psoriasis Ankylosing spondylitis ([facility] V24, [facility] V28) DX:Ankylosing spondylitis (H CC) Genital herpes 07/17/2007 DX:Genital herpe s; COMMENT: Will need prophylaxis in the third trimester. IMO update Diarrhea DX:Diarrhea with history of mu ltiple loss 09/03/2010 Genetic consult Loss also at 20 weeks Morbid obesity with BMI of 4 0.0-44.9, adult ([facility] V24, [facility] V28) Family History Medical History Relation Name [...] Care Team (Late st Contact Info) Description 05/21/2025 1:15 PM EST Office Visit Bariatric Surgery - [address] [facility] [address] [place] [phone] Zan Edouard MD [address] [facility] [address] [place] [phone] Health Maintenance Due Date Last Done Comments Hepatitis B Vaccines (1 of 3 - 19+ 3-dose series) 2000 Cervical Cancer Screening: HPV 2002 Pneumococcal Vaccine: Pediatrics (0 to 5 Years) and At-Risk Patients (6 to 49 Years) (2 of 2 - PCV) 02/17/2019 02/17/2018 COVID-19 Vaccine (3 - Moderna risk series) 02/02/2021 01/05/2021, 12/08/2020 HIV Screening 04/17/2022 Hepatitis C Screening 04/17/2022 Social Influencers of Health Screening 04/17/2022 Depression Screening 05/09/2024 01/04/2024 Influenza Vaccine (#1) 2025 3, 02/10/2022, 07/20/2021, Additional history exists Breast Cancer [...] Procedure Name Priority Date/Time Associated Diagnosis Comments EXTERNAL XRAY REPORT 11/01/2024 EXTERNAL XRAY REPORT 11/01/2024 EXTERNAL XRAY REPORT 11/01/2024 EXTERNAL XRAY REPORT 11/01/2024 PULMONARY FUNCTION TESTING Routine 09/21/2024 3:02 PM EDT Mild persistent asthma without complication US CHEST Routine 09/17/2024 12:51 PM EDT Lipoma of back CT ANGIO HEAD WO AND/OR W CONTRAST Routine 09/13/2024 11:33 AM EDT Cerebral arterial aneurysm LIPID PANEL WITH REFLEX TO DIRECT LDL Routine 08/28/2024 10:55 AM EDT Other fatigue HM DEPRESSION SCREENING Routine 01/04/2024 SCREENING MAMMOGRAPHY BI 2-VIEW BREAST INC CAD Routine 03/16/2023 4:04 PM EST Encounter for screening mammogram for malignant neoplasm of breast from Last 3 Months or Most Recently Relevant to Health Maintenance Results * External Xray Report (11/01/2024) Only the most recent of4 resultswithin the time period is included. Anatomical Region Laterality Modality Radiographic Sue ging Provider [facility] IMG XR PROCEDURES Final Result * Pulmonary function testing: Carbon Monoxide Diffusing [...] obstructive lung disease.. (2) NIOX 16 ppb. Rosa Perez GENERAL SCRAP WORKER PFT ORDERABLES Final R esult * US [...] Signed Date: 09/17/2024 13:15 ET Workstation ID: [id number] Transcribed By: Self Edit Transcribed Date: 09/17/2024 [...] Signed Date: 09/17/2024 13:15 ET Workstation ID: [id number] Transcribed By: Self Edit Transcribed Date: 09/17/2024 13:13 ET us Ariadna Jefferson MD IMG US PROCEDURE S Final Result * CT Angio [...] Signed Date: 09/13/2024 12:42 ET Workstation ID: [id number] Transcribed By: Self Edit Transcribed Date: 09/13/2024 [...] Omnipaque 370 injected. Scan was analyzed using [employer] AI based computer aided triage software. Total DLP: 989 mGy/cm COMPARISON: No priors available. FINDINGS: Noncon Brain: Cerebral hemispheres are symmetric without evidence for mass, hemorrhage or CT evidence for acute territorial infarct. CTA Head: Intracranial portions of the internal carotid arteries are patent. Proximal middle and anterior circulation is patent. Vertebrobasilar system is patent. Proximal student officer are patent. There is slight prominence at [...] MIP images were produced with postprocessing on anindependent computer workstation. 90cc Omnipaque 370 injected. Scan wasanalyzed using [employer] AI based computer aided triage software. Total DLP: 989 mGy/cm COMPARISON: No priors available. FINDINGS: Noncon Brain: Cerebral hemispheres are symmetric without evidence for mass, hemorrhageor CT evidence for acute territorial infarct. CTA Head: Intracranial portions of the internal carotid arteries are patent. Proximal middle and anterior circulation is patent. Vertebrobasilar system is patent. Proximal student officer are patent. There isslight prominence at the [...] Signed Date: 09/13/2024 12:42 ET Workstation ID: [id number] Transcribed By: Self Edit Transcribed Date: 09/13/2024 12:41 ET us Noemy MIRANDA IMG CT PROCEDURES Final Re sult * Lipid panel with reflex to direct LDL (08/28/2024 10:55 AM EDT) Cholesterol 112 0 - 200 mg/dL LAB CHEMISTRY METHOD 08/28/2024 3:[address] [facility] Triglycerides 66 0 - 150 mg/dL LAB CHEMISTRY METHOD 08/28/2024 3:[address] [facility] HDL 54 >=40 mg/dL LAB CHEMISTRY METHOD 08/28/2024 3:[address] [facility] LDL Calculated 45 0 - 100 mg/dL LAB CHEMISTRY METHOD 08/28/2024 3:[address] [facility] VLDL Cholesterol Jomar 13.2 mg/dL LAB CHEMISTRY METHOD 08/28/2024 3:[address] [facility] Non HDL Chol. (LDL+VLDL) 58 <145 mg/dL LAB CHEMISTRY METHOD 08/28/2024 3:[address] [facility] Chol/HDL Ratio 2.1 0.0 - 4.4 LAB CHEMISTRY METHOD 08/28/2024 3:[address] [facility] Blood Venous blood specimen / Unknown Venipuncture / Unknown 08/28/2024 10:55 AM EDT 08/28/2024 10:55 AM EDT us Diana MIRANDA LAB BLOOD ORDERABLES Final Re sult [facility] [address] [place] [address], [place] [phone] * Depression Screening (01/04/2024) Depression Screening Abstracted [...] Most Recently Relevant to Health Maintenance Insurance [facility] [place] [address] Care Teams Lead Informatica Developer Relationship Specialty Start Date End Date Ariadna Jefferson MD [address] [facility], [place] PCP - General Internal Medicine 11/23/21
== END 2024-12-03 10:08 | disposition home or self-care (01) ==
LOC: HO.MRI 10:07
PROVIDERS: PCP Family Medicine; Visit Provider Physical Medicine & Rehabilitation
DX: M45.6 Ankylosing spondylitis lumbar region (principal); M48.062 Spinal stenosis, lumbar region with neurogenic claudication
CPT/HCPCS: 72148

== ENCOUNTER → 2024-12-03 10:13 | Outpatient (BNV) | payer OTHER, SELFPAY | PROVIDERS: PCP Family Medicine; Visit Provider Radiology Diagnostic Radiology | DX: M47.816 Spondylosis without myelopathy or radiculopathy, lumbar region (principal) | CPT/HCPCS: 72148 ==

== ENCOUNTER 2025-01-11 14:46 | Emergency (ER) | payer OTHER, SELFPAY ==
[2025-01-11 14:52] VITALS: BP 109/58; PULSE 77; RESP 16; TEMP 36.6; O2SAT 99; BMI 36.0
--- NOTE | 2025-01-11 14:52 | ED.GENADULT ---
HPI - General Adult General Chief complaint: Abdominal Pain Stated complaint: abd pain Time Seen by Provider: 01/11/25 17:53 Source: patient, RN notes reviewed and old records reviewed Mode of arrival: ambulatory Limitations: no limitations History of Present Illness ED Provider: Huan MELGAR narrative: 44-year-old female presents for evaluation of lower abdominal/pelvic pain. She reports her symptoms started about 3 weeks ago and worsening over the last week. She initially had some vaginal itching and vaginal discharge. She now complains of lower abdominal pain that started over the last week. She does report a history of hidradenitis suppurativa but does not feel any lumps or skin pain in the area. She reports that she broke up with her sexual partner and recently got back together. She is unsure if he has been monogamous The patient denies any fevers, chills She took some Pyridium which did not help her symptoms No other complaints or concerns at this time Related Data Home Medications ?Medication ?Instructions ?Recorded ?Confirmed cetirizine 10 mg tablet (All Day 10 mg PO DAILY 10/15/21 11/01/24 Allergy (cetirizine)) escitalopram oxalate 20 mg tablet 20 mg PO DAILY 10/15/21 11/01/24 famotidine 20 mg tablet 20 mg PO BEDTIME 10/15/21 11/01/24 flunisolide 25 mcg (0.025 %) nasal 2 spray intranasal BID 10/15/21 11/01/24 spray fluticasone propionate 44 2 puff inhalation BID 10/15/21 11/01/24 mcg/actuation HFA aerosol inhaler (Flovent HFA) diclofenac sodium 1 % topical gel 2 g topical TID 04/19/22 11/01/24 quetiapine 25 mg tablet 25 mg PO BEDTIME PRN 03/03/23 11/01/24 tacrolimus 0.1 % topical ointment 1 appl topical BID 11/08/23 11/01/24 Previous Rx's ?Medication ?Instructions ?Recorded albuterol sulfate 2.5 mg/0.5 mL 5 mg inhalation Q4H PRN shortness 03/28/22 solution for nebulization of breath or wheezing #30 ea albuterol sulfate 90 mcg/actuation 2 puff inhalation Q4-6H PRN 06/03/22 aerosol inhaler shortness of breath or wheezing #8.5 grams ibuprofen 400 mg tablet 400 - 800 mg (1 - 2 x 400 mg) PO 03/03/23 Q8H PRN pain #180 tabs cyclobenzaprine 10 mg tablet 10 mg PO TID PRN muscle spasm #20 05/13/23 tabs mupirocin 2 % topical ointment 1 appl topical BID 7 days #15 grams 05/13/23 doxycycline hyclate 100 mg tablet 100 mg PO BID #14 tabs 01/11/25 fluconazole 100 mg tablet 100 mg PO DAILY #1 tab 01/11/25 Allergies Allergy/AdvReac Type Severity Reaction Status Date / Time adalimumab (From Humira(CF)) Allergy Intermediate eczema Verified 01/11/25 14:54 lidocaine (LIDOCAINE) Allergy Intermediate UNKNOWN Verified 01/11/25 14:54 naproxen (NAPROXEN) Allergy Intermediate UNKNOWN, Verified 01/11/25 14:54 rash oxycodone (From PERCOCET) Allergy Intermediate UNKNOWN Verified 01/11/25 14:54 Sulfa (Sulfonamide Allergy Intermediate rash Verified 01/11/25 14:54 Antibiotics) sulfamethoxazole (From Allergy Intermediate Rash Verified 01/11/25 14:54 BACTRIM) trimethoprim (From BACTRIM) Allergy Intermediate Rash Verified 01/11/25 14:54 codeine Allergy Itching Verified 01/11/25 14:54 etanercept (From Enbrel) AdvReac Intermediate Diarrhea Verified 01/11/25 14:54 Novocain Allergy Intermediate rash Uncoded 11/01/24 11:03 Review of Systems Constitutional: Constitutional: Denies body ache(s), Denies chills, Denies fever(s) and Denies headache(s) Eyes: Eyes: Denies blurry vision ENT: Denies headache(s) Cardiovascular: Cardiovascular: Denies chest pain and Denies dyspnea on exertion Respiratory: Respiratory: Denies cough and Denies dyspnea on exertion Gastrointestinal: Gastrointestinal: Reports abdominal pain, Denies nausea and Denies vomiting Genitourinary: Genitourinary: Denies hematuria, Reports genital pruritis, Denies dyspareunia, Reports pelvic pain, Denies prolapse symptoms, Denies flank pain and Reports vaginal discharge Musculoskeletal: Musculoskeletal: Denies back pain Neurologic: Denies headache(s) PMFSH Past Medical History Medical History Hidradenitis suppurativa Psoriasis Pyoderma gangrenosum At high risk for adverse medication event Pain, foot, right, chronic Chronic eczema of foot Umbilical hernia group home use of drug GERD (gastroesophageal reflux disease) Depression Carpal tunnel syndrome Ankylosing spondylitis Surgical History Hx of umbilical hernia repair Hx of tubal ligation Family History Family History Mother Diabetes Arthritis Father Diabetes Heart disease Social History Social History Household Members: Family Housing: Apartment Are you a primary critical care unit nurse to a significant other at home: No Do you presently have visiting nurse or other home services: No Alcohol intake: current Alcohol intake frequency: holidays/special occasions only Alcohol type: beer and wine Patient Tobacco Use Status: Never used Tobacco Smoked in Last 30 Days: No e-Cigarette/Vaping Use: Never Used Use of substances other than those prescribed or required for medical reasons: Yes Substance Use Type: Marijuana Advance Directives: No Advance Directives Information Provided: Yes service: No Current occupational status: disabled Physical Exam ED Vital Signs: Vital Signs - 24 hr 01/11/25 14:52 01/11/25 18:17 Temperature 97.9 F 98.1 F Pulse Rate 77 62 Respiratory Rate 16 18 Blood Pressure 109/58 L 143/87 H Pulse Oximetry 99 99 Oxygen Delivery Method Room Air Room Air BMI result Body Mass Index 36.0 Const General: healthy appearing, comfortable, no acute distress, alert and awake Nutritional Appearance: well nourished Orientation/consciousness: patient oriented x3 HENMT Head: Yes normocephalic and Yes atraumatic Eyes Eyelids: Yes eyelids normal Conjunctivae: conjunctivae normal Sclerae: sclerae normal Corneas: corneas normal Pupils: Equal, round and reactive pupils present EOM: EOMs intact bilaterally Neck Neck: Yes full ROM Resp Effort & Inspection: normal respiratory effort, able to speak in complete sentences and not labored GI Inspection: No distended Palpation (GI): Soft to palpation, not firm, nontender, no guarding and not rigid Speculum Exam - Vagina: normal appearance of the vagina, normal palpation, abnormal vaginal discharge yellow, no cysts, not erythematous, no lesions, No vaginal bleeding, No tissue present in vagina, no masses, no swelling and nontender Speculum Exam - Cervix: normal appearance of the cervix and Cervical os closed Bimanual exam- vagina & uterus: normal bimanual exam and normal palpation Bimanual Exam- Adnexa, other: normal adnexae, No adnexal tenderness and no masses noted OB/external & speculum: no tissue noted in vagina and vaginal bleeding Skin General skin exam: elasticity normal Neuro General: patient oriented x3 Cranial nerves: Yes Equal, round and reactive pupils present and Yes Bilaterally intact EOM present Cognition (Neuro): normal cognition Extrem Other: Moving all extremities well without any obvious deformities Course Course Course Narrative: This is a rapid medical exam performed by Tami Cavazos NP: Additional HPI, ROS, PE not included below will be deferred to primary provider. Patient is a 44-year-old female presenting with complaint of abdominal pain radiating to groin with dizziness and nausea. States she used medication for yeast infection without improvement. Plan: basic labs, UA Medical Decision Making Medical Decision Making [facility] Narrative: 44-year-old female presents for evaluation of abdominal and pelvic pain starting about 3 weeks when worsening last week. Her vital signs are reassuring, she is quite well appearing her abdomen is nontender on exam. Genitourinary exam shows yellowish vaginal discharge, no adnexal masses or tenderness, no cervical motion tenderness. She has no leukocytosis or left shift. No significant chemistry abnormalities warranting dimension. The patient is not . Urinalysis has positive nitrites, trace leukocyte esterase and 1+ bacteria, this could be significant for a UTI versus vaginal infection. Discussed possible treatments with the patient and she is open to being treated for PID with ceftriaxone and doxycycline. We will also give her Diflucan for possible candidiasis. Swabs were obtained and are currently pending. I have a low suspicion for tubo-ovarian abscess, ovarian torsion as she has no fever, no white count, no adnexal masses and her pain is relatively mild. A pelvic ultrasound was considered but ultimately deferred Differential Diagnosis Differential Diagnoses: The differential diagnosis associated with the presentation includes Pelvic pain PID UTI Tubo-ovarian abscess Ovarian cyst Lab Data [facility] Lab Attestation statement: I reviewed the patient's lab results. As above 01/11/25 15:26 01/11/25 15:26 Labs: Lab Results 01/11/25 01/11/25 Range/Units 15:26 18:12 WBC 5.5 (4.8-10.8) X10*3/uL RBC 3.82 L (4.20-5.50) X10*6/uL Hgb 12.2 (12.0-16.0) g/dl Hct 35.0 L (37.0-47.0) % MCV 91.6 (80.0-98.0) fL MCH 31.9 (27.0-33.0) pg MCHC 34.9 (31.0-35.0) g/dl RDW 12.2 (11.0-16.0) % Plt Count 243 (160-400) X10*3/uL MPV 9.8 (9.4-12.3) fL Immature Gran % (Auto) 0.2 (0.0-0.4) % Neut % (Auto) 68.0 (45-73) % Lymph % (Auto) 22.3 (20-40) % [place] % (Auto) 7.7 (2-11) % Eos % (Auto) 1.6 (0-4) % Baso % (Auto) 0.2 (0-2) % Lymph # (Auto) 1.2 (1.2-4.9) X10*3/uL [place] # (Auto) 0.4 (0.1-1.2) X10*3/uL Eos # (Auto) 0.1 (0.0-0.4) X10*3/uL Baso # (Auto) 0.0 (0.0-0.2) X10*3/uL Abs Immat Gran (auto) 0.01 (0.00-0.03) X10*3/uL Absolute Neuts (auto) 3.7 (2.0-8.3) x10*3/uL Absolute Nucleated RBC 0.000 (0.0-0.012) X10*3/uL Nucleated RBC % (auto) 0.0 (0.0-0.2) /100WBC Sodium 140 (135-145) mmol/L Potassium 4.2 (3.3-5.1) mmol/L Chloride 105 (96-108) mmol/L Carbon Dioxide 28 (22-29) mmol/L Anion Gap 11 L (12-20) BUN 13 (9-16) mg/dL Creatinine 0.82 (0.5-1.4) mg/dL Estim Creat Clear Calc 88.3 Estimated GFR > 60 Random Glucose 68 (60-115) mg/dL Calcium 9.1 (8.4-10.2) mg/dL Total Bilirubin 0.3 (0.0-1.0) mg/dL AST 21 (5-31) U/L ALT 12 (0-31) U/L Alkaline Phosphatase 66 (39-117) U/L Total Protein 7.8 (6.5-8.0) g/dL Albumin 4.3 (3.5-5.0) g/dL Beta HCG, Quant < 2 mIU/mL Urine Color [place] Urine Appearance Clear Urine pH 5.0 (5.0-9.0) Ur Specific [place] 1.025 (1.005-1.025) Urine Protein 100 (2+) H (Neg-Trace) mg/dL Urine Glucose (UA) 250 H (Negative) mg/dL Urine Ketones Trace (Negative) mg/dL Urine Blood Negative (Negative) Urine Nitrite Positive H (Negative) Ur Leukocyte Esterase Trace H (Negative) Urine RBC 0-2 (0-2) /HPF Urine WBC 0-5 (0-5) /HPF Ur Squamous Epith Cells 6-10 (0-2) /HPF Urine Bacteria 1+ (None Seen) Hyaline Casts 0-2 (0-2) /LPF Tests considered The following testing was considered but not selected: Considered pelvic ultrasound versus CT scan of the abdomen pelvis but ultimately deferred Prescription Management I considered prescription management with: Pain Medication and Antibiotic Discharge Plan Discharge Clinical Impression: Pelvic pain Patient Disposition: Home, Self-Care Instructions: Pelvic Pain (ED) Additional Instructions: Your workup in the ER today was reassuring. You were treated empirically for gonorrhea and chlamydia, you were swabbed for those in addition to yeast infection, bacterial vaginosis and trichomoniasis. Take the doxycycline twice daily for a week. You were given a dose of Diflucan today, take the last dose after you finish her last dose of antibiotic We will call you if any of your results are positive Prescriptions: New doxycycline hyclate 100 mg tablet 100 mg PO BID Qty: 14 0RF fluconazole 100 mg tablet 100 mg PO DAILY Qty: 1 0RF Rx Instructions: take on 01/19 No Action albuterol sulfate 90 mcg/actuation HFA aerosol inhaler 2 puff inhalation Q4-6H PRN (Reason: shortness of breath or wheezing) Qty: 8.5 0RF albuterol sulfate 2.5 mg/0.5 mL solution for nebulization 5 mg inhalation Q4H PRN (Reason: shortness of breath or wheezing) Qty: 30 0RF cyclobenzaprine 10 mg tablet 10 mg PO TID PRN (Reason: muscle spasm) Qty: 20 0RF mupirocin 2 % ointment 1 appl topical BID 7 Days Qty: 15 0RF escitalopram oxalate 20 mg tablet 20 mg PO DAILY famotidine 20 mg tablet 20 mg PO BEDTIME flunisolide 25 mcg (0.025 %) spray,non-aerosol 2 spray intranasal BID fluticasone propionate [Flovent HFA] 44 mcg/actuation HFA aerosol inhaler 2 puff inhalation BID Rx Instructions: administer with spacer cetirizine [All Day Allergy (cetirizine)] 10 mg tablet 10 mg PO DAILY diclofenac sodium 1 % gel 2 g topical TID quetiapine 25 mg tablet 25 mg PO BEDTIME PRN ibuprofen 400 mg tablet 400 - 800 mg PO Q8H PRN (Reason: pain) Qty: 180 4RF tacrolimus 0.1 % ointment 1 appl topical BID Print Language: Hungarian
[2025-01-11 15:30] LABS: MANUAL DIFF FLAG NO
[2025-01-11 15:35] LABS: Hematocrit 35.0 % (37.0-47.0); Hemoglobin 12.2 g/dl (12.0-16.0); Imm Gran Abs Auto 0.01 X10*3/uL (0.00-0.03); Imm Gran Pct Auto 0.2 % (0.0-0.4); Lymphocytes Absolute Auto 1.2 X10*3/uL (1.2-4.9); Mean Corpuscular HGB Conc 34.9 g/dl (31.0-35.0); Mean Corpuscular Hemoglobin 31.9 pg (27.0-33.0); Mean Corpuscular Volume 91.6 fL (80.0-98.0); NRBC Abs Auto 0.000 X10*3/uL (0.0-0.012); NRBC Pct Auto 0.0 /100WBC (0.0-0.2); Platelet Count 243 X10*3/uL (160-400); Red Blood Count 3.82 X10*6/uL (4.20-5.50); White Blood Count 5.5 X10*3/uL (4.8-10.8)
[2025-01-11 15:57] LABS: Alanine Aminotransferase 12 U/L (0-31); Albumin Level 4.3 g/dL (3.5-5.0); Alkaline Phosphatase 66 U/L (39-117); Anion Gap 11 (12-20); Aspartate Amino Transferase 21 U/L (5-31); Blood Urea Nitrogen 13 mg/dL (9-16); Calcium 9.1 mg/dL (8.4-10.2); Carbon Dioxide 28 mmol/L (22-29); Chloride 105 mmol/L (96-108); Creatinine Clr Calc Pharmacy 88.3; Estimated Glomerular Filt Rate > 60; Potassium 4.2 mmol/L (3.3-5.1); Sodium 140 mmol/L (135-145); Total Protein 7.8 g/dL (6.5-8.0)
--- OUTSIDE RECORDS SUMMARY | 2025-01-11 16:15 | XMS_ITS | Clinical Summary ---
Author Organization [facility] Address [address] [place] [phone] Phone Care Team Providers Care Distribution Coordinator Name Role Phone Ariadna Jefferson MD Primary [...] as needed for Diarrhea. 02/14/20 24 Active clindamycin phosphate 1 % gel, [...] 08/23/19 25 Active budesonide (PULMICORT) 180 mcg/actuation inhalerIndicatio ns:Mild intermittent asthma without complication Inhale 1 puff by mouth 2 (two) times a day. Rinse mouth with water after use to reduce aftertaste and incidence of candidiasis. Do not swallow. 1 each 1 08/30/19 25 Active betamethasone valerate (VALISONE) 0.1 % creamIndications :Dyshidrotic eczema Apply small amounts to affected area every 12 hours. Do not use for more than 14 days at a time 45 g 1 08/30/19 25 Active fluticasone propionate (FLONASE) 50 mcg/actuation nasal sprayIndications :Non-seasonal allergic rhinitis, unspecified trigger Administer 1 spray [...] skin every 7 (seven) days. 2 mL 5 01/10/20 25 026 Active nystatin (MYCOSTATIN) ointment Apply thin layer to afected areas twice a day for 7 days. 12/29/19 24 025 tirzepatide, weight loss, (Zepbound) 15 mg/0.5 mL injection Inject 0.5 mL (15 mg total) under the skin every 7 (seven) days. 2 mL 12/06/19 25 025 Discontinu ed(Reorder ) Active Problems Problem Noted Date Diagnosed Date Multiple allergies 08/29/2024 Assessment & Plan (08/29/2024 7:22 PM EDT): Noted on allergy testing ordered by her tele tech and completed last week(cockroach, grass, oak, ragweed etc). Referred to environmental permitting specialist Orders: Ambulatory referral to Allergy; Future Severe obesity ([facility] V24, CMS/[facility] V28) 2023 Assessment & Plan (08/29/2024 7:22 [...] of candidiasis. Do not swallow. Pyoderma gangrenosum ([facility] V28) 01/04/2024 Osteoarthritis of lumbar spine with myelopathy 0 01/04/2024 Vitamin D deficiency 01/04/2024 Acquired trigger finger of left middle finger HSV infection 07/08/2023 Basilar artery aneurysm ([facility] V24) 07/08/2023 Overview (02/21/2024): Last Assessment & [...] follow-up MRA/MRV head in 1 year at [facility]. She has upcoming appointments with vascular [...] Uncomfortable. Referred to surgery Ankylosing spondylitis of [facility] ([facility] V24, [facility] V28) 08/31/2019 Overview (02/21/2024): Sclerotic changes on lumbar MRI 2019 Assessment & Plan (08/29/2024 7:22 PM EDT): Continue rheumatology follow-up. 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 IMO update Major depressive disorder, recurrent ([facility] V2 4) 07/17/2007 Assessment & Plan (08/29/2024 7:22 PM EDT): Continue Lexapro 20 mg daily. Continue follow-up with her psychiatrist Resolved Problems Problem Noted Date Diagnosed Date Resolved Date Asthma 03/15/2024 08/29/2024 with history of mu ltiple loss 09/03/2010 08/29/2024 Overview (03/15/2024): Genetic consult Loss also at 20 weeks Morbid obesity with BMI of 4 0.0-44.9, adult ([facility] V24, [facility] V28) 08/29/2024 Encounters Date Type Department Care Team Description 01/08/2025 Telephone Bariatric Surgery [address] [phone] Zan Edouard MD 12/04/2024 Telephone Bariatric Surgery [address] [phone] Zan Edouard MD 12/03/2024 Telephone Adult Medicine [address] [phone] Ariadna Jefferson MD 11/07/2024 Telephone Bariatric Surgery [address] [phone] Margot Cruz PA 10/12/2024 Telephone Bariatric Surgery [address] [phone] Zan Edouard MD from Last 3 Months Immunizations Name Administration [...] Psoriasis DX:Psoriasis Ankylosing spondylitis (CMS/ [facility] V24, CMS/HCC V28) DX:Ankylosing spondylitis (H CC) Genital herpes 07/17/2007 DX:Genital herpe s; COMMENT: Will need prophylaxis in the third trimester. IMO update Diarrhea DX:Diarrhea with history of mu ltiple loss 09/03/2010 Genetic consult Loss also at 20 weeks Morbid obesity with BMI of 4 0.0-44.9, adult (CMS/HCC V24, CMS/HCC V28) Family History Medical History Relation Name [...] PM EST Office Visit Bariatric Surgery - [place] [address] [facility] [address] [place] [phone] Zan Edouard MD [address] [place] [phone] 07/29/2025 2:00 PM EDT Office Visit Obstetrics & Gynecology - [facility] [address] [place] [phone] Vanesa Valiente CNM [address] [place] [address] Health Maintenance Due Date Last Done Comments [...] Screening 05/09/2024 01/04/2024 Influenza Vaccine (#1) 2025 , 02/10/2022, 07/20/2021, Additional history exists Breast Cancer [...] XRAY REPORT 11/01/2024 EXTERNAL XRAY REPORT 11/01/2024 LIPID PANEL WITH REFLEX TO DIRECT LDL [...] Anatomical Region Laterality Modality Radiographic Sue ging us Provider [facility] XR PROCEDURES Final Result * Lipid panel with reflex to direct LDL (08/28/2024 10:55 AM EDT) Cholesterol 112 0 - 200 mg/dL LAB CHEMISTRY METHOD 08/28/2024 3:16 PM EDT [facility] Triglycerides 66 0 - 150 mg/dL LAB CHEMISTRY METHOD 08/28/2024 3:16 PM EDT [facility] HDL 54 >=40 mg/dL LAB CHEMISTRY METHOD 08/28/2024 3:16 PM EDT [facility] LDL Calculated 45 0 - 100 mg/dL LAB CHEMISTRY METHOD 08/28/2024 3:16 PM EDT [facility] VLDL Cholesterol Jomar 13.2 mg/dL LAB CHEMISTRY METHOD 08/28/2024 3:16 PM EDT [facility] Non HDL Chol. (LDL+VLDL) 58 <145 mg/dL LAB CHEMISTRY METHOD 08/28/2024 3:16 PM EDT [facility] Chol/HDL Ratio 2.1 0.0 - 4.4 LAB CHEMISTRY METHOD 08/28/2024 3:16 PM EDT [facility] Blood Venous blood specimen / Unknown Venipuncture / Unknown 08/28/2024 10:55 AM EDT 08/28/2024 10:55 AM EDT Diana MIRANDA LAB BLOOD ORDERABLES Final Re sult [facility] [address] [place] [address], * Depression Screening (01/04/2024) Depression Screening Abstracted [...] Most Recently Relevant to Health Maintenance Insurance [facility] Care Teams Distribution Coordinator Relationship Specialty Start Date End Date Ariadna Jefferson MD [address] [place], [place] PCP - General Internal Medicine 11/23/21
--- OUTSIDE RECORDS SUMMARY | 2025-01-11 16:15 | XMS_ITS | Encounter Summary ---
Author Organization [facility] Address [address] [place] [address] Care Team Providers Care Motor Transport Inspector Name Role Phone Ariadna Jefferson MD Primary Care Pr ovider Reason for Visit * Reason Onset Date Comments Med Refill 01/08/2025 Zepbound Encounter Details Date Type Department Care Team (Late st Contact Info) Description 01/08/2025 Telephone Bariatric Surgery - [address] [place] [phone] Zan Edouard MD [address] [place] [phone] Social History Tobacco Use Types Packs/Day Years [...] PM EST documented as of this encounter Ordered Prescriptions Prescription Sig Dispense Quantity Refills Last Filled Start Date End Date tirzepatide, weight loss, (Zepbound) 15 mg/0.5 mL injection Inject 0.5 mL (15 mg total) under the skin every 7 (seven) days. 2 mL 5 01/09/2025 06/26/2025 documented in this encounter Progress Notes * Wanda Yuan - 01/08/2025 12:58 PM EDT Patient did well on Zepbound 15 mgs and would like a refill If appropriate, please send script for Zepbound 15 mgs to their pharmacy. The patient does have a follow up in 05/21/2025 documented in this encounter Plan of Treatment Upcoming Encounters Date Type Department Care Team (Late st Contact Info) Description 05/21/2025 1:15 PM EST Office Visit Bariatric Surgery - [place] [facility] [address] [place] [phone] Zan Edouard MD [address] [place] [phone] 07/29/2025 2:00 PM EDT Office Visit Obstetrics & Gynecology - [facility] [address] [place] [phone] Vanesa Valiente CNM [address] [place] [address] documented as of this encounter Visit Diagnoses Not on filedocumented in this encounter Discontinued Medications Medication Sig Discontinue Reason Start Date End Da te tirzepatide, weight loss, (Zepbound) 15 mg/0.5 mL injection Inject 0.5 mL (15 mg total) under the skin every 7 (seven) days. Reorder 12/05/2024 01/08/2025 documented as of this encounter Care Teams Motor Transport Inspector Relationship Specialty Start Date End Date Ariadna Jefferson MD [address] [place], [place] PCP - General Internal Medicine 11/23/21 documented as of this encounter
[2025-01-11 18:17] VITALS: BP 143/87; PULSE 62; RESP 18; TEMP 36.7; O2SAT 99
[2025-01-11 18:18] LABS: Appearance Urine Clear; Glucose Urine UA 250 mg/dL (Negative); PH 5.0 (5.0-9.0); Specific Gravity - Urine 1.025 (1.005-1.025); UMIC TRIGGER UACC YES
[2025-01-11 18:30] LABS: UACC Culture Trigger YES
[2025-01-11 20:42] LABS: Bacterial Vaginosis PCR NEGATIVE (Negative); Candida Group PCR NOT DETECTED (Not Detect); Candida glab krusei PCR NOT DETECTED (Not Detect); Trichomonas vaginalis PCR NOT DETECTED (Not Detect)
[2025-01-11 21:04] VITALS: BP 113/77; PULSE 69; RESP 16; TEMP 36.5; O2SAT 98
[2025-01-11 21:14] LABS: CT PCR NOT DETECTED (Not Detect.); NG PCR NOT DETECTED (Not Detect.)
[2025-01-11 21:42] VITALS: BP 113/77; PULSE 69; RESP 16; TEMP 36.5; O2SAT 98
== END 2025-01-11 21:10 | disposition home or self-care (01) ==
PROVIDERS: Physician Assistant; Registered Nurse Emergency; Emergency Provider Emergency Medicine; PCP Family Medicine
DX: R10.2 Pelvic and perineal pain (principal); R10.30 Lower abdominal pain, unspecified
CPT/HCPCS: 36415; 80053; 81001; 81515; 84702; 85025; 87086; 87491; 87591; 96372; 99284; J0696

== ENCOUNTER 2025-01-18 11:05 | Outpatient (AMB) | payer OTHER, SELFPAY ==
--- NOTE | 2025-01-18 11:10 | A.OFFVIS_ITS ---
Vital Signs 01/18/25 11:12 Height 5 ft 1 in Weight 190 lb BMI 35.9 Intake Visit Reasons: OV-MRI review/Ankylosing spondylitis lumbar region Intake Note: Zandra is a 44 year old female who presents today as a MRI Review of Ankylosing spondylitis lumbar region, 12/03/24. At today's visit she states no changes to report, right hip pain is still radiating down her leg. Allergies adalimumab (From Humira(CF)) Allergy (Intermediate, Verified 01/18/25 11:12) eczema lidocaine (LIDOCAINE) Allergy (Intermediate, Verified 01/18/25 11:12) UNKNOWN naproxen (NAPROXEN) Allergy (Intermediate, Verified 01/18/25 11:12) UNKNOWN, rash oxycodone (From PERCOCET) Allergy (Intermediate, Verified 01/18/25 11:12) UNKNOWN Sulfa (Sulfonamide Antibiotics) Allergy (Intermediate, Verified 01/18/25 11:12) rash sulfamethoxazole (From BACTRIM) Allergy (Intermediate, Verified 01/18/25 11:12) Rash trimethoprim (From BACTRIM) Allergy (Intermediate, Verified 01/18/25 11:12) Rash codeine Allergy (Verified 01/18/25 11:12) Itching etanercept (From Enbrel) Adverse Reaction (Intermediate, Verified 01/18/25 11:12) Diarrhea Novocain Allergy (Intermediate, Uncoded 11/01/24 11:03) rash HPI Comments Details: Previously followed by Dr. Urena and then Dr. Tabor (rheumatology) for ankylosing spondylitis and fibromyalgia. Previously on Humira which she had to discontinue after Dr. Tabor left. Previously seen by pain management in 2022, had plans for SI joint injection but on the day of injection, had left leg cellulitis. No injections done after. Reviewed past ER notes for cellulitis and back pain. Midline lower back, across the back, going to both hip/pelvic/groin areas, down to both legs. With numbness down both legs. Can't sit for too long, because gets tingling/numbness on both legs. Very slow to get up from seated position. Walking helps with the pain but tends to hunch over. No foot drop. Tends to lie down a lot due to the pain. Easily fatigued. No bladder/bowel changes. No recent PT. Busy family work, with 5 children. Tries her own leg exercises. She does try to tackle pain with movement . Here to review MRI findings. Which did not show any spinal stenosis or nerve compression. Hip x-rays were unremarkable as well. She does have a follow up with Rheumatology on 02/06/[address] Harris. We did review lumbar x-ray images in the past, did not appear bamboo like to me. Last HLA B27 in 2023 was negative. 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 GERD (gastroesophageal reflux disease) Depression Carpal tunnel syndrome Ankylosing spondylitis Surgical History Hx of umbilical hernia repair Hx of tubal ligation Family History Mother Diabetes Arthritis Father Diabetes Heart disease Social History Household Members: Family Housing: Apartment Are you a primary care attendant to a significant other at home: No Do you presently have visiting nurse or other home services: No 75 years or older and lives alone: No Alcohol intake: current Alcohol intake frequency: holidays/special occasions only Alcohol type: beer and wine Patient Tobacco Use Status: Never used Tobacco e-Cigarette/Vaping Use: Never Used Substance Use Type: Marijuana service: No Current occupational status: disabled Physical Exam Vital Signs: BMI result Body Mass Index 35.9 Constitutional: Patient appears to be in no acute distress, well nourished and well developed. Patient was appropriately conversant and oriented. Good historian. MSK: No specific abnormalities found on inspection of the spine and all extremities. No tenderness over SI joints or GT. Lumbar ROM was full. Neurological: Neurologic examination of the upper and lower extremities was nonfocal with intact sensation, muscle stretch reflexes and without focal motor deficits . Babinski was down going bilaterally. Clonus was negative. Gait is non antalgic without loss of balance. Results Reviewed Results Reviewed: Ordering Physician: Arianna Montalvo Date of Service: 11/01/24 Procedure(s): XR hip LT min 2V Accession Number(s): [id number] cc: Karen Pedraza MD; Arianna Montalvo~ CLINICAL HISTORY: M16.12 - Unilateral primary osteoarthritis, left hip Left hip two views Comparison: 11/16/2022 Findings: No acute fracture or dislocation identified. No acute focal bony abnormality. No radiopaque foreign body noted. Impression: No acute bony abnormality This document has been electronically signed by: Kunal Singleton MD on 11/01/2024 19:21:27 Ordering Physician: Arianna Montalvo Date of Service: 12/03/24 Procedure(s): MR lumbar spine wo con Accession Number(s): [id number] cc: Ariadna Jefferson MD; Arianna Montalvo~ EXAMINATION: MR LUMBAR SPINE WITHOUT CONTRAST CLINICAL INFORMATION: Low back pain. Weakness and numbness and pain, Lower extremities . COMPARISON: None available. TECHNIQUE: MRI of the lumbar spine was obtained using routine sequences without contrast. FINDINGS: Last rib-bearing vertebra labeled T12. Bone marrow inhomogeneity. Intrinsic hyperintense T1 bone lesion at L2 likely intraosseous hemangioma. Small marginal osteophyte formation, T10-11, T11-12. Decreased intervertebral disc height and signal, L1 to, L3-4 and L4-5 levels. Small focal hyperintense T2 signal in the posterior intervertebral disc L5-S1 likely focal annular fissure. Schmorl node superior endplate of T11. The alignment is normal. The conus medullaris ends at pedicle of L1 with normal signal. T11-12: No disc herniation. No neuroforamina stenosis. T12-L1: No disc herniation. No neuroforamina stenosis. L1-2: No disc herniation. No neuroforamina stenosis. L2-3: Broad-based disc bulging. Facet joint and ligamentum flavum hypertrophy. No compression upon neural elements. L3-4: Broad-based disc bulging. Facet joint and ligamentum flavum hypertrophy. Reduced AP diameter of the thecal sac. No neuroforamina stenosis. L4-5: Broad-based disc bulging. Facet joint and ligamentum flavum hypertrophy. Reduced AP diameter of the thecal sac and neuroforamina. L5-S1: Broad-based disc bulging. Facet joint hypertrophy. No compression upon neural elements. No prevertebral compartment hematoma, mass or fluid collection. MR/MR lumbar spine wo con IMPRESSION: Multilevel spondylosis, T10-11, T11-12, L3-4 and L4-5 levels pronounced at L4-5 without compression upon neural elements. Electronically signed by: Hammad Foster MD 12/03/2024 11:01 AM EDT RP Assessment & Plan Assessment & Plan (1) Ankylosing spondylitis: Comment: dx 2015 HLA b27 -ve [id number] Humira effective for spine, DC due to multiple skin side effects such as eczema, hidradenitis suppurativa Enbrel 2021 DC due to diarrhea Code(s): M45.9 - Ankylosing spondylitis of unspecified sites in spine Category: Medical Qualifiers: Ankylosing spondylitis location: lumbar region Qualified Code(s): M45.6 - Ankylosing spondylitis lumbar region Plan We obtained lumbar spine MRI to rule out spinal stenosis because I thought she was complaining of claudication. However, MRI pretty much unremarkable. Minimal disc bulge symmetric on L5-S1, no spinal stenosis or nerve compression. Maybe pain is myofascial. Maybe it is from ankylosing spondylitis. She is finally seeing Rheumatology again on 02/06/2025. Assessment and plan discussed with patient, and patient was agreeable. All questions were answered thoroughly. rAianna Nicholson MD, JOSÉ LUIS Board Certified, [place] [employer] Physical Medicine and Rehabilitation (ABPMR) Board Certified, [place] Board of Electrodiagnostic Medicine (ABEM) Coding Level of Care Code Est Pt Level 3 (89065) Diagnoses Ankylosing spondylitis of lumbar region M45.6 Ankylosing spondylitis location: lumbar region
[2025-01-18 11:12] VITALS: BMI 35.9
--- OUTSIDE RECORDS SUMMARY | 2025-01-18 13:01 | XMS_ITS | Clinical Summary ---
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 Do not swallow. Pyoderma gangrenosum ([facility] V28) 01/04/2024 Osteoarthritis of lumbar spine with myelopathy 0 01/04/2024 Vitamin D deficiency 01/04/2024 Acquired trigger finger of left middle finger HSV infection 07/08/2023 Basilar artery aneurysm ([facility] V24) 07/08/2023 Overview (02/21/2024): [...] of the basilar artery, congenital variant of [place], minimal flow in the distal [...] follow-up MRA/MRV head in 1 year at [facility]. She has upcoming appointments with vascular [...] Uncomfortable. Referred to surgery Ankylosing spondylitis of [facility] ([facility] V24, [facility] V28) 08/31/2019 Overview (02/21/2024): Sclerotic changes on lumbar MRI 2019 Assessment & Plan (08/29/2024 7:22 PM EDT): Continue rheumatology follow-up. 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 IMO update Major depressive disorder, recurrent ([facility] V2 4) 07/17/2007 Assessment & Plan (08/29/2024 7:22 PM EDT): Continue Lexapro 20 mg daily. Continue follow-up with her psychiatrist Resolved Problems Problem Noted Date Diagnosed Date Resolved Date Asthma 03/15/2024 08/29/2024 with history of mu ltiple loss 09/03/2010 08/29/2024 Overview (03/15/2024): Genetic consult Loss also at 20 weeks Morbid obesity with BMI of 4 0.0-44.9, adult ([facility] V24, [facility] V28) 08/29/2024 Encounters Date Type Department Care Team Description 01/08/2025 Telephone Bariatric Surgery [address] [phone] Zan Edouard MD 12/04/2024 Telephone Bariatric Surgery [facility] [address] [phone] Zan Edouard MD 12/03/2024 Telephone Adult Medicine [address] [phone] Ariadna Jefferson MD 11/07/2024 Telephone Bariatric Surgery [address] [phone] Margot Cruz PA from Last 3 Months Immunizations Name Administration [...] latest 14 wk aog ESOPHAGOGASTRODUODENOSCOPY 01/03/2001 PROCEDURE: [place] ESOPHAGOGASTRODUODENOSCOPY TRANSORAL DIAGNOSTIC; COMMENT: [facility] - normal; [...] syndrome DX:Irri table bowel syndrome Rheumatoid arthritis ([facility]/ [facility] V24, [facility] V28) DX:Rheumatoid arthritis (HCC ) Psoriasis DX:Psoriasis Ankylosing spondylitis ([facility]/ [facility] V24, [facility] V28) DX:Ankylosing spondylitis ([facility]) Genital herpes 07/17/2007 DX:Genital herpe s; COMMENT: Will need prophylaxis in the third trimester. IMO update Diarrhea DX:Diarrhea with history of mu ltiple loss 09/03/2010 Genetic consult Loss also at 20 weeks Morbid obesity with BMI of 4 0.0-44.9, adult ([facility] V24, [facility] V28) Family History Medical History Relation Name [...] information No Known Problems Maternal Grandmother st lee most likely had health issues but i [...] Care Team (Late st Contact Info) Description 02/20/2025 1:00 PM EDT Office Visit Adult Medicine [facility] [address] [place] [address] Diana Hawthorne PA [address] [place] [address] 02/25/2025 11:15 AM EDT Office Visit Obstetrics and Gynecology - [address] [phone] Sharon Avery, LUCITA [address] [place] [address] 05/21/2025 1:15 PM EST Office Visit Bariatric Surgery - [place] 175 [facility] [address] [place] [phone] Zan Edouard MD [address] [place] [phone] 07/29/2025 2:00 PM EDT Office Visit Obstetrics & Gynecology - [facility] [address] [place] [phone] Vanesa Valiente, [facility] [address] [place] [address] Health Maintenance Due Date Last Done Comments [...] Re sult [facility] [address] [place] [address], [place] [phone] * Depression Screening (01/04/2024) Depression Screening Abstracted [...] Most Recently Relevant to Health Maintenance Insurance [employer] Care Teams Records Management Specialist Relationship Specialty Start Date End Date Ariadna Jefferson MD [address] [place], [place] PCP - General Internal Medicine 11/23/21
== END 2025-01-18 12:27 | disposition home or self-care (01) ==
LOC: HO.HOS 11:06
PROVIDERS: PCP Family Medicine; Visit Provider Physical Medicine & Rehabilitation
DX: M45.6 Ankylosing spondylitis lumbar region (principal)
CPT/HCPCS: 99213

== ENCOUNTER → 2025-01-18 11:05 | Outpatient (BNVA) | payer OTHER, SELFPAY | PROVIDERS: PCP Family Medicine; Visit Provider Physical Medicine & Rehabilitation | DX: M45.6 Ankylosing spondylitis lumbar region (principal) | CPT/HCPCS: 99212 ==